=== PATIENT | female | born 1990 | race Caucasian/White ===

== ENCOUNTER 2024-10-01 02:10 | Observation (INO) | payer MEDICAID, SELFPAY ==
[2024-10-01] VITALS (39 sets, daily range): BP systolic 105–131; BP diastolic 63–95; PULSE 102–143; TEMP 36.7–37.1; O2SAT 86–99; BMI 36.8; BMI 39.0
--- NOTE | 2024-10-01 02:18 | XR_ITS ---
The [address] [address] Patient Name: MAYELA DOW MRN: [id number] date: 1990 Sex: F Assigned Patient Location: ED.MAIN Current Patient Location: ED.MAIN Accession/Order Number: [id number] Exam Date: 10/01/2024 02:30 Report Date: 10/01/2024 04:58 At the request of: ED RIGGS Procedure: XR chest 1V EXAMINATION: XR chest 1V HISTORY: SOB COMPARISON: No relevant comparison available. FINDINGS: LUNGS: No significant pulmonary parenchymal abnormalities. VASCULATURE: No increased pulmonary vasculature. PLEURA: No pneumothorax, effusion, or pleural thickening. CARDIAC: No cardiomegaly or cardiac silhouette abnormality. MEDIASTINUM: No visible mass or adenopathy. BONES: No fracture or visible bone lesion. OTHER: Negative. XR/XR chest 1V IMPRESSION: 1. No acute cardiopulmonary process. Electronically authenticated by: ONEIL PRICE Date: 10/01/2024 04:58
--- NOTE | 2024-10-01 02:18 | ECG_ITS ---
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
--- NOTE | 2024-10-01 02:23 | ED.SOB1 ---
HPI - SOB/Dyspnea General Chief Complaint: Overdose Time Seen by Provider: 10/01/24 02:17 Source: patient Mode of arrival: ambulance Limitations: no limitations History of Present Illness HPI Narrative: This 34-year-old transgender male, formerly female who now goes by Crew is brought to the emergency department from his parents home after he accidentally overdosed. The patient states he has a friend who uses heroin. He offered him some crack cocaine earlier today which he accepted. He states he has not used crack cocaine in a long time. He does go to drug and alcohol counseling with [facility] in [place]. The last thing the patient remembers is that he was going into her room and felt kind of dizzy. He was going to turn the television on and watch a show and then woke up with EMS above him. The patient does not smoke cigarettes. He states he has a history of severe asthma. According to EMS he was given intranasal Narcan and [id number] with clinical improvement in his mental status and awakened easily. They were suspicious that he may have aspirated because there was vomit in his nose and around his mouth. He was given a breathing treatment en route to the hospital but states his chest still feels tight. He denies any abdominal pain. He has no lower extremity pain or swelling. The patient's mother arrived shortly after he did. She states that he was unresponsive for approximately 30 minutes with snoring respirations, at 1 point he fell off of the bed. She noticed that there was blood coming from the nose and mouth and she called EMS and was told to put him in a recovery position. The patient admits that he had a large Thanksgiving dinner earlier in the day and had to pops at dinner, he then went to work and had 2 additional pops and then left work and went to [place] and had 2 monster drinks both which were sugar containing drinks. He admits that he is noncompliant with his Trulicity and metformin. I asked why and he stated because he is lazy. He did admit to 1 episode of vomiting after dinner because he states he ate so much. Related Data Home Medications ?Medication ?Instructions ?Recorded ?Confirmed albuterol sulfate 90 mcg/actuation 2 puff inhalation Q6H PRN 10/01/24 10/01/24 aerosol inhaler shortness of breath or wheezing aripiprazole 400 mg suspension, 400 mg IM Q28D 10/01/24 10/01/24 extended rel.intramuscular syringe (Steven Hernandez) buspirone 10 mg tablet 10 mg PO BID 10/01/24 10/01/24 dulaglutide 0.75 mg/0.5 mL 0.75 mg subcut .Weekly 10/01/24 10/01/24 subcutaneous pen injector (Trulicity) fluconazole 100 mg tablet mg 10/01/24 fluticasone propionate 50 intranasal 10/01/24 mcg/actuation nasal spray,suspension ipratropium 0.5 mg-albuterol 3 mg 2.5 ml inhalation DAILY 10/01/24 10/01/24 (2.5 mg base)/3 mL nebulization soln lamotrigine 25 mg tablet mg 10/01/24 sertraline 50 mg tablet mg 10/01/24 testosterone enanthate 50 mg/0.5 50 mg subcut Q7D 10/01/24 10/01/24 mL subcutaneous auto-injector (Xyosted) Allergies Allergy/AdvReac Type Severity Reaction Status Date / Time paroxetine (From Paxil) Allergy Anaphylaxis Verified 10/01/24 02:20 bupropion (From Wellbutrin) AdvReac Hallucinati Verified 10/01/24 02:20 ng Review of Systems ROS Status of ROS 10 or more systems reviewed and unremarkable except as noted in history and below PFSH PFSH Social History Little interest or pleasure in doing things: not at all Feeling down, depressed, or hopeless: not at all Exam Narrative Exam Narrative: Vital signs and Nursing Notes reviewed: Patient is afebrile, tachycardic, normal blood pressure, patient is hypoxic upon arrival with pulse ox in the 90s, pulse ox improved to 95 on 6 L nasal cannula General: Awake, alert, oriented, no acute distress, lying comfortably on the stretcher HEENT: Normocephalic atraumatic, mucous membranes are moist with dried blood in the oropharynx, no active bleeding or tongue contusion noted Neck: Supple, no meningeal signs Chest: Breath sounds are diminished with coarse anterior and upper lung field rhonchi and scattered rales, no accessory muscle use, patient is speaking complete sentences, he was notably hypoxic upon arrival with pulse ox in the 80s, he was placed on supplemental oxygen with improvement to 95% on 6 L nasal cannula CVS: Regular rate and rhythm S1-S2, tachycardic with pulse in the 130s, pulses are brisk and equal ABD: Soft, nondistended, nontender, no rebound guarding or rigidity, bowel sounds are normal, no pulsatile masses appreciated Extremities: Moving all extremities, no lower extremity tenderness or swelling noted, negative Homans' sign, pulses are brisk and equal bilaterally Skin: Normal in appearance without rash,pallor, petechiae or purpura, multiple tattoos Neuro: No focal deficits Constitutional Vital Signs, click to edit/add: Last Vital Signs Temp 98.7 F 10/01/24 02:13 Pulse 118 H 10/01/24 04:40 Resp 20 10/01/24 06:02 BP 111/70 10/01/24 04:30 Pulse Ox 96 10/01/24 04:40 O2 Del Method Nasal Cannula 10/01/24 04:34 O2 Flow Rate 6 10/01/24 04:34 Course Vital Signs Vital signs: Vital Signs Blood Pressure 118/95 H 10/01/24 02:09 Temperature 98.7 F 10/01/24 02:13 Pulse Rate 118 H 10/01/24 04:40 Respiratory Rate 20 10/01/24 06:02 Blood Pressure 111/70 10/01/24 04:30 Pulse Oximetry 96 10/01/24 04:40 Oxygen Delivery Method Nasal Cannula 10/01/24 04:34 Oxygen Delivery Flow Rate 6 10/01/24 04:34 MDM - SOB/Dyspnea MDM Narrative Medical decision making narrative: This 34-year-old transgender male is brought to the emergency department by EMS. His mother found him unresponsive in his bedroom after going to [employer] with some friends. He has a history of substance abuse but denies that he has been using any illicit substances for a period of time however today felt weak and agreed to use some crack cocaine. After using crack cocaine he became dizzy and unresponsive. His mother found him in his bedroom unresponsive. She could not wake him up for approximately 30 minutes at which time he fell off of the bed. She noticed that there was blood coming from his nose and/or mouth. According to EMS he required Narcan for resuscitation and some supplemental oxygen. They thought he may have aspirated due to the blood in the nose and mouth. There was no vomiting at the scene. The patient has a history of poorly controlled diabetes and medication noncompliance. Upon arrival he was awake alert oriented, he was noted to be hypoxic with pulse ox in the 80s. He was placed on supplemental oxygen with clinical improvement. He denies that he is cigarettes because of his history of asthma. Upon arrival he was tachycardic, hypoxic, chest x-ray was ordered that does not show any acute findings. EKG done upon arrival was a sinus tachycardia. An IV was placed and he was medicated with IV Solu-Medrol, DuoNeb treatment and IV fluids. Routine labs are reviewed. He has an elevated white count at 23. Hemoglobin is concentrated at 19. Lactic acid is elevated. Troponin is elevated at 66. Glucose is markedly elevated at 643 which may be a reflection of the dietary noncompliance and medication noncompliance that the patient admits to. Urine tox is positive for cocaine only. Liver function tests are normal. Due to the possibility of aspiration and elevated white count and tachycardia patient was empirically treated with with IV Zosyn for aspiration pneumonia. On reevaluation after a DuoNeb treatment the lungs continue to have coarse rhonchi but the patient appears to be breathing with less discomfort. In addition to the IV fluids 10 units of IV insulin was ordered for the hyperglycemia. I added on an acetone and venous pH to rule out DKA. Repeat troponin was also ordered. She has a normal acetone. pH is mildly low at 7.276, pCO2 is elevated at 53.8. Repeat troponin went up to 191. She was given 324 mg baby aspirin and additional IV fluids. Repeat lactic acid is also elevated at 4.3. 1 view chest x-ray was read by radiology and is negative for acute findings. Persistently tachycardic now with increasing lactic acidosis which may be related to her episode of respiratory distress during her overdose complicated by her tachycardia and hyperglycemia a CT scan of her chest was ordered to rule out other pathology contributing to these laboratory abnormalities. BNP is normal. CTA of the chest is pending at the time of this dictation. The case was discussed at length with Dr. Greer who has accepted the patient for admission Lab Data Attestation: I reviewed the patient's lab results. Labs: Lab Results 10/01/24 10/01/24 10/01/24 Range/Units 02:38 02:50 04:05 WBC 23.3 H (4.0-11.0) 10^3/uL RBC 6.57 H (4.20-5.40) 10^6/uL Hgb 19.2 H (12.0-16.0) g/dL Hct 57.9 H (36.0-48.0) % MCV 88.1 (81.0-99.0) fL MCH 29.2 (26.7-34.0) pg MCHC 33.2 (29.9-35.2) g/dL RDW 13.4 (11.0-15.0) % Plt Count 285 (150-450) 10^3/uL MPV 11.7 (9.5-13.5) fL Seg Neuts % (Manual) 89.0 H (43.0-75.0) Band Neutrophils % 1.0 (0-5) % Lymphocytes % (Manual) 3.0 L (20.5-60.0) % Monocytes % (Manual) 7.0 (1.7-12.0) % Eosinophils % (Manual) 0.0 L (0.9-7.0) % Basophils % (Manual) 0.0 L (0.2-2.0) % Neutrophils # (Manual) 20.73 H (1.4-6.5) 10^3/uL Band Neutrophils # 0.2 (0.0-0.3) 10^3/uL Lymphocytes # (Manual) 0.69 L (1.20-3.80) 10^3/uL Monocytes # (Manual) 1.63 H (0.30-0.80) 10^3/uL Eosinophils # (Manual) 0.00 (0.00-0.70) 10^3/uL Basophils # (Manual) 0.00 (0.00-0.10) 10^3/uL Toxic Vacuolation 3+ VBG pH 7.276 L (7.330-7.430) VBG pCO2 53.8 H (40.0-52.0) mmHg Sodium 134 L (136-145) mmol/L Potassium 4.2 (3.5-5.1) mmol/L Chloride 98 (98-107) mmol/L Carbon Dioxide 23.3 (21.0-32.0) mmol/L Anion Gap 16.9 BUN 10.0 (7.0-18.0) mg/dL Creatinine 1.41 H (0.55-1.02) mg/dL Est GFR ( Amer) 52 L (>=60 mL/min/1.73m^2) Est GFR (Non-Af Amer) 43 L (>=60 mL/min/1.73m^2) BUN/Creatinine Ratio 7.1 Glucose 643 H* (74-106) mg/dL Lactate 3.7 H* (0.4-2.0) mmol/L Calcium 9.4 (8.5-10.1) mg/dL Total Bilirubin 0.5 (0.2-1.0) mg/dL AST 23 (15-37) U/L ALT 40 (14-59) U/L Alkaline Phosphatase 122 H (46-116) U/L Troponin I High Sens 66.2 H* 191.9 H* (4.0-51.3) pg/mL NT-Pro-B Natriuret Pep 11.0 (<=450.0) pg/mL Total Protein 8.1 (6.4-8.2) g/dL Albumin 3.7 (3.4-5.0) g/dL Globulin 4.4 g/dL Albumin/Globulin Ratio 0.8 Urine Opiates Screen Negative (NEGATIVE) Ur Buprenorphine Scrn Negative (NEGATIVE) Ur Oxycodone Screen Negative (NEGATIVE) Urine Methadone Screen Negative (NEGATIVE) Ur Barbiturates Screen Negative (NEGATIVE) U Tricyclic Antidepress Negative (NEGATIVE) Ur Phencyclidine Scrn Negative (NEGATIVE) Ur Amphetamines Screen Negative (NEGATIVE) U Methamphetamines Scrn Negative (NEGATIVE) U Benzodiazepines Scrn Negative (NEGATIVE) Urine Cocaine Screen Positive A (NEGATIVE) U Cannabinoids Screen Negative (NEGATIVE) Acetone, Qual Negative (NEGATIVE) POC Glucose (74-106) mg/dL 10/01/24 10/01/24 Range/Units 04:50 06:15 WBC (4.0-11.0) 10^3/uL RBC (4.20-5.40) 10^6/uL Hgb (12.0-16.0) g/dL Hct (36.0-48.0) % MCV (81.0-99.0) fL MCH (26.7-34.0) pg MCHC (29.9-35.2) g/dL RDW (11.0-15.0) % Plt Count (150-450) 10^3/uL MPV (9.5-13.5) fL Seg Neuts % (Manual) (43.0-75.0) Band Neutrophils % (0-5) % Lymphocytes % (Manual) (20.5-60.0) % Monocytes % (Manual) (1.7-12.0) % Eosinophils % (Manual) (0.9-7.0) % Basophils % (Manual) (0.2-2.0) % Neutrophils # (Manual) (1.4-6.5) 10^3/uL Band Neutrophils # (0.0-0.3) 10^3/uL Lymphocytes # (Manual) (1.20-3.80) 10^3/uL Monocytes # (Manual) (0.30-0.80) 10^3/uL Eosinophils # (Manual) (0.00-0.70) 10^3/uL Basophils # (Manual) (0.00-0.10) 10^3/uL Toxic Vacuolation VBG pH (7.330-7.430) VBG pCO2 (40.0-52.0) mmHg Sodium (136-145) mmol/L Potassium (3.5-5.1) mmol/L Chloride (98-107) mmol/L Carbon Dioxide (21.0-32.0) mmol/L Anion Gap BUN (7.0-18.0) mg/dL Creatinine (0.55-1.02) mg/dL Est GFR ( Amer) (>=60 mL/min/1.73m^2) Est GFR (Non-Af Amer) (>=60 mL/min/1.73m^2) BUN/Creatinine Ratio Glucose (74-106) mg/dL Lactate 4.3 H* (0.4-2.0) mmol/L Calcium (8.5-10.1) mg/dL Total Bilirubin (0.2-1.0) mg/dL AST (15-37) U/L ALT (14-59) U/L Alkaline Phosphatase (46-116) U/L Troponin I High Sens (4.0-51.3) pg/mL NT-Pro-B Natriuret Pep (<=450.0) pg/mL Total Protein (6.4-8.2) g/dL Albumin (3.4-5.0) g/dL Globulin g/dL Albumin/Globulin Ratio Urine Opiates Screen (NEGATIVE) Ur Buprenorphine Scrn (NEGATIVE) Ur Oxycodone Screen (NEGATIVE) Urine Methadone Screen (NEGATIVE) Ur Barbiturates Screen (NEGATIVE) U Tricyclic Antidepress (NEGATIVE) Ur Phencyclidine Scrn (NEGATIVE) Ur Amphetamines Screen (NEGATIVE) U Methamphetamines Scrn (NEGATIVE) U Benzodiazepines Scrn (NEGATIVE) Urine Cocaine Screen (NEGATIVE) U Cannabinoids Screen (NEGATIVE) Acetone, Qual (NEGATIVE) POC Glucose 412 H (74-106) mg/dL ECG Data Attestation: I personally reviewed and interpreted this ECG as follows: (Rapid atrial rhythm at 133 bpm, nonspecific ST changes, normal axis, possible right ventricular hypertrophy, no acute ST segment elevation or T wave inversion) Critical Care Time Critical Care Time Total Critical Care Time: 40 Attestation: Due to the presentation and unstable vital signs and high probability of sudden clinically significant deterioration in the patient's condition he required the highest level of my preparedness to intervene urgently. I provided critical care time including documentation time medication orders and management reevaluation vital sign assessment ordering and reviewing of lab tests radiographic studies consultation with hospitalist and admission orders. Aggregate critical care time is 40 minutes including only time during which I was engaged in work directly related to this patient and did not spend time treating other patients simultaneously Discharge Plan Discharge Chief Complaint: Overdose Clinical Impression: Drug overdose, Cocaine intoxication, Hyperglycemia due to type 2 diabetes mellitus, Aspiration into respiratory tract, Hypoxia, Elevated troponin Patient Disposition: Admitted As Inpatient Time of Disposition Decision: 06:28 Condition: Serious Prescriptions / Home Meds: No Action albuterol sulfate 90 mcg/actuation HFA aerosol inhaler 2 puff INHALATION Q6H PRN (Reason: shortness of breath or wheezing) Abilify Maintena 400 mg suspension,extended rel syring 400 mg IM Q28D Rx Instructions: Monthly buspirone 10 mg tablet 10 mg PO BID Trulicity 0.75 mg/0.5 mL pen injector 0.75 mg SUBCUT .Weekly fluconazole 100 mg tablet fluticasone propionate 50 mcg/actuation spray,suspension INTRANASAL ipratropium-albuterol 0.5 mg-3 mg(2.5 mg base)/3 mL solution for nebulization 2.5 ml INHALATION DAILY lamotrigine 25 mg tablet sertraline 50 mg tablet Xyosted 50 mg/0.5 mL auto-injector 50 mg SUBCUT Q7D Print Language: Syriac Referrals: Physician,Non-Staff, [Physician] - 1 week
[2024-10-01] MEDS: IPRATROPIUM/ALBUTEROL SULFATE 3 ML AMPUL.NEB IH (02:30)
[2024-10-01 02:53] LABS: Hematocrit 57.9 % (36.0-48.0); Hemoglobin 19.2 g/dL (12.0-16.0); Mean Corpuscular HGB Conc 33.2 g/dL (29.9-35.2); Mean Corpuscular Hemoglobin 29.2 pg (26.7-34.0); Mean Corpuscular Volume 88.1 fL (81.0-99.0); Mean Platelet Volume 11.7 fL (9.5-13.5); Platelet Count 285 10^3/uL (150-450); Red Blood Count 6.57 10^6/uL (4.20-5.40); Red Cell Distribution Width 13.4 % (11.0-15.0); White Blood Count 23.3 10^3/uL (4.0-11.0)
[2024-10-01] MEDS: METHYLPREDNISOLONE SOD SUCC PF 125 MG/2 ML VIAL IVP (03:03)
[2024-10-01] MEDS: ONDANSETRON PF 4 MG/2 ML VIAL IV (03:03)
[2024-10-01] MEDS: LORAZEPAM 2 MG/ML VIAL 1 MG IV (03:03)
[2024-10-01] MEDS: 0.9 % SODIUM CHLORIDE 1,000 ML 1000 ML IV ×2 (03:03→06:07)
[2024-10-01 03:04] LABS: Band Neutrophils Absolute 0.2 10^3/uL (0.0-0.3); Lymphocytes Absolute Manual 0.69 10^3/uL (1.20-3.80); Monocytes Absolute Manual 1.63 10^3/uL (0.30-0.80); Segmented Neut Absolute Manual 20.73 10^3/uL (1.4-6.5)
[2024-10-01 03:05] LABS: Toxic Vacuolation 3+
[2024-10-01 03:12] LABS: Alanine Aminotransferase 40 U/L (14-59); Albumin Globulin Ratio 0.8; Albumin Level 3.7 g/dL (3.4-5.0); Alkaline Phosphatase 122 U/L (46-116); Anion Gap 16.9; Aspartate Amino Transferase 23 U/L (15-37); BUN Creatinine Ratio 7.1; Bilirubin Total 0.5 mg/dL (0.2-1.0); Calcium 9.4 mg/dL (8.5-10.1); Carbon Dioxide 23.3 mmol/L (21.0-32.0); Chloride 98 mmol/L (98-107); Estimated GFR (African America 52 (>=60 mL/min/1.73m^2); Estimated GFR (Non-African Ame 43 (>=60 mL/min/1.73m^2); Globulin 4.4 g/dL; Potassium 4.2 mmol/L (3.5-5.1); Sodium 134 mmol/L (136-145); Total Protein 8.1 g/dL (6.4-8.2)
[2024-10-01 03:15] LABS: Glucose 643 mg/dL (74-106); Lactate/Lactic Acid 3.7 mmol/L (0.4-2.0); Troponin I High Sensitivity 66.2 pg/mL (4.0-51.3)
[2024-10-01 03:23] LABS: Cocaine Screen Urine POSITIVE (NEGATIVE)
[2024-10-01 03:24] LABS: Amphetamine Screen Urine NEGATIVE (NEGATIVE); Barbiturates Screen Urine NEGATIVE (NEGATIVE); Benzodiazepines Screen Urine NEGATIVE (NEGATIVE); Buprenorphine Screen Urine NEGATIVE (NEGATIVE); Cannabinoid Screen Urine NEGATIVE (NEGATIVE); Methadone Screen Urine NEGATIVE (NEGATIVE); Methamphetamines Screen Urine NEGATIVE (NEGATIVE); Opiate Screen Urine NEGATIVE (NEGATIVE); Oxycodone Screen Urine NEGATIVE (NEGATIVE); Phencyclidine Screen Urine NEGATIVE (NEGATIVE); Tricyclic Antidepressant Urine NEGATIVE (NEGATIVE)
[2024-10-01 03:32] LABS: Acetone NEGATIVE (NEGATIVE)
[2024-10-01] MEDS: INSULIN REGULAR, HUMAN (100 UNIT/ML) 10 ML MDV 10 UNIT IV (03:48)
[2024-10-01] MEDS: PIPERACILLIN SODIUM/TAZOBACTAM 3.375 GM in 0.9 % SODIUM CHLORIDE 50 ML IV ×2 (03:49→10:41)
[2024-10-01] MEDS: ASPIRIN 81 MG TAB.CHEW 324 MG PO (03:49)
[2024-10-01 04:10] LABS: PCO2 VBG 53.8 mmHg (40.0-52.0); pH VBG 7.276 (7.330-7.430)
[2024-10-01] MEDS: LEVALBUTEROL HCL 1.25 MG/3 ML VIAL NEB IH (04:33)
[2024-10-01 04:40] LABS: Troponin I High Sensitivity 191.9 pg/mL (4.0-51.3)
[2024-10-01 05:17] LABS: Lactate/Lactic Acid 4.3 mmol/L (0.4-2.0)
--- NOTE | 2024-10-01 05:19 | CT_ITS ---
[address] [address] Patient Name: MAYELA DOW MRN: [id number] date: 1990 Sex: F Assigned Patient Location: ER Current Patient Location: ED.MAIN Accession/Order Number: [id number] Exam Date: 10/01/2024 05:45 Report Date: 10/01/2024 06:53 At the request of: ED MARKER Procedure: CT angio chest EXAMINATION: CT angio chest HISTORY: hypoxia, SOB COMPARISON: No relevant comparison available. TECHNIQUE: Multi-planar CT images were created with IV contrast. Axial, Coronal, and Sagittal images. Dose reduction techniques were achieved by using automated exposure control and/or adjustment of mA and/or kV according to patient size and/or use of iterative reconstruction technique. 3-D reconstruction was performed on a separate workstation. FINDINGS: VASCULATURE: No pulmonary embolism or abnormal opacity. LUNGS: Marked patchy and confluent opacities throughout the lungs, left greater than right. PLEURA: No mass, effusion, or pneumothorax. MARY: No mass or adenopathy. MEDIASTINUM: No mass or adenopathy. CARDIAC: No enlargement, pericardial effusion, or pericardial thickening. AORTA: No aneurysm or dissection. CHEST WALL: No mass or axillary adenopathy. BONES: No bone lesion or fracture. LIMITED ABDOMEN: No suspicious findings. Limited images of the upper abdomen. OTHER: Negative. CT/CT angio chest IMPRESSION: 1. No pulmonary embolism. 2. Marked bilateral pulmonary infiltrates; pulmonary edema is favored. Electronically authenticated by: ONEIL PRICE Date: 10/01/2024 06:53
--- NOTE | 2024-10-01 06:03 | PC.NURSE ---
Coarse crackles throughout.
[2024-10-01 06:16] LABS: Glucometer 412 mg/dL (74-106)
[2024-10-01 06:35] LABS: ABG PCO2 41.2 mmHg (35.0-45.0); Allen Test POSITIVE (POSITIVE); Base Excess ABG -3.8 mmol/L (-2.0-2.0); Oxygen Saturation ABG 99.3 %; pH ABG 7.336 (7.350-7.450)
[2024-10-01 06:36] LABS: Liters per Minute 6; O2 Mode NASAL CANNULA; Puncture Site R RADIAL
[2024-10-01] MEDS: FLUCONAZOLE 150 MG TABLET PO (07:13)
--- NOTE | 2024-10-01 08:00 | CA_ITS ---
Patient Name: MAYELA DOW MR#: [id number] : 1990 Exam Date: 10/01/2024 Ordering Doctor: Shaikh Pantera Greer . ECHOCARDIOGRAM REPORT PROCEDURE: CA ECHO DOPPLER COMPLETE INDICATIONS: acute CHF, elevated TROP COMPARISON: None. DESCRIPTION: COMPLETE ECHOCARDIOGRAM Real-time transthoracic echocardiography with 2D, M-mode, spectral and color flow Doppler performed. QUALITY: Technically difficult due to patients condition. LEFT VENTRICLE: Normal chamber size. Thickened septal wall. Systolic function is normal. LV EF: Normal left ventricular ejection fraction, (>55%). DIASTOLIC: Normal diastolic function. ATRIAL SEPTUM: LEFT ATRIUM: Normal chamber size. RIGHT ATRIUM: Normal chamber size. RIGHT VENTRICLE: Normal chamber size. Normal right ventricular systolic function. TRICUSPID VALVE: Normal mobility and thickness. No stenosis with no regurgitation. MITRAL VALVE: Normal mobility and thickness. No evidence of mitral valve stenosis. There is no mitral annular calcification. No mitral regurgitation. AORTIC VALVE: Normal trileaflet appearance. No visible sclerosis. Normal leaflet mobility. No evidence of aortic valve stenosis. No aortic regurgitation. AORTIC ROOT: Normal diameter and appearance. Ascending aorta is normal in size. PULMONIC VALVE: Normal thickness and mobility. No stenosis. No regurgitation. PERICARDIUM: No evidence of pericardial effusion. IVC: Not well visualized. PLEURA: CONCLUSION: 1. Technically difficult study with poor sound transmission. 2. Ventricular function is normal. LVEF is estimated at 55 to 60%. 3. No significant valvular dysfunction. 4. No pericardial effusion. Adult Echocardiography Procedure Report Left Ventricle LVEDD (3.7 - 5.6 cm): 3.45 cm, 3.63 cm LVESD (2.2 - 4.0 cm): 2.75 cm LVIVS thickness (0.6 - 1.2 cm): 1.24 cm, 1.36 cm LVPW thickness (0.5 - 1.0 cm): 1.04 cm e': 0.13 m/s E - e': 4.62 LVOT Max Gradient: 3.15 mm[Hg] LVOT Area (cm2): 0.89 m/s Peak Velocity (LVOT): 0.89 m/s Mean Velocity (LVOT): 0.59 m/s LVOT Diameter 2.16 cm Left Atrium Left Atrium Systolic Dimension: 3.07 cm Mitral Valve MV E to A Ratio: 0.75 Mitral Valve A-Wave Peak Velocity: 0.79 m/s Mitral Valve E-Wave Peak Velocity: 0.59 m/s Right Ventricle Aorta AO Root Diam: 3.29 cm Ascending Ao Diam: 2.77 cm Aortic Valve AoV Area (Peak Brad): 2.57 cm2, 2.57 cm2 AoV Area (VTI): 3.06 cm2, 3.06 cm2 Peak Velocity(Antegrade Flow): 1.27 m/s Peak Gradient(Antegrade Flow): 6.41 mm[Hg] Mean Velocity(Antegrade Flow): 0.80 m/s Mean Gradient(Antegrade Flow): 3.10 mm[Hg] Velocity Time Integral: 21.15 cm Tricuspid Valve Pulmonic Valve Mean Gradient: 1.50 mm[Hg] Mean Velocity: 0.57 m/s Peak Velocity: 0.86 m/s, 0.88 m/s Peak Gradient: 3.11 mm[Hg], 2.96 mm[Hg] Right Atrium Right Atrium Systolic Pressure: 43.64 ml, 43.64 ml Dictated by: Silvestre Duke M.D. on 10/01/2024 at 14:42 Approved by: Silvestre Duke M.D. on 10/01/2024 at 14:45
[2024-10-01 08:30] LABS: Estimated Average Glucose 243 mg/dL; Glycohemoglobin A1C 10.1 % (4.5-6.2)
[2024-10-01 08:40] LABS: Lactate/Lactic Acid 3.6 mmol/L (0.4-2.0); Troponin I High Sensitivity 654.6 pg/mL (4.0-51.3)
--- NOTE | 2024-10-01 09:02 | ECG_ITS ---
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
[2024-10-01] MEDS: HEPARIN SODIUM (PORCINE) 5,000 UNIT/ML VIAL 5000 UNIT SUBQ (09:12)
[2024-10-01 10:20] LABS: Partial Thromboplastin Time 28.5 sec (22.3-36.2)
--- NOTE | 2024-10-01 10:30 | CM.NOTE ---
Rounds made with Dr. Greer. Dr. Greer discussed lab results and elevated cardiac labs. Also discussed treatment plan & need for echo. Dr. Greer discussed that he will speak with cardiology regarding further care. Yenny Sheets) verbalized understanding. No discharge planned at present.
[2024-10-01] MEDS: HEPARIN SODIUM,PORCINE/D5W 25,000 UNIT/500 ML IV.SOLN 19.08 UNIT IV (10:34)
[2024-10-01] MEDS: NITROGLYCERIN 0.4 MG BOTTLE SL (10:34)
[2024-10-01] MEDS: HEPARIN SODIUM (PORCINE) 5,000 UNIT/ML VIAL 4000 UNIT IV (10:34)
[2024-10-01] MEDS: BUSPIRONE HCL 10 MG TABLET PO (10:34)
--- NOTE | 2024-10-01 10:34 | SWNOTE1 ---
SW met with pt to discuss dc needs. Pt is positive for Cocaine and did relapse. Pt voiced she does go to outpt drug and alcohol counseling in [place]. The patient is very pleased with the counselor. Pt voiced they will be very disappointed in them. SW provided re-assurance that pt will just need to move forward from this and it does happen. It was what the patient does from here. Pt voiced good support from parents as well. At this time no further resources are needed. SW did ask pt about insurance. Pt stated they have [place] Medicaid. Patient does not have card, but will try to have someone bring it in during stay. SW let case management know.
[2024-10-01] MEDS: MORPHINE SULFATE 2 MG/ML SYRINGE IV ×2 (10:39→14:44)
--- NOTE | 2024-10-01 10:52 | PC.NURSE ---
NTG 0.4 mg sl given with immediate complete relief of #5 chest pain
[2024-10-01] MEDS: INSULIN ASPART 300 UNIT/3 ML PEN SUBQ (11:13)
[2024-10-01 11:22] LABS: Glucometer 457 mg/dL (74-106)
--- NOTE | 2024-10-01 11:47 | PM.HP ---
HPI H&P: HPI History of Present Illness Chief complaint: ASPIRATION PNEUMONIA, HYPERGLYCEMIA, ELEVATED TROP Narrative: HPI and Hospital Course: 34-year-old transgender male was brought to the emergency department by EMS for Accidental drug overdose. Patient has hx of substance and has been sober for a few years. He previously used Heroine and Cocaine. Patient states that his friend offered him some crack cocaine earlier today which she smoked. He went home after using cocaine and after about 2 hours - he felt kind of lightheaded and then next thing he remembers is when EMT/EMS providing him care in his room. According to EMS report and patient's mother, patient was unresponsive for approximately 30 minutes with deep/snoring and slow breathing. He was he was given intranasal Narcan and ventilated with [id number] with rapid clinical improvement in his mental status and awakened easily. There was no loss of pulse or CPR. EMS was suspicious that he may have aspirated because there was vomit in and around patient's nose and mouth. He was given a breathing treatment en route to the hospital. Upon arrival, patient was on 6 L O2 via NC and stated that he felt chest tightness. He has been weaned off to 4 L O2 via NC and was 86% on RA just before I evaluated him this morning. He was experiencing midsternal chest tightness and mild dyspnea. Denied dizziness, resp distress, palpitations. No prior hx of CAD/CHF. Patient is also T2 DM and upon arrival his Blood glucose were >600, but he was not in DKA. He admits to not using his medications as prescribed because he is lazy Patient was initially admitted to med surg floor, subsequently transferred to ICU for close monitoring. Patient was started on ASA, IV Heparin in consultation with Cardiology. Patient was empirically treated for aspiration PNA with IV zosyn. ECHO to assess Cardiac structure is pending. Case d/w Cardiology who recommended transfer to [place] for higher level of care. Patient accepted for transfer to [facility] ICU. Patient is safe to transport and has a medical necessity for it as our facility is not capable for [facility] that this patient may end up needing for cardiac work up. Opioid HPI Opioid Management Most Recent Pain and Opioid Data: Last Pain Scale 2 10/01/24 12:00 10/01/24 Last Pain Assessment 10/01/24 13:00 Last MAR Pain Assessment 10/01/24 10:39 Last ORT Total Score 13 10/01/24 08:12 10/01/24 Last ORT Risk Category High Risk 10/01/24 08:12 10/01/24 Last COWS Score 9 10/01/24 02:20 10/01/24 Last COWS Severity Mild 10/01/24 02:20 10/01/24 Ur Phencyclidine Scrn Negative (NEGATIVE) 10/01/24 02:50 10/01/24 Review of Systems ROS Status of ROS 10 or more systems reviewed and unremarkable except as noted in history and below [facility] Medical History (Updated 10/01/24 @ 12:03 by Shaikh Zoey MD) Obesity ?E66.9 - Obesity, unspecified (ICD-10) [id number] transgender person ?Z78.9 - Other specified health status (ICD-10) Hormone replacement therapy ?Z79.890 - Hormone replacement therapy (ICD-10) Bipolar 2 disorder ?F31.81 - Bipolar II disorder (ICD-10) Asthma ?J45.909 - Unspecified asthma, uncomplicated (ICD-10) Diabetes ?E11.9 - Type 2 diabetes mellitus without complications (ICD-10) History of deviated nasal septum ?Z87.09 - Personal history of other diseases of the respiratory system (ICD-10) Eustachian tube disorder ?H69.90 - Unspecified Eustachian tube disorder, unspecified ear (ICD-10) Surgical History (Updated 10/01/24 @ 08:43 by Maile Alonzo, TEOFILO) History of tonsillectomy ?Z90.89 - Acquired absence of other organs (ICD-10) H/O tubal ligation ?Z98.51 - Tubal ligation status (ICD-10) Family History (Updated 10/01/24 @ 08:40 by Maile Alonzo, RN) Mother Family history of stroke Family history of diabetes mellitus Aunt Family history of diabetes mellitus Family history of cancer Grandmother Family history of diabetes mellitus Family history of cancer Grandfather Family history of cancer Social History (Updated 10/01/24 @ 12:00 by Shaikh Zoey MD) Within the past year, how often did you have a drink containing alcohol: never Score interpretation: A score less than 3 is consistent with normal alcohol consumption. Smoking status: Former smoker Non-prescribed substance use: crack/cocaine and opiods/painkillers Highest level of school completed/degree received: high school graduate Little interest or pleasure in doing things: not at all Feeling down, depressed, or hopeless: not at all Gender Identity: trans [id number] Meds Home Medications and Allergies Home Medications ?Medication ?Instructions ?Recorded ?Confirmed ?Type albuterol sulfate 90 mcg/actuation 2 puff inhalation Q6H PRN 10/01/24 10/01/24 History aerosol inhaler shortness of breath or wheezing aripiprazole 400 mg suspension, 400 mg IM Q28D 10/01/24 10/01/24 History extended rel.intramuscular syringe (Steven Hernandez) buspirone 10 mg tablet 10 mg PO BID 10/01/24 10/01/24 History dulaglutide 0.75 mg/0.5 mL 0.75 mg subcut .Weekly 10/01/24 10/01/24 History subcutaneous pen injector (Trulicity) ipratropium 0.5 mg-albuterol 3 mg 2.5 ml inhalation DAILY 10/01/24 10/01/24 History (2.5 mg base)/3 mL nebulization soln metformin 500 mg tablet,extended 1,000 mg PO BIDWM 10/01/24 10/01/24 History release 24 hr naproxen 500 mg tablet 500 mg PO BIDWM 10/01/24 10/01/24 History testosterone enanthate 75 mg/0.5 75 mg subcut Q7D 10/01/24 10/01/24 History mL subcutaneous auto-injector (Xyosted) Allergies Allergy/AdvReac Type Severity Reaction Status Date / Time paroxetine (From Paxil) Allergy Anaphylaxis Verified 10/01/24 02:20 bupropion (From Wellbutrin) AdvReac Hallucinati Verified 10/01/24 02:20 ng Exam Constitutional Vital Signs, click to edit/add: Last Vital Signs Temp 98.0 F 10/01/24 07:58 Pulse 108 H 10/01/24 09:50 Resp 20 10/01/24 07:58 BP 117/74 10/01/24 07:58 Pulse Ox 96 10/01/24 10:10 O2 Del Method Nasal Cannula 10/01/24 10:10 O2 Flow Rate 4 10/01/24 10:10 Documenting provider has reviewed patient's vital signs: yes Common normals: no apparent distress and oriented x3 General appearance: cooperative Nutritional appearance: obese HENMT Common normals: normocephalic and head/scalp atraumatic Head and scalp: normocephalic and atraumatic Eye Common normals: conjunctivae normal and no scleral icterus Conjunctiva: conjunctiva(e) normal Respiratory Common normals: normal respiratory effort Effort & inspection: able to speak in complete sentences Auscultation: bronchial breath sounds diffuse Cardio Common normals: S1 normal heart sound and S2 normal heart sound Rate: tachycardic Heart sounds: S1 normal and S2 normal GI Common normals: Normal to inspection, nondistended, normoactive bowel sounds present, soft to palpation, non-tender and no hepatosplenomegaly Palpation: soft and no hepatosplenomegaly Extremity Common normals: no clubbing, cyanosis or edema Neuro Common normals: oriented x3, moves all extremities and no focal motor deficits Psych Common normals: mental status grossly normal, denies hallucinations, denies homicidal ideation and denies suicidal ideation Results Labs Labs: Short CBC 10/01/24 Range/Units 02:38 WBC 23.3 H (4.0-11.0) 10^3/uL Hgb 19.2 H (12.0-16.0) g/dL Hct 57.9 H (36.0-48.0) % Plt Count 285 (150-450) 10^3/uL [facility] 10/01/24 02:38 Sodium 134 L Potassium 4.2 Chloride 98 Carbon Dioxide 23.3 BUN 10.0 Creatinine 1.41 H Glucose 643 H* Calcium 9.4 Liver Function 10/01/24 Range/Units 02:38 Total Bilirubin 0.5 (0.2-1.0) mg/dL AST 23 (15-37) U/L ALT 40 (14-59) U/L Alkaline Phosphatase 122 H (46-116) U/L Albumin 3.7 (3.4-5.0) g/dL ABG ABG results: 10/01/24 10/01/24 04:05 06:23 ABG pH 7.336 L ABG pCO2 41.2 ABG pO2 126.0 H ABG HCO3 22.0 ABG O2 Saturation 99.3 ABG Base Excess -3.8 L VBG pH 7.276 L VBG pCO2 53.8 H Assessment and Plan Assessment and Plan (1) Acute respiratory failure with hypoxia: Assessment and Plan: Pulse Ox 86% on RA, likely due to acute drug overdose, aspiration. Wean off O2 as tolerated. No evidence of PE on CTA. No definite consolidation as probably too early for radiological changes. Will empirically treat for aspiration pneumonia with IV zosyn (2) NSTEMI (non-ST elevated myocardial infarction): Assessment and Plan: Midsternal chest discomfort, non specific EKG changes with elevated troponin - 66--> 191 --> 654 --> 707 Started on PO Aspirin, IV heparin drip. Risk factors include obesity, T2 DM and Cocaine use. ECHO pending. Cardiology consulted - agree with IV heparin. Based on ECHO findings, may end up needing LHC. Patient needs higher level of care and recommended transfer to [place] Medical ICU. Patient accepted for transfer to [facility] Medical ICU BP stable and at goal. (3) Chest pain: Assessment and Plan: Mid sternal chest pain, with elevated troponin. Most likely due to Cocaine use Started on ASA, IV heparin. Trial of SL nitro. If no improvement, we may have to consider IV nitro Qualifiers: Chest pain type: chest pain due to myocardial ischemia Ischemic chest pain type: unstable angina pectoris Qualified Code(s): I20.0 - Unstable angina (4) Aspiration into airway: Assessment and Plan: Due to drug overdose. Pulmonary Edema on CTA. Coarse breath sounds on exam but no wheezing or resp distress. Empirically treating for Asp PnA with IV zosyn. Qualifiers: Encounter type: subsequent encounter Qualified Code(s): T17.908D - Unspecified foreign body in respiratory tract, part unspecified causing other injury, subsequent encounter (5) Drug overdose: Assessment and Plan: Patient thinks what he used was cocaine. UDS +ve for cocaine only. Its possible that cocaine was laced with opioids especially because he woke up with intranasal Narcan. Its also possible that patient had an acute cardiac event due to Cocaine use as there were about 2 hours lapsed b/w his drug use and his symptoms as one would expect opioid overdose to occur right after using it. Qualifiers: Encounter type: subsequent encounter Injury intent: accidental or unintentional Qualified Code(s): T50.901D - Poisoning by unspecified drugs, medicaments and biological substances, accidental (unintentional), subsequent encounter (6) Cocaine intoxication: Assessment and Plan: UDS positive for Cocaine. Back to baseline. No acute psychosis/agitation. Normal mental status. Counseled on cocaine abuse Qualifiers: Complication of substance-induced condition: uncomplicated Qualified Code(s): F14.920 - Cocaine use, unspecified with intoxication, uncomplicated (7) Hyperglycemia: Assessment and Plan: Due to non compliance. Received IV Regular insulin bolus in ED. A1C is 10. Started on Lantus 25 units qhs along with SSI. Hold metformin due to IV contrast use for CTA. Not in DKA. (8) LUCERO (acute kidney injury): Assessment and Plan: Normal renal function at baseline. Cr 1.4. Monitor for now. (9) Lactic acidosis: Assessment and Plan: due to hypoxia. Improving. (10) Diabetes: Assessment and Plan: Non compliant. Counseled on diet/lifestyle and medication compliance. A1C -10 Started on lantus/SSI. Qualifiers: Diabetes mellitus complication status: without complication Diabetes mellitus longterm insulin use: without longterm use Diabetes mellitus type: type 2 Qualified Code(s): E11.9 - Type 2 diabetes mellitus without complications (11) Bipolar 2 disorder: Assessment and Plan: c/w Abilify, buspirone. Stable mood. No SI/HI, (12) Asthma: Assessment and Plan: No active wheezing or bronchospasm noted. Use duonebs as needed. Qualifiers: Asthma complication type: unspecified Asthma persistence: intermittent Asthma severity: mild Qualified Code(s): J45.20 - Mild intermittent asthma, uncomplicated (13) Mhzsun-ar-skul transgender person: Assessment and Plan: On testosterone supplementation (14) Obesity: Assessment and Plan: Recommended lifestyle measures, healthy and improved diet. On Trulicity as outpatient that should help lose weight too. Qualifiers: Body mass index: BMI 39.0-39.9 Obesity classification: adult class 2 (BMI 35 - 39.9) Obesity type: due to excess calories Serious obesity comorbidity presence: without serious comorbidity Qualified Code(s): E66.812 - Obesity, class 2; E66.09 - Other obesity due to excess calories; Z68.39 - Body mass index [BMI] 39.0-39.9, adult
[2024-10-01 12:01] LABS: Troponin I High Sensitivity 707.4 pg/mL (4.0-51.3)
[2024-10-01] MEDS: FLU VAC QS 2024(6MS UP)CEL/PF 60 MCG/0.5 ML SYRINGE IM (14:07)
--- NOTE | 2024-10-01 14:52 | PC.NURSE ---
Report called to Velvet RED at [facility]. Pending transfer
== END 2024-10-01 15:29 | disposition short-term general hospital (02) ==
LOC: ER 06:30 → ICU 15:06 → MS 10-05 11:28
PROVIDERS: Admitting Provider Internal Medicine; Emergency Provider Emergency Medicine; PCP Family Medicine; Visit Provider Internal Medicine
DX: T50.901A Poisoning by unspecified drugs, medicaments and biological substances, accidental (unintentional), initial encounter (principal); I21.4 Non-ST elevation (NSTEMI) myocardial infarction; J69.0 Pneumonitis due to inhalation of food and vomit; E11.65 Type 2 diabetes mellitus with hyperglycemia; J96.01 Acute respiratory failure with hypoxia; F14.920 Cocaine use, unspecified with intoxication, uncomplicated; R07.9 Chest pain, unspecified; E66.9 Obesity, unspecified; Z91.148 Patient's other noncompliance with medication regimen for other reason; F64.0 Transsexualism; Z79.84 Long term (current) use of oral hypoglycemic drugs; Z79.85 Long-term (current) use of injectable non-insulin antidiabetic drugs; J45.909 Unspecified asthma, uncomplicated; Z68.39 Body mass index [BMI] 39.0-39.9, adult
CPT/HCPCS: 36415; 36600; 71045; 71275; 80053; 80307; 82009; 82800; 82805; 83036; 83605; 83880; 84484; 85007; 85027; 85730; 90674; 93005; 93306; 94640; 94761; 96361; 96365; 96375; 99285; G0378; J1644; J1817; J2060; J2270; J2405; J2543; J2919; Q9967

== ENCOUNTER 2024-11-22 15:37 | Outpatient (OUT) | payer MEDICAID, SELFPAY ==
--- OUTSIDE RECORDS SUMMARY | 2024-11-22 15:56 | XMS_ITS | CCD ---
Author Organization [facility] Care Team Providers Care Taffy Puller Name Role Phone Mo JACKSON Primary Care Physician Unavailable Primary Care Provider Unavailabl e Unavailable Primary Care Provider Unavailabl e Unavailable Primary Care Provider Unavailabl e DEFRODO, DR PLATT Primary Care Unavailable HOY ., DR WOOD Admitting Unavailable HOY ., DR WOOD Attending Unavailable HOY ., DR WOOD Consulting Unavailable MARKER ., DR WARD Consulting Unavailable DARAMOLATOSHIA Consulting Unavailable JAKOB ., DR MCNEILL Admitting Unavailable JAKOB ., DR MCNEILL Attending Unavailable DEFRANCE, DR PLATT Primary Care Unavailable STONEWALL, DR LC Panda Consulting Unavailable JAKOB ., DR MCNEILL Consulting Unavailable Unavailable Primary Care Provider Unavailrowena e Lc Wynn Primary Care Provider 1( [phone] Unavailable Primary Care Provider Unavailabl e Lc Wynn Primary Care Provider John Chang Admitting Unavailab John Weeks Attending Unavailab Lc Santos Primary Care Unavailable JOCELIN RHOADES Attending Unavailable SHAIKH MORALES Referring Unavailable ALI, RO LEONA Admitting Unavailable NIETO, RICARDO CHUL Attending Unavailable ALI, RO LEONA Referring Unavailable ALI, RO LEONA Referring Unavailable ALI, RO LEONA Referring Unavailable ALI, RO LEONA Referring Unavailable NIETO, RICARDO CHUL Referring Unavailable NIETO, RICARDO CHUL Referring Unavailable YANDEL ELDRIDGE Attending Unavailable LC WYNN Primary Care Unavaila GANESH Meade Referring Unavailable LC WYNN Primary Care Unavaila CAITLIN Cade Attending Unavailable LC WYNN Primary Care Unavaila ROLLY Mortensen Attending Unavailable LC WYNN Primary Care Unavaila ble LC WYNN Primary Care Unavaila GANESH Meade Attending Unavailable SHREYA MCCANN Attending Unavailable YANDEL ELDRIDGE Referring Unavailable YANDEL ELDRIDGE Referring Unavailable CHRISTINA CEBALLOS Attending Unavaila ble YANDEL ELDRIDGE Attending Unavailable YANDEL ELDRIDGE Attending Unavailable LC WYNN Primary Care Unavaila ble PATRICIA ORTEGA Attending Unavailable LC WYNN Primary Care Unavaila ble YANDEL ELDRIDGE Referring Unavailable LC WYNN Primary Care Unavaila ble Allergies Allergy Classification Reported Allergen(s) Allergy Type Date of Onset Reaction(s) Facility Aminoketones (1 source) buPROPion Drug Allergy 3 Anaphylaxis, Other: See Comments [facility] Serotonin Reuptake Inhibitors (SSRIs) (1 source) PARoxetine Drug Allergy 3 Anaphylaxis, Swelling [facility] (20 sources) buPROPion; Translations: [bupropion] Drug Allergy 3 Anaphylaxis, Other: See Comments [facility] (20 sources) PARoxetine; Translations: [paroxetine] Drug Allergy 3 Anaphylaxis, Swelling [facility] (1 source) buPROPion Drug Allergy 2 [facility] (1 source) PARoxetine Drug Allergy 4 [facility] (1 source) buPROPion Drug Allergy 4 [facility] (1 source) PARoxetine Drug Allergy 4 [facility] (1 source) buPROPion; Translations: [BUPROPION HCL] Drug Allergy 4 [facility] (1 source) PARoxetine; Translations: [PAROXETINE HCL] Drug Allergy 4 [facility] Medications Current Medications Medication Drug Class(es) Dates Sig (Normalized) Sig (Original) [id number] 200 actuat albuterol 0.09 mg/actuat metered dose inhaler (20 sources) beta2-Adrenergic Agonist Start: 04-08-2023 take 2 puff(s) by inhalation every six hours as needed for wheezing albuterol HFA (PROVENTIL HFA, VENTOLIN HFA) 90 mcg/actuation inhaler INHALE 2 PUFFS EVERY 6 HOURS NEEDED FOR WHEEZING 04/08/2023 Active Comment on above: INHALE 2 PUFFS EVERY 6 HOURS NEEDED FOR WHEEZING albuterol 0.833 mg/ml / ipratropium bromide 0.167 mg/ml inhalation solution (20 sources) Anticholinergic, beta2-Adrenergic Agonist Start: 04-23-2023 take 3 mL by inhalation every six hours as needed for wheezing ipratropium-albutero l (DUONEB) 0.5 mg-3 mg(2.5 mg base)/3 mL nebu INHALE 3 ML BY NEBULIZATION EVERY 6 HOURS NEEDED FOR WHEEZING. 04/23/2023 Active Comment on above: INHALE 3 ML BY NEBUL IZATION EVERY 6 HOURS NEEDED FOR WHEEZING. ARIPiprazole 400 mg extended release prefilled syringe (20 sources) Atypical Antipsychotic Start: 09-24-2022 ABILIFY MAINTENA 400 mg sers injection inject 1 400MG/1 ML PREFILLED SYRINGE intramuscularly every 30 DAYS 09/24/2022 Active Comment on above: inject 1 400MG/1 ML PREFILLED SYRINGE intramuscularly every 30 DAYS aspirin 81 mg delayed release oral tablet (6 sources) Platelet Aggregation Inhibitor, Nonsteroidal Anti-inflammatory Drug Start: 10-05-2024 End: 01-08-2025 aspirin, enteric coated (ASPIRIN, ENTERIC COATED) 81 mg EC tablet Take 81 mg by mouth. 10/05/2024 01/08/2025 Active atorvastatin 80 mg oral tablet (6 sources) HMG-CoA Reductase Inhibitor Start: 10-04-2024 End: 01-08-2025 atorvastatin (LIPITOR) 80 mg tablet Take 80 mg by mouth. 10/04/2024 01/08/2025 Active Blood-Glucose Meter (TRUE METRIX GLUCOSE METER) (20 sources) Start: 09-29-2023 Blood-Glucose Meter (TRUE METRIX GLUCOSE METER) Indications: Uncontrolled type 2 diabetes mellitus with hyperglycemia (HCC) 1 Each two times a day. 1 Each 09/29/2023 Active Start: 09-29-2023 Blood-Glucose Meter (TRUE METRIX GLUCOSE METER) Indications: Uncontrolled type 2 diabetes mellitus with hyperglycemia (HCC) 1 Each two times a day. 1 Each 0 09/29/2023 Active Comment on above: 1 Each two times a d ay. Blood-Glucose Sensor (FREESTYLE LUZ 3 SENSOR) rajiv (13 sources) Start: 05-10-2024 Blood-Glucose Sensor (FREESTYLE LUZ 3 SENSOR) rajiv Indications: Hypoglycemia associated with type 2 diabetes mellitus (HCC) 1 Each every 2 weeks. 6 Each 4 05/10/2024 Active Budesonide / formoterol (20 sources) Corticosteroid, beta2-Adrenergic Agonist Start: 04-04-2022 budesonide-formoterol (SYMBICORT) 160-4.5 mcg/actuation inhaler Inhale 2 Puffs as instructed. 04/04/2022 Active Start: 04-04-2022 budesonide-for moterol (SYMBICORT) 160-4.5 mcg/actuation inhaler Inhale 2 Puffs as instructed. 0 04/04/2022 Active Comment on above: Inhale 2 Puffs as in structed. busPIRone hydrochloride 30 mg oral tablet (20 sources) Start: take 1 tablet by mouth twice daily busPIRone HCl 30 mg tablet TAKE 1 TABLET BY MOUTH TWICE A DAY DIRECTED 10/30/2022 Active Comment on above: TAKE 1 TABLET BY ZONIA TH TWICE A DAY DIRECTED 0.5 ml dulaglutide 1.5 mg/ml auto-injector (20 sources) GLP-1 Receptor Agonist Start: End: inject 0.75 mg by subcutaneous injection every week dulaglutide (TRULICITY) 0.75 mg/0.5 mL pen injector Inject 0.75 mg subcutaneously one time a week. 2 mL 1 05/18/2024 Active Start: 06-04-2023 End: 08-27-2023 inject 1.5 mg by subcutaneous injection every week dulaglutide (TRULICITY) 1.5 mg/0.5 mL pen injector Indications: Type 2 diabetes mellitus without complication, without long-term current use of insulin (HCC) Inject 1.5 mg subcutaneously one time a week. 2 mL 2 06/04/2023 06/06/2023 Discontinued Start: 05-07-2023 End: 05-16-2023 inject 0.75 mg by subcutaneous injection every week dulaglutide (TRULICITY) 0.75 mg/0.5 mL pen injector Indications: Type 2 diabetes mellitus without complication, without long-term current use of insulin (HCC) Inject 0.75 mg subcutaneously one time a week. 4 Each 0 05/07/2023 05/16/2023 Discontinued (Course of therapy completed) Start: 10-17-2022 End: 04-24-2023 inject 0.75 mg by subcutaneous injection every week dulaglutide (TRULICITY) 0.75 mg/0.5 mL pen injector Indications: Type 2 diabetes mellitus without complication, without long-term current use of insulin (HCC) Inject 0.75 mg subcutaneously one time a week. 4 Each 2 10/17/2022 04/24/2023 Discontinued Comment on above: Inject 0.75 mg subcu taneously one time a week. Inject 1.5 mg subcut aneously one time a week. empagliflozin 10 mg oral tablet (20 sources) Sodium-Glucose Cotransporter 2 Inhibitor Start: End: take 1 tablet by mouth once daily at breakfast empagliflozin (JARDIANCE) 10 mg tablet Take 1 tablet by mouth daily with breakfast. 90 tablet 08/31/2024 Active famotidine 20 mg oral tablet (20 sources) Histamine-2 Receptor Antagonist Start: End: take 1 tablet by mouth twice daily famotidine (PEPCID) 20 mg tablet TAKE 1 TABLET BY MOUTH TWICE A DAY 180 tablet 1 03/18/2024 Active fluconazole 150 mg oral tablet (13 sources) Azole Antifungal Start: fluconazole (DIFLUCAN) 150 mg tablet Indications: Candidiasis Take 1 tablet by mouth every 72 hours. 2 tablet 05/10/2024 Active fluticasone propionate 0.05 mg/actuat metered dose nasal spray (20 sources) Corticosteroid Start: take 2 spray(s) nasal route once daily fluticasone (FLONASE) 50 mcg/actuation nasal spray Use 2 Sprays in each nostril once daily. 1 Each 07/03/2022 Active Comment on above: Use 2 Sprays in each nostril once daily. 3 ml insulin glargine 100 unt/ml pen injector (7 sources) Insulin Analog Start: End: insulin glargine (LANTUS SOLOSTAR U-100 INSULIN) 100 unit/mL (3 mL) Indications: Uncontrolled type 2 diabetes mellitus with hyperglycemia (HCC) take 60 units each night before bed 15 mL 3 10/13/2024 Active 3 ml insulin lispro 100 unt/ml pen injector (8 sources) Insulin Analog Start: insulin lispro (HUMALOG KWIKPEN) 100 unit/mL Indications: Uncontrolled type 2 diabetes mellitus with hyperglycemia (HCC) take 10 units with each meal + sliding scale. (up to 60 units daily) 30 mL 3 10/15/2024 Active Start: 10-12-2024 End: 10-15-2024 insulin lispro (HUMALOG KWIK PEN) 100 unit/mL Indications: Uncontrolled type 2 diabetes mellitus with hyperglycemia (HCC) Sliding scale with meals 3 times daily. If Blood Glucose (mg/dL) is 400 Call physician. 15 mL 3 10/13/2024 10/15/2024 Discontinued lamoTRIgine 100 mg oral tablet (20 sources) Mood Stabilizer, Anti-epileptic Agent Start: 10-20-2022 take 1 tablet by mouth once daily in the morning lamoTRIgine (LAMICTAL) 100 mg tablet TAKE 1 TABLET BY MOUTH EVERY DAY IN THE MORNING 10/20/2022 Active Comment on above: TAKE 1 TABLET BY ZONIA TH EVERY DAY IN THE MORNING levothyroxine sodium 0.05 mg oral tablet (20 sources) l-Thyroxine Start: 02-23-2024 End: 09-23-2024 take 1 tablet by mouth once daily levothyroxine (SYNTHROID) 50 mcg tablet Indications: Hypothyroidism, unspecified type TAKE 1 TABLET BY MOUTH ONCE DAILY [E03.9] 90 tablet 1 09/23/2024 Active magnesium oxide 400 mg oral tablet (6 sources) Start: 10-05-2024 End: 01-10-2025 magnesium oxide (MAG-OX) 400 mg (241.3 mg magnesium) tablet Take 400 mg by mouth. 10/05/2024 01/10/2025 Active 24 hr metFORMIN hydrochloride 500 mg extended release oral tablet (20 sources) Biguanide Start: 03-02-2024 take 2 tablets by mouth twice daily at mealtime metFORMIN ER (GLUCOPHAGE XR) 500 mg 24 hr tablet Indications: Uncontrolled type 2 diabetes mellitus with hyperglycemia (HCC) Take 2 tablets by mouth two times a day with meals. 120 tablet 11 03/02/2024 Active Start: 02-24-2023 End: 02-27-2024 take 2 tablets by mouth twice daily at mealtime metFORMIN ER (GLUCOPHAGE XR) 500 mg 24 hr tablet Indications: Uncontrolled type 2 diabetes mellitus with hyperglycemia (HCC) Take 2 tablets by mouth two times a day with meals. 120 tablet 11 09/29/2023 Active Start: 10-07-2022 take 1 tablet by zonia th twice daily at mealtime metFORMIN ER (GLUCOPHAGE XR) 500 mg 24 hr tablet Indications: Uncontrolled type 2 diabetes mellitus with hyperglycemia (HCC) Take 1 tablet by mouth twice daily with meals. 60 tablet 11 10/07/2022 Active Start: 01-29-2022 End: 02-12-2022 take 1 tablet by mouth twice daily metformin 500 mg oral tablet 500 mg = 1 tab(s), Oral, BID, X 14 day(s), # 28 tab(s), Refills(s) 0, Pharmacy: [facility]/pharmacy #[id number], 167.6, cm, 01/29/22 8:42:00 EDT, Height/Length Dosing, 124.5, kg, 01/29/22 8:42:00 EDT, Weight Dosing Start Date: 01/29/22 Stop Date: 02/12/22 Status: Ordered Start: 01-29-2022 End: 04-29-2022 take 1 tablet by mouth twice daily metFORMIN (GLUCOPHAGE) 1,000 mg tablet TAKE 1 TABLET BY MOUTH TWICE A DAY *START AFTER FINSIHED WITH 500MG 0 02/26/2022 Active Comment on above: TAKE 1 TABLET BY ZONIA TWICE A DAY *START AFTER FINSIHED WITH 500MG Take 1 tablet by zonia th twice daily with meals. Take 2 tablets by mo [facility] two times a day with meals. montelukast 10 mg oral tablet (20 sources) Leukotriene Receptor Antagonist Start: 021 montelukast (SINGULAIR) 10 mg tablet Take 10 mg by mouth. 11/18/2020 Active Comment on above: Take 10 mg by mouth. naproxen 500 mg oral tablet (6 sources) Nonsteroidal Anti-inflammatory Drug Start: 024 End: 025 naproxen (NAPROSYN) 500 mg tablet Take 500 mg by mouth. As needed 09/16/2024 01/14/2025 Active penicillin v potassium 500 mg oral tablet (6 sources) Start: penicillin V potassium 500 mg tablet 10/11/2024 Active sertraline 50 mg oral tablet (20 sources) Serotonin Reuptake Inhibitor Start: take 1 tablet by mouth once daily in the morning sertraline (ZOLOFT) 50 mg tablet TAKE 1 TABLET BY MOUTH EVERY DAY IN THE MORNING 08/27/2022 Active Comment on above: TAKE 1 TABLET BY ZONIA TH EVERY DAY IN THE MORNING Single Use Alcohol Pad (1 source) Start: Single Use Alcohol Pad Single Use Alcohol Pad, See Instructions, 100 EA, 1, Single Use Alcohol Pad - Use once daily prior to injection., [facility]/pharmacy #[id number], Supply, 167.6, cm, 01/29/22 8:42:00 EDT, Height/Length Dosing, 124.5, kg, 01/29/22 8:42:00 EDT, Weight Dosing Start Date: 01/29/22 Status: Ordered Symbicort 160/4.5 inhalation aerosol with adapter (1 source) Start: take 2 puff(s) by inhalation twice daily Symbicort 160/4.5 inhalation aerosol with adapter 2 puff(s), Inhalation, BID, Refill(s) 0 Start Date: 04/01/20 Status: Ordered 0.5 ml testosterone enanthate 150 mg/ml auto-injector (20 sources) Androgen Start: End: testosterone enanthate (XYOSTED) 75 mg/0.5 mL auto-injector Indications: Gender dysphoria in adult Inject 0.5 mL subcutaneously one time a week for 90 days. Taking .75 mgl weekly 4 Each 2 10/14/2024 01/12/2025 Active Start: 11-17-2023 End: 08-23-2024 testosterone enanthate (XYOS KEVIN) 75 mg/0.5 mL auto-injector Indications: Gender dysphoria in adult Inject 0.5 mL subcutaneously one time a week for 90 days. Taking .75 mgl weekly 4 Each 2 05/25/2024 Active Start: 08-14-2023 End: 11-12-2023 inject 50 mg by subcutaneous injection every week testosterone enanthate 50 mg/0.5 mL AutoInjector Indications: Gender dysphoria in adult Inject 50 mg subcutaneously one time a week for 90 days. 12 Each 0 08/14/2023 11/12/2023 Active Start: 02-14-2023 End: 08-14-2023 inject 0.25 mL by intramuscular injection every week testosterone cypionate (DEPO-TESTOSTERONE) 200 mg/mL injection Indications: Gender dysphoria in adult Inject 0.25 mL intramuscularly one time a week for 90 days. 4 mL 2 05/16/2023 08/14/2023 Discontinued (Course of therapy completed) Start: 11-11-2022 End: 02-09-2023 inject 0.25 mL by intramuscular injection every week testosterone cypionate (DEPO-TESTOSTERONE) 200 mg/mL injection Indications: Gender dysphoria in adult Inject 0.25 mL intramuscularly one time a week for 90 days. 4 mL 2 11/11/2022 02/09/2023 Active Comment on above: Inject 0.25 mL intra muscularly one time a week for 90 days. Inject 50 mg subcuta neously one time a week for 90 days. Inject 0.5 mL subcut aneously one time a week for 90 days. Completed/Discontinued Medications Medication Drug Class(es) Dates Sig (Normalized) Sig (Original) BLOOD GLUCOSE METER (1 source) Start: 01-29-2022 BLOOD GLUCOSE METER BLOOD GLUCOSE METER, See Instructions, 1 EA, 0, BLOOD GLUCOSE METER OF CHOICE, OR SPECIFIED BY INSURANCE. USE WITH METER ONCE DAILY. DX E11.9, [facility]/pharmacy #[id number], Supply, 167.6, cm, 01/29/22 8:42:00 EDT, Height/Length Dosing, 124.5, kg, 01/29/22 8:... Start Date: 01/29/22 Status: Ordered doxycycline hyclate 100 mg oral capsule (3 sources) Tetracycline-class Drug Start: 07-03-2022 End: 07-17-2022 take 1 capsule by mouth twice daily doxycycline hyclate (VIBRAMYCIN) 100 mg capsule Take 1 capsule by mouth twice daily for 14 days. 28 capsule 0 07/03/2022 07/17/2022 Comment on above: Take 1 capsule by [facility] twice daily for 14 days. glipiZIDE 5 mg oral tablet (18 sources) Sulfonylurea Start: 04-24-2023 End: 02-23-2024 take 1 tablet by mouth twice daily before mealtime glipiZIDE (GLUCOTROL) 5 mg tablet Indications: Type 2 diabetes mellitus without complication, without long-term current use of insulin (HCC) Take 1 tablet by mouth two times a day before meals. 60 tablet 5 09/29/2023 02/23/2024 Discontinued Comment on above: Take 1 tablet by zonia th twice daily before meals. Take 1 tablet by zonia th two times a day before meals. mupirocin 0.02 mg/mg topical ointment (19 sources) RNA Synthetase Inhibitor Antibacterial Start: 07-10-2022 End: 08-14-2023 mupirocin (BACTROBAN) 2 % ointment Please dispense seven 22g tubes . Patient will mix one tube of ointment into 1liter of normal saline and rinse nose and sinuses twice daily. 154 g 3 07/10/2022 08/14/2023 Discontinued (Course of therapy completed) Comment on above: Please dispense marleni n 22g tubes . Patient will mix one tube of ointment into 1liter of normal saline and rinse nose and sinuses twice daily. 0.25 mg, 0.5 mg dose 1.5 ml semaglutide 1.34 mg/ml pen injector (3 sources) Start: 10-07-2022 End: 10-17-2022 inject 0.5 mg by subcutaneous injection every week, then inject 0.25 mg by subcutaneous injection every week semaglutide (OZEMPIC) 0.25 mg or 0.5 mg(2 mg/1.5 mL) pen Indications: Uncontrolled type 2 diabetes mellitus with hyperglycemia (HCC) Inject 0.5 mg subcutaneously one time a week. First 4 weeks of first fill take 0.25 mg per week. 4 Each 1 10/07/2022 10/17/2022 Discontinued Comment on above: Inject 0.5 mg subcut aneously one time a week. First 4 weeks of first fill take 0.25 mg per week. sodium chloride 0.154 meq/ml irrigation solution (20 sources) Start: 07-10-2022 End: 08-14-2023 sodium chloride 0.9 % IRRIGATION Rinse wound twice daily. Dispense seven 1liter bottles. 7000 mL 6 07/26/2022 08/14/2023 Discontinued (Course of therapy completed) Comment on above: Rinse wound twice da ade. Dispense seven 1liter bottles. tirzepatide (MOUNJARO) 2.5 mg/0.5 mL pen injector (3 sources) Start: 04-24-2023 End: 05-07-2023 inject 2.5 mg by subcutaneous injection every week tirzepatide (MOUNJARO) 2.5 mg/0.5 mL pen injector Indications: Type 2 diabetes mellitus without complication, without long-term current use of insulin (HCC) Inject 2.5 mg subcutaneously one time a week. 4 Each 0 04/24/2023 05/07/2023 Discontinued (Not on Formulary) Start: 04-24-2023 inject 2.5 mg by sub cutaneous injection every week tirzepatide (MOUNJARO) 2.5 mg/0.5 mL pen injector Indications: Type 2 diabetes mellitus without complication, without long-term current use of insulin (HCC) Inject 2.5 mg subcutaneously one time a week. 4 Each 0 04/24/2023 Active Comment on above: Inject 2.5 mg subcut aneously one time a week. tirzepatide (MOUNJARO) 5 mg/0.5 mL pen injector (11 sources) Start: End: 023 inject 5 mg by subcutaneous injection every week tirzepatide (MOUNJARO) 5 mg/0.5 mL pen injector Indications: Type 2 diabetes mellitus without complication, without long-term current use of insulin (HCC) Inject 5 mg subcutaneously one time a week. 4 Each 0 06/06/2023 10/06/2023 Discontinued Start: 06-06-2023 inject 5 mg by subcu taneous injection every week tirzepatide (MOUNJARO) 5 mg/0.5 mL pen injector Indications: Type 2 diabetes mellitus without complication, without long-term current use of insulin (HCC) Inject 5 mg subcutaneously one time a week. 4 Each 0 06/06/2023 Active Start: 05-15-2023 End: 05-07-2023 inject 5 mg by subcutaneous injection every week tirzepatide (MOUNJARO) 5 mg/0.5 mL pen injector Indications: Type 2 diabetes mellitus without complication, without long-term current use of insulin (HCC) Inject 5 mg subcutaneously one time a week. 4 Each 0 05/15/2023 05/07/2023 Discontinued (Not on Formulary) Start: 05-15-2023 inject 5 mg by subcu taneous injection every week tirzepatide (MOUNJARO) 5 mg/0.5 mL pen injector Indications: Type 2 diabetes mellitus without complication, without long-term current use of insulin (HCC) Inject 5 mg subcutaneously one time a week. 4 Each 0 05/15/2023 Active Comment on above: Inject 5 mg subcutan eously one time a week. tirzepatide (MOUNJARO) 7.5 mg/0.5 mL pen injector (3 sources) Start: End: inject 7.5 mg by subcutaneous injection every week tirzepatide (MOUNJARO) 7.5 mg/0.5 mL pen injector Indications: Type 2 diabetes mellitus without complication, without long-term current use of insulin (HCC) Inject 7.5 mg subcutaneously one time a week. 4 Each 0 06/12/2023 05/07/2023 Discontinued (Not on Formulary) Start: 06-12-2023 inject 7.5 mg by sub cutaneous injection every week tirzepatide (MOUNJARO) 7.5 mg/0.5 mL pen injector Indications: Type 2 diabetes mellitus without complication, without long-term current use of insulin (HCC) Inject 7.5 mg subcutaneously one time a week. 4 Each 0 06/12/2023 Active Comment on above: Inject 7.5 mg subcut aneously one time a week. traZODone hydrochloride 100 mg oral tablet (20 sources) Serotonin Reuptake Inhibitor Start: 10-30-20 End: 02-23-20 take 1 tablet by mouth once daily at bedtime as needed for sleep traZODone (DESYREL) 100 mg tablet TAKE 1 TABLET BY MOUTH EVERY DAY AT BEDTIME NEEDED FOR SLEEP 0 10/30/2022 02/23/2024 Discontinued Comment on above: TAKE 1 TABLET BY ZONIA TH EVERY DAY AT BEDTIME NEEDED FOR SLEEP 24 hr venlafaxine 75 mg extended release oral capsule (15 sources) Serotonin and Norepinephrine Reuptake Inhibitor Start: 06-28-20 End: 05-16-20 23 take 1 capsule by mouth every twenty-four hours venlafaxine ER (EFFEXOR XR) 75 mg 24 hr capsule Take 75 mg by mouth. 0 06/28/2022 05/16/2023 Discontinued (Course of therapy completed) Comment on above: Take 75 mg by mouth. Problems Active Problems Problem Classification Problem Date Documented Date Episodic/Chronic Acute myocardial infarction (3 sources) Myocardial infarction; Translations: [Non-ST elevation (NSTEMI) myocardial infarction] Onset: 10-01-2024 10-15-2024 Chronic Anxiety disorders (20 sources) Generalized anxiety disorder; Translations: [Panic disorder] Onset: 10-14-2022 11-29-2020 Chronic Asthma (20 sources) Uncomplicated mild persistent asthma; Translations: [Asthma] Onset: 08-19-2022 11-18-2020 Chronic Diabetes mellitus with complications (12 sources) Hyperglycemia due to type 2 diabetes mellitus; Translations: [Type 2 diabetes mellitus with hyperglycemia] Onset: 01-29-2022 Chronic Diabetes mellitus without complication (20 sources) Type 2 diabetes mellitus without complication; Translations: [Type 2 diabetes mellitus without complications] Onset: 08-19-2022 10-14-2022 Chronic Diseases of white blood cells (2 sources) Leukocytosis; Translations: [Elevated white blood cell count, unspecified] Onset: 03-02-2024 03-02-2024 Chronic Disorders of lipid metabolism (20 sources) Hyperlipidemia; Translations: [Other hyperlipidemia] Onset: 11-08-2021 10-14-2022 Chronic Miscellaneous mental health disorders (14 sources) Gender identity disorder of adulthood; Translations: [Transsexualism] Onset: 05-21-2024 Chronic Mood disorders (20 sources) Mild recurrent major depression; Translations: [Major depressive disorder, recurrent, mild] Onset: 01-29-2022 Chronic Mycoses (1 source) Candidiasis; Translations: [Candidiasis, unspecified] 05-10-2024 Episodic Nonspecific chest pain (2 sources) Chest pain, unspecified; Translations: [Chest pain, unspecified] Onset: 10-01-2024 Episodic Other aftercare (5 sources) Taking high risk medication; Translations: [Other custodial (current) drug therapy] Episodic Other injuries and conditions due to external causes (1 source) Traumatic injury 02-15-2020 Episodic Other nutritional; endocrine; and metabolic disorders (1 source) Morbid obesity; Translations: [Morbid (severe) obesity due to excess calories] Onset: 01-29-2022 Chronic Other nutritional; endocrine; and metabolic disorders (20 sources) Body mass index 40+ - severely obese; Translations: [Morbid (severe) obesity due to excess calories] Onset: 10-07-2022 10-07-2022 Chronic Other nutritional; endocrine; and metabolic disorders (1 source) Obesity, unspecified; Translations: [OBESITY UNSPECIFIED] Onset: 08-19-2022 Chronic Other nutritional; endocrine; and metabolic disorders (1 source) Body mass index (BMI) 50.0-59.9, adult; Translations: [BODY MASS INDEX BMI 50.0-59.9 ADULT] Onset: 08-19-2022 Chronic Other nutritional; endocrine; and metabolic disorders (1 source) Severe obesity; Translations: [Morbid (severe) obesity due to excess calories] 02-23-2024 Chronic Other nutritional; endocrine; and metabolic disorders (2 sources) Hypomagnesemia; Translations: [Hypomagnesemia] Onset: 10-01-2024 Chronic Other nutritional; endocrine; and metabolic disorders (2 sources) Body mass index (BMI) 40.0-44.9, adult; Translations: [BMI 40.0-44.9, adult (HCC)] Onset: 02-23-2024 Chronic Other nutritional; endocrine; and metabolic disorders (1 source) Morbid (severe) obesity due to excess calories; Translations: [Class 3 severe obesity with body mass index (BMI) of 40.0 to 44.9 in adult, unspecified obesity type, unspecified whether serious comorbidity present (HCC)] Onset: 02-23-2024 Chronic Other skin disorders (1 source) Alopecia; Translations: [Androgenic alopecia, unspecified] 02-24-2024 Episodic Other upper respiratory disease (20 sources) Allergic rhinitis; Translations: [Allergic rhinitis, unspecified] Onset: 03-29-2021 10-14-2022 Chronic Other upper respiratory disease (1 source) Crusting on nose; Translations: [Other specified disorders of nose and nasal sinuses] Episodic Other upper respiratory infections (1 source) Chronic sinusitis; Translations: [Chronic sinusitis, unspecified] Chronic Residual codes; unclassified (1 source) Tobacco user; Translations: [Tobacco use] Onset: 01-29-2022 Episodic Residual codes; unclassified (1 source) Disturbance in sleep behavior; Translations: [Sleep disorder, unspecified] 02-23-2024 Episodic Thyroid disorders (5 sources) Hypothyroidism; Translations: [Hypothyroidism, unspecified] Onset: 10-12-2024 02-23-2024 Chronic Unclassified (1 source) ELEV LVLS LIVER TRANSAMINASE LVLS; Translations: [ELEV LVLS LIVER TRANSAMINASE LVLS] Onset: 08-19-2022 Unclassified (1 source) CONTACT W/AND (SUSP) EXPOS COVID-19; Translations: [CONTACT W/AND (SUSP) EXPOS COVID-19] Onset: 08-19-2022 Unclassified (1 source) OPENED IN ERROR Past or Other Problems Problem Classification Problem Date Documented Date Episodic/Chronic Immunizations and screening for infectious disease (20 sources) Patient encounter status; Translations: [Encounter for screening for infections with a predominantly sexual mode of transmission] Onset: 01-20-2024 01-20-2024 Episodic Nonmalignant breast conditions (4 sources) Unspecified lump in the right breast, lower inner quadrant; Translations: [UNS LUMP IN RT BRST LW INR QUADRANT] Onset: 09-20-2022 Episodic Other aftercare (1 source) Other custodial (current) drug therapy; Translations: [OTH DETENTION CURRENT DRUG THERAPY] Onset: 08-19-2022 Episodic Other aftercare (1 source) 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; Translations: [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] Onset: 08-19-2022 Episodic Other screening for suspected conditions (not mental disorders or infectious disease) (20 sources) Cancer cervix screening status; Translations: [Encounter for screening for malignant neoplasm of cervix] Onset: 01-20-2024 01-20-2024 Episodic Residual codes; unclassified (20 sources) Family history of breast cancer; Translations: [Family history of malignant neoplasm of breast] Onset: 09-25-2022 10-14-2022 Episodic Residual codes; unclassified (1 source) Family history of malignant neoplasm of breast; Translations: [FAMILY HX MALIG NEOPLASM OF BREAST] Onset: 09-25-2022 Episodic Residual codes; unclassified (1 source) Family history of malignant neoplasm of digestive organs; Translations: [FAM HX MALIG NEOPLASM DIGESTIV ORGN] Onset: 09-25-2022 Episodic Residual codes; unclassified (1 source) Patient's other noncompliance with medication regimen; Translations: [PT OTH NONCOMPLIANCE W/ MED REGIMEN] Onset: 08-19-2022 Episodic Screening and history of mental health and substance abuse codes (2 sources) Ex-cigarette smoker; Translations: [Personal history of nicotine dependence] Onset: 08-19-2022 07-18-2020 Episodic Comment on above: Added secondary to d ocumentation in Social History. Suicide and intentional self-inflicted injury (5 sources) Poisoning by selective serotonin reuptake inhibitors, intentional self-harm, initial encounter; Translations: [Poisoning by other antipsychotics and neuroleptics, intentional self-harm, initial encounter] Onset: 08-15-2022 Episodic Results Test Name Value Interpretation Reference Range Facil ity CNPNon 11-11-2024 CNPN Telephone ([employer]) MAYELA DAVIS ([id number]) 1990 F T Date Time Provider Department 11/11/24 PATRICIA ORTEGA ENDLKW During your visit today, we recorded the following information about you: Sindhu Black OCCA 11/11/2024 8:00 AM Signed Received fax from [facility] release of information form. Sent fax to scanning. Allergies As of Date: 11/11/2024 Noted Allergy Reaction PAROXETINE 11/10/2012 10 - Anaphylaxis 7 - Swelling Comments: tounge AND throat swelling tounge AND throat swelling BUPROPION 01/12/2013 10 - Anaphylaxis 14 - Other: See Comments Comments: hallucinations Date Reviewed: 10/15/2024 Reviewed by: Meera Jordan MA - Fully Assessed Reason for Visit: [facility] [Other] Prescriptions as of 11/11/2024 - insulin lispro (HUMALOG KWIKPEN) 100 unit/mL take 10 units with each meal + sliding scale. (up to 60 units daily) - testosterone enanthate (XYOSTED) 75 mg/0.5 mL auto-injector Inject 0.5 mL subcutaneously one time a week for 90 days. Taking .75 mgl weekly - insulin glargine (LANTUS SOLOSTAR U-100 INSULIN) 100 unit/mL (3 mL) take 60 units each night before bed - Insulin [place], Disposable, (PEN NEEDLE) 32 gauge x 5/32 Inject 1 Each subcutaneously every 24 hours. Give with each insulin administration 4 times daily - aspirin, enteric coated (ASPIRIN, ENTERIC COATED) 81 mg EC tablet Take 81 mg by mouth. - atorvastatin (LIPITOR) 80 mg tablet Take 80 mg by mouth. - magnesium oxide (MAG-OX) 400 mg (241.3 mg magnesium) tablet Take 400 mg by mouth. - naproxen (NAPROSYN) 500 mg tablet Take 500 mg by mouth. As needed - penicillin V potassium 500 mg tablet - levothyroxine (SYNTHROID) 50 mcg tablet TAKE 1 TABLET BY MOUTH ONCE DAILY [E03.9] - empagliflozin (JARDIANCE) 10 mg tablet Take 1 tablet by mouth daily with breakfast. - dulaglutide (TRULICITY) 0.75 mg/0.5 mL pen injector Inject 0.75 mg subcutaneously one time a week. - fluconazole (DIFLUCAN) 150 mg tablet Take 1 tablet by mouth every 72 hours. - Blood-Glucose Sensor (FREESTYLE LUZ 3 SENSOR) rajiv 1 Each every 2 weeks. - famotidine (PEPCID) 20 mg tablet TAKE 1 TABLET BY MOUTH TWICE A DAY - metFORMIN ER (GLUCOPHAGE XR) 500 mg 24 hr tablet Take 2 tablets by mouth two times a day with meals. - Blood-Glucose Meter (TRUE METRIX GLUCOSE METER) 1 Each two times a day. - blood sugar diagnostic (TRUE METRIX GLUCOSE TEST STRIP) test strip Use as instructed daily - Syringe with Needle, Disp, (BD LUER-LEODAN SYRINGE) 3 mL 21 gauge x 1 syrg 1 Each one time a week. - albuterol HFA (PROVENTIL HFA, VENTOLIN HFA) 90 mcg/actuation inhaler INHALE 2 PUFFS EVERY 6 HOURS NEEDED FOR WHEEZING - ipratropium-albuterol (DUONEB) 0.5 mg-3 mg(2.5 mg base)/3 mL nebu INHALE 3 ML BY NEBULIZATION EVERY 6 HOURS NEEDED FOR WHEEZING. - Syringe with Needle, Safety (BD ECLIPSE LUER-LEODAN) 3 mL 22 gauge x 1 1/2 1 Each one time a week. - sertraline (ZOLOFT) 50 mg tablet TAKE 1 TABLET BY MOUTH EVERY DAY IN THE MORNING - ABILIFY MAINTENA 400 mg sers injection inject 1 400MG/1 ML PREFILLED SYRINGE intramuscularly every 30 DAYS - lamoTRIgine (LAMICTAL) 100 mg tablet TAKE 1 TABLET BY MOUTH EVERY DAY IN THE MORNING - busPIRone HCl 30 mg tablet TAKE 1 TABLET BY MOUTH TWICE A DAY DIRECTED - montelukast (SINGULAIR) 10 mg tablet Take 10 mg by mouth. - budesonide-formoterol (SYMBICORT) 160-4.5 mcg/actuation inhaler Inhale 2 Puffs as instructed. - fluticasone (FLONASE) 50 mcg/actuation nasal spray Use 2 Sprays in each nostril once daily. Problem List As Of Date 11/11/2024 Noted Resolved Obesity, Class III, BMI 40-49.9 (morbid obesity*10/07/2022 Family history of malignant neoplasm of breast *09/25/2022 Type 2 diabetes mellitus without complications *08/19/2022 Allergic rhinitis [J30.9] 03/29/2021 Asthma [J45.909] 10/14/2022 Other hyperlipidemia [E78.49] 11/08/2021 S/P nasal septoplasty [Z98.890] 05/18/2019 Severe episode of recurrent major depressive di*10/14/2022 Anxiety [F41.9] 10/14/2022 Encounter for gynecological examination without*01/20/2024 Routine screening for STI (sexually transmitted* Cervical cancer screening [Z12.4] 01/20/2024 Need for HPV vaccination [Z23] 01/20/2024 Encounter Status:Closed by SINDHU BLACK on 11/11/24 [facility] Ari 10-15-2024 CNOV Office Visit (INTLKB ) RYANMAYELA ([id number]) 1990 F T Date Time Provider Department 10/15/24 1:40 PM YANDEL ELDRIDGE INTLKB During your visit today, we recorded the following information about you: Temperature Pulse Respiration Blood pressure 97.1 degrees 103/minute 16/minute 97/64 Weight 111.7 kg Yandel Eldridge PA-C 10/15/2024 3:05 PM Signed ESTABLISHED PATIENT Chief Complaint: Guero Davis is a 34 year old adult who presents today for a follow up visit. Subjective HPI PCP: Lc Wynn MD Last OV: 05/25/2024 with Yandel Eldridge PA-C PMH: gender dysphoria, T2DM, HLD, asthma, allergic rhinitis, MDD, anxiety, NSTEMI s/p cath on 10/04/24 #Gender Dysphoria Current Regiment: testosterone enanthate (0.5 mL) 75 mg weekly SQ injections Injection Day: Friday - auto-injector Has been on GAHT since 11/2022 Body changes: stable Has obtained labs prior to today's visit Denies obvious negative side effects Denies CP, SOB, heart palpitations, headaches, and leg swelling Recently had an PA Per chart review: NSTEMI (likely 2/2 to cocaine abuse) on 09/11/24 - underwent a cath that showed no blockages Pt's lab work was positive for cocaine Pt has been working towards sobriety but recently had a relapse - does follow with a counselor Feels a bit tired still Saw cardiology yesterday and has followed up with PCP Will be getting a sleep study done States he is taking is meds regularly now Gender Affirmation Care Goals Desires top surgery Weight loss - desires weight loss prior to top surgery and improved diabetic management- currently following with Dr. Mccann Name change More facial hair PAST MEDICAL HISTORY Diagnosis Date Anxiety disorder Asthma Bipolar 1 disorder (HCC) Diabetes mellitus (HCC) Eustachian tube dysfunction GERD (gastroesophageal reflux disease) Hyperglycemia Hyperlipidemia Leukocytosis PAST SURGICAL HISTORY Procedure Laterality Date EAR TUBES HX PAST SURGICAL HISTORY OF Bilateral 2016 Filshie clips REPAIR OF NASAL SEPTUM TONSILLECTOMY AND ADENOIDECTOMY No family history on file. Current Outpatient Medications Medication Sig Dispense Refill testosterone enanthate (XYOSTED) 75 mg/0.5 mL auto-injector Inject 0.5 mL subcutaneously one time a week for 90 days. Taking .75 mgl weekly 4 Each 2 insulin glargine (LANTUS SOLOSTAR U-100 INSULIN) 100 unit/mL (3 mL) take 60 units each night before bed 15 mL 3 Insulin [place], Disposable, (PEN NEEDLE) 32 gauge x 5/32 Inject 1 Each subcutaneously every 24 hours. Give with each insulin administration 4 times daily 150 Each 3 aspirin, enteric coated (ASPIRIN, ENTERIC COATED) 81 mg EC tablet Take 81 mg by mouth. atorvastatin (LIPITOR) 80 mg tablet Take 80 mg by mouth. magnesium oxide (MAG-OX) 400 mg (241.3 mg magnesium) tablet Take 400 mg by mouth. naproxen (NAPROSYN) 500 mg tablet Take 500 mg by mouth. As needed penicillin V potassium 500 mg tablet levothyroxine (SYNTHROID) 50 mcg tablet TAKE 1 TABLET BY MOUTH ONCE DAILY [E03.9] 90 tablet 1 dulaglutide (TRULICITY) 0.75 mg/0.5 mL pen injector Inject 0.75 mg subcutaneously one time a week. (Patient taking differently: Inject 1.5 mg subcutaneously one time a week.) 2 mL 1 Blood-Glucose Sensor (FREESTYLE LUZ 3 SENSOR) rajiv 1 Each every 2 weeks. 6 Each 4 metFORMIN ER (GLUCOPHAGE XR) 500 mg 24 hr tablet Take 2 tablets by mouth two times a day with meals. 120 tablet 11 Blood-Glucose Meter (TRUE METRIX GLUCOSE METER) 1 Each two times a day. 1 Each 0 blood sugar diagnostic (TRUE METRIX GLUCOSE TEST STRIP) test strip Use as instructed daily 100 Each 3 albuterol HFA (PROVENTIL HFA, VENTOLIN HFA) 90 mcg/actuation inhaler INHALE 2 PUFFS EVERY 6 HOURS NEEDED FOR WHEEZING ipratropium-albuterol (DUONEB) 0.5 mg-3 mg(2.5 mg base)/3 mL nebu INHALE 3 ML BY NEBULIZATION EVERY 6 HOURS NEEDED FOR WHEEZING. sertraline (ZOLOFT) 50 mg tablet TAKE 1 TABLET BY MOUTH EVERY DAY IN THE MORNING ABILIFY MAINTENA 400 mg sers injection inject 1 400MG/1 ML PREFILLED SYRINGE intramuscularly every 30 DAYS lamoTRIgine (LAMICTAL) 100 mg tablet TAKE 1 TABLET BY MOUTH EVERY DAY IN THE MORNING busPIRone HCl 30 mg tablet TAKE 1 TABLET BY MOUTH TWICE A DAY DIRECTED montelukast (SINGULAIR) 10 mg tablet Take 10 mg by mouth. budesonide-formoterol (SYMBICORT) 160-4.5 mcg/actuation inhaler Inhale 2 Puffs as instructed. insulin lispro (HUMALOG KWIKPEN) 100 unit/mL take 10 units with each meal + sliding scale. (up to 60 units daily) 30 mL 3 empagliflozin (JARDIANCE) 10 mg tablet Take 1 tablet by mouth daily with breakfast. (Patient not taking: Reported on 10/12/2024) 90 tablet 0 fluconazole (DIFLUCAN) 150 mg tablet Take 1 tablet by mouth every 72 hours. (Patient not taking: Reported on 05/25/2024) 2 tablet 0 famotidine (PEPCID) 20 mg tablet TAKE 1 TABLET (more content not included)... Normal [facility] 10-15-2024 JEOVANY Telephone (ENDBozenaKW) MAYELA DAVIS ([id number]) 1990 F T Date Time Provider Department 10/15/24 PATRICIA ORTEGA During your visit today, we recorded the following information about you: OscarRufina 10/15/2024 1:32 PM Signed Guero is calling Patricia Ortega APRN.[facility] today with concern regarding Patient Update Patient has been identified by name and birthdate. yes Duration of symptoms: N/A Person calling: self Call patient at: at home [phone] (home) [phone] (cell) Was an appointment scheduled: No Closing statement: Symptom Call: Thank you for calling [facility], your call is very important. A nurse will call in approximately 2-4 hours during business hours. If this is an emergency, please contact 911. Patient calling Patricia Ortega to let her know that Humalog and Lantus is not bringing her glucose numbers down; they are still ranging between 200-300. Please advise. Thank you, Patricia Julien APRN.KWAME 10/15/2024 2:05 PM Signed Please call the patient and let him know that I would like him to add a base dose to his Humalog with each meal. He should start with 10 units and add based on his glucose reading 3 times daily with meals. I.e- if blood sugar is 260 this evening before dinner, he would take 10 units (to cover the meal) and add 6 units according to the scale, for a total dose of 16 units. Continue Metformin, Trulicity, and Lantus as he is currently doing. Thank you- HOLLY Milton Lauren, RN 10/15/2024 3:33 PM Signed Message relayed- patient expressed understanding Allergies As of Date: 10/15/2024 Noted Allergy Reaction PAROXETINE 11/10/2012 10 - Anaphylaxis 7 - Swelling Comments: tounge AND throat swelling tounge AND throat swelling BUPROPION 01/12/2013 10 - Anaphylaxis 14 - Other: See Comments Comments: hallucinations Date Reviewed: 10/15/2024 Reviewed by: Meera Jordan MA - Fully Assessed Reason for Visit: Patient Update [1234] Visit Diagnosis:Uncontrolle d type 2 diabetes mellitus with hyperglycemia (HCC) [E11.65] Order(s):insulin lispro (HUMALOG KWIKPEN) 100 unit/mLtake 10 units with each meal + sliding scale. (up to 60 units daily)Disp: 30 mLRfl: 3 Prescriptions as of 10/15/2024 - insulin lispro (HUMALOG KWIKPEN) 100 unit/mL take 10 units with each meal + sliding scale. (up to 60 units daily) - testosterone enanthate (XYOSTED) 75 mg/0.5 mL auto-injector Inject 0.5 mL subcutaneously one time a week for 90 days. Taking .75 mgl weekly - insulin glargine (LANTUS SOLOSTAR U-100 INSULIN) 100 unit/mL (3 mL) take 60 units each night before bed - Insulin [place], Disposable, (PEN NEEDLE) 32 gauge x 5/32 Inject 1 Each subcutaneously every 24 hours. Give with each insulin administration 4 times daily - aspirin, enteric coated (ASPIRIN, ENTERIC COATED) 81 mg EC tablet Take 81 mg by mouth. - atorvastatin (LIPITOR) 80 mg tablet Take 80 mg by mouth. - magnesium oxide (MAG-OX) 400 mg (241.3 mg magnesium) tablet Take 400 mg by mouth. - naproxen (NAPROSYN) 500 mg tablet Take 500 mg by mouth. As needed - penicillin V potassium 500 mg tablet - levothyroxine (SYNTHROID) 50 mcg tablet TAKE 1 TABLET BY MOUTH ONCE DAILY [E03.9] - empagliflozin (JARDIANCE) 10 mg tablet Take 1 tablet by mouth daily with breakfast. - dulaglutide (TRULICITY) 0.75 mg/0.5 mL pen injector Inject 0.75 mg subcutaneously one time a week. - fluconazole (DIFLUCAN) 150 mg tablet Take 1 tablet by mouth every 72 hours. - Blood-Glucose Sensor (FREESTYLE LUZ 3 SENSOR) rajiv 1 Each every 2 weeks. - famotidine (PEPCID) 20 mg tablet TAKE 1 TABLET BY MOUTH TWICE A DAY - metFORMIN ER (GLUCOPHAGE XR) 500 mg 24 hr tablet Take 2 tablets by mouth two times a day with meals. - Blood-Glucose Meter (TRUE METRIX GLUCOSE METER) 1 Each two times a day. - blood sugar diagnostic (TRUE METRIX GLUCOSE TEST STRIP) test strip Use as instructed daily - Syringe with Needle, Disp, (BD LUER-LEODAN SYRINGE) 3 mL 21 gauge x 1 syrg 1 Each one time a week. - albuterol HFA (PROVENTIL HFA, VENTOLIN HFA) 90 mcg/actuation inhaler INHALE 2 PUFFS EVERY 6 HOURS NEEDED FOR WHEEZING - ipratropium-albuterol (DUONEB) 0.5 mg-3 mg(2.5 mg base)/3 mL nebu INHALE 3 ML BY NEBULIZATION EVERY 6 HOURS NEEDED FOR WHEEZING. - Syringe with Needle, Safety (BD ECLIPSE LUER-LEODAN) 3 mL 22 gauge x 1 1/2 1 Each one time a week. - sertraline (ZOLOFT) 50 mg tablet TAKE 1 TABLET BY MOUTH EVERY DAY IN THE MORNING - ABILIFY MAINTENA 400 mg sers injection inject 1 400MG/1 ML PREFILLED SYRINGE intramuscularly every 30 DAYS - lamoTRIgine (LAMICTAL) 100 mg tablet TAKE 1 TABLET BY MOUTH EVERY DAY IN THE MORNING - busPIRone HCl 30 mg tablet TAKE 1 TABLET BY MOUTH TWICE A DAY DIRECTED - montelukast (SINGULAIR) 10 mg tablet Take 10 mg by mouth. - budesonid (more content not included)... Normal [facility] Office Visiton 10-14-2024 Follow-up visit [id number] Mayela Davis 1990 F Date Provider Department Center 10/14/2024 [id number]-JOCELIN RHOADES ASHLEY [facility] Family History Problem Relation Age of Onset Stroke Mother Family Status - Relation Status Age at Mother Level of Service:09999 [place] OFFICE/OUTPATIENT ESTABLISHED MOD MDM 30 MIN Normal [facility] Sue 10-13-2024 JEOVANY Telephone (JORGE LUIS) MAYELA DAVIS ([id number]) 1990 F T Date Time Provider Department 10/13/24 PATRICIA ORTEGA During your visit today, we recorded the following information about you: Lakeisha Morse 10/13/2024 10:15 AM Signed Guero is calling Patricia Ortega APRN.CNP today with a Medication Problem Patient has been identified by name and birthdate. Duration of symptoms: N/A Person calling: self Call patient at: at home [phone] (home) [phone] (cell) Was an appointment scheduled: Yes: Date/Time: 11-11-2024 Closing statement: [facility] called patient and told them that office needs to call in a diagnosis code for the Lantus, Humalog and the needles, before they can fill the RX. e- [id number] [place] [address] - [address] [facility] - [phone] [address] [facility] [id number] Sindhu Antonio OCCA 10/13/2024 11:11 AM Signed Resent scripts to [facility] with diagnosis codes. Allergies As of Date: 10/13/2024 Noted Allergy Reaction PAROXETINE 11/10/2012 10 - Anaphylaxis 7 - Swelling Comments: tounge AND throat swelling tounge AND throat swelling BUPROPION 01/12/2013 10 - Anaphylaxis 14 - Other: See Comments Comments: hallucinations Date Reviewed: 10/12/2024 Reviewed by: Patricia Ortega APRN.[employer] - Fully Assessed Reason for Visit: Medication Problem [65] Prescriptions as of 10/13/2024 - aspirin, enteric coated (ASPIRIN, ENTERIC COATED) 81 mg EC tablet Take 81 mg by mouth. - atorvastatin (LIPITOR) 80 mg tablet Take 80 mg by mouth. - magnesium oxide (MAG-OX) 400 mg (241.3 mg magnesium) tablet Take 400 mg by mouth. - naproxen (NAPROSYN) 500 mg tablet Take 500 mg by mouth. As needed - penicillin V potassium 500 mg tablet - insulin glargine (LANTUS SOLOSTAR U-100 INSULIN) 100 unit/mL (3 mL) take 60 units each night before bed - Insulin [place], Disposable, (PEN NEEDLE) 32 gauge x 5/32 Inject 1 Each subcutaneously every 24 hours. Give with each insulin administration 4 times daily - insulin lispro (HUMALOG KWIKPEN) 100 unit/mL Sliding scale with meals 3 times daily. If Blood Glucose (mg/dL) is <110 Give 0 units 111-150 Give 0 units 151-200 Give 2 unit 201-250 Give 4 units 251-300 Give 6 units 301-350 Give 8 units 351-400 Give 10 units >400 Call physician. - levothyroxine (SYNTHROID) 50 mcg tablet TAKE 1 TABLET BY MOUTH ONCE DAILY [E03.9] - empagliflozin (JARDIANCE) 10 mg tablet Take 1 tablet by mouth daily with breakfast. - testosterone enanthate (XYOSTED) 75 mg/0.5 mL auto-injector Inject 0.5 mL subcutaneously one time a week for 90 days. Taking .75 mgl weekly - dulaglutide (TRULICITY) 0.75 mg/0.5 mL pen injector Inject 0.75 mg subcutaneously one time a week. - fluconazole (DIFLUCAN) 150 mg tablet Take 1 tablet by mouth every 72 hours. - Blood-Glucose Sensor (FREESTYLE LUZ 3 SENSOR) rajiv 1 Each every 2 weeks. - famotidine (PEPCID) 20 mg tablet TAKE 1 TABLET BY MOUTH TWICE A DAY - metFORMIN ER (GLUCOPHAGE XR) 500 mg 24 hr tablet Take 2 tablets by mouth two times a day with meals. - Blood-Glucose Meter (TRUE METRIX GLUCOSE METER) 1 Each two times a day. - blood sugar diagnostic (TRUE METRIX GLUCOSE TEST STRIP) test strip Use as instructed daily - Syringe with Needle, Disp, (BD LUER-LEODAN SYRINGE) 3 mL 21 gauge x 1 syrg 1 Each one time a week. - albuterol HFA (PROVENTIL HFA, VENTOLIN HFA) 90 mcg/actuation inhaler INHALE 2 PUFFS EVERY 6 HOURS NEEDED FOR WHEEZING - ipratropium-albuterol (DUONEB) 0.5 mg-3 mg(2.5 mg base)/3 mL nebu INHALE 3 ML BY NEBULIZATION EVERY 6 HOURS NEEDED FOR WHEEZING. - Syringe with Needle, Safety (BD ECLIPSE LUER-LEODAN) 3 mL 22 gauge x 1 1/2 1 Each one time a week. - sertraline (ZOLOFT) 50 mg tablet TAKE 1 TABLET BY MOUTH EVERY DAY IN THE MORNING - ABILIFY MAINTENA 400 mg sers injection inject 1 400MG/1 ML PREFILLED SYRINGE intramuscularly every 30 DAYS - lamoTRIgine (LAMICTAL) 100 mg tablet TAKE 1 TABLET BY MOUTH EVERY DAY IN THE MORNING - busPIRone HCl 30 mg tablet TAKE 1 TABLET BY MOUTH TWICE A DAY DIRECTED - montelukast (SINGULAIR) 10 mg tablet Take 10 mg by mouth. - budesonide-formoterol (SYMBICORT) 160-4.5 mcg/actuation inhaler Inhale 2 Puffs as instructed. - fluticasone (FLONASE) 50 mcg/actuation nasal spray Use 2 Sprays in each nostril once daily. Problem List As Of Date 10/13/2024 Noted Resolved Obesity, Class III, BMI 40-49.9 (morbid obesity*10/07/2022 Family history of malignant neoplasm of breast *09/25/2022 Type 2 diabetes mellitus without complications *08/19/2022 Allergic rhinitis [J30.9] 03/29/2021 Asthma [J45.909] 10/14/2022 Other hyperlipidemia [E78.49] 11/08/2021 S/P nasal septoplasty [Z98.890] 05/18/2019 Severe episode of recurrent major depressive di*10/14/2022 Anxiety [F41.9] 10/14/2022 En (more content not included)... Normal [facility] CBC W Auto Differential pane l (Bld)on 10-12-2024 Basophils (Bld) [#/Vol] 0.08 10*3/uL Normal <0.11 [facility] Comment on above: Order Comment: Speci men Type: URINE SPECIMEN Ordering Facility: [facility] Address: [address] [place] [address] Performed By: #### U ACR #### [facility] CLIA [id number] [address] [place] [address] [place] Basophils/100 WBC (Bld) 0.5 % Normal [facility] Comment on above: Order Comment: Speci men Type: URINE SPECIMEN Ordering Facility: [facility] Address: [address] [place] [address] Performed By: #### U ACR #### [facility] CLIA [id number] [address] [place] [address] [place] Differential cell count method Nom (Bld) Auto Normal [facility] Comment on above: Order Comment: Speci men Type: URINE SPECIMEN Ordering Facility: [facility] Address: [address] [place] [address] Performed By: #### U ACR #### [facility] CLIA [id number] [address] [place] [address] [place] Eosinophils (Bld) [#/Vol] 0.18 10*3/uL Normal <0.46 [facility] Comment on above: Order Comment: Speci men Type: URINE SPECIMEN Ordering Facility: [facility] Address: [address] [place] [address] Performed By: #### U ACR #### [facility] CLIA [id number] [address] [place] [address] [place] Eosinophils/100 WBC (Bld) 1.2 % Normal [facility] Comment on above: Order Comment: Speci men Type: URINE SPECIMEN Ordering Facility: [facility] Address: [address] [place] [address] Performed By: #### U ACR #### [facility] CLIA [id number] [address] [place] [address] [place] Erythrocyte distribution width (RBC) [Ratio] 13.7 % Normal 11.5-15.0 [facility] Comment on above: Order Comment: Speci men Type: URINE SPECIMEN Ordering Facility: [facility] Address: [address] [place] [address] Performed By: #### U ACR #### [facility] CLIA [id number] [address] [place] [address] [place] Hematocrit (Bld) [Volume fraction] 51.9 % High 39.0-51.0 [facility] Comment on above: Order Comment: Speci men Type: URINE SPECIMEN Ordering Facility: [facility] Address: [address] [place] [address] Performed By: #### U ACR #### [facility] CLIA [id number] [address] [place] [address] [place] Hemoglobin (Bld) [Mass/Vol] 16.7 g/dL Normal 13.0-17.0 [facility] Comment on above: Order Comment: Speci men Type: URINE SPECIMEN Ordering Facility: [facility] Address: [address] [place] [address] Performed By: #### U ACR #### [facility] CLIA [id number] [address] [place] [address] [place] Immature granulocytes (Bld) [#/Vol] 0.11 10*3/uL High <0.10 [facility] Comment on above: Order Comment: Speci men Type: URINE SPECIMEN Ordering Facility: [facility] Address: [address] [place] [address] Performed By: #### U ACR #### [facility] CLIA [id number] [address] [place] [address] [place] Immature granulocytes/100 WBC (Bld) 0.7 % Normal [facility] Comment on above: Order Comment: Speci men Type: URINE SPECIMEN Ordering Facility: [facility] Address: [address] [place] [address] Performed By: #### U ACR #### [facility] CLIA [id number] [address] [place] [address] [place] Lymphocytes (Bld) [#/Vol] 3.17 10*3/uL Normal 1.00-4.00 [facility] Comment on above: Order Comment: Speci men Type: URINE SPECIMEN Ordering Facility: [facility] Address: [address] [place] [address] Performed By: #### U ACR #### [facility] CLIA [id number] [address] [place] [address] [place] Lymphocytes/100 WBC (Bld) 21.0 % Normal [facility] Comment on above: Order Comment: Speci men Type: URINE SPECIMEN Ordering Facility: [facility] Address: [address] [place] [address] Performed By: #### U ACR #### [facility] CLIA [id number] [address] [place] [address] [place] MCH (RBC) [Entitic mass] 29.2 pg Normal 26.0-34.0 [facility] Comment on above: Order Comment: Speci men Type: URINE SPECIMEN Ordering Facility: [facility] Address: [address] [place] [address] Performed By: #### U ACR #### [facility] CLIA [id number] [address] [place] [address] [place] MCHC (RBC) [Mass/Vol] 32.2 g/dL Normal 30.5-36.0 [facility] Comment on above: Order Comment: Speci men Type: URINE SPECIMEN Ordering Facility: [facility] Address: [address] [place] [address] Performed By: #### U ACR #### [facility] CLIA [id number] [address] [place] [address] [place] MCV (RBC) [Entitic vol] 90.7 fL Normal 80.0-100.0 [facility] Comment on above: Order Comment: Speci men Type: URINE SPECIMEN Ordering Facility: [facility] Address: [address] [place] [address] Performed By: #### U ACR #### [facility] CLIA [id number] [address] [place] [address] [place] Monocytes (Bld) [#/Vol] 0.78 10*3/uL Normal <0.87 [facility] Comment on above: Order Comment: Speci men Type: URINE SPECIMEN Ordering Facility: [facility] Address: [address] [place] [address] Performed By: #### U ACR #### [facility] CLIA [id number] [address] [place] [address] [place] Monocytes/100 WBC (Bld) 5.2 % Normal [facility] Comment on above: Order Comment: Speci men Type: URINE SPECIMEN Ordering Facility: [facility] Address: [address] [place] [address] Performed By: #### U ACR #### [facility] CLIA [id number] [address] [place] [address] [place] Neutrophils (Bld) [#/Vol] 10.75 10*3/uL High 1.45-7.50 [facility] Comment on above: Order Comment: Speci men Type: URINE SPECIMEN Ordering Facility: [facility] Address: [address] [place] [address] Performed By: #### U ACR #### [facility] CLIA [id number] [address] [place] [address] [place] Neutrophils/100 WBC (Bld) 71.4 % Normal [facility] Comment on above: Order Comment: Speci men Type: URINE SPECIMEN Ordering Facility: [facility] Address: [address] [place] [address] Performed By: #### U ACR #### [facility] CLIA [id number] [address] [place] [address] [place] Nucleated RBC (Bld) [#/Vol] 10*3/uL Normal <0.01 [facility] Comment on above: Order Comment: Speci men Type: URINE SPECIMEN Ordering Facility: [facility] Address: [address] [place] [address] Performed By: #### U ACR #### [facility] CLIA [id number] [address] [place] [address] [place] Nucleated RBC/100 WBC (Bld) [Ratio] 0.0 /100 WBC Normal [facility] Comment on above: Order Comment: Speci men Type: URINE SPECIMEN Ordering Facility: [facility] Address: [address] [place] [address] Performed By: #### U ACR #### [facility] CLIA [id number] [address] [place] [address] [place] Platelet mean volume (Bld) [Entitic vol] 12.5 fL Normal 9.0-12.7 [facility] Comment on above: Order Comment: Speci men Type: URINE SPECIMEN Ordering Facility: [facility] Address: [address] [place] [address] Performed By: #### U ACR #### [facility] CLIA [id number] [address] [place] [address] [place] Platelets (Bld) [#/Vol] 232 10*3/uL Normal 150-400 [facility] Comment on above: Order Comment: Speci men Type: URINE SPECIMEN Ordering Facility: [facility] Address: [address] [place] [address] Performed By: #### U ACR #### [facility] CLIA [id number] [address] [place] [address] [place] RBC (Bld) [#/Vol] 5.72 10*6/uL Normal 4.20-6.00 [facility] Comment on above: Order Comment: Speci men Type: URINE SPECIMEN Ordering Facility: [facility] Address: [address] [place] [address] Performed By: #### U ACR #### [facility] CLIA [id number] [address] [place] [address] [place] WBC (Bld) [#/Vol] 15.07 10*3/uL High 3.70-11.00 [facility] Comment on above: Order Comment: Speci men Type: URINE SPECIMEN Ordering Facility: [facility] Address: [address] [place] [address] Performed By: #### U ACR #### [facility] CLIA [id number] [address] [place] [address] [place] CNOVon 10-12-2024 CNOV Office Visit (ENDLKW ) MAYELA DAVIS ([id number]) 1990 F T Date Time Provider Department 10/12/24 1:00 PM PATRICIA ORTEGA During your visit today, we recorded the following information about you: Pulse Blood pressure Weight 98/minute 112/78 109.7 kg Patricia Ortega, LORRIE.WHEEL BLOCKER 10/12/2024 1:55 PM Signed Endocrinology Follow-up History of Present Illness Mayela Davis is a 34 year old transgender adult presents today for follow up of DM Type 2 and obesity. New diagnosis of hypothyroidism 02/2024. LT4 50mcg daily was started at last OV with Caitlin Ramesh, WHEEL BLOCKER 05/10/24. He reports proper administration, however has not obtained repeated labs. Since last visit he was hospitalized 10/01/2024 for PA. He is now on statin therapy. Pt reports that blood sugars have remained elevated since and was experiencing symptomatic hyperglycemia at that time. Pt reports BG > 600mg/dl at time of admission, was treated with RHI gtt then basal/bolus, however was not continued at discharge. Blood sugars remain elevated globally Hgb A1c up to 10.4% in the office today. Prior AOM: Ozempic- diarrhea Jardiance- recurrent yeast infections Mounjaro- tolerated well, changed to Trulicity d/t insurance Date of Diagnosis: 2020 Last HbA1c: Hemoglobin A1C (%) Date Value 01/20/2024 11.3 05/15/2023 10.7 Hemoglobin A1C (POCT) (%) Date Value 05/10/2024 9.2 10/07/2022 7.6 Complications Microvascular: albuminuria Macrovascular: s/p PA Health Maintenance Topics Topic Date Due Dilated Retinal Exam 04/03/2024 CGM: See attached Summary of Personal CGM Findings: 1. Time in range is not at target. 2. Coefficient of variation 14.9% 3. Time spent in hypoglycemia is at target. * Hypoglycemia patterns: none *Nocturnal hypoglycemia was not noted 4- Time spent in hyperglycemia is above target (100%) * Hyperglycemia patterns: globally Current DM Related Medications: Current Medications 10/12/2024 DIABETES THERAPIES Medication Dosage Pharm Subclass dulaglutide (TRKRISHNAITY) 0.75 mg/0.5 mL pen injector Inject 0.75 mg subcutaneously one time a week. Antihyperglycemic - Glucagon-Like Peptide-1 (GLP-1) Receptor Agonists empagliflozin (MICHELLEANCE) 10 mg tablet Take 1 tablet by mouth daily with breakfast. Antihyperglycemic - Sodium Glucose Cotransporter-2 (SGLT2) Inhibitors metFORMIN ER (GLUCOPHAGE XR) 500 mg 24 hr tablet Take 2 tablets by mouth two times a day with meals. Insulin Response Enhancers - Biguanides OTHER Medication Dosage Pharm Subclass DARIO POSTA 400 mg sers injection inject 1 400MG/1 ML PREFILLED SYRINGE intramuscularly every 30 DAYS Antipsychotic-Atypica l,D2 Receptor Partial Agonist-5HT Serotonin Mixed albuterol HFA (PROVENTIL HFA, VENTOLIN HFA) 90 mcg/actuation inhaler INHALE 2 PUFFS EVERY 6 HOURS NEEDED FOR WHEEZING Asthma/COPD Therapy - Beta 2-Adrenergic Agents, Inhaled, Short Acting blood sugar diagnostic (TRUE METRIX GLUCOSE TEST STRIP) test strip Use as instructed daily Medical Supplies and DME - Blood Glucose Tests Blood-Glucose Meter (TRUE METRIX GLUCOSE METER) 1 Each two times a day. Medical Supplies and DME - Glucose Monitoring Test Supplies Blood-Glucose Sensor (GLAMSQUADYLE LUZ 3 SENSOR) rajiv 1 Each every 2 weeks. Medical Supplies and DME - Glucose Monitoring Test Supplies budesonide-formoterol (SYMBICORT) 160-4.5 mcg/actuation inhaler Inhale 2 Puffs as instructed. Asthma/COPD Therapy - Beta Adrenergic-Glucocorti coid Combinations busPIRone HCl 30 mg tablet TAKE 1 TABLET BY MOUTH TWICE A DAY DIRECTED Antianxiety Agent - Non-Benzodiazepine famotidine (PEPCID) 20 mg tablet TAKE 1 TABLET BY MOUTH TWICE A DAY Gastric Acid Secretion Asset Protection Specialist - Histamine H2-Receptor Antagonists fluconazole (DIFLUCAN) 150 mg tablet Take 1 tablet by mouth every 72 hours. Antifungal - Triazoles fluticasone (FLONASE) 50 mcg/actuation nasal spray Use 2 Sprays in each nostril once daily. Nasal Corticosteroids ipratropium-albuterol (DUONEB) 0.5 mg-3 mg(2.5 mg base)/3 mL nebu INHALE 3 ML BY NEBULIZATION EVERY 6 HOURS NEEDED FOR WHEEZING. Asthma/COPD Therapy - Beta Adrenergic-Anticholin ergic Combinations lamoTRIgine (LAMICTAL) 100 mg tablet TAKE 1 TABLET BY MOUTH EVERY DAY IN THE MORNING Anticonvulsant - Phenyltriazine Derivatives levothyroxine (SYNTHROID) 50 mcg tablet TAKE 1 TABLET BY MOUTH ONCE DAILY [E03.9] Thyroid Hormones - Synthetic T4 (Thyroxine) montelukast (SINGULAIR) 10 mg tablet Take 10 mg by mouth. Asthma Therapy - Leukotriene Receptor Antagonists sertraline (ZOLOFT) 50 mg tablet TAKE 1 TABLET BY MOUTH EVERY DAY IN THE MORNING Antidepressant - Selective Serotonin Reuptake Inhibitors (SSRIs) Syringe with Needle, Disp, (BD LUER-LEODAN SYRINGE) 3 mL 21 gauge x 1 syrg 1 Each one time a week. Medical Supplies and DME - [place] and Syringe (more content not included)... Normal [facility] Estradiol SerPl-mCncon 10-12 E2 [Mass/Vol] 36 pg/mL Normal [facility] Comment on above: Order Comment: Speci men Type: BLOOD SPECIMENOrdering Facility: [facility] Address: [address] [place] [address] Performed By: #### 2 986-8, 2243-4 ####[facility] [id number] [address] [facility] HEMOGLOBIN A1C (POC)on 10-12 HbA1c (Bld) [Mass fraction] 10.4 % Abnormal 4.3 - 5.6 % [facility] Comment on above: Location:[facility], [address] [place] [address], [facility] Point of care (POC) Hemoglobin A1c (HGBA1C) testing is intended to assess glucose control and provide a management tool for patients known to have diabetes and their healthcare providers. Target HGBA1C levels may depend on specific clinical circumstances. POC HGBA1C is not intended for use as a diagnostic or screening test; laboratory-based testing should be used for diagnostic purposes. The following information is supplemental and may not be applicable to specific diabetes management situations: The POC device stitch welder provides a normal range of 4.2% to 6.5% for the HGBA1C POC test. However, the [place] [employer] guidelines indicate that patients with HGBA1C in the range of 5.7% to 6.4% are at increased risk for development of diabetes and that intervention by lifestyle modification may be beneficial. A HGBA1C level greater than or equal to 6.5% is considered diagnostic of diabetes, pending confirmatory testing. Use of HGBA1C testing to evaluate glucose control may not be appropriate for patients with hemoglobin variants or other conditions (e.g. anemia) that alter red blood cell lifespan. Interpretation and review of laboratory results Abnormal [facility] Testost Arlene-Malachi 024 Testosterone [Mass/Vol] 257 ng/dL Normal [facility] Comment on above: Order Comment: Speci men Type: BLOOD SPECIMENOrdering Facility: [facility] Address: [address] [place] [address] Result Comment: Resu lt rechecked. Performed By: #### 2 986-8, 2243-4 ####[facility] [id number] [facility] [address] Sue 10-11-2024 KWAMEN Telephone ([employer]) MAYELA DAVIS ([id number]) 1990 F T Date Time Provider Department 10/11/24 CAITLIN RAMESH During your visit today, we recorded the following information about you: Eli Stephanie 10/11/2024 12:52 PM Signed Patient had heart attack last week and sugars were around 643. Since then, patient cannot get under 200-300 and is requesting a call back at [phone]. Thank you Martin Cabral, TEOFILO 10/11/2024 2:30 PM Signed This nurse tried to call patient x 2- unable to hear patient- Endorphint message sent. Caitlin Ramesh APRN.KWAME 10/12/2024 8:39 AM Signed Pt has appt with Patricia Ortega CNP today. Can be addressed at that time. Allergies As of Date: 10/11/2024 Noted Allergy Reaction PAROXETINE 11/10/2012 10 - Anaphylaxis 7 - Swelling Comments: tounge AND throat swelling tounge AND throat swelling BUPROPION 01/12/2013 10 - Anaphylaxis 14 - Other: See Comments Comments: hallucinations Date Reviewed: 05/25/2024 Reviewed by: Meera Jordan MA - Fully Assessed Reason for Visit: High Blood Sugar [212] Cmt: Post- heart attack Prescriptions as of 10/12/2024 - levothyroxine (SYNTHROID) 50 mcg tablet TAKE 1 TABLET BY MOUTH ONCE DAILY [E03.9] - empagliflozin (JARDIANCE) 10 mg tablet Take 1 tablet by mouth daily with breakfast. - testosterone enanthate (XYOSTED) 75 mg/0.5 mL auto-injector Inject 0.5 mL subcutaneously one time a week for 90 days. Taking .75 mgl weekly - dulaglutide (TRULICITY) 0.75 mg/0.5 mL pen injector Inject 0.75 mg subcutaneously one time a week. - fluconazole (DIFLUCAN) 150 mg tablet Take 1 tablet by mouth every 72 hours. - Blood-Glucose Sensor (FREESTYLE LUZ 3 SENSOR) rajiv 1 Each every 2 weeks. - famotidine (PEPCID) 20 mg tablet TAKE 1 TABLET BY MOUTH TWICE A DAY - metFORMIN ER (GLUCOPHAGE XR) 500 mg 24 hr tablet Take 2 tablets by mouth two times a day with meals. - Blood-Glucose Meter (TRUE METRIX GLUCOSE METER) 1 Each two times a day. - blood sugar diagnostic (TRUE METRIX GLUCOSE TEST STRIP) test strip Use as instructed daily - Syringe with Needle, Disp, (BD LUER-LEODAN SYRINGE) 3 mL 21 gauge x 1 syrg 1 Each one time a week. - albuterol HFA (PROVENTIL HFA, VENTOLIN HFA) 90 mcg/actuation inhaler INHALE 2 PUFFS EVERY 6 HOURS NEEDED FOR WHEEZING - ipratropium-albuterol (DUONEB) 0.5 mg-3 mg(2.5 mg base)/3 mL nebu INHALE 3 ML BY NEBULIZATION EVERY 6 HOURS NEEDED FOR WHEEZING. - Syringe with Needle, Safety (BD ECLIPSE LUER-LEODAN) 3 mL 22 gauge x 1 1/2 1 Each one time a week. - sertraline (ZOLOFT) 50 mg tablet TAKE 1 TABLET BY MOUTH EVERY DAY IN THE MORNING - ABILIFY MAINTENA 400 mg sers injection inject 1 400MG/1 ML PREFILLED SYRINGE intramuscularly every 30 DAYS - lamoTRIgine (LAMICTAL) 100 mg tablet TAKE 1 TABLET BY MOUTH EVERY DAY IN THE MORNING - busPIRone HCl 30 mg tablet TAKE 1 TABLET BY MOUTH TWICE A DAY DIRECTED - montelukast (SINGULAIR) 10 mg tablet Take 10 mg by mouth. - budesonide-formoterol (SYMBICORT) 160-4.5 mcg/actuation inhaler Inhale 2 Puffs as instructed. - fluticasone (FLONASE) 50 mcg/actuation nasal spray Use 2 Sprays in each nostril once daily. Problem List As Of Date 10/11/2024 Noted Resolved Obesity, Class III, BMI 40-49.9 (morbid obesity*10/07/2022 Family history of malignant neoplasm of breast *09/25/2022 Type 2 diabetes mellitus without complications *08/19/2022 Allergic rhinitis [J30.9] 03/29/2021 Asthma [J45.909] 10/14/2022 Other hyperlipidemia [E78.49] 11/08/2021 S/P nasal septoplasty [Z98.890] 05/18/2019 Severe episode of recurrent major depressive di*10/14/2022 Anxiety [F41.9] 10/14/2022 Encounter for gynecological examination without*01/20/2024 Routine screening for STI (sexually transmitted* Cervical cancer screening [Z12.4] 01/20/2024 Need for HPV vaccination [Z23] 01/20/2024 Encounter Status:Closed by MARTIN CABRAL on 10/11/24 Normal [facility] 30on 10-04-2024 30 The patient is Moderately Stable - Low risk of patient condition declining or worsening The patient's goals for the shift include comfort, rest The clinical goals for the shift include stable vitals, safety Over the shift, the patient did not make progress toward the following goals. Barriers to progression include na. Recommendations to address these barriers include na. Normal [facility] ANTI-XA (HEPARIN LEVEL)on HEPARIN UNFRACTIONATED (U/ML) IN PPP BY CHROMOGENIC METHOD 0.31 IU/mL Normal 0.3-0.7 [facility] Comment on above: Result Comment: Cris roxaban and Apixaban will interfere with the anti Xa assay used to monitor UFH and LMWH. Performed By: #### L [id number] #### [facility] ([facility]) [address] [place] [address] CBC WITH AUTO DIFFERENTIALon 10-04-2024 Basophils (Bld) [#/Vol] 0.06 10*3/uL Normal 0.00-0.20 [facility] Comment on above: Performed By: #### L [id number] #### [facility] ([facility]) [address] [facility] [place] [address] Basophils/100 WBC (Bld) 0.5 % Normal 0.0-1.0 [facility] Comment on above: Performed By: #### L [id number] #### [facility] ([facility]) [address] [place] [address] Eosinophils (Bld) [#/Vol] 0.12 10*3/uL Normal 0.00-0.50 [facility] Comment on above: Performed By: #### L [id number] #### [facility] ([facility]) [address] [place] [address] Eosinophils/100 WBC (Bld) 1.0 % Normal 0.0-6.0 [facility] Comment on above: Performed By: #### L [id number] #### [facility] ([facility]) [address] [place] [address] Erythrocyte distribution width (RBC) [Ratio] 13.5 % Normal 11.5-15.0 [facility] Comment on above: Performed By: #### L [id number] #### [facility] ([facility]) [address] [place] [address] ERYTHROCYTE MEAN CORPUSCULAR HEMOGLOBIN CONCENTRATION (G/DL) BY AUTOMATED 32.6 g/dL Normal 32.0-35.0 [facility] Comment on above: Performed By: #### L [id number] #### [facility] ([facility]) [address] [place] [address] Hematocrit (Bld) [Volume fraction] 50.3 % Normal 36.0-55.0 [facility] Comment on above: Performed By: #### L [id number] #### [facility] ([facility]) [address] [place] [address] Hemoglobin (Bld) [Mass/Vol] 16.4 g/dL Normal 12.0-17.0 [facility] Comment on above: Performed By: #### L [id number] #### [facility] ([facility]) [address] [place] [address] Immature granulocytes (Bld) [#/Vol] 0.08 10*3/uL Normal 0.00-0.20 [facility] Comment on above: Performed By: #### L [id number] #### [facility] ([facility]) [address] [place] [address] Immature granulocytes/100 WBC (Bld) 0.6 % Normal 0.0-1.0 [facility] Comment on above: Performed By: #### L [id number] #### [facility] ([facility]) [address] [place] [address] Lymphocytes (Bld) [#/Vol] 4.05 10*3/uL High 1.20-4.00 [facility] Comment on above: Performed By: #### L [id number] #### [facility] ([facility]) [address] [place] [address] Lymphocytes/100 WBC (Bld) 32.4 % Normal 20.0-45.0 [facility] Comment on above: Performed By: #### L [id number] #### [facility] ([facility]) [address] [place] [address] MCH (RBC) [Entitic mass] 29.1 pg Normal 27.0-33.0 [facility] Comment on above: Performed By: #### L [id number] #### [facility] ([facility]) [address] [place] [address] MCV (RBC) [Entitic vol] 89.2 fL Normal 82.0-98.0 [facility] Comment on above: Performed By: #### L [id number] #### [facility] ([facility]) [address] [place] [address] Monocytes (Bld) [#/Vol] 0.86 10*3/uL Normal 0.10-1.00 [facility] Comment on above: Performed By: #### L [id number] #### [facility] ([facility]) [address] [place] [address] Monocytes/100 WBC (Bld) 6.9 % Normal 5.0-12.0 [facility] Comment on above: Performed By: #### L [id number] #### [facility] ([facility]) [address] [place] [address] Neutrophils (Bld) [#/Vol] 7.34 10*3/uL Normal 1.60-7.60 [facility] Comment on above: Performed By: #### L [id number] #### [facility] ([facility]) [address] [place] [address] Neutrophils/100 WBC (Bld) 58.6 % Normal 40.0-72.0 [facility] Comment on above: Performed By: #### L [id number] #### [facility] ([facility]) [address] [place] [address] NRBC (PER 100 WBCS) BY AUTOMATED COUNT 0.0 % Normal 0 [facility] Comment on above: Performed By: #### L [id number] #### [facility] ([facility]) [address] [place] [address] PLATELETS (10*3/UL) IN BLOOD AUTOMATED COUNT 212 10*3/uL Normal 150-400 [facility] Comment on above: Performed By: #### L [id number] #### [facility] ([facility]) [address] [place] [address] RBC (Bld) [#/Vol] 5.64 10*6/uL Normal 3.80-5.70 [facility] Comment on above: Performed By: #### L [id number] #### [facility] [address] [place] [address] WBC (Bld) [#/Vol] 12.51 10*3/uL High 4.00-10.60 [facility] Comment on above: Performed By: #### L [id number] #### [facility] ([facility] [address] [place] [address] COMPREHENSIVE METABOLIC PANE Roberto Carlos 10-04-2024 Albumin [Mass/Vol] 3.9 g/dL Normal 3.5-5.7 [facility] Comment on above: Performed By: #### L [id number] #### [facility] ([facility]) [address] [place] [address] ALP [Catalytic activity/Vol] 68 U/L Normal 34-104 [facility] Comment on above: Performed By: #### L [id number] #### [facility] ([facility]) [address] [place] [address] ALT [Catalytic activity/Vol] 29 U/L Normal 7-52 [facility] Comment on above: Performed By: #### L [id number] #### [facility] ([facility]) [address] [place] [address] Anion gap [Moles/Vol] 12 mmol/L Normal 7-20 [facility] Comment on above: Performed By: #### L [id number] #### [facility] [address] [place] [address] AST [Catalytic activity/Vol] 27 U/L Normal 13-39 [facility] Comment on above: Performed By: #### L [id number] #### [facility] [address] [facility] [place] [address] Bilirubin [Mass/Vol] 1.0 mg/dL Normal 0.3-1.0 [facility] Comment on above: Performed By: #### L [id number] #### [facility] ([facility] [address] [place] [address] Calcium [Mass/Vol] 8.9 mg/dL Normal 8.6-10.3 [facility] Comment on above: Performed By: #### L [id number] #### [facility] ([facility] [address] [place] [address] Chloride [Moles/Vol] 100 mmol/L Normal 98-107 [facility] Comment on above: Performed By: #### L [id number] #### [facility] ([facility]) [address] [place] [address] CO2 [Moles/Vol] 26 mmol/L Normal 21-31 [facility] Comment on above: Performed By: #### L [id number] #### [facility] ([facility]) [address] [place] [address] Creatinine [Mass/Vol] 0.61 mg/dL Normal 0.60-1.30 [facility] Comment on above: Performed By: #### L [id number] #### [facility] ([facility]) [address] [place] [address] GLOMERULAR FILTRATION RATE ML/MIN/1.73 SQ M.PREDICTED 120.2 mL/min/1.73m*2 Normal >60.0 [facility] Comment on above: Result Comment: [facility]???s estimated glomerular filtration rate (eGFR) will no longer include consideration of race in its calculation. The National Kidney Foundation???s eGFR Task Force developed new recommendations for the estimation of the glomerular filtration rate in the [place] They recommend immediate implementation of the new equation refit without the race variable in all laboratories because the calculation does not include race. In addition to not including race in the calculation and reporting, it included diversity in its development, and has acceptable performance characteristics and potential consequences that do not disproportionately affect any one group of individuals. Performed By: #### L [id number] #### [facility] ([facility]) [address] [place] [address] Glucose [Mass/Vol] 267 mg/dL High 70-100 [facility] Comment on above: Performed By: #### L [id number] #### [facility] ([facility]) [address] [place] [address] Potassium [Moles/Vol] 4.0 mmol/L Normal 3.5-5.1 [facility] Comment on above: Performed By: #### L [id number] #### [facility] ([facility]) [address] [place] [address] Protein [Mass/Vol] 6.6 g/dL Normal 6.0-8.3 [facility] Comment on above: Performed By: #### L [id number] #### [facility] ([facility]) [address] [place] [address] Sodium [Moles/Vol] 134 mmol/L Low 136-145 [facility] Comment on above: Performed By: #### L [id number] #### [facility] ([facility]) [address] [place] [address] Urea nitrogen [Mass/Vol] 11 mg/dL Normal 7-25 [facility] Comment on above: Performed By: #### L [id number] #### [facility] ([facility]) [address] [place] [address] UREA NITROGEN/CREATININ E (MASS RATIO) IN SER/PLAS 18.0 Normal [facility] Comment on above: Performed By: #### L [id number] #### [facility] ([facility]) [address] [place] [place] [address] HPon 10-04-2024 HP H&P reviewed. The patient was examined and there are no changes to the H&P. Plan left heart catheterization and coronary angiography from the L radial. We have discussed the expected risks and the patient understands and consents to proceed. Normal [facility] MAGNESIUMon 10-04-2024 Magnesium [Mass/Vol] 1.7 mg/dL Low 1.9-2.7 [facility] Comment on above: Performed By: #### L [id number] #### [facility] ([facility]) [address] [place] [place] [address] PHOSPHORUSon 10-04-2024 Magnesium [Mass/Vol] 3.4 mg/dL Normal 2.5-5.0 [facility] Comment on above: Performed By: #### L [id number] #### [facility] ([facility]) [address] [place] [address] POCT GLUCOSE METER UNSOLICIT ED RESULTSon 10-04-2024 Glucose [Mass/Vol] 317 mg/dL High 70-105 [facility] Comment on above: Order Comment: Waive d Testing in the ED is performed under the ED CLIA certificate #[id number]. Result Comment: shod ges4 Performed By: #### L [id number] #### [facility] ([facility]) [address] [place] [address] Glucose [Mass/Vol] 208 mg/dL High 70-105 [facility] Comment on above: Order Comment: Waive d Testing in the ED is performed under the ED CLIA certificate #[id number]. Result Comment: shod ges4 Performed By: #### L [id number] #### [facility] ([facility]) [address] [place] [address] Glucose [Mass/Vol] 261 mg/dL High 70-105 [facility] Comment on above: Order Comment: Waive d Testing in the ED is performed under the ED CLIA certificate #[id number]. Result Comment: shod ges4 Performed By: #### L [id number] #### [facility] ([facility]) [address] [place] [address] 30on 10-03-2024 30 The patient is Moderately Unstable - Medium risk of patient condition declining or worsening The patient's goals for the shift include comfort, rest The clinical goals for the shift include stable vitals, safety Problem: Respiratory - Adult Goal: Achieves optimal ventilation and oxygenation Outcome: Progressing Problem: Skin/Tissue Integrity - Adult Goal: Skin integrity remains intact Outcome: Progressing Goal: Incisions, wounds, or drain sites healing without S/S of infection Outcome: Progressing Goal: Oral mucous membranes remain intact Outcome: Progressing Problem: Pain Goal: STG-Pt will verbalize decreased discomfort Outcome: Progressing Normal [facility] 30 The patient is Moderately Stable - Low risk of patient condition declining or worsening The patient's goals for the shift include comfort, rest The clinical goals for the shift include VSS, comfort, rest, safety Over the shift, the patient did not make progress toward the following goals. Barriers to progression include na. Recommendations to address these barriers include na. Normal [facility] 30 The patient is Moderately Stable - Low risk of patient condition declining or worsening The patient's goals for the shift include comfort, rest The clinical goals for the shift include VSS, comfort, rest, safety Over the shift, the patient did not make progress toward the following goals. Barriers to progression include none. Recommendations to address these barriers include none. Problem: Respiratory - Adult Goal: Achieves optimal ventilation and oxygenation Outcome: Progressing Flowsheets (Taken 10/03/2024144) Achieves optimal ventilation and oxygenation: Assess for changes in respiratory status Assess for changes in mentation and behavior Position to facilitate oxygenation and minimize respiratory effort Oxygen supplementation based on oxygen saturation or arterial blood gases Encourage broncho-pulmonary hygiene including cough, deep breathe, incentive spirometry Assess and instruct to report shortness of breath or any respiratory difficulty Problem: Skin/Tissue Integrity - Adult Goal: Skin integrity remains intact Outcome: Progressing Flowsheets (Taken 10/03/2024144) Skin integrity remains intact: Monitor for areas of redness and/or skin breakdown Assess vascular access sites hourly Change oxygen saturation probe site as needed Goal: Incisions, wounds, or drain sites healing without S/S of infection Outcome: Progressing Flowsheets (Taken 10/03/2024144) Incisions, wounds, or drain sites healing without sign and symptoms of infection: ADMISSION and DAILY: Assess and document risk factors for pressure ulcer development TWICE DAILY: Assess and document skin integrity Goal: Oral mucous membranes remain intact Outcome: Progressing Flowsheets (Taken 10/03/2024144) Oral mucous membranes remain intact: Assess oral mucosa and hygiene practices Problem: Pain Goal: STG-Pt will verbalize decreased discomfort Outcome: Progressing Normal [facility] ANTI-XA (HEPARIN LEVEL)on HEPARIN UNFRACTIONATED (U/ML) IN PPP BY CHROMOGENIC METHOD 0.38 IU/mL Normal 0.3-0.7 [facility] Comment on above: Result Comment: Wildrose roxaban and Apixaban will interfere with the anti Xa assay used to monitor UFH and LMWH. Performed By: #### L [id number] #### [facility] ([facility]) [address] [place] [address] CBC WITH AUTO DIFFERENTIALon 10-03-2024 Basophils (Bld) [#/Vol] 0.04 10*3/uL Normal 0.00-0.20 [facility] Comment on above: Performed By: #### L [id number] #### [facility] ([facility]) [address] [place] [place] [address] Basophils/100 WBC (Bld) 0.4 % Normal 0.0-1.0 [facility] Comment on above: Performed By: #### L [id number] #### [facility] ([facility]) [address] [place] [place] [address] Eosinophils (Bld) [#/Vol] 0.12 10*3/uL Normal 0.00-0.50 [facility] Comment on above: Performed By: #### L [id number] #### [facility] ([facility]) [address] [place] [place] [address] Eosinophils/100 WBC (Bld) 1.3 % Normal 0.0-6.0 [facility] Comment on above: Performed By: #### L [id number] #### [facility] ([facility]) [address] [place] [place] [address] Erythrocyte distribution width (RBC) [Ratio] 13.7 % Normal 11.5-15.0 [facility] Comment on above: Performed By: #### L [id number] #### [facility] ([facility]) [address] [place] [address] ERYTHROCYTE MEAN CORPUSCULAR HEMOGLOBIN CONCENTRATION (G/DL) BY AUTOMATED 32.9 g/dL Normal 32.0-35.0 [facility] Comment on above: Performed By: #### L [id number] #### [facility] ([facility]) [address] [facility] [place] [address] Hematocrit (Bld) [Volume fraction] 44.4 % Normal 36.0-55.0 [facility] Comment on above: Performed By: #### L [id number] #### [facility] ([facility]) [address] [place] [address] Hemoglobin (Bld) [Mass/Vol] 14.6 g/dL Normal 12.0-17.0 [facility] Comment on above: Performed By: #### L [id number] #### [facility] ([facility]) [address] [place] [address] Immature granulocytes (Bld) [#/Vol] 0.04 10*3/uL Normal 0.00-0.20 [facility] Comment on above: Performed By: #### L [id number] #### [facility] ([facility]) [address] [place] [address] Immature granulocytes/100 WBC (Bld) 0.4 % Normal 0.0-1.0 [facility] Comment on above: Performed By: #### L [id number] #### [facility] ([facility]) [address] [place] [place] [address] Lymphocytes (Bld) [#/Vol] 3.62 10*3/uL Normal 1.20-4.00 [facility] Comment on above: Performed By: #### L [id number] #### [facility] ([facility]) [address] [place] [place] [address] Lymphocytes/100 WBC (Bld) 38.8 % Normal 20.0-45.0 [facility] Comment on above: Performed By: #### L [id number] #### [facility] ([facility]) [address] [place] [address] MCH (RBC) [Entitic mass] 28.8 pg Normal 27.0-33.0 [facility] Comment on above: Performed By: #### L [id number] #### [facility] ([facility]) [address] [place] [address] MCV (RBC) [Entitic vol] 87.6 fL Normal 82.0-98.0 [facility] Comment on above: Performed By: #### L [id number] #### [facility] ([facility]) [address] [place] [address] Monocytes (Bld) [#/Vol] 0.68 10*3/uL Normal 0.10-1.00 [facility] Comment on above: Performed By: #### L [id number] #### [facility] ([facility]) [address] [place] [address] Monocytes/100 WBC (Bld) 7.3 % Normal 5.0-12.0 [facility] Comment on above: Performed By: #### L [id number] #### [facility] ([facility]) [address] [place] [address] Neutrophils (Bld) [#/Vol] 4.82 10*3/uL Normal 1.60-7.60 [facility] Comment on above: Performed By: #### L [id number] #### [facility] ([facility]) [address] [place] [address] Neutrophils/100 WBC (Bld) 51.8 % Normal 40.0-72.0 [facility] Comment on above: Performed By: #### L [id number] #### [facility] ([facility]) [address] [place] [address] NRBC (PER 100 WBCS) BY AUTOMATED COUNT 0.0 % Normal 0 [facility] Comment on above: Performed By: #### L [id number] #### [facility] [address] [place] [address] PLATELETS (10*3/UL) IN BLOOD AUTOMATED COUNT 156 10*3/uL Normal 150-400 [facility] Comment on above: Performed By: #### L [id number] #### [facility] [address] [place] [address] RBC (Bld) [#/Vol] 5.07 10*6/uL Normal 3.80-5.70 [facility] Comment on above: Performed By: #### L [id number] #### [facility] [address] [place] [address] WBC (Bld) [#/Vol] 9.32 10*3/uL Normal 4.00-10.60 [facility] Comment on above: Performed By: #### L [id number] #### [facility] ([facility]) [address] [place] [address] COMPREHENSIVE METABOLIC PANE Roberto Carlos 10-03-2024 Albumin [Mass/Vol] 3.5 g/dL Normal 3.5-5.7 [facility] Comment on above: Performed By: #### L [id number] #### [facility] [address] [place] [address] ALP [Catalytic activity/Vol] 51 U/L Normal 34-104 [facility] Comment on above: Performed By: #### L [id number] #### [facility] ([facility]) [address] [place] [address] ALT [Catalytic activity/Vol] 21 U/L Normal 7-52 [facility] Comment on above: Performed By: #### L [id number] #### [facility] ([facility]) [address] [place] [address] Anion gap [Moles/Vol] 8 mmol/L Normal 7-20 [facility] Comment on above: Performed By: #### L [id number] #### [facility] [address] [place] [address] AST [Catalytic activity/Vol] 25 U/L Normal 13-39 [facility] Comment on above: Performed By: #### L [id number] #### [facility] ([facility]) [address] [place] [address] Bilirubin [Mass/Vol] 1.0 mg/dL Normal 0.3-1.0 [facility] Comment on above: Performed By: #### L [id number] #### [facility] ([facility] [address] [place] [address] Calcium [Mass/Vol] 8.3 mg/dL Low 8.6-10.3 [facility] Comment on above: Performed By: #### L [id number] #### [facility] [address] [place] [address] Chloride [Moles/Vol] 100 mmol/L Normal 98-107 [facility] Comment on above: Performed By: #### L [id number] #### [facility] ([facility]) [address] [place] [address] CO2 [Moles/Vol] 31 mmol/L Normal 21-31 [facility] Comment on above: Performed By: #### L [id number] #### [facility] ([facility]) [address] [place] [address] Creatinine [Mass/Vol] 0.67 mg/dL Normal 0.60-1.30 [facility] Comment on above: Performed By: #### L [id number] #### [facility] ([facility]) [address] [place] [address] GLOMERULAR FILTRATION RATE ML/MIN/1.73 SQ M.PREDICTED 117.5 mL/min/1.73m*2 Normal >60.0 [facility] Comment on above: Result Comment: [facility]???s estimated glomerular filtration rate (eGFR) will no longer include consideration of race in its calculation. The National Kidney Foundation???s eGFR Task Force developed new recommendations for the estimation of the glomerular filtration rate in the [place] They recommend immediate implementation of the new equation refit without the race variable in all laboratories because the calculation does not include race. In addition to not including race in the calculation and reporting, it included diversity in its development, and has acceptable performance characteristics and potential consequences that do not disproportionately affect any one group of individuals. Performed By: #### L [id number] #### [facility] ([facility] [address] [place] [address] Glucose [Mass/Vol] 296 mg/dL High 70-100 [facility] Comment on above: Performed By: #### L [id number] #### [facility] ([facility]) [address] [place] [address] Potassium [Moles/Vol] 3.3 mmol/L Low 3.5-5.1 [facility] Comment on above: Performed By: #### L [id number] #### [facility] ([facility]) [address] [place] [address] Protein [Mass/Vol] 5.8 g/dL Low 6.0-8.3 [facility] Comment on above: Performed By: #### L [id number] #### [facility] ([facility]) [address] [place] [address] Sodium [Moles/Vol] 136 mmol/L Normal 136-145 [facility] Comment on above: Performed By: #### L [id number] #### [facility] ([facility]) [address] [place] [address] Urea nitrogen [Mass/Vol] 12 mg/dL Normal 7-25 [facility] Comment on above: Performed By: #### L [id number] #### [facility] ([facility]) [address] [place] [address] UREA NITROGEN/CREATININ E (MASS RATIO) IN SER/PLAS 17.9 Normal [facility] Comment on above: Performed By: #### L [id number] #### [facility] ([facility]) [address] [place] [address] LACTIC ACID WITH 4 HOUR REFL EXon 10-03-2024 LACTATE (MMOL/L) IN SER/PLAS 1.7 mmol/L Normal 0.5-2.2 [facility] Comment on above: Performed By: #### L [id number] #### [facility] ([facility]) [address] [place] [address] LIPID PANELon 10-03-2024 CHOL/HDL 3.8 mg/dL Normal [facility] Comment on above: Performed By: #### L [id number] #### [facility] ([facility]) [address] [place] [address] Cholesterol [Mass/Vol] 111 mg/dL Low 120-200 [facility] Comment on above: Performed By: #### L [id number] #### [facility] ([facility]) [address] [facility] [place] [address] Magnesium [Mass/Vol] 217 mg/dL High 40-149 [facility] Comment on above: Result Comment: TRIG LYCERIDE REFERENCE RANGE: 20 YEARS AND OLDER CARDIOVASCULAR RISK LESS THAN 150 mg/dL LOW RISK 150 TO 199 mg/dL BORDERLINE RISK 200 mg/dL AND GREATER HIGH RISK Performed By: #### L [id number] #### [facility] ([facility]) [address] [place] [address] Magnesium [Mass/Vol] 39 mg/dL Normal 0-160 [facility] Comment on above: Performed By: #### L [id number] #### [facility] ([facility]) [address] [place] [address] Magnesium [Mass/Vol] 29 mg/dL Normal 23-92 [facility] Comment on above: Performed By: #### L [id number] #### [facility] ([facility]) [address] [place] [address] NON HDL CHOL. (LDL+VLDL) 82 Normal [facility] Comment on above: Performed By: #### L [id number] #### [facility] ([facility]) [address] [place] [address] TOTAL VLDL-C 43 mg/dL High 0-40 [facility] Comment on above: Performed By: #### L [id number] #### [facility] ([facility]) [address] [place] [address] MAGNESIUMon 10-03-2024 Magnesium [Mass/Vol] 1.6 mg/dL Low 1.9-2.7 [facility] Comment on above: Performed By: #### L [id number] #### [facility] ([facility]) [address] [facility] [place] [address] NURSNOTEon 10-03-2024 NURSNOTE Patient Name: Mayela Davis : 1990 Primary Care Physician: Lc Childers MD Admission Date: 10/01/2024 RAPID RESPONSE TEAM ICU TRANSFER FOLLOW-UP NOTE SUBJECTIVE / OBJECTIVE: Follow-up for previous transfer out of the ICU notification for 10/02 at 1653. ASSESSMENT / INTERVENTIONS: Recent Vital Signs: Vitals: 10/03/24 0820 10/03/24 0918 10/03/24 1230 10/03/24 1600 BP: 122/84 113/64 130/78 BP Location: Patient Position: Pulse: 75 74 84 76 Resp: 13 10 10 Temp: 36.4 ???C (97.5 ???F) 36.6 ???C (97.9 ???F) TempSrc: SpO2: 99% 100% 98% Weight: Height: Latest Labs: Lab Results Component Value Date WBC 9.32 10/03/2024 WBC 20.83 (H) 10/02/2024 HGB 14.6 10/03/2024 HGB 15.1 10/02/2024 HCT 44.4 10/03/2024 HCT 45.7 10/02/2024 MCV 87.6 10/03/2024 MCV 88.4 10/02/2024 PLT 156 10/03/2024 PLT 215 10/02/2024 NEUTROABS 4.82 10/03/2024 NEUTROABS 17.34 (H) 10/02/2024 Lab Results Component Value Date GLUCOSE 296 (H) 10/03/2024 GLUCOSE 417 (HH) 10/02/2024 CALCIUM 8.3 (L) 10/03/2024 CALCIUM 9.0 10/02/2024 NA 136 10/03/2024 NA 135 (L) 10/02/2024 K 3.3 (L) 10/03/2024 K 3.8 10/02/2024 CO2 31 10/03/2024 CO2 27 10/02/2024 CL 100 10/03/2024 CL 98 10/02/2024 BUN 12 10/03/2024 BUN 12 10/02/2024 CREATININE 0.67 10/03/2024 CREATININE 0.73 10/02/2024 EGFR 117.5 10/03/2024 EGFR 110.6 10/02/2024 BCR 17.9 10/03/2024 BCR 16.4 10/02/2024 Lab Results Component Value Date MG 1.6 (L) 10/03/2024 MG 1.9 10/02/2024 Lab Results Component Value Date PHOS 3.0 10/03/2024 PHOS 2.9 10/02/2024 Lab Results Component Value Date ALT 21 10/03/2024 ALT 22 10/02/2024 AST 25 10/03/2024 AST 23 10/02/2024 ALKPHOS 51 10/03/2024 ALKPHOS 67 10/02/2024 BILITOT 1.0 10/03/2024 BILITOT 0.8 10/02/2024 Lab Results Component Value Date INR 1.07 10/01/2024 Follow-up: Patient doing well resting in bed. No complaints of pain at this time. Plan for cardiac cath tomorrow. Vitals are stable. If emergent concerns arise call rapid response team. Guillermina Vides RN Rapid Response Team Nurse [phone] 10/03/2024 6:10 PM Normal [facility] PHOSPHORUSon 10-03-2024 Magnesium [Mass/Vol] 3.0 mg/dL Normal 2.5-5.0 [facility] Comment on above: Performed By: #### L [id number] #### [facility] [address] [place] [address] POCT GLUCOSE METER UNSOLICIT ED RESULTSon 10-03-2024 Glucose [Mass/Vol] 243 mg/dL High 70-105 [facility] Comment on above: Order Comment: Waive d Testing in the ED is performed under the ED CLIA certificate #[id number]. Result Comment: [email or web address] Performed By: #### L [id number] #### [facility] ([facility]) [address] [place] [address] Glucose [Mass/Vol] 243 mg/dL High 70-105 [facility] Comment on above: Order Comment: Waive d Testing in the ED is performed under the ED CLIA certificate #[id number]. Result Comment: [email or web address] Performed By: #### L [id number] #### [facility] ([facility]) [address] [place] [address] Glucose [Mass/Vol] 276 mg/dL High 70-105 [facility] Comment on above: Order Comment: Waive d Testing in the ED is performed under the ED CLIA certificate #[id number]. Result Comment: [email or web address] Performed By: #### L [id number] #### [facility] ([facility]) [address] [place] [place] [address] Glucose [Mass/Vol] 258 mg/dL High 70-105 [facility] Comment on above: Order Comment: Waive d Testing in the ED is performed under the ED CLIA certificate #[id number]. Result Comment: [email or web address] Performed By: #### L [id number] #### [facility] ([facility]) [address] [place] [address] TROPONIN Ion 10-03-2024 Troponin I.cardiac [Mass/Vol] 0.11 ng/mL Critically high 0.00-0.04 [facility] Comment on above: Result Comment: M-WI EVIOUS CRITICAL RESULT Previous result verified on 10/02/2024 0526 on specimen/case [id number] called with component Troponin I for procedure Troponin I with value 0.29 ng/mL. Performed By: #### L [id number] #### [facility] ([facility]) [address] [place] [address] ANTI-XA (HEPARIN LEVEL)on HEPARIN UNFRACTIONATED (U/ML) IN PPP BY CHROMOGENIC METHOD 0.47 IU/mL Normal 0.3-0.7 [facility] Comment on above: Result Comment: Wildrose roxaban and Apixaban will interfere with the anti Xa assay used to monitor UFH and LMWH. Performed By: #### L [id number] #### [facility] ([facility]) [address] [place] [address] HEPARIN UNFRACTIONATED (U/ML) IN PPP BY CHROMOGENIC METHOD 0.34 IU/mL Normal 0.3-0.7 [facility] Comment on above: Result Comment: Cris roxaban and Apixaban will interfere with the anti Xa assay used to monitor UFH and LMWH. Performed By: #### L [id number] #### [facility] ([facility]) [address] [place] [address] BLOOD CULTUREon 10-02-2024 Bacteria identified Cx Nom (Bld) No growth at 5 days Normal [facility] Comment on above: Order Comment: From a different site than #1. Performed By: #### L [id number] #### [facility] ([facility]) [address] [place] [address] Performed By: #### L [id number] #### [facility] ([facility]) [address] [place] [address] CBC WITH AUTO DIFFERENTIALon 10-02-2024 Basophils (Bld) [#/Vol] 0.02 10*3/uL Normal 0.00-0.20 [facility] Comment on above: Performed By: #### L [id number] #### [facility] ([facility]) [address] [place] [address] Basophils/100 WBC (Bld) 0.1 % Normal 0.0-1.0 [facility] Comment on above: Performed By: #### L [id number] #### [facility] ([facility]) [address] [place] [address] Eosinophils (Bld) [#/Vol] 0.00 10*3/uL Normal 0.00-0.50 [facility] Comment on above: Performed By: #### L [id number] #### [facility] ([facility]) [address] [place] [address] Eosinophils/100 WBC (Bld) 0.0 % Normal 0.0-6.0 [facility] Comment on above: Performed By: #### L [id number] #### [facility] ([facility]) [address] [place] [address] Erythrocyte distribution width (RBC) [Ratio] 13.6 % Normal 11.5-15.0 [facility] Comment on above: Performed By: #### L [id number] #### [facility] [address] [place] [address] ERYTHROCYTE MEAN CORPUSCULAR HEMOGLOBIN CONCENTRATION (G/DL) BY AUTOMATED 33.0 g/dL Normal 32.0-35.0 [facility] Comment on above: Performed By: #### L [id number] #### [facility] ([facility]) [address] [place] [address] Hematocrit (Bld) [Volume fraction] 45.7 % Normal 36.0-55.0 [facility] Comment on above: Performed By: #### L [id number] #### [facility] ([facility]) [address] [place] [address] Hemoglobin (Bld) [Mass/Vol] 15.1 g/dL Normal 12.0-17.0 [facility] Comment on above: Performed By: #### L [id number] #### [facility] ([facility]) [address] [place] [address] Immature granulocytes (Bld) [#/Vol] 0.12 10*3/uL Normal 0.00-0.20 [facility] Comment on above: Performed By: #### L [id number] #### [facility] [address] [place] [address] Immature granulocytes/100 WBC (Bld) 0.6 % Normal 0.0-1.0 [facility] Comment on above: Performed By: #### L [id number] #### [facility] ([facility]) [address] [place] [address] Lymphocytes (Bld) [#/Vol] 1.91 10*3/uL Normal 1.20-4.00 [facility] Comment on above: Performed By: #### L [id number] #### [facility] ([facility]) [address] [place] [address] Lymphocytes/100 WBC (Bld) 9.2 % Low 20.0-45.0 [facility] Comment on above: Performed By: #### L [id number] #### [facility] ([facility]) [address] [place] [address] MCH (RBC) [Entitic mass] 29.2 pg Normal 27.0-33.0 [facility] Comment on above: Performed By: #### L [id number] #### [facility] [address] [place] [address] MCV (RBC) [Entitic vol] 88.4 fL Normal 82.0-98.0 [facility] Comment on above: Performed By: #### L [id number] #### [facility] ([facility]) [address] [place] [address] Monocytes (Bld) [#/Vol] 1.44 10*3/uL High 0.10-1.00 [facility] Comment on above: Performed By: #### L [id number] #### [facility] [address] [place] [address] Monocytes/100 WBC (Bld) 6.9 % Normal 5.0-12.0 [facility] Comment on above: Performed By: #### L [id number] #### [facility] ([facility]) [address] [place] [address] Neutrophils (Bld) [#/Vol] 17.34 10*3/uL High 1.60-7.60 [facility] Comment on above: Performed By: #### L [id number] #### [facility] [address] [place] [address] Neutrophils/100 WBC (Bld) 83.2 % High 40.0-72.0 [facility] Comment on above: Performed By: #### L [id number] #### [facility] [address] [place] [address] NRBC (PER 100 WBCS) BY AUTOMATED COUNT 0.0 % Normal 0 [facility] Comment on above: Performed By: #### L [id number] #### [facility] [address] [place] [address] PLATELETS (10*3/UL) IN BLOOD AUTOMATED COUNT 215 10*3/uL Normal 150-400 [facility] Comment on above: Performed By: #### L [id number] #### [facility] ([facility]) [address] [place] [address] RBC (Bld) [#/Vol] 5.17 10*6/uL Normal 3.80-5.70 [facility] Comment on above: Performed By: #### L [id number] #### [facility] ([facility]) [address] [place] [address] WBC (Bld) [#/Vol] 20.83 10*3/uL High 4.00-10.60 [facility] Comment on above: Performed By: #### L [id number] #### [facility] ([facility]) [address] [place] [address] COMPREHENSIVE METABOLIC PANE Roberto Carlos 10-02-2024 Albumin [Mass/Vol] 3.9 g/dL Normal 3.5-5.7 [facility] Comment on above: Performed By: #### L [id number] #### [facility] ([facility]) [address] [place] [address] ALP [Catalytic activity/Vol] 67 U/L Normal 34-104 [facility] Comment on above: Performed By: #### L [id number] #### [facility] ([facility]) [address] [place] [address] ALT [Catalytic activity/Vol] 22 U/L Normal 7-52 [facility] Comment on above: Performed By: #### L [id number] #### [facility] ([facility]) [address] [place] [address] Anion gap [Moles/Vol] 14 mmol/L Normal 7-20 [facility] Comment on above: Performed By: #### L [id number] #### [facility] ([facility]) [address] [place] [address] AST [Catalytic activity/Vol] 23 U/L Normal 13-39 [facility] Comment on above: Performed By: #### L [id number] #### [facility] ([facility]) [address] [place] [address] Bilirubin [Mass/Vol] 0.8 mg/dL Normal 0.3-1.0 [facility] Comment on above: Performed By: #### L [id number] #### [facility] ([facility]) [address] [place] [address] Calcium [Mass/Vol] 9.0 mg/dL Normal 8.6-10.3 [facility] Comment on above: Performed By: #### L [id number] #### [facility] ([facility]) [address] [place] [address] Chloride [Moles/Vol] 98 mmol/L Normal 98-107 [facility] Comment on above: Performed By: #### L [id number] #### [facility] ([facility]) [address] [place] [address] CO2 [Moles/Vol] 27 mmol/L Normal 21-31 [facility] Comment on above: Performed By: #### L [id number] #### [facility] ([facility]) [address] [place] [address] Creatinine [Mass/Vol] 0.73 mg/dL Normal 0.60-1.30 [facility] Comment on above: Performed By: #### L [id number] #### [facility] ([facility]) [address] [place] [address] GLOMERULAR FILTRATION RATE ML/MIN/1.73 SQ M.PREDICTED 110.6 mL/min/1.73m*2 Normal >60.0 [facility] Comment on above: Result Comment: The [facility]'s estimated glomerular filtration rate (eGFR) will no longer include consideration of race in its calculation. The [employer]'s eGFR Task Force developed new recommendations for the estimation of the glomerular filtration rate in the [place] They recommend immediate implementation of the new equation refit without the race variable in all laboratories because the calculation does not include race. In addition to not including race in the calculation and reporting, it included diversity in its development, and has acceptable performance characteristics and potential consequences that do not disproportionately affect any one group of individuals. Performed By: #### L [id number] #### [facility] ([facility]) [address] [place] [address] Glucose [Mass/Vol] 417 mg/dL Critically high 70-100 [facility] Comment on above: Performed By: #### L [id number] #### [facility] ([facility]) [address] [place] [address] Potassium [Moles/Vol] 3.8 mmol/L Normal 3.5-5.1 [facility] Comment on above: Performed By: #### L [id number] #### [facility] ([facility]) [address] [place] [address] Protein [Mass/Vol] 6.5 g/dL Normal 6.0-8.3 [facility] Comment on above: Performed By: #### L [id number] #### [facility] ([facility]) [address] [place] [address] Sodium [Moles/Vol] 135 mmol/L Low 136-145 [facility] Comment on above: Performed By: #### L [id number] #### [facility] ([facility]) [address] [place] [address] Urea nitrogen [Mass/Vol] 12 mg/dL Normal 7-25 [facility] Comment on above: Performed By: #### L [id number] #### [facility] ([facility]) [address] [place] [address] UREA NITROGEN/CREATININ E (MASS RATIO) IN SER/PLAS 16.4 Normal [facility] Comment on above: Performed By: #### L [id number] #### [facility] ([facility]) [address] [place] [address] CONSULTon 10-02-2024 CONSULT - Attestation with edits by Silvestre Duke MD at 10/02/2024 12:21 PM By using the attestations below, I agree that I have read and verify that the documentation has been personally reviewed by me and ensure that the documentation accurately reflects the encounter. GC: I personally saw this patient on the day of the encounter, performed the lim portions of the service and participated in the management and treatment plan of the patient. I reviewed and confirm the documentation by the Cardiovascular Fellow Dr August Alcocer. Please note there may be an additional personal documentation from me. Silvestre Duke MD Cardiology Consult Note Reason for Consult: [email or web address] HPI: Guero Davis is a 34 y.o. adult transgender female to male, who initially presented to [facility] on 10/01/2024 after accidental overdose on cocaine, patient reported that he felt dizzy then became unresponsive, when he woke up he found himself around EMS and was given Narcan, he underwent CTA chest which was negative for PE, high sensitivity troponin of 660, other labs were remarkable for elevated WBC count of 23, lactate of 4.3, and patient was transferred to [facility] for further evaluation. Upon presentation to [facility], patient was admitted to MICU, he was in no acute distress, reported substernal and left sided chest pain, his initial conventional troponin elevated at 0.29. Cardiology team consulted for further evaluation and management. Cardiology ROS: Review of Systems Constitutional: Negative for activity change and appetite change. Respiratory: Negative for cough, chest tightness, shortness of breath and wheezing. Cardiovascular: Negative for chest pain, palpitations and leg swelling. Gastrointestinal: Negative for abdominal pain, nausea and vomiting. Genitourinary: Negative for dysuria and hematuria. Neurological: Negative for dizziness and light-headedness. Past Medical History He has a past medical history of Anxiety, Asthma, Bipolar 1 disorder ([facility]), and Diabetes mellitus ([facility]). Surgical History He has a past surgical history that includes Tonsilectomy, adenoidectomy, bilateral myringotomy and tubes. Social History He has no history on file for tobacco use, alcohol use, and drug use. Family History Diabetes Mother Stroke Mother Seizures Brother Drug abuse Maternal Grandmother Hypertension Paternal Grandfather Hyperlipidemia Paternal Grandfather Prostate cancer Paternal Grandfather Lung cancer Paternal Grandfather No Known Problems Father Allergies Paxil [paroxetine hcl] and Wellbutrin [bupropion hcl] Medications Current Outpatient Medications Medication Instructions Abilify Maintena 300 mg, intramuscular, Every 30 days budesonide-formoteroL (Symbicort) 80-4.5 mcg/actuation inhaler 2 puffs, inhalation, 2 times daily RT, Rinse mouth with water after use to reduce aftertaste and incidence of candidiasis. Do not swallow. busPIRone (BUSPAR) 10 mg, oral, 2 times daily ipratropium-albuteroL (Duo-Neb) 0.5-2.5 mg/3 mL nebulizer solution 3 mL, nebulization, Every 6 hours PRN metFORMIN (OSM) (FORTAMET) 500 mg, oral, Daily with evening meal, Do not crush, chew, or split. testosterone enanthate (XYOSTED) 50 mg, subcutaneous, Every 7 days Medications Prior to Admission Medication Sig Dispense Refill Last Dose ARIPiprazole (Abilify Maintena) 300 mg injection Inject 300 mg into the shoulder, thigh, or buttocks every 30 (thirty) days. budesonide-formoteroL (Symbicort) 80-4.5 mcg/actuation inhaler Inhale 2 puffs in the morning and at bedtime. Rinse mouth with water after use to reduce aftertaste and incidence of candidiasis. Do not swallow. busPIRone (Buspar) 10 mg tablet Take 10 mg by mouth two times daily. ipratropium-albuteroL (Duo-Neb) 0.5-2.5 mg/3 mL nebulizer solution Take 3 mL by nebulization every 6 (six) hours if needed for wheezing. metFORMIN, OSM, (Fortamet) 500 mg 24 hr tablet Take 500 mg by mouth daily with evening meal. Do not crush, chew, or split. testosterone enanthate (Xyosted) 50 mg/0.5 mL auto-injector Inject 50 mg under the skin every 7 (seven) days. Last Recorded Vitals Patient Vitals for the past 24 hrs: BP Temp Temp src Pulse Resp SpO2 Height Weight 10/02/24 1100 95/57 -- -- 83 11 99 % -- -- 10/02/24 1016 105/76 -- -- 91 14 100 % -- -- 10/02/24 1000 89/52 -- -- 79 14 100 % -- -- 10/02/24 0900 109/73 -- -- 81 12 94 % -- -- 10/02/24 0802 98/64 -- -- 90 19 100 % -- -- 10/02/24 0800 -- 36.2 ???C (97.2 ???F) Temporal 81 24 98 % -- -- 10/02/24 0600 102/69 -- -- 89 21 99 % -- -- 10/02/24 0400 (!) 90/45 36.7 ???C (98.1 ???F) Temporal 84 10 100 % -- -- 10/02/24 0300 104/73 -- -- (!) 111 20 96 % -- -- 10/02/24 0200 87/58 -- -- 102 16 98 % -- -- 10/02/24 0140 -- -- -- 101 17 91 % (more content not included)... [facility] HPon 10-02-2024 HP - Attestation signed by Silvestre Duke MD at 10/02/2024 12:21 PM By using the attestations below, I agree that I have read and verify that the documentation has been personally reviewed by me and ensure that the documentation accurately reflects the encounter. GC: I personally saw this patient on the day of the encounter, performed the lim portions of the service and participated in the management and treatment plan of the patient. I reviewed and confirm the documentation by the Cardiovascular Fellow Dr August Alcocer. Please note there may be an additional personal documentation from me. Silvestre Duke MD Cardiology Consult Note Reason for Consult: nstemi HPI: Guero Davis is a 34 y.o. adult transgender female to male, who initially presented to [facility] on 10/01/2024 after accidental overdose on cocaine, patient reported that he felt dizzy then became unresponsive, when he woke up he found himself around EMS and was given Narcan, he underwent CTA chest which was negative for PE, high sensitivity troponin of 660, other labs were remarkable for elevated WBC count of 23, lactate of 4.3, and patient was transferred to [facility] for further evaluation. Upon presentation to [facility], patient was admitted to MICU, he was in no acute distress, reported substernal and left sided chest pain, his initial conventional troponin elevated at 0.29. Cardiology team consulted for further evaluation and management. Cardiology ROS: Review of Systems Constitutional: Negative for activity change and appetite change. Respiratory: Negative for cough, chest tightness, shortness of breath and wheezing. Cardiovascular: Negative for chest pain, palpitations and leg swelling. Gastrointestinal: Negative for abdominal pain, nausea and vomiting. Genitourinary: Negative for dysuria and hematuria. Neurological: Negative for dizziness and light-headedness. Past Medical History He has a past medical history of Anxiety, Asthma, Bipolar 1 disorder ([facility]), and Diabetes mellitus ([facility]). Surgical History He has a past surgical history that includes Tonsilectomy, adenoidectomy, bilateral myringotomy and tubes. Social History He has no history on file for tobacco use, alcohol use, and drug use. Family History Diabetes Mother Stroke Mother Seizures Brother Drug abuse Maternal Grandmother Hypertension Paternal Grandfather Hyperlipidemia Paternal Grandfather Prostate cancer Paternal Grandfather Lung cancer Paternal Grandfather No Known Problems Father Allergies Paxil [paroxetine hcl] and Wellbutrin [bupropion hcl] Medications Current Outpatient Medications Medication Instructions Abilify Maintena 300 mg, intramuscular, Every 30 days budesonide-formoteroL (Symbicort) 80-4.5 mcg/actuation inhaler 2 puffs, inhalation, 2 times daily RT, Rinse mouth with water after use to reduce aftertaste and incidence of candidiasis. Do not swallow. busPIRone (BUSPAR) 10 mg, oral, 2 times daily ipratropium-albuteroL (Duo-Neb) 0.5-2.5 mg/3 mL nebulizer solution 3 mL, nebulization, Every 6 hours PRN metFORMIN (OSM) (FORTAMET) 500 mg, oral, Daily with evening meal, Do not crush, chew, or split. testosterone enanthate (XYOSTED) 50 mg, subcutaneous, Every 7 days Medications Prior to Admission Medication Sig Dispense Refill Last Dose ARIPiprazole (Abilify Maintena) 300 mg injection Inject 300 mg into the shoulder, thigh, or buttocks every 30 (thirty) days. budesonide-formoteroL (Symbicort) 80-4.5 mcg/actuation inhaler Inhale 2 puffs in the morning and at bedtime. Rinse mouth with water after use to reduce aftertaste and incidence of candidiasis. Do not swallow. busPIRone (Buspar) 10 mg tablet Take 10 mg by mouth two times daily. ipratropium-albuteroL (Duo-Neb) 0.5-2.5 mg/3 mL nebulizer solution Take 3 mL by nebulization every 6 (six) hours if needed for wheezing. metFORMIN, OSM, (Fortamet) 500 mg 24 hr tablet Take 500 mg by mouth daily with evening meal. Do not crush, chew, or split. testosterone enanthate (Xyosted) 50 mg/0.5 mL auto-injector Inject 50 mg under the skin every 7 (seven) days. Last Recorded Vitals Patient Vitals for the past 24 hrs: BP Temp Temp src Pulse Resp SpO2 Height Weight 10/02/24 1100 95/57 -- -- 83 11 99 % -- -- 10/02/24 1016 105/76 -- -- 91 14 100 % -- -- 10/02/24 1000 89/52 -- -- 79 14 100 % -- -- 10/02/24 0900 109/73 -- -- 81 12 94 % -- -- 10/02/24 0802 98/64 -- -- 90 19 100 % -- -- 10/02/24 0800 -- 36.2 ???C (97.2 ???F) Temporal 81 24 98 % -- -- 10/02/24 0600 102/69 -- -- 89 21 99 % -- -- 10/02/24 0400 (!) 90/45 36.7 ???C (98.1 ???F) Temporal 84 10 100 % -- -- 10/02/24 0300 104/73 -- -- (!) 111 20 96 % -- -- 10/02/24 0200 87/58 -- -- 102 16 98 % -- -- 10/02/24 0140 -- -- -- 101 17 91 % -- (more content not included)... Normal [facility] MAGNESIUMon 10-02-2024 Magnesium [Mass/Vol] 1.9 mg/dL Normal 1.9-2.7 [facility] Comment on above: Performed By: #### L [id number] #### [facility] ([employer]) [address] [place] [address] PHOSPHORUSon 10-02-2024 Magnesium [Mass/Vol] 2.9 mg/dL Normal 2.5-5.0 [facility] Comment on above: Performed By: #### L [id number] #### [facility] ([employer]) [address] [place] [address] POCT GLUCOSE METER UNSOLICIT ED RESULTSon 10-02-2024 Glucose [Mass/Vol] 255 mg/dL High 70-105 [facility] Comment on above: Order Comment: Waive d Testing in the ED is performed under the ED CLIA certificate #[id number]. Result Comment: [email or web address] Performed By: #### L [id number] #### [facility] ([facility]) [address] [place] [address] Glucose [Mass/Vol] 316 mg/dL High 70-105 [facility] Comment on above: Order Comment: Waive d Testing in the ED is performed under the ED CLIA certificate #[id number]. Result Comment: [email or web address] Performed By: #### L [id number] #### [facility] ([facility]) [address] [place] [address] Glucose [Mass/Vol] 299 mg/dL High 70-105 [facility] Comment on above: Order Comment: Waive d Testing in the ED is performed under the ED CLIA certificate #[id number]. Result Comment: [email or web address] Performed By: #### L [id number] #### [facility] ([facility]) [address] [place] [address] Glucose [Mass/Vol] 203 mg/dL High 70-105 [facility] Comment on above: Order Comment: Waive d Testing in the ED is performed under the ED CLIA certificate #[id number]. Result Comment: [email or web address] Performed By: #### L [id number] #### [facility] ([facility]) [address] [place] [address] Glucose [Mass/Vol] 234 mg/dL High 70-105 [facility] Comment on above: Order Comment: Waive d Testing in the ED is performed under the ED CLIA certificate #[id number]. Result Comment: [email or web address] Performed By: #### L [id number] #### [facility] ([facility]) [address] [place] [address] Glucose [Mass/Vol] 248 mg/dL High 70-105 [facility] Comment on above: Order Comment: Waive d Testing in the ED is performed under the ED CLIA certificate #[id number]. Result Comment: [email or web address] Performed By: #### L [id number] #### [facility] ([facility]) [address] [place] [place] [address] Glucose [Mass/Vol] 273 mg/dL High 70-105 [facility] Comment on above: Order Comment: Waive d Testing in the ED is performed under the ED CLIA certificate #[id number]. Result Comment: salvador [email or web address] Performed By: #### L [id number] #### [facility] ([facility]) [address] [place] [place] [address] Glucose [Mass/Vol] 317 mg/dL High 70-105 [facility] Comment on above: Order Comment: Waive d Testing in the ED is performed under the ED CLIA certificate #[id number]. Result Comment: valentin [email or web address] Performed By: #### L [id number] #### [facility] ([facility]) [address] [place] [place] [address] TROPONIN Ion 10-02-2024 Troponin I.cardiac [Mass/Vol] 0.29 ng/mL Critically high 0.00-0.04 [facility] Comment on above: Result Comment: M-WI EVIOUS CRITICAL RESULT Previous result verified on 10/02/2024 0056 on specimen/case [id number] called with component Troponin I for procedure Troponin I with value 0.33 ng/mL. Performed By: #### L [id number] #### [facility] ([facility]) [address] [place] [place] [address] 30on 10-01-2024 30 Problem: Respiratory - Adult Goal: Achieves optimal ventilation and oxygenation Outcome: Progressing Problem: Skin/Tissue Integrity - Adult Goal: Skin integrity remains intact Outcome: Progressing Goal: Incisions, wounds, or drain sites healing without S/S of infection Outcome: Progressing Goal: Oral mucous membranes remain intact Outcome: Progressing Normal [facility] ANTI-XA (HEPARIN LEVEL)on HEPARIN UNFRACTIONATED (U/ML) IN PPP BY CHROMOGENIC METHOD 0.13 IU/mL Invalid Interpretation Code 0.3-0.7 [facility] Comment on above: Order Comment: Waive d Testing in the ED is performed under the ED CLIA certificate #[id number]. Result Comment: Wildrose roxaban and Apixaban will interfere with the anti Xa assay used to monitor UFH and LMWH. Performed By: #### L [id number] #### [facility] ([facility]) [address] [place] [address] APTTon 10-01-2024 ACTIVATED PARTIAL THROMBOPLASTIN TIME IN PPP BY COAGULATION ASSAY 37.3 Seconds High 25.0-35.0 [facility] Comment on above: Result Comment: Clin ical significance of the APTT is questionable in the presence of heparin. Performed By: #### L [id number] #### [facility] ([facility]) [address] [place] [address] B-TYPE NATRIURETIC PEPTIDEon 10-01-2024 Natriuretic peptide B (Bld) [Mass/Vol] 55 pg/mL Normal 0-100 [facility] Comment on above: Performed By: #### L [id number] #### [facility] ([facility]) [address] [place] [address] CBC WITH AUTO DIFFERENTIALon 10-01-2024 Basophils (Bld) [#/Vol] 0.04 10*3/uL Normal 0.00-0.20 [facility] Comment on above: Performed By: #### L [id number] #### [facility] ([facility]) [address] [place] [address] Basophils/100 WBC (Bld) 0.2 % Normal 0.0-1.0 [facility] Comment on above: Performed By: #### L [id number] #### [facility] ([facility]) [address] [place] [address] Eosinophils (Bld) [#/Vol] 0.00 10*3/uL Normal 0.00-0.50 [facility] Comment on above: Performed By: #### L [id number] #### [facility] ([facility]) [address] [place] [address] Eosinophils/100 WBC (Bld) 0.0 % Normal 0.0-6.0 [facility] Comment on above: Performed By: #### L [id number] #### [facility] ([facility]) [address] [place] [address] Erythrocyte distribution width (RBC) [Ratio] 13.4 % Normal 11.5-15.0 [facility] Comment on above: Performed By: #### L [id number] #### [facility] ([facility]) [address] [place] [address] ERYTHROCYTE MEAN CORPUSCULAR HEMOGLOBIN CONCENTRATION (G/DL) BY AUTOMATED 34.5 g/dL Normal 32.0-35.0 [facility] Comment on above: Performed By: #### L [id number] #### [facility] ([facility]) [address] [address] Hematocrit (Bld) [Volume fraction] 46.9 % Normal 36.0-55.0 [facility] Comment on above: Performed By: #### L [id number] #### [facility] ([facility]) [address] [place] [address] Hemoglobin (Bld) [Mass/Vol] 16.2 g/dL Normal 12.0-17.0 [facility] Comment on above: Performed By: #### L [id number] #### [facility] ([facility]) [address] [place] [address] Immature granulocytes (Bld) [#/Vol] 0.12 10*3/uL Normal 0.00-0.20 [facility] Comment on above: Performed By: #### L [id number] #### [facility] ([facility]) [address] [place] [address] Immature granulocytes/100 WBC (Bld) 0.5 % Normal 0.0-1.0 [facility] Comment on above: Performed By: #### L [id number] #### [facility] ([facility]) [address] [place] [address] Lymphocytes (Bld) [#/Vol] 1.92 10*3/uL Normal 1.20-4.00 [facility] Comment on above: Performed By: #### L [id number] #### [facility] ([facility]) [address] [place] [address] Lymphocytes/100 WBC (Bld) 7.8 % Low 20.0-45.0 [facility] Comment on above: Performed By: #### L [id number] #### [facility] ([facility]) [address] [place] [address] MCH (RBC) [Entitic mass] 29.6 pg Normal 27.0-33.0 [facility] Comment on above: Performed By: #### L [id number] #### [facility] ([facility]) [address] [place] [address] MCV (RBC) [Entitic vol] 85.6 fL Normal 82.0-98.0 [facility] Comment on above: Performed By: #### L [id number] #### [facility] ([facility]) [address] [place] [address] Monocytes (Bld) [#/Vol] 0.59 10*3/uL Normal 0.10-1.00 [facility] Comment on above: Performed By: #### L [id number] #### [facility] ([facility]) [address] [place] [address] Monocytes/100 WBC (Bld) 2.4 % Low 5.0-12.0 [facility] Comment on above: Performed By: #### L [id number] #### [facility] ([facility]) [address] [place] [address] Neutrophils (Bld) [#/Vol] 21.87 10*3/uL High 1.60-7.60 [facility] Comment on above: Performed By: #### L [id number] #### [facility] ([facility]) [address] [place] [address] Neutrophils/100 WBC (Bld) 89.1 % High 40.0-72.0 [facility] Comment on above: Performed By: #### L [id number] #### [facility] ([facility]) [address] [place] [address] NRBC (PER 100 WBCS) BY AUTOMATED COUNT 0.0 % Normal 0 [facility] Comment on above: Performed By: #### L [id number] #### [facility] ([facility]) [address] [place] [address] PLATELETS (10*3/UL) IN BLOOD AUTOMATED COUNT 232 10*3/uL Normal 150-400 [facility] Comment on above: Performed By: #### L [id number] #### [facility] ([facility]) [address] [place] [address] RBC (Bld) [#/Vol] 5.48 10*6/uL Normal 3.80-5.70 [facility] Comment on above: Performed By: #### L [id number] #### [facility] ([facility]) [address] [place] [address] WBC (Bld) [#/Vol] 24.54 10*3/uL High 4.00-10.60 [facility] Comment on above: Performed By: #### L [id number] #### [facility] ([facility]) [address] [place] [address] COMPREHENSIVE METABOLIC PANE Roberto Carlos 10-01-2024 Albumin [Mass/Vol] 3.9 g/dL Normal 3.5-5.7 [facility] Comment on above: Performed By: #### L [id number] #### [facility] ([facility]) [address] [place] [address] ALP [Catalytic activity/Vol] 72 U/L Normal 34-104 [facility] Comment on above: Performed By: #### L [id number] #### [facility] ([facility]) [address] [place] [address] ALT [Catalytic activity/Vol] 23 U/L Normal 7-52 [facility] Comment on above: Performed By: #### L [id number] #### [facility] ([facility]) [address] [place] [address] Anion gap [Moles/Vol] 12 mmol/L Normal 7-20 [facility] Comment on above: Performed By: #### L [id number] #### [facility] ([facility]) [address] [place] [address] AST [Catalytic activity/Vol] 22 U/L Normal 13-39 [facility] Comment on above: Performed By: #### L [id number] #### [facility] ([facility]) [address] [place] [address] Bilirubin [Mass/Vol] 0.8 mg/dL Normal 0.3-1.0 [facility] Comment on above: Performed By: #### L [id number] #### [facility] ([facility]) [address] [place] [address] Calcium [Mass/Vol] 9.0 mg/dL Normal 8.6-10.3 [facility] Comment on above: Performed By: #### L [id number] #### [facility] [address] [place] [address] Chloride [Moles/Vol] 99 mmol/L Normal 98-107 [facility] Comment on above: Performed By: #### L [id number] #### [facility] [address] [place] [address] CO2 [Moles/Vol] 24 mmol/L Normal 21-31 [facility] Comment on above: Performed By: #### L [id number] #### [facility] [address] [place] [address] Creatinine [Mass/Vol] 0.67 mg/dL Normal 0.60-1.30 [facility] Comment on above: Performed By: #### L [id number] #### [facility] ([facility]) [address] [place] [address] GLOMERULAR FILTRATION RATE ML/MIN/1.73 SQ M.PREDICTED 117.5 mL/min/1.73m*2 Normal >60.0 [facility] Comment on above: Result Comment: The [facility]???s estimated glomerular filtration rate (eGFR) will no longer include consideration of race in its calculation. The National Kid[employer]???s eGFR Task Force developed new recommendations for the estimation of the glomerular filtration rate in the [place] They recommend immediate implementation of the new equation refit without the race variable in all laboratories because the calculation does not include race. In addition to not including race in the calculation and reporting, it included diversity in its development, and has acceptable performance characteristics and potential consequences that do not disproportionately affect any one group of individuals. Performed By: #### L [id number] #### [facility] ([facility]) [address] [place] [address] Glucose [Mass/Vol] 365 mg/dL High 70-100 [facility] Comment on above: Performed By: #### L [id number] #### [facility] ([facility]) [address] [place] [address] Potassium [Moles/Vol] 4.0 mmol/L Normal 3.5-5.1 [facility] Comment on above: Performed By: #### L [id number] #### [facility] ([facility]) [address] [place] [address] Protein [Mass/Vol] 6.8 g/dL Normal 6.0-8.3 [facility] Comment on above: Performed By: #### L [id number] #### [facility] ([facility]) [address] [place] [address] Sodium [Moles/Vol] 131 mmol/L Low 136-145 [facility] Comment on above: Performed By: #### L [id number] #### [facility] [address] [place] [address] Urea nitrogen [Mass/Vol] 12 mg/dL Normal 7-25 [facility] Comment on above: Performed By: #### L [id number] #### [facility] ([facility]) [address] [place] [address] UREA NITROGEN/CREATININ E (MASS RATIO) IN SER/PLAS 17.9 Normal [facility] Comment on above: Performed By: #### L [id number] #### [facility]) [place] [id number] on 10-01-2024 - Attestation signed by Farnaz Marquez MD at 10/02/2024 12:38 PM I personally saw and examined the patient with resident/fellow Donte Sutherland MD on 10/02/2024 I discussed the findings and therapeutic plan with the Donte Sutherland MD. I agree with the documentation, except for any edits/updates below. 34-year-old transgender male who initially presented to outside hospital with overdose of cocaine and later on found to have increased troponin along with lactic acidosis and leukocytosis. A CT chest was done that was negative for PE or acute findings. Patient was then transferred to [place] for further evaluation and management. Patient is seen and examined at bedside. He is lying comfortably in bed. States that chest pain is improved. Patient is currently on heparin drip. An echocardiogram was done. Noted plan for cardiac authorization per cardiology. Leukocytosis is likely reactive without any signs of active infection. Continue to monitor for now. Patient denies IV drug abuse. Follow cultures. Continue with insulin in the setting of uncontrolled diabetes mellitus. Close monitoring of vitals, blood pressure and electrolytes. Farnaz Marquez MD Medical ICU History & Physical Patient - Mayela Davis Age - 34 y.o. - 1990 Date of Admission - 10/01/2024 4:35 PM Chief Complaint Dizziness History of Present Illness Mayela Davis is a 34 y.o. adult transgender male, formerly female who goes by Crew who initially presented to [facility] on 10/01/2024 after accidental overdose. As per report patient was with a friend who offered him some crack cocaine which she accepted. He says that he does not use crack cocaine on a regular basis. After that patient started to feel dizzy and became unresponsive. When he woke up he found himself around EMS and they gave him intranasal Narcan and vuc-bpulg-yslo and because of which he awakened easily. There was suspicion of witnessed aspiration by EMS. Patient reports that he has been noncompliant with his medications at home. He has a history of asthma, bipolar. Workup at [facility] was significant for an EKG which showed sinus tachycardia and CTA with concern for pulmonary edema and negative for PE. His troponins were elevated to 66. His blood glucose was elevated to 643. He had a white count of 23. His lactate was elevated to 4.3. His hemoglobin was concentrated at 19. He was treated empirically for an asthma exacerbation and aspiration pneumonia with Zosyn and IV Solu-Medrol. Patient was started on heparin drip for NSTEMI and as well as IV insulin for hyperglycemia. Patient was transferred to [facility] for higher level of care and cardiology evaluation. Upon presentation here, patient is in no acute distress. He reports persistent substernal and left-sided chest pain although it is improved from his prior presentation at outside hospital. He says sublingual nitroglycerin does not alleviate his pain and instead gives him a headache however he was given IV morphine prior to transport and that helped him. PMH: has a past medical history of Anxiety, Asthma, Bipolar 1 disorder (CMS/HCC), and Diabetes mellitus (CMS/[facility]). PSH: has a past surgical history that includes Tonsilectomy, adenoidectomy, bilateral myringotomy and tubes. SH: Alc/Tobacco/Drug: has no history on file for alcohol use. has no history on file for tobacco use. has no history on file for drug use. Medications: Current Facility-Administered Medications: aspirin EC tablet 81 mg, 81 mg, oral, Daily, Donte Sutherland MD atorvastatin (Lipitor) tablet 80 mg, 80 mg, oral, Nightly, Donte Sutherland MD glucose chewable tablet 24 g, 24 g, oral, q15 min PRN OR dextrose 50 % in water (D50W) syringe 25 g, 25 g, intravenous, q15 min PRN, Donte Sutherland MD insulin lispro (HumaLOG) injection 0-5 Units, 0-5 Units, subcutaneous, TID with meals AND insulin lispro (HumaLOG) injection 0-4 Units, 0-4 Units, subcutaneous, Nightly, Donte Sutherland MD Oxygen Therapy, , inhalation, Continuous, Donte Sutherland MD, Oxygen On at 10/01/24 1645 Insert peripheral IV, , , Once AND Saline lock IV, , , Once AND sodium chloride flush 10 mL, 10 mL, intravenous, q8h PRN, Donte Sutherland MD Allergies: Paxil [paroxetine hcl] and Wellbutrin [bupropion hcl] Family history: family history is not on file. Review of Systems: As noted in HPI Physical Exam Ht Readings from Last 1 Encounters: No data found for Ht Wt Readings from Last 1 Encounters: No data found for Wt temporal temperature is 36.8 ???C (98.2 ???F). His blood pressure is 115/70 and his pulse is 102. His respiration is 17 and oxygen saturation is 94%. No intake or output data in the 24 hours ending 10/01/24 1734 General: (more content not included)... Normal [facility] LACTIC ACID WITH 4 HOUR REFL EXon 10-01-2024 LACTATE (MMOL/L) IN SER/PLAS 2.2 mmol/L Normal 0.5-2.2 [facility] Comment on above: Performed By: #### L [id number] #### [facility] ([facility]) [address] [place] [address] Performed By: #### L [id number] #### [facility] ([facility]) [address] [place] [address] MAGNESIUMon 10-01-2024 Magnesium [Mass/Vol] 1.7 mg/dL Low 1.9-2.7 [facility] Comment on above: Performed By: #### L [id number] #### [facility] ([facility]) [address] [place] [address] PHOSPHORUSon 10-01-2024 Magnesium [Mass/Vol] 2.6 mg/dL Normal 2.5-5.0 [facility] Comment on above: Performed By: #### L [id number] #### [facility] ([facility]) [address] [place] [address] POCT GLUCOSE METER UNSOLICIT ED RESULTSon 10-01-2024 Glucose [Mass/Vol] 365 mg/dL High 70-105 [facility] Comment on above: Order Comment: Waive d Testing in the ED is performed under the ED CLIA certificate #[id number]. Result Comment: [email or web address] Performed By: #### L [id number] #### [facility] ([facility]) [address] [place] [address] Glucose [Mass/Vol] 316 mg/dL High 70-105 [facility] Comment on above: Order Comment: Waive d Testing in the ED is performed under the ED CLIA certificate #[id number]. Result Comment: valentin [email or web address] Performed By: #### L [id number] #### [facility] ([facility]) [address] [place] [address] PROCALCITONIN TESTon 024 PROCALCITONIN IN BLOOD 0.17 ng/mL High 0.00-0.10 [facility] Comment on above: Result Comment: Susp ected Lower Respiratory Tract Infection: 0.1-0.25 ng/mL - Low likelihood for bacterial infection;Antibiotics discouraged.* >0.25 ng/mL - Increased likelihood bacterial infection;Antibiotics encouraged. ____ Suspected Sepsis: Strongly consider initiating antibiotics in all unstable patients. 0.1-0.5 ng/mL - Low likelihood for sepsis; Antibiotics discouraged.* >0.5 ng/mL - Increased likelihood sepsis; Antibiotics encouraged. >2.0 ng/mL - High risk of sepsis/septic shock; Antibiotics strongly encouraged. *Recommend retesting PCT within 6-12 hours if clinically indicated and initial PCT<0.5ng/mL Performed By: #### L [id number] #### [facility] ([facility]) [address] [place] [address] PROTIME-INRon 10-01-2024 INR IN PPP BY COAGULATION ASSAY 1.07 Normal 0.90-1.10 [facility] Comment on above: Result Comment: ACCC P RECOMMENDED INR FOR WARFARIN THERAPY CONDITION INR PROPHYLAXIS OF VENOUS THROMBOSIS 2-3 (HIGH-RISK SURGERY) TREATMENT OF VENOUS THROMBOSIS 2-3 TREATMENT OF PULMONARY EMBOLISM 2-3 PREVENTION OF SYSTEMIC EMBOLISM: 2-3 ACUTE MYOCARDIAL INFARCTION TISSUE HEART VALVES VALVULAR HEART DISEASE ATRIAL FIBRILLATION RECURRENT SYSTEMIC EMBOLISM MECHANICAL HEART VALVE 2.5-3.5 FROM: ORAL ANTICOAGULANTS. MECHANISM OF ACTION, CLINICAL EFFECTIVENESS, AND OPTIMAL THERAPEUTIC RANGE. CHEST 1995;108:231S-246S. Performed By: #### L [id number] #### [facility] ([facility]) [address] [place] [address] PROTHROMBIN TIME (PT) IN PPP BY COAGULATION ASSAY 13.9 Seconds Normal 12.3-14.8 [facility] Comment on above: Performed By: #### L [id number] #### [facility] ([facility]) [address] [place] [address] TROPONIN Ion 10-01-2024 Troponin I.cardiac [Mass/Vol] 0.33 ng/mL Critically high 0.00-0.04 [facility] Comment on above: Result Comment: MRenettaWI EVIOUS CRITICAL RESULT Previous result verified on 10/01/2024 1844 on specimen/case [id number] called with component Troponin I for procedure Troponin I with value 0.29 ng/mL. Performed By: #### L [id number] #### [facility] ([facility]) [address] [place] [address] Troponin I.cardiac [Mass/Vol] 0.29 ng/mL Critically high 0.00-0.04 [facility] Comment on above: Result Comment: CHRISTIAN PARHAM INITIAL CRITICAL HIGH; RESPUN AND RETESTED Performed By: #### L [id number] #### [facility] ([facility]) [address] [place] [address] CNOVon 05-25-2024 CNOV Office Visit (INTLKB ) MAYELA DAVIS ([id number]) 1990 F T Date Time Provider Department 05/25/24 11:00 AM YANDEL ELDRIDGE IN[facility] During your visit today, we recorded the following information about you: Temperature Pulse Respiration Blood pressure 97.3 degrees 91/minute 18/minute 114/82 Weight 110.2 kg Yandel Eldridge PA-C 05/25/2024 1:53 PM Signed ESTABLISHED PATIENT Chief Complaint: Guero Mendoza Ryan is a 33 year old adult who presents today for a follow up visit. Subjective HPI PCP: cL Wynn MD Last OV: 02/24/[address] Bui. PMH: gender dysphoria, T2DM, HLD, asthma, allergic rhinitis, MDD, anxiety Guero (he/him) #Gender Dysphoria Current Regiment: testosterone enanthate (0.5 mL) 75 mg weekly SQ injections Injection day: Friday - auto-injector Has been on GAHT since 11/2022 Body changes: Has obtained labs prior to today's visit Denies obvious negative side effects Denies CP, SOB, heart palpitations, headaches, and leg swelling Gender Affirmation Care Goals Desires top surgery Weight loss - desires weight loss prior to top surgery and improved diabetic management- currently following with Dr. Mccann Name change More facial hair PAST MEDICAL HISTORY Diagnosis Date Anxiety disorder Asthma Bipolar 1 disorder (HCC) Diabetes mellitus (HCC) Eustachian tube dysfunction GERD (gastroesophageal reflux disease) Hyperglycemia Hyperlipidemia Leukocytosis PAST SURGICAL HISTORY Procedure Laterality Date EAR TUBES HX PAST SURGICAL HISTORY OF Bilateral 2016 Filshie clips REPAIR OF NASAL SEPTUM TONSILLECTOMY AND ADENOIDECTOMY No family history on file. Current Outpatient Medications Medication Sig Dispense Refill JARDIANCE 10 mg tablet take 1 tablet by mouth every day with breakfast 90 tablet 0 dulaglutide (TRULICITY) 0.75 mg/0.5 mL pen injector Inject 0.75 mg subcutaneously one time a week. 2 mL 1 Blood-Glucose Sensor (FREESTYLE LUZ 3 SENSOR) rajiv 1 Each every 2 weeks. 6 Each 4 levothyroxine (SYNTHROID) 50 mcg tablet Take 1 tablet by mouth once daily [E03.9] 90 tablet 1 famotidine (PEPCID) 20 mg tablet TAKE 1 TABLET BY MOUTH TWICE A DAY 180 tablet 1 metFORMIN ER (GLUCOPHAGE XR) 500 mg 24 hr tablet Take 2 tablets by mouth two times a day with meals. 120 tablet 11 Blood-Glucose Meter (TRUE METRIX GLUCOSE METER) 1 Each two times a day. 1 Each 0 blood sugar diagnostic (TRUE METRIX GLUCOSE TEST STRIP) test strip Use as instructed daily 100 Each 3 albuterol HFA (PROVENTIL HFA, VENTOLIN HFA) 90 mcg/actuation inhaler INHALE 2 PUFFS EVERY 6 HOURS NEEDED FOR WHEEZING ipratropium-albuterol (DUONEB) 0.5 mg-3 mg(2.5 mg base)/3 mL nebu INHALE 3 ML BY NEBULIZATION EVERY 6 HOURS NEEDED FOR WHEEZING. sertraline (ZOLOFT) 50 mg tablet TAKE 1 TABLET BY MOUTH EVERY DAY IN THE MORNING ABILIFY MAINTENA 400 mg sers injection inject 1 400MG/1 ML PREFILLED SYRINGE intramuscularly every 30 DAYS lamoTRIgine (LAMICTAL) 100 mg tablet TAKE 1 TABLET BY MOUTH EVERY DAY IN THE MORNING busPIRone HCl 30 mg tablet TAKE 1 TABLET BY MOUTH TWICE A DAY DIRECTED montelukast (SINGULAIR) 10 mg tablet Take 10 mg by mouth. budesonide-formoterol (SYMBICORT) 160-4.5 mcg/actuation inhaler Inhale 2 Puffs as instructed. testosterone enanthate (XYOSTED) 75 mg/0.5 mL auto-injector Inject 0.5 mL subcutaneously one time a week for 90 days. Taking .75 mgl weekly 4 Each 2 fluconazole (DIFLUCAN) 150 mg tablet Take 1 tablet by mouth every 72 hours. (Patient not taking: Reported on 05/25/2024) 2 tablet 0 Syringe with Needle, Disp, (BD LUER-LEODAN SYRINGE) 3 mL 21 gauge x 1 syrg 1 Each one time a week. (Patient not taking: Reported on 03/02/2024) 12 Each 0 Syringe with Needle, Safety (BD ECLIPSE LUER-LEODAN) 3 mL 22 gauge x 1 1/2 1 Each one time a week. (Patient not taking: Reported on 03/02/2024) 12 Each 0 fluticasone (FLONASE) 50 mcg/actuation nasal spray Use 2 Sprays in each nostril once daily. (Patient not taking: Reported on 05/10/2024) 1 Each 11 No current facility-administered medications for this visit. ALLERGIES Allergen Reactions Paroxetine Anaphylaxis, Swelling tounge AND throat swelling tounge AND throat swelling Bupropion Anaphylaxis, Other: See Comments hallucinations Social History Tobacco Use Smoking status: Never Passive exposure: Never Smokeless tobacco: Never Tobacco comments: Vape with nicotine Substance Use Topics Alcohol use: Not Currently Drug use: Never Review of Systems Constitutional: Negative for chills and fever. HENT: Negative for congestion and sore throat. Eyes: Negative for pain and visual disturbance. Respiratory: Negative for cough and shortness of breath. Cardiovascular: Negative for chest pain and palpitations. Gastrointestinal: Negative for abdominal pain, blood in stool, constipation, diarrhea, nausea and vomiting. (more content not included)... Normal [facility] CBC W Auto Differential pane l (Bld)on 05-21-2024 Basophils (Bld) [#/Vol] 0.08 10*3/uL Normal <0.11 [facility] Comment on above: Order Comment: Speci men Type: BLOOD SPECIMENOrdering Facility: [facility] Address: [address] [place] [address] Performed By: #### 5 7021-8 ####[facility] LWCLIA [id number] [place] [address] [place] Basophils/100 WBC (Bld) 0.7 % Normal [facility] Comment on above: Order Comment: Speci men Type: BLOOD SPECIMENOrdering Facility: [facility] Address: [address] [place] [address] Performed By: #### 5 7021-8 ####[facility] LWCLIA [id number] [place] [address] [place] Differential cell count method Nom (Bld) Auto Normal [facility] Comment on above: Order Comment: Speci men Type: BLOOD SPECIMENOrdering Facility: [facility] Address: [address] [place] [address] Performed By: #### 5 7021-8 ####[facility] LWCLIA [id number] [place] [address] [place] Eosinophils (Bld) [#/Vol] 0.23 10*3/uL Normal <0.46 [facility] Comment on above: Order Comment: Speci men Type: BLOOD SPECIMENOrdering Facility: [facility] Address: [address] [place] [address] Performed By: #### 5 7021-8 ####[facility] LWCLIA [id number] [place] [id number] [place] Eosinophils/100 WBC (Bld) 2.1 % Normal [facility] Comment on above: Order Comment: Speci men Type: BLOOD SPECIMENOrdering Facility: [facility] Address: [address] [place] [address] Performed By: #### 5 7021-8 ####[facility] LWCLIA [id number] [place] [id number] [place] [facility] Erythrocyte distribution width (RBC) [Ratio] 16.1 % High 11.5-15.0 [facility] Comment on above: Order Comment: Speci men Type: BLOOD SPECIMENOrdering Facility: [facility] Address: [address] [place] [address] Performed By: #### 5 7021-8 ####[facility] LWCLIA [id number] [place] [address] [place] Hematocrit (Bld) [Volume fraction] 53.6 % High 39.0-51.0 [facility] Comment on above: Order Comment: Speci men Type: BLOOD SPECIMENOrdering Facility: [facility] Address: [address] [place] [address] Performed By: #### 5 7021-8 ####[facility] LWCLIA [id number] [place] [address] [place] Hemoglobin (Bld) [Mass/Vol] 17.3 g/dL High 13.0-17.0 [facility] Comment on above: Order Comment: Speci men Type: BLOOD SPECIMENOrdering Facility: [facility] Address: [address] [place] [address] Performed By: #### 5 7021-8 ####[facility] LWCLIA [id number] [place] [id number] [place] Immature granulocytes (Bld) [#/Vol] 0.03 10*3/uL Normal <0.10 [facility] Comment on above: Order Comment: Speci men Type: BLOOD SPECIMENOrdering Facility: [facility] Address: [address] [place] [address] Performed By: #### 5 7021-8 ####[facility] LWCLIA [id number] [address] [place] Immature granulocytes/100 WBC (Bld) 0.3 % Normal [facility] Comment on above: Order Comment: Speci men Type: BLOOD SPECIMENOrdering Facility: [facility] Address: [address] [place] [address] Performed By: #### 5 7021-8 ####[facility] LWCLIA [id number] [place] [id number] [place] Lymphocytes (Bld) [#/Vol] 3.05 10*3/uL Normal 1.00-4.00 [facility] Comment on above: Order Comment: Speci men Type: BLOOD SPECIMENOrdering Facility: [facility] Address: [address] [place] [address] Performed By: #### 5 7021-8 ####[facility] LWIA [id number] [address] [place] Lymphocytes/100 WBC (Bld) 27.4 % Normal [facility] Comment on above: Order Comment: Speci men Type: BLOOD SPECIMENOrdering Facility: [facility] Address: [address] [place] [address] Performed By: #### 5 7021-8 ####[facility] LWCLIA [id number] [place] [address] [place] MCH (RBC) [Entitic mass] 28.2 pg Normal 26.0-34.0 [facility] Comment on above: Order Comment: Speci men Type: BLOOD SPECIMENOrdering Facility: [facility] Address: [address] [place] [address] Performed By: #### 5 7021-8 ####[facility] LWIA [id number] [place] [id number] [place] [facility] MCHC (RBC) [Mass/Vol] 32.3 g/dL Normal 30.5-36.0 [facility] Comment on above: Order Comment: Speci men Type: BLOOD SPECIMENOrdering Facility: [facility] Address: [address] [place] [address] Performed By: #### 5 7021-8 ####[facility] LWCLIA [id number] [place] [id number] [place] MCV (RBC) [Entitic vol] 87.4 fL Normal 80.0-100.0 [facility] Comment on above: Order Comment: Speci men Type: BLOOD SPECIMENOrdering Facility: [facility] Address: [address] [place] [address] Performed By: #### 5 7021-8 ####[facility] LWCLIA [id number] [place] [id number] [place] Monocytes (Bld) [#/Vol] 0.59 10*3/uL Normal <0.87 [facility] Comment on above: Order Comment: Speci men Type: BLOOD SPECIMENOrdering Facility: [facility] Address: [address] [place] [address] Performed By: #### 5 7021-8 ####[facility] LWCLIA [id number] [place] [id number] [place] Monocytes/100 WBC (Bld) 5.3 % Normal [facility] Comment on above: Order Comment: Speci men Type: BLOOD SPECIMENOrdering Facility: [facility] Address: [address] [place] [address] Performed By: #### 5 7021-8 ####[facility] LWCLIA [id number] [place] [id number] [place] Neutrophils (Bld) [#/Vol] 7.16 10*3/uL Normal 1.45-7.50 [facility] Comment on above: Order Comment: Speci men Type: BLOOD SPECIMENOrdering Facility: [facility] Address: [address] [place] [address] Performed By: #### 5 7021-8 ####[facility] LWCLIA [id number] [place] [id number] [place] Neutrophils/100 WBC (Bld) 64.2 % Normal [facility] Comment on above: Order Comment: Speci men Type: BLOOD SPECIMENOrdering Facility: [facility] Address: [address] [place] [address] Performed By: #### 5 7021-8 ####[facility] LWCLIA [id number] [place] [id number] [place] Nucleated RBC (Bld) [#/Vol] 10*3/uL Normal <0.01 [facility] Comment on above: Order Comment: Speci men Type: BLOOD SPECIMENOrdering Facility: [facility] Address: [address] [place] [address] Performed By: #### 5 7021-8 ####[facility] LWCLIA [id number] [place] [address] [place] Nucleated RBC/100 WBC (Bld) [Ratio] 0.0 /100 WBC Normal [facility] Comment on above: Order Comment: Speci men Type: BLOOD SPECIMENOrdering Facility: [facility] Address: [address] [place] [address] Performed By: #### 5 7021-8 ####[facility] LWCLIA [id number] [place] [id number] [place] Platelet mean volume (Bld) [Entitic vol] 11.9 fL Normal 9.0-12.7 [facility] Comment on above: Order Comment: Speci men Type: BLOOD SPECIMENOrdering Facility: [facility] Address: [address] [place] [address] Performed By: #### 5 7021-8 ####[facility] LWCLIA [id number] [place] [id number] [place] Platelets (Bld) [#/Vol] 249 10*3/uL Normal 150-400 [facility] Comment on above: Order Comment: Speci men Type: BLOOD SPECIMENOrdering Facility: [facility] Address: [address] [place] [address] Performed By: #### 5 7021-8 ####[facility] LWCLIA [id number] [place] [address] [place] RBC (Bld) [#/Vol] 6.13 10*6/uL High 4.20-6.00 [facility] Comment on above: Order Comment: Speci men Type: BLOOD SPECIMENOrdering Facility: [facility] Address: [address] [place] [address] Performed By: #### 5 7021-8 ####[facility] LWCLIA [id number] [place] [address] [place] WBC (Bld) [#/Vol] 11.14 10*3/uL High 3.70-11.00 [facility] Comment on above: Order Comment: Speci men Type: BLOOD SPECIMENOrdering Facility: [facility] Address: [address] [place] [address] Performed By: #### 5 7021-8 ####[facility] LWCLIA [id number] [place] [address] [place] Estradiol SerPl-mCncon 05-21 E2 [Mass/Vol] 76 pg/mL Normal [facility] Comment on above: Order Comment: Speci men Type: URINE SPECIMEN [facility] Address: [address] [place] [address] Performed By: #### U ACR #### [facility] CLIA [id number] [address] [place] [address] [place] Testost SerPl-mCncon 024 Testosterone [Mass/Vol] 685 ng/dL Normal [facility] Comment on above: Order Comment: Speci men Type: URINE SPECIMEN [facility] Address: [address] [place] [address] Result Comment: Resu lt rechecked. Performed By: #### U ACR #### [facility] CLIA [id number] [address] [place], [place] [address] [place] CNOVon 05-10-2024 CNOV Office Visit (ENDLKW ) MAYELA DAVIS ([id number]) 1990 F T Date Time Provider Department 05/10/24 11:00 AM CAITLIN RAMESH During your visit today, we recorded the following information about you: Pulse Respiration Blood pressure Weight 90/minute 14/minute 112/82 112.6 kg Caitlin Ramesh APRN.WHEEL BLOCKER 05/10/2024 2:20 PM Signed [facility] NEW PATIENT CONSULT HISTORY OF PRESENT ILLNESS: Age: [age] year old with Class III Obesity , DM-2 since the last 3 years- currently Uncontrolled with microscopic albuminuria , Bipolar 2 depression- seeing Psych , Gender Dysphoria - female to male transition, started to transition in the last 1 year - on testosterone injections , New Onset Hypothyroid- per Labs from 02/2024, Asthma , Hyperlipidemia , Sleep Disturbance- PSG ord'd : Patient comes today for follow up of weight management. Weight History - High school graduation weight: 200 pounds - started to struggle with his weight during puberty, also gained weight during her 4 pregnancies , she did have gestational diabetes with her 1 - f/h of Obesity :Mother and brother struggles - Height: 5'6 Goals for weight loss : I would like to be <200 pounds Weight Loss Medications: -- taking Metformin XR 1 gm po BID - tried Ozempic - gave him- diarrhea - Tolerating Trulicity 0.75 mg/weekly - FSBS : fasting :98-198 mg/dl Diet: -- 24 hr food recall: water 40-80 ounces B: 10:30 am : frozen waffles/whatever is convenient S at 3 pm: baby bel cheese- 2 , grapes L: snacks on nuts D: 5 pm: chicken, pasta , vegetable S: raisins or Craisins/cheese stick Not big into sweets Appetite Control: -- decreased, I have to force myself to eat - binge eating: no - late night eating: no - emotional eating : yes- with boredom, likes sweets - portion control: not large Exercise: -- 2-3/ week, walking 30 mins to 1 hour each session -- swimming a lot with kids this summer - no physical limitations Sleep: -- Sleep initiation: better (couldn't stay awake with BG elevated before. 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 Blood-Glucose Meter (TRUE METRIX GLUCOSE METER) 1 Each two times a day. glipiZIDE (GLUCOTROL) 5 mg tablet Take 1 tablet by mouth two times a day before meals. blood sugar diagnostic (TRUE METRIX GLUCOSE TEST STRIP) test strip Use as instructed daily Syringe with Needle, Disp, (BD LUER-LEODAN SYRINGE) 3 mL 21 gauge x 1 syrg 1 Each one time a week. albuterol HFA (PROVENTIL HFA, VENTOLIN HFA) 90 mcg/actuation inhaler INHALE 2 PUFFS EVERY 6 HOURS NEEDED FOR WHEEZING ipratropium-albuterol (DUONEB) 0.5 mg-3 mg(2.5 mg base)/3 mL nebu INHALE 3 ML BY NEBULIZATION EVERY 6 HOURS NEEDED FOR WHEEZING. Syringe with Needle, Safety (BD ECLIPSE LUER-LEODAN) 3 mL 22 gauge x 1 1/2 1 Each one time a week. sertraline (ZOLOFT) 50 mg tablet TAKE 1 TABLET BY MOUTH EVERY DAY IN THE MORNING ABILIFY MAINTENA 400 mg sers injection inject 1 400MG/1 ML PREFILLED SYRINGE intramuscularly every 30 DAYS lamoTRIgine (LAMICTAL) 100 mg tablet TAKE 1 TABLET BY MOUTH EVERY DAY IN THE MORNING busPIRone HCl 30 mg tablet TAKE 1 TABLET BY MOUTH TWICE A DAY DIRECTED montelukast (SINGULAIR) 10 mg tablet Take 10 mg by mouth. budesonide-formoterol (SYMBICORT) 160-4.5 mcg/actuation inhaler Inhale 2 Puffs as instructed. fluticasone (FLONASE) 50 mcg/actuation nasal spray Use 2 Sprays in each nostril once daily. testosterone enanthate (XYOSTED) 75 mg/0.5 mL auto-injector Inject 0.5 mL subcutaneously one time a week for 90 days. No current facility-administered medications on file prior to visit. SIGNIFICANT PAST MEDICAL HISTORY, SOCIAL HISTORY AND FAMILY HISTORY: PAST MEDICAL HISTORY Diagnosis Date Anxiety disorder Asthma Bipolar 1 disorder (HCC) Diabetes mellitus (HCC) Eustachian tube dysfunction GERD (gastroesophageal reflux disease) Hyperglycemia Hyperlipidemia Leukocytosis History reviewed. No pertinent family history. Social History Tobacco Use Smoking status: Never Passive exposure: Never Smokeless tobacco: Never Tobacco comments: Vape with nicotine Substance Use Topics Alcohol use: Not Currently Drug use: Never PHYSICAL EXAM: Mayela Davis is a 33 year old year old adult who looks his (more content not included)... Normal [facility] HEMOGLOBIN A1C (POC)on 05-10 HbA1c (Bld) [Mass fraction] 9.2 % Abnormal 4.3 - 5.6 % [facility] Comment on above: Location:[facility], [address] [place] [address], [address] Point of care (POC) Hemoglobin A1c (HGBA1C) testing is intended to assess glucose control and provide a management tool for patients known to have diabetes and their healthcare providers. Target HGBA1C levels may depend on specific clinical circumstances. POC HGBA1C is not intended for use as a diagnostic or screening test; laboratory-based testing should be used for diagnostic purposes. The following information is supplemental and may not be applicable to specific diabetes management situations: The POC device stitch welder provides a normal range of 4.2% to 6.5% for the HGBA1C POC test. However, the [place] [employer] guidelines indicate that patients with HGBA1C in the range of 5.7% to 6.4% are at increased risk for development of diabetes and that intervention by lifestyle modification may be beneficial. A HGBA1C level greater than or equal to 6.5% is considered diagnostic of diabetes, pending confirmatory testing. Use of HGBA1C testing to evaluate glucose control may not be appropriate for patients with hemoglobin variants or other conditions (e.g. anemia) that alter red blood cell lifespan. Interpretation and review of laboratory results Abnormal [facility] CNPNon 03-11-2024 CNPN Telephone (INTLKB) MAYELA DAVIS ([id number]) 1990 F T Date Time Provider Department 03/11/24 GANESH BUI INTBozenaKB During your visit today, we recorded the following information about you: Lakeisha Morse 03/11/2024 11:29 AM Signed Guero is calling Ganesh Bui MD today to request PA needed for RX testosterone enanthate Patient has been identified by name and birthdate. Duration of symptoms: N/A Person calling: self Call patient at: at home [phone] (home) [phone] (cell) Was an appointment scheduled: Yes: Date/Time: 05-25-2023 Closing statement: Please call patient with update. Shu Early 03/16/2024 10:32 AM Signed Patient called in wanting a status on PA. Patient has been out of medication for 2 months and would like to know status. Please advise Thank you Casi Evans MA 03/16/2024 3:52 PM Signed Spoke to insurance. PA has been approved 11/22/2024. PA#[id number] Patient is aware. Allergies As of Date: 03/11/2024 Noted Allergy Reaction PAROXETINE 11/10/2012 10 - Anaphylaxis 7 - Swelling Comments: tounge AND throat swelling tounge AND throat swelling BUPROPION 01/12/2013 10 - Anaphylaxis 14 - Other: See Comments Comments: hallucinations Date Reviewed: 03/02/2024 Reviewed by: Kenisha Hutson MA - Fully Assessed Reason for Visit: PA needed for RX testosterone enanthate [Other] Prescriptions as of 03/16/2024 - metFORMIN ER (GLUCOPHAGE XR) 500 mg 24 hr tablet Take 2 tablets by mouth two times a day with meals. - testosterone enanthate (XYOSTED) 75 mg/0.5 mL auto-injector Inject 0.5 mL subcutaneously one time a week for 90 days. - levothyroxine (SYNTHROID) 50 mcg tablet Take 1 tablet by mouth once daily. - dulaglutide (TRULICITY) 0.75 mg/0.5 mL pen injector Inject 0.75 mg subcutaneously one time a week. - famotidine (PEPCID) 20 mg tablet Take 1 tablet by mouth two times a day. - empagliflozin (JARDIANCE) 10 mg tablet Take 1 tablet by mouth daily with breakfast. - Blood-Glucose Meter (TRUE METRIX GLUCOSE METER) 1 Each two times a day. - blood sugar diagnostic (TRUE METRIX GLUCOSE TEST STRIP) test strip Use as instructed daily - Syringe with Needle, Disp, (BD LUER-LEODAN SYRINGE) 3 mL 21 gauge x 1 syrg 1 Each one time a week. - albuterol HFA (PROVENTIL HFA, VENTOLIN HFA) 90 mcg/actuation inhaler INHALE 2 PUFFS EVERY 6 HOURS NEEDED FOR WHEEZING - ipratropium-albuterol (DUONEB) 0.5 mg-3 mg(2.5 mg base)/3 mL nebu INHALE 3 ML BY NEBULIZATION EVERY 6 HOURS NEEDED FOR WHEEZING. - Syringe with Needle, Safety (BD ECLIPSE LUER-LEODAN) 3 mL 22 gauge x 1 1/2 1 Each one time a week. - sertraline (ZOLOFT) 50 mg tablet TAKE 1 TABLET BY MOUTH EVERY DAY IN THE MORNING - ABILIFY MAINTENA 400 mg sers injection inject 1 400MG/1 ML PREFILLED SYRINGE intramuscularly every 30 DAYS - lamoTRIgine (LAMICTAL) 100 mg tablet TAKE 1 TABLET BY MOUTH EVERY DAY IN THE MORNING - busPIRone HCl 30 mg tablet TAKE 1 TABLET BY MOUTH TWICE A DAY DIRECTED - montelukast (SINGULAIR) 10 mg tablet Take 10 mg by mouth. - budesonide-formoterol (SYMBICORT) 160-4.5 mcg/actuation inhaler Inhale 2 Puffs as instructed. - fluticasone (FLONASE) 50 mcg/actuation nasal spray Use 2 Sprays in each nostril once daily. Problem List As Of Date 03/11/2024 Noted Resolved Obesity, Class III, BMI 40-49.9 (morbid obesity*10/07/2022 Family history of malignant neoplasm of breast *09/25/2022 Type 2 diabetes mellitus without complications *08/19/2022 Allergic rhinitis [J30.9] 03/29/2021 Asthma [J45.909] 10/14/2022 Other hyperlipidemia [E78.49] 11/08/2021 S/P nasal septoplasty [Z98.890] 05/18/2019 Severe episode of recurrent major depressive di*10/14/2022 Anxiety [F41.9] 10/14/2022 Encounter for gynecological examination without*01/20/2024 Routine screening for STI (sexually transmitted* Cervical cancer screening [Z12.4] 01/20/2024 Need for HPV vaccination [Z23] 01/20/2024 Encounter Status:Closed by CASI EVANS on 03/16/24 Normal [facility] C-REACTIVE PROTEINon 024 CRP [Mass/Vol] 0.9 mg/dL High NINF - 0.9 mg/dL [facility] CNPNon 03-03-2024 CNPN Telephone (KYA) MAYELA DAVIS ([id number]) 1990 F T Date Time Provider Department 03/03/24 YOLIS RYAN During your visit today, we recorded the following information about you: Yolis Ryan RN 03/03/2024 4:02 PM Signed ----- Message from Rolly Bee MD sent at 03/03/2024 3:49 PM EDT ----- Please inform the patient that his sed rate is normal, and CRP borderline at 0.9. I do not believe these labs are indicative of chronic inflammation. I would recommend he discontinue vaping, that might improve his WBC. Otherwise no further recommendation at this time. Yolis Ryan RN 03/03/2024 4:03 PM Signed Pt informed of BRM message and denies any questions, needs or concerns at this time Yolis Ryan RN Allergies As of Date: 03/03/2024 Noted Allergy Reaction PAROXETINE 11/10/2012 10 - Anaphylaxis 7 - Swelling Comments: tounge AND throat swelling tounge AND throat swelling BUPROPION 01/12/2013 10 - Anaphylaxis 14 - Other: See Comments Comments: hallucinations Date Reviewed: 03/02/2024 Reviewed by: Kenisha Hutson MA - Fully Assessed Reason for Visit: Results [95] Prescriptions as of 03/03/2024 - metFORMIN ER (GLUCOPHAGE XR) 500 mg 24 hr tablet Take 2 tablets by mouth two times a day with meals. - testosterone enanthate (XYOSTED) 75 mg/0.5 mL auto-injector Inject 0.5 mL subcutaneously one time a week for 90 days. - levothyroxine (SYNTHROID) 50 mcg tablet Take 1 tablet by mouth once daily. - dulaglutide (TRULICITY) 0.75 mg/0.5 mL pen injector Inject 0.75 mg subcutaneously one time a week. - famotidine (PEPCID) 20 mg tablet Take 1 tablet by mouth two times a day. - empagliflozin (JARDIANCE) 10 mg tablet Take 1 tablet by mouth daily with breakfast. - Blood-Glucose Meter (TRUE METRIX GLUCOSE METER) 1 Each two times a day. - blood sugar diagnostic (TRUE METRIX GLUCOSE TEST STRIP) test strip Use as instructed daily - Syringe with Needle, Disp, (BD LUER-LEODAN SYRINGE) 3 mL 21 gauge x 1 syrg 1 Each one time a week. - albuterol HFA (PROVENTIL HFA, VENTOLIN HFA) 90 mcg/actuation inhaler INHALE 2 PUFFS EVERY 6 HOURS NEEDED FOR WHEEZING - ipratropium-albuterol (DUONEB) 0.5 mg-3 mg(2.5 mg base)/3 mL nebu INHALE 3 ML BY NEBULIZATION EVERY 6 HOURS NEEDED FOR WHEEZING. - Syringe with Needle, Safety (BD ECLIPSE LUER-LEODAN) 3 mL 22 gauge x 1 1/2 1 Each one time a week. - sertraline (ZOLOFT) 50 mg tablet TAKE 1 TABLET BY MOUTH EVERY DAY IN THE MORNING - ABILIFY MAINTENA 400 mg sers injection inject 1 400MG/1 ML PREFILLED SYRINGE intramuscularly every 30 DAYS - lamoTRIgine (LAMICTAL) 100 mg tablet TAKE 1 TABLET BY MOUTH EVERY DAY IN THE MORNING - busPIRone HCl 30 mg tablet TAKE 1 TABLET BY MOUTH TWICE A DAY DIRECTED - montelukast (SINGULAIR) 10 mg tablet Take 10 mg by mouth. - budesonide-formoterol (SYMBICORT) 160-4.5 mcg/actuation inhaler Inhale 2 Puffs as instructed. - fluticasone (FLONASE) 50 mcg/actuation nasal spray Use 2 Sprays in each nostril once daily. Problem List As Of Date 03/03/2024 Noted Resolved Obesity, Class III, BMI 40-49.9 (morbid obesity*10/07/2022 Family history of malignant neoplasm of breast *09/25/2022 Type 2 diabetes mellitus without complications *08/19/2022 Allergic rhinitis [J30.9] 03/29/2021 Asthma [J45.909] 10/14/2022 Other hyperlipidemia [E78.49] 11/08/2021 S/P nasal septoplasty [Z98.890] 05/18/2019 Severe episode of recurrent major depressive di*10/14/2022 Anxiety [F41.9] 10/14/2022 Encounter for gynecological examination without*01/20/2024 Routine screening for STI (sexually transmitted* Cervical cancer screening [Z12.4] 01/20/2024 Need for HPV vaccination [Z23] 01/20/2024 Encounter Status:Closed by YOLIS RYAN on 03/03/24 Normal [facility] CRP [Mass/Vol]on 03-03-2024 Interpretation and review of laboratory results Abnormal [facility] ESR Westergren method (Bld) [Velocity]on 03-03-2024 ESR (Bld) [Velocity] 5 mm/h [facility] Interpretation and review of laboratory results Normal [facility] CBC W Auto Differential pane l (Bld)on 03-02-2024 Basophils (Bld) [#/Vol] 0.07 10*3/uL [facility] Basophils/100 WBC (Bld) 0.6 % [facility] Differential cell count method Nom (Bld) Auto [facility] Eosinophils (Bld) [#/Vol] 0.26 10*3/uL [facility] Eosinophils/100 WBC (Bld) 2.3 % [facility] Erythrocyte distribution width (RBC) [Ratio] 14.1 % 11.5 - 15.0 % [facility] Hematocrit (Bld) [Volume fraction] 50.8 % 39.0 - 51.0 % [facility] Hemoglobin (Bld) [Mass/Vol] 16.4 g/dL 13.0 - 17.0 g/dL [facility] Immature granulocytes (Bld) [#/Vol] 0.05 10*3/uL [facility] Immature granulocytes/100 WBC (Bld) 0.4 % [facility] Interpretation and review of laboratory results Abnormal [facility] Lymphocytes (Bld) [#/Vol] 2.94 10*3/uL [facility] Lymphocytes/100 WBC (Bld) 26.3 % [facility] MCH (RBC) [Entitic mass] 27.2 pg 26.0 - 34.0 pg [facility] MCHC (RBC) [Mass/Vol] 32.3 g/dL 30.5 - 36.0 g/dL [facility] MCV (RBC) [Entitic vol] 84.4 fL 80.0 - 100.0 fL [facility] Monocytes (Bld) [#/Vol] 0.78 10*3/uL [facility] Monocytes/100 WBC (Bld) 7.0 % [facility] Neutrophils (Bld) [#/Vol] 7.06 10*3/uL [facility] Neutrophils/100 WBC (Bld) 63.4 % [facility] Nucleated RBC (Bld) [#/Vol] [facility] Nucleated RBC/100 WBC (Bld) [Ratio] 0.0 % /100 WBC [facility] Platelet mean volume (Bld) [Entitic vol] 11.4 fL 9.0 - 12.7 fL [facility] Platelets (Bld) [#/Vol] 227 10*3/uL [facility] RBC (Bld) [#/Vol] 6.02 10*6/uL High 4.20 - 6.00 m/uL [facility] WBC (Bld) [#/Vol] 11.16 10*3/uL High [facility] Basophils (Bld) [#/Vol] 0.07 10*3/uL Normal <0.11 [facility] Comment on above: Order Comment: Speci men Type: BLOOD SPECIMENOrdering Facility: [facility] Address: [address] [place] [address] Performed By: #### 5 7021-8 ####[facility] LABCLIA [id number] [place] [address] Basophils/100 WBC (Bld) 0.6 % Normal [facility] Comment on above: Order Comment: Speci men Type: BLOOD SPECIMENOrdering Facility: [facility] Address: [address] [place] [address] Performed By: #### 5 7021-8 ####[facility] LABCLIA [id number] [place] [address] Differential cell count method Nom (Bld) Auto Normal [facility] Comment on above: Order Comment: Speci men Type: BLOOD SPECIMENOrdering Facility: [facility] Address: [address] [place] [address] Performed By: #### 5 7021-8 ####[facility] LABCLIA [id number] [place] [address] Eosinophils (Bld) [#/Vol] 0.26 10*3/uL Normal <0.46 [facility] Comment on above: Order Comment: Speci men Type: BLOOD SPECIMENOrdering Facility: [facility] Address: [address] [place] [address] Performed By: #### 5 7021-8 ####[facility] LABCLIA [id number] [place] [address] Eosinophils/100 WBC (Bld) 2.3 % Normal [facility] Comment on above: Order Comment: Speci men Type: BLOOD SPECIMENOrdering Facility: [facility] Address: [address] [place] [address] Performed By: #### 5 7021-8 ####[facility] LABCLIA [id number] [place] [address] Erythrocyte distribution width (RBC) [Ratio] 14.1 % Normal 11.5-15.0 [facility] Comment on above: Order Comment: Speci men Type: BLOOD SPECIMENOrdering Facility: [facility] Address: [address] [place] [address] Performed By: #### 5 7021-8 ####[facility] LABCLIA [id number] [place] [address] Hematocrit (Bld) [Volume fraction] 50.8 % Normal 39.0-51.0 [facility] Comment on above: Order Comment: Speci men Type: BLOOD SPECIMENOrdering Facility: [facility] Address: [address] [place] [address] Performed By: #### 5 7021-8 ####[facility] LABIA [id number] [place] [address] Hemoglobin (Bld) [Mass/Vol] 16.4 g/dL Normal 13.0-17.0 [facility] Comment on above: Order Comment: Speci men Type: BLOOD SPECIMENOrdering Facility: [facility] Address: [address] [place] [address] Performed By: #### 5 7021-8 ####[facility] LABCLIA [id number] [place] [address] Immature granulocytes (Bld) [#/Vol] 0.05 10*3/uL Normal <0.10 [facility] Comment on above: Order Comment: Speci men Type: BLOOD SPECIMENOrdering Facility: [facility] Address: [address] [place] [address] Performed By: #### 5 7021-8 ####[facility] LABCLIA [id number] [place] [address] Immature granulocytes/100 WBC (Bld) 0.4 % Normal [facility] Comment on above: Order Comment: Speci men Type: BLOOD SPECIMENOrdering Facility: [facility] Address: [address] [place] [address] Performed By: #### 5 7021-8 ####[facility] LABCLIA [id number] [place] [address] Lymphocytes (Bld) [#/Vol] 2.94 10*3/uL Normal 1.00-4.00 [facility] Comment on above: Order Comment: Speci men Type: BLOOD SPECIMENOrdering Facility: [facility] Address: [address] [place] [address] Performed By: #### 5 7021-8 ####[facility] LABCLIA [id number] [place] [address] Lymphocytes/100 WBC (Bld) 26.3 % Normal [facility] Comment on above: Order Comment: Speci men Type: BLOOD SPECIMENOrdering Facility: [facility] Address: [address] [place] [address] Performed By: #### 5 7021-8 ####[facility] LABCLIA [id number] [place] [address] MCH (RBC) [Entitic mass] 27.2 pg Normal 26.0-34.0 [facility] Comment on above: Order Comment: Speci men Type: BLOOD SPECIMENOrdering Facility: [facility] Address: [address] [place] [address] Performed By: #### 5 7021-8 ####[facility] LABIA [id number] [place] [address] MCHC (RBC) [Mass/Vol] 32.3 g/dL Normal 30.5-36.0 [facility] Comment on above: Order Comment: Speci men Type: BLOOD SPECIMENOrdering Facility: [facility] Address: [address] [place] [address] Performed By: #### 5 7021-8 ####[facility] LABCLIA [id number] [place] [address] MCV (RBC) [Entitic vol] 84.4 fL Normal 80.0-100.0 [facility] Comment on above: Order Comment: Speci men Type: BLOOD SPECIMENOrdering Facility: [facility] Address: [address] [place] [address] Performed By: #### 5 7021-8 ####[facility] LABCLIA [id number] [place] [address] Monocytes (Bld) [#/Vol] 0.78 10*3/uL Normal <0.87 [facility] Comment on above: Order Comment: Speci men Type: BLOOD SPECIMENOrdering Facility: [facility] Address: [address] [place] [address] Performed By: #### 5 7021-8 ####[facility] LABCLIA [id number] [place] [address] Monocytes/100 WBC (Bld) 7.0 % Normal [facility] Comment on above: Order Comment: Speci men Type: BLOOD SPECIMENOrdering Facility: [facility] Address: [address] [place] [address] Performed By: #### 5 7021-8 ####[facility] LABCLIA [id number] [place] [address] Neutrophils (Bld) [#/Vol] 7.06 10*3/uL Normal 1.45-7.50 [facility] Comment on above: Order Comment: Speci men Type: BLOOD SPECIMENOrdering Facility: [facility] Address: [address] [place] [address] Performed By: #### 5 7021-8 ####[facility] LABCLIA [id number] [place] [address] Neutrophils/100 WBC (Bld) 63.4 % Normal [facility] Comment on above: Order Comment: Speci men Type: BLOOD SPECIMENOrdering Facility: [facility] Address: [address] [place] [address] Performed By: #### 5 7021-8 ####[facility] LABCLIA [id number] [place] [address] Nucleated RBC (Bld) [#/Vol] 10*3/uL Normal <0.01 [facility] Comment on above: Order Comment: Speci men Type: BLOOD SPECIMENOrdering Facility: [facility] Address: [address] [place] [address] Performed By: #### 5 7021-8 ####[facility] LABCLIA [id number] [place] [address] Nucleated RBC/100 WBC (Bld) [Ratio] 0.0 /100 WBC Normal [facility] Comment on above: Order Comment: Speci men Type: BLOOD SPECIMENOrdering Facility: [facility] Address: [address] [place] [address] Performed By: #### 5 7021-8 ####[facility] LABCLIA [id number] [place] [address] Platelet mean volume (Bld) [Entitic vol] 11.4 fL Normal 9.0-12.7 [facility] Comment on above: Order Comment: Speci men Type: BLOOD SPECIMENOrdering Facility: [facility] Address: [address] [place] [address] Performed By: #### 5 7021-8 ####[facility] LABIA [id number] [place] [address] Platelets (Bld) [#/Vol] 227 10*3/uL Normal 150-400 [facility] Comment on above: Order Comment: Speci men Type: BLOOD SPECIMENOrdering Facility: [facility] Address: [address] [place] [address] Performed By: #### 5 7021-8 ####[facility] LABCLIA [id number] [place] [address] RBC (Bld) [#/Vol] 6.02 10*6/uL High 4.20-6.00 [facility] Comment on above: Order Comment: Speci men Type: BLOOD SPECIMENOrdering Facility: [facility] Address: [address] [place] [address] Performed By: #### 5 7021-8 ####[facility] LABIA [id number] [place] [address] WBC (Bld) [#/Vol] 11.16 10*3/uL High 3.70-11.00 [facility] Comment on above: Order Comment: Speci men Type: BLOOD SPECIMENOrdering Facility: [facility] Address: [address] [place] [address] Performed By: #### 5 7021-8 ####[facility] LABIA [id number] [place] [address] CNOVSPon 03-02-2024 CNOVSP Visit (SP) Office ([facility]) MAYELA DAVIS ([id number]) 1990 F T Date Time Provider Department 03/02/24 4:00 PM ROLLY BEE During your visit today, we recorded the following information about you: Temperature Pulse Respiration Blood pressure 97 degrees 92/minute 18/minute 137/92 Weight Height 118.4 kg 1.676 m Rolly Bee MD 03/03/2024 7:15 PM Signed PATIENT NAME: Mayela Davis DATE: 03/01/2024 PRIMARY CARE PHYSICIAN: Lc Wynn MD OTHER PHYSICIANS: Dr. Ganesh Bui HPI: This is a 33 year old adult referred for evaluation of leukocytosis. The patient has multiple medical problems including diabetes, asthma, GERD, and bipolar disorder. He also has gender incongruence, and since October 2022 has been transitioning. He is on multiple medications including weekly testosterone. Since at least October 2022 he has had intermittent mild elevation of his WBC, predominantly neutrophils. His CBC otherwise has remained normal. He currently is referred for further evaluation. On follow-up today he feels well. No recent fevers or signs of infection. No atypical skin rash, joint pain, or other systemic symptoms. He does not drink. He does use e-cigarettes (vaping) on a regular basis. MEDICATIONS: Current Outpatient Medications Medication Sig testosterone enanthate (XYOSTED) 75 mg/0.5 mL auto-injector Inject 0.5 mL subcutaneously one time a week for 90 days. levothyroxine (SYNTHROID) 50 mcg tablet Take 1 tablet by mouth once daily. dulaglutide (TRULICITY) 0.75 mg/0.5 mL pen injector Inject 0.75 mg subcutaneously one time a week. famotidine (PEPCID) 20 mg tablet Take 1 tablet by mouth two times a day. empagliflozin (JARDIANCE) 10 mg tablet Take 1 tablet by mouth daily with breakfast. metFORMIN ER (GLUCOPHAGE XR) 500 mg 24 hr tablet Take 2 tablets by mouth two times a day with meals. Blood-Glucose Meter (TRUE METRIX GLUCOSE METER) 1 Each two times a day. blood sugar diagnostic (TRUE METRIX GLUCOSE TEST STRIP) test strip Use as instructed daily Syringe with Needle, Disp, (BD LUER-LEODAN SYRINGE) 3 mL 21 gauge x 1 syrg 1 Each one time a week. albuterol HFA (PROVENTIL HFA, VENTOLIN HFA) 90 mcg/actuation inhaler INHALE 2 PUFFS EVERY 6 HOURS NEEDED FOR WHEEZING ipratropium-albuterol (DUONEB) 0.5 mg-3 mg(2.5 mg base)/3 mL nebu INHALE 3 ML BY NEBULIZATION EVERY 6 HOURS NEEDED FOR WHEEZING. Syringe with Needle, Safety (BD ECLIPSE LUER-LEODAN) 3 mL 22 gauge x 1 1/2 1 Each one time a week. sertraline (ZOLOFT) 50 mg tablet TAKE 1 TABLET BY MOUTH EVERY DAY IN THE MORNING ABILIFY MAINTENA 400 mg sers injection inject 1 400MG/1 ML PREFILLED SYRINGE intramuscularly every 30 DAYS lamoTRIgine (LAMICTAL) 100 mg tablet TAKE 1 TABLET BY MOUTH EVERY DAY IN THE MORNING busPIRone HCl 30 mg tablet TAKE 1 TABLET BY MOUTH TWICE A DAY DIRECTED montelukast (SINGULAIR) 10 mg tablet Take 10 mg by mouth. budesonide-formoterol (SYMBICORT) 160-4.5 mcg/actuation inhaler Inhale 2 Puffs as instructed. fluticasone (FLONASE) 50 mcg/actuation nasal spray Use 2 Sprays in each nostril once daily. No current facility-administered medications for this visit. ALLERGIES: ALLERGIES Allergen Reactions Paroxetine Anaphylaxis, Swelling tounge AND throat swelling tounge AND throat swelling Bupropion Anaphylaxis, Other: See Comments hallucinations PAST MEDICAL HISTORY: PAST MEDICAL HISTORY Diagnosis Date Anxiety disorder Asthma Bipolar 1 disorder (HCC) Diabetes mellitus (HCC) Eustachian tube dysfunction GERD (gastroesophageal reflux disease) Hyperglycemia Hyperlipidemia Leukocytosis PAST SURGICAL HISTORY: PAST SURGICAL HISTORY Procedure Laterality Date EAR TUBES HX PAST SURGICAL HISTORY OF Bilateral 2016 Filshie clips REPAIR OF NASAL SEPTUM TONSILLECTOMY AND ADENOIDECTOMY FAMILY HISTORY: No family history on file. SOCIAL HISTORY: Social History Tobacco Use Smoking status: Never Passive exposure: Never Smokeless tobacco: Never Tobacco comments: Vape with nicotine Substance Use Topics Alcohol use: Not Currently Drug use: Never COMPLETE REVIEW OF SYSTEMS: CONSTITUTION: Negative for pain, fatigue, weight loss, or appetite loss. EENT: Negative for mouth soreness, antibiotics use, epistaxis, visual problems, neck or facial swelling, fever/chills, bleeding gums, or hearing loss. CV: Negative for edema, calf swelling, palpitations, or chest pain. RESPIRATORY: Negative for cough, SOB, hemoptysis, or wheezing. GI: Negative for nausea/vomiting, heartburn, vomiting blood, dysphasia, diarrhea, blood in stool, constipation, early satiety, PICA, vegetarian, poor nutrition, abdominal fullness, or abdominal pain. NEUROLOGICAL: Negative for numbness/tingling, dizziness, gait disturbance, headache, speech disturbance, tremor, hemipare (more content not included)... Normal [facility] CRP [Mass/Vol] 0.9 mg/dL High <0.9 [facility] Comment on above: Order Comment: Speci men Type: URINE SPECIMEN [facility] Address: [address] [place] [address] Performed By: #### U ACR #### [facility] CLIA [id number] [address] [place] [address] [id number] [facility] Comprehensive metabolic 2000 panelOrdered By: Ofelia Harp on 03-02-2024 Albumin [Mass/Vol] 4.3 g/dL 3.9 - 4.9 g/dL [facility] ALP [Catalytic activity/Vol] 92 U/L 38 - 113 U/L [facility] ALT [Catalytic activity/Vol] 45 U/L 10 - 54 U/L [facility] Anion gap [Moles/Vol] 11 mmol/L 9 - 18 mmol/L [facility] AST [Catalytic activity/Vol] 34 U/L 14 - 40 U/L [facility] Bilirubin [Mass/Vol] 0.6 mg/dL 0.2 - 1.3 mg/dL [facility] Calcium [Mass/Vol] 9.3 mg/dL 8.5 - 10.2 mg/dL [facility] Chloride [Moles/Vol] 99 mmol/L 97 - 105 mmol/L [facility] CO2 [Moles/Vol] 27 mmol/L 22 - 30 mmol/L [facility] Creatinine [Mass/Vol] 0.71 mg/dL Low 0.73 - 1.22 mg/dL [facility] GFR/1.73 sq M.predicted among non-blacks MDRD (S/P/Bld) [Vol rate/Area] 115 mL/min/{1.73_m2} - PINF [facility] Comment on above: Estimated Glomerular Filtration Rate (eGFR) is calculated using the 2020 CKD-EPI creatinine equation. This equation utilizes serum creatinine, sex, and age as parameters. The creatinine assay has traceable calibration to isotope dilution-mass spectrometry. Refer to KDIGO guidelines for clinical interpretation. In patients with unstable renal function, e.g. those with acute kidney injury, the eGFR may not accurately reflect actual GFR. Glucose [Mass/Vol] 431 mg/dL High 74 - 99 mg/dL [facility] Comment on above: The [place] Diab[employer] Association (ADA) provides guidance for cutoff values for fasting glucose and random glucose. The ADA defines fasting as no caloric intake for at least 8 hours. Fasting plasma glucose results between 100 to 125 mg/dL indicate increased risk for diabetes (prediabetes). Fasting plasma glucose results greater than or equal to 126 mg/dL meet the criteria for diagnosis of diabetes. In the absence of unequivocal hyperglycemia, results should be confirmed by repeat testing. In a patient with classic symptoms of hyperglycemia or hyperglycemic crisis, random plasma glucose results greater than or equal to 200 mg/dL meet the criteria for diagnosis of diabetes. Reference: Standards of Medical Care in Diabetes 2016, [place] [employer] Association. Diabetes Care. 2016.39(Suppl 1). Interpretation and review of laboratory results Abnormal [facility] Potassium [Moles/Vol] 3.9 mmol/L 3.7 - 5.1 mmol/L [facility] Protein [Mass/Vol] 7.4 g/dL 6.3 - 8.0 g/dL [facility] Sodium [Moles/Vol] 137 mmol/L 136 - 144 mmol/L [facility] Urea nitrogen [Mass/Vol] 5 mg/dL Low 9 - 24 mg/dL [facility] Comprehensive metabolic 2000 panelon 03-02-2024 Albumin [Mass/Vol] 4.3 g/dL Normal 3.9-4.9 [facility] Comment on above: Order Comment: Speci men Type: BLOOD SPECIMEN [facility] Address: [address] [place] [address] Performed By: #### 2 4323-8 #### [facility] CLIA [id number] [address] [place] [address] ALP [Catalytic activity/Vol] 92 U/L Normal 38-113 [facility] Comment on above: Order Comment: Speci men Type: BLOOD SPECIMEN [facility]: [facility] Address: [address] [place], [place] [address] Performed By: #### 2 4323-8 #### [facility] CLIA [id number] [address] [place] [address] ALT [Catalytic activity/Vol] 45 U/L Normal 10-54 [facility] Comment on above: Order Comment: Speci men Type: BLOOD SPECIMEN [facility]: [facility] Address: [address] [place] [address] Performed By: #### 2 4323-8 #### [facility] CLIA [id number] [address] [place] [address] Anion gap [Moles/Vol] 11 mmol/L Normal 9-18 [facility] Comment on above: Order Comment: Speci men Type: BLOOD SPECIMEN [facility]: [facility] Address: [address] [place] [id number] Performed By: #### 2 4323-8 #### [facility] CLIA [id number] [address] [place] [address] AST [Catalytic activity/Vol] 34 U/L Normal 14-40 [facility] Comment on above: Order Comment: Speci men Type: BLOOD SPECIMEN [facility] Address: [address] [place] [address] Performed By: #### 2 4323-8 #### [facility] CLIA [id number] [address] [place] [address] Bilirubin [Mass/Vol] 0.6 mg/dL Normal 0.2-1.3 [facility] Comment on above: Order Comment: Speci men Type: BLOOD SPECIMEN [facility]: [facility] Address: [address] [place] [address] Performed By: #### 2 4323-8 #### [facility] CLIA [id number] [address] [place] [address] Calcium [Mass/Vol] 9.3 mg/dL Normal 8.5-10.2 [facility] Comment on above: Order Comment: Speci men Type: BLOOD SPECIMEN [facility] Address: [address] [place] [address] Performed By: #### 2 4323-8 #### [facility] CLIA [id number] [address] [place] [address] Chloride [Moles/Vol] 99 mmol/L Normal 97-105 [facility] Comment on above: Order Comment: Speci men Type: BLOOD SPECIMEN [facility] Address: [address] [place] [address] Performed By: #### 2 4323-8 #### [facility] CLIA [id number] [address] [place] [address] CO2 [Moles/Vol] 27 mmol/L Normal 22-30 [facility] Comment on above: Order Comment: Speci men Type: BLOOD SPECIMEN [facility]: [facility] Address: [address] [place] [address] Performed By: #### 2 4323-8 #### [facility] CLIA [id number] [address] [place] [address] Creatinine [Mass/Vol] 0.71 mg/dL Low 0.73-1.22 [facility] Comment on above: Order Comment: Speci men Type: BLOOD SPECIMEN [facility]: [facility] Address: [address] [place] [address] Performed By: #### 2 4323-8 #### [facility] CLIA [id number] [address] [place] [address] Creatinine and Glomerular filtration rate.predicted panel (S/P/Bld) 115 mL/min/1.73m??? Normal >=60 [facility] Comment on above: Order Comment: Speci men Type: BLOOD SPECIMEN [facility]ing Facility: [facility] Address: [address] [place] [address] Result Comment: Becky mated Glomerular Filtration Rate (eGFR) is calculated using the 2020 CKD-EPI creatinine equation. This equation utilizes serum creatinine, sex, and age as parameters. The creatinine assay has traceable calibration to isotope dilution-mass spectrometry. Refer to KDIGO guidelines for clinical interpretation. In patients with unstable renal function, e.g. those with acute kidney injury, the eGFR may not accurately reflect actual GFR. Performed By: #### 2 4323-8 #### [facility] CLIA [id number] [address] [place] [address] Glucose [Mass/Vol] 431 mg/dL High 74-99 [facility] Comment on above: Order Comment: Speci men Type: BLOOD SPECIMEN [facility]ing Facility: [facility] Address: [address] [place] [address] Result Comment: The [place] Diabetes Association (ADA) provides guidance for cutoff values for fasting glucose and random glucose. The ADA defines fasting as no caloric intake for at least 8 hours. Fasting plasma glucose results between 100 to 125 mg/dL indicate increased risk for diabetes (prediabetes). Fasting plasma glucose results greater than or equal to 126 mg/dL meet the criteria for diagnosis of diabetes. In the absence of unequivocal hyperglycemia, results should be confirmed by repeat testing. In a patient with classic symptoms of hyperglycemia or hyperglycemic crisis, random plasma glucose results greater than or equal to 200 mg/dL meet the criteria for diagnosis of diabetes. Reference: Standards of Medical Care in Diabetes 2016, [place] [employer]. Diabetes Care. 2016.39(Suppl 1). Performed By: #### 2 4323-8 #### [facility] CLIA [id number] [address] [place] [address] Potassium [Moles/Vol] 3.9 mmol/L Normal 3.7-5.1 [facility] Comment on above: Order Comment: Speci men Type: BLOOD SPECIMEN [facility]ing Facility: [facility] Address: [address] [place] [address] Performed By: #### 2 4323-8 #### [facility] CLIA [id number] [address] [place] [address] Protein [Mass/Vol] 7.4 g/dL Normal 6.3-8.0 [facility] Comment on above: Order Comment: Speci men Type: BLOOD SPECIMEN Ordering Facility: [facility] Address: [address] [place] [address] Performed By: #### 2 4323-8 #### [facility] CLIA [id number] [address] [place] [address] Sodium [Moles/Vol] 137 mmol/L Normal 136-144 [facility] Comment on above: Order Comment: Speci men Type: BLOOD SPECIMEN Ordering Facility: [facility] Address: [address] [place] [address] Performed By: #### 2 4323-8 #### [facility] CLIA [id number] [address] [place] [address] Urea nitrogen [Mass/Vol] 5 mg/dL Low 9-24 [facility] Comment on above: Order Comment: Speci men Type: BLOOD SPECIMEN Ordering Facility: [facility] Address: [address] [place] [address] Performed By: #### 2 4323-8 #### [facility] CLIA [id number] [address] [place], [place] [id number] ESR Westergren method (Bld) [Velocity]on 03-02-2024 ESR (Bld) [Velocity] 5 mm/h Normal 0-15 [facility] Comment on above: Order Comment: Speci men Type: BLOOD SPECIMENOrdering Facility: [facility] Address: [address] [place] [address] Performed By: #### 4 537-7 ####[facility] [id number] [address] [facility] CNOVon 02-24-2024 CNOV Office Visit (INTLKB ) MAYELA DAVIS ([id number]) 1990 F T Date Time Provider Department 02/24/24 1:00 PM GANESH BUI INTLKB During your visit today, we recorded the following information about you: Pulse Respiration Blood pressure Weight 120/minute 16/minute 122/87 119.3 kg Ganesh Bui MD 02/24/2024 1:32 PM Signed ESTABLISHED PATIENT Mayela Davis is a 33 year old adult presenting for New Patient (Patient is transferring care from [place] ). HISTORY OF PRESENT ILLNESS Pt goes by Krew, he/him Last OV: 11/17/2023 with MONET Eldridge Previous care with LORRIE Durham PCP: Lc yWnn MD MHP: LORRIE Meier (general psychiatry) No therapist/counselor currently PMH of gender incongruence, T2DM, HPL, asthma, allergic rhinitis, MDD, anxiety, hypothyroidism. #Gender dysphoria GA initiation: 11/2022 Current regimen: testosterone enanthate 75 mg weekly SQ injections (injection day is Friday) - auto-injector SE: None Body changes: More facial hair, voice is a little bit deeper. No more front bleeding since 2023. Pt is interested in top surgery. HISTORIES No family history on file. PAST MEDICAL HISTORY Diagnosis Date Diabetes mellitus (HCC) PAST SURGICAL HISTORY Procedure Laterality Date EAR TUBES HX PAST SURGICAL HISTORY OF Bilateral 2016 Filshie clips REPAIR OF NASAL SEPTUM TONSILLECTOMY AND ADENOIDECTOMY Social History Tobacco Use Smoking status: Never Passive exposure: Never Smokeless tobacco: Never Tobacco comments: Vape with nicotine Vaping Use Vaping Use: current everyday user Substance Use Topics Alcohol use: Never Drug use: Never Allergies: ALLERGIES Allergen Reactions Paroxetine Anaphylaxis, Swelling tounge AND throat swelling tounge AND throat swelling Bupropion Anaphylaxis, Other: See Comments hallucinations Medications: levothyroxine (SYNTHROID) 50 mcg tablet Take 1 tablet by mouth once daily. dulaglutide (TRULICITY) 0.75 mg/0.5 mL pen injector Inject 0.75 mg subcutaneously one time a week. famotidine (PEPCID) 20 mg tablet Take 1 tablet by mouth two times a day. empagliflozin (JARDIANCE) 10 mg tablet Take 1 tablet by mouth daily with breakfast. testosterone enanthate (XYOSTED) 75 mg/0.5 mL auto-injector Inject 0.5 mL subcutaneously one time a week for 90 days. metFORMIN ER (GLUCOPHAGE XR) 500 mg 24 hr tablet Take 2 tablets by mouth two times a day with meals. Blood-Glucose Meter (TRUE METRIX GLUCOSE METER) 1 Each two times a day. blood sugar diagnostic (TRUE METRIX GLUCOSE TEST STRIP) test strip Use as instructed daily Syringe with Needle, Disp, (BD LUER-LEODAN SYRINGE) 3 mL 21 gauge x 1 syrg 1 Each one time a week. albuterol HFA (PROVENTIL HFA, VENTOLIN HFA) 90 mcg/actuation inhaler INHALE 2 PUFFS EVERY 6 HOURS NEEDED FOR WHEEZING ipratropium-albuterol (DUONEB) 0.5 mg-3 mg(2.5 mg base)/3 mL nebu INHALE 3 ML BY NEBULIZATION EVERY 6 HOURS NEEDED FOR WHEEZING. Syringe with Needle, Safety (BD ECLIPSE LUER-LEODAN) 3 mL 22 gauge x 1 1/2 1 Each one time a week. sertraline (ZOLOFT) 50 mg tablet TAKE 1 TABLET BY MOUTH EVERY DAY IN THE MORNING ABILIFY MAINTENA 400 mg sers injection inject 1 400MG/1 ML PREFILLED SYRINGE intramuscularly every 30 DAYS lamoTRIgine (LAMICTAL) 100 mg tablet TAKE 1 TABLET BY MOUTH EVERY DAY IN THE MORNING busPIRone HCl 30 mg tablet TAKE 1 TABLET BY MOUTH TWICE A DAY DIRECTED montelukast (SINGULAIR) 10 mg tablet Take 10 mg by mouth. budesonide-formoterol (SYMBICORT) 160-4.5 mcg/actuation inhaler Inhale 2 Puffs as instructed. fluticasone (FLONASE) 50 mcg/actuation nasal spray Use 2 Sprays in each nostril once daily. REVIEW OF SYSTEMS All systems were reviewed and were negative except what was noted in the HPI PHYSICAL EXAM BP 122/87 Pulse 120 Resp 16 Wt 119.3 kg (263 lb) BMI 42.45 kg/m? General: Alert in NAD Head: NCAT. Hair with androgenic pattern of alopecia. Eyes: EOMI, no conjunctivitis. Oropharynx: MMM, OP clear Neck: Supple w/o goiter or LAD. Heart: RRR S1 S2 No murmurs. Lungs: Normal chest rise, air exchange. CTAB. No adventitious sounds. Extremities: Warm and well perfused. No peripheral edema. EDUCATION PROFESSIONAL: Non-focal. Normal gait, station. Skin: No visible rashes. Latest Ref Rng 01/20/2024 WBC 3.70 - 11.00 k/uL 11.75 (H) RBC 4.20 - 6.00 m/uL 5.95 Hemoglobin 13.0 - 17.0 g/dL 16.4 Hematocrit 39.0 - 51.0 % 49.9 MCV 80.0 - 100.0 fL 83.9 MCH 26.0 - 34.0 pg 27.6 MCHC 30.5 - 36.0 g/dL 32.9 RDW-CV 11.5 - 15.0 % 14.6 Platelet Count 150 - 400 k/uL 254 MPV 9.0 - 12.7 fL 11.6 Neut% % 69.0 Abs Neut (ANC) 1.45 - 7.50 k/uL 8.11 (H) Lymph% % 22.4 Abs Lymph 1.00 - 4.00 k/uL 2.63 Hernando% % 6.4 Abs Hernando <0.87 k/uL 0.75 Eosin% % 1.3 Abs Eosin <0.46 k/uL 0.15 Baso% % 0.5 Abs Baso <0.11 k/uL 0.06 Immature Gran % % 0.4 IMMATURE GRANS (ABS) <0.10 (more content not included)... Normal [facility] CNOVon 02-23-2024 CNOV Office Visit (ENDLKW ) MAYELA DAVIS ([id number]) 1990 F T Date Time Provider Department 02/23/24 1:00 PM SHREYA MCCANN During your visit today, we recorded the following information about you: Pulse Blood pressure Weight Height 108/minute 113/78 119.2 kg 1.676 m hSreya Mccann MD 02/23/2024 1:45 PM Signed [facility] NEW PATIENT CONSULT REASON OF VISIT: weight management/obesity and management of its comorbidities REFERRING PHYSICIAN: MONET Kaplan Consultation requested for an opinion regarding Weight Management , and my final recommendations will be communicated back to the requesting physician by way of shared medical record or letter via US mail. fitness HISTORY OF PRESENT ILLNESS: Age: [age] year old with Class III Obesity , DM-2 since the last 3 years- currently Uncontrolled with microscopic albuminuria , Bipolar 2 depression- seeing Psych , Gender Dysphoria - female to male transition, started to transition in the last 1 year - on testosterone injections , New Onset Hypothyroid- per Labs from 02/2024, Asthma , Hyperlipidemia , Sleep Disturbance- PSG ord'd : Patient comes today for follow up of weight management. Weight History - High school graduation weight: 200 pounds - started to struggle with his weight during puberty, also gained weight during her 4 pregnancies , she did have gestational diabetes with her 1 - f/h of Obesity :Mother and brother struggles - Height: 5'6 Goals for weight loss : I would like to be <200 pounds Weight Loss Medications: -- taking Metformin XR 1 gm po BID - tried Ozempic - gave him- diarrhea - never tried Trulicity - FSBS : fasting : 280's , 552 at 5 pm a few days ago Diet: -- 24 hr food recall: water B: 10:30 am : 2 slices of [place] citizen toast , berries, OJ S at 3 pm: baby bel cheese- 2 , grapes L: no food D: 5 pm: cheese burger , sweet potato fries - 1 handful S:no food Appetite Control: -- decreased, I skip meals, I have to force myself to eat - binge eating: no - late night eating: no - emotional eating : yes- with boredom, likes sweets - portion control: not large Exercise: -- 1/ week, walking 30 mins to 1 hour each session - no physical limitations Sleep: -- Sleep initiation: easy - Sleep maintenance : interrupted by multiple episodes of nocturia , snoring + + - wakes up - tired - planned for a Sleep Study - 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 Blood-Glucose Meter (TRUE METRIX GLUCOSE METER) 1 Each two times a day. glipiZIDE (GLUCOTROL) 5 mg tablet Take 1 tablet by mouth two times a day before meals. blood sugar diagnostic (TRUE METRIX GLUCOSE TEST STRIP) test strip Use as instructed daily Syringe with Needle, Disp, (BD LUER-LEODAN SYRINGE) 3 mL 21 gauge x 1 syrg 1 Each one time a week. albuterol HFA (PROVENTIL HFA, VENTOLIN HFA) 90 mcg/actuation inhaler INHALE 2 PUFFS EVERY 6 HOURS NEEDED FOR WHEEZING ipratropium-albuterol (DUONEB) 0.5 mg-3 mg(2.5 mg base)/3 mL nebu INHALE 3 ML BY NEBULIZATION EVERY 6 HOURS NEEDED FOR WHEEZING. Syringe with Needle, Safety (BD ECLIPSE LUER-LEODAN) 3 mL 22 gauge x 1 1/2 1 Each one time a week. sertraline (ZOLOFT) 50 mg tablet TAKE 1 TABLET BY MOUTH EVERY DAY IN THE MORNING ABILIFY MAINTENA 400 mg sers injection inject 1 400MG/1 ML PREFILLED SYRINGE intramuscularly every 30 DAYS lamoTRIgine (LAMICTAL) 100 mg tablet TAKE 1 TABLET BY MOUTH EVERY DAY IN THE MORNING busPIRone HCl 30 mg tablet TAKE 1 TABLET BY MOUTH TWICE A DAY DIRECTED montelukast (SINGULAIR) 10 mg tablet Take 10 mg by mouth. budesonide-formoterol (SYMBICORT) 160-4.5 mcg/actuation inhaler Inhale 2 Puffs as instructed. fluticasone (FLONASE) 50 mcg/actuation nasal spray Use 2 Sprays in each nostril once daily. testosterone enanthate (XYOSTED) 75 mg/0.5 mL auto-injector Inject 0.5 mL subcutaneously one time a week for 90 days. No current facility-administered medications on file prior to visit. SIGNIFICANT PAST MEDICAL HISTORY, SOCIAL HISTORY AND FAMILY HISTORY: PAST MEDICAL HISTORY Diagnosis Date Diabetes mellitus (HCC) No family history on file. Social History Tobacco Use Smoking status: Never Passive exposure: Never Smokeless tobacco: Never Tobacco comments: Vape with nicotine Vaping Use Vaping Use: current everyday user Substance Use Topics Alcohol use: Never Drug use: Never PHYS (more content not included)... Normal [facility] ALBUMIN/CREAT RATIO RND URon 01-20-2024 Albumin DL <= 20 mg/L (U) [Mass/Vol] 48.8 mg/L Normal [facility] Comment on above: Order Comment: Speci men Type: URINE SPECIMEN Ordering Facility: [facility] Address: [address] [place] [address] Performed By: #### U ACR #### [facility] CLIA [id number] [address] [place] [address] [place] Albumin/Creatinine (U) [Mass ratio] 189 mg/g High <30 [facility] Comment on above: Order Comment: Speci men Type: URINE SPECIMEN Ordering Facility: [facility] Address: [address] [place] [address] Result Comment: Adul t Male and Female Nephrotic Criteria: <30 mg/g is considered normal to mildly increased 30-300 mg/g is considered moderately increased >300 mg/g is considered severely increased KDIGO. (2013). KDIGO 2012 Clinical Practice Guideline for the Evaluation and Management of Chronic Kidney Disease. Official Journal of the International Society of Nephrology, 3(1), 1-150. Performed By: #### U ACR #### [facility] CLIA [id number] [address] [place] [address] [place] Creatinine (U) [Mass/Vol] 25.8 mg/dL Normal 20.0-300.0 [facility] Comment on above: Order Comment: Speci men Type: URINE SPECIMEN Ordering Facility: [facility] Address: [address] [place] [address] Performed By: #### U ACR #### [facility] CLIA [id number] [address] [place] [address] [place] C. trachomatis+N. gonorrhoea e DNA GARRET+probe Ql (Unsp spec)on 01-20-2024 C. trachomatis rRNA GARRET+probe Ql (Unsp spec) Negative Negative for Chlamydia trachomatis by amplificaton [facility] N. gonorrhoeae rRNA GARRET+probe Ql (Unsp spec) Negative Negative for Neisseria gonorrhoeae by amplification [facility] C. trachomatis rRNA GARRET+probe Ql (Unsp spec) Negative Normal Negative for Chlamydia trachomatis by amplificaton [facility] Comment on above: Order Comment: Speci men Type: SWABOrdering Facility: [facility] Address: [address] [place] [address] Performed By: #### 3 6902-5, YO ####[facility]CLIA [id number] [place] [address] [place] N. gonorrhoeae rRNA GARRET+probe Ql (Unsp spec) Negative Normal Negative for Neisseria gonorrhoeae by amplification [facility] Comment on above: Order Comment: Speci men Type: SWABOrdering Facility: [facility] Address: [address] [place] [address] Performed By: #### 3 6902-5, YO ####[facility] [id number] [place] [address] [place] CBC W Auto Differential pane l (Bld)on 01-20-2024 Basophils (Bld) [#/Vol] 0.06 10*3/uL Normal <0.11 [facility] Comment on above: Order Comment: Speci men Type: BLOOD SPECIMENOrdering Facility: [facility] Address: [address] [place] [address] Performed By: #### 5 7021-8 ####[facility] LWCLIA [id number] [place] [address] [place] Basophils/100 WBC (Bld) 0.5 % Normal [facility] Comment on above: Order Comment: Speci men Type: BLOOD SPECIMENOrdering Facility: [facility] Address: [address] [place] [address] Performed By: #### 5 7021-8 ####[facility] LWCLIA [id number] [place] [address] [place] Differential cell count method Nom (Bld) Auto Normal [facility] Comment on above: Order Comment: Speci men Type: BLOOD SPECIMENOrdering Facility: [facility] Address: [address] [place] [address] Performed By: #### 5 7021-8 ####[facility] LWCLIA [id number] [place] [id number] [place] Eosinophils (Bld) [#/Vol] 0.15 10*3/uL Normal <0.46 [facility] Comment on above: Order Comment: Speci men Type: BLOOD SPECIMENOrdering Facility: [facility] Address: [address] [place] [address] Performed By: #### 5 7021-8 ####[facility] LWCLIA [id number] [place] [id number] [place] Eosinophils/100 WBC (Bld) 1.3 % Normal [facility] Comment on above: Order Comment: Speci men Type: BLOOD SPECIMENOrdering Facility: [facility] Address: [address] [place] [address] Performed By: #### 5 7021-8 ####[facility] LWCLIA [id number] [address] STATES [facility] Erythrocyte distribution width (RBC) [Ratio] 14.6 % Normal 11.5-15.0 [facility] Comment on above: Order Comment: Speci men Type: BLOOD SPECIMENOrdering Facility: [facility] Address: [address] [place] [address] Performed By: #### 5 7021-8 ####[facility] LWCLIA [id number] [place] [id number] [place] Hematocrit (Bld) [Volume fraction] 49.9 % Normal 39.0-51.0 [facility] Comment on above: Order Comment: Speci men Type: BLOOD SPECIMENOrdering Facility: [facility] Address: [address] [place] [address] Performed By: #### 5 7021-8 ####[facility] LWCLIA [id number] [place] [id number] [place] Hemoglobin (Bld) [Mass/Vol] 16.4 g/dL Normal 13.0-17.0 [facility] Comment on above: Order Comment: Speci men Type: BLOOD SPECIMENOrdering Facility: [facility] Address: [address] [place] [address] Performed By: #### 5 7021-8 ####[facility] LWCLIA [id number] [place] [id number] [place] Immature granulocytes (Bld) [#/Vol] 0.05 10*3/uL Normal <0.10 [facility] Comment on above: Order Comment: Speci men Type: BLOOD SPECIMENOrdering Facility: [facility] Address: [address] [place] [address] Performed By: #### 5 7021-8 ####[facility] LWCLIA [id number] [place] [address] [place] Immature granulocytes/100 WBC (Bld) 0.4 % Normal [facility] Comment on above: Order Comment: Speci men Type: BLOOD SPECIMENOrdering Facility: [facility] Address: [address] [place] [address] Performed By: #### 5 7021-8 ####[facility] LWCLIA [id number] [place] [address] [place] Lymphocytes (Bld) [#/Vol] 2.63 10*3/uL Normal 1.00-4.00 [facility] Comment on above: Order Comment: Speci men Type: BLOOD SPECIMENOrdering Facility: [facility] Address: [address] [place] [address] Performed By: #### 5 7021-8 ####[facility] LWCLIA [id number] [place] [address] [place] Lymphocytes/100 WBC (Bld) 22.4 % Normal [facility] Comment on above: Order Comment: Speci men Type: BLOOD SPECIMENOrdering Facility: [facility] Address: [address] [place] [address] Performed By: #### 5 7021-8 ####[facility] LWCLIA [id number] [address] [place] [facility] MCH (RBC) [Entitic mass] 27.6 pg Normal 26.0-34.0 [facility] Comment on above: Order Comment: Speci men Type: BLOOD SPECIMENOrdering Facility: [facility] Address: [address] [place] [address] Performed By: #### 5 7021-8 ####[facility] LWIA [id number] [place] [id number] [place] MCHC (RBC) [Mass/Vol] 32.9 g/dL Normal 30.5-36.0 [facility] Comment on above: Order Comment: Speci men Type: BLOOD SPECIMENOrdering Facility: [facility] Address: [address] [place] [address] Performed By: #### 5 7021-8 ####[facility] LWCLIA [id number] [address] [place] MCV (RBC) [Entitic vol] 83.9 fL Normal 80.0-100.0 [facility] Comment on above: Order Comment: Speci men Type: BLOOD SPECIMENOrdering Facility: [facility] Address: [address] [place] [address] Performed By: #### 5 7021-8 ####[facility] LWCLIA [id number] [place] [id number] [place] Monocytes (Bld) [#/Vol] 0.75 10*3/uL Normal <0.87 [facility] Comment on above: Order Comment: Speci men Type: BLOOD SPECIMENOrdering Facility: [facility] Address: [address] [place] [address] Performed By: #### 5 7021-8 ####[facility] LWCLIA [id number] [place] [id number] [facility] Monocytes/100 WBC (Bld) 6.4 % Normal [facility] Comment on above: Order Comment: Speci men Type: BLOOD SPECIMENOrdering Facility: [facility] Address: [address] [place] [address] Performed By: #### 5 7021-8 ####[facility] LWCLIA [id number] [place] [id number] [place] Neutrophils (Bld) [#/Vol] 8.11 10*3/uL High 1.45-7.50 [facility] Comment on above: Order Comment: Speci men Type: BLOOD SPECIMENOrdering Facility: [facility] Address: [address] [place] [address] Performed By: #### 5 7021-8 ####[facility] LWCLIA [id number] [place] [id number] [place] Neutrophils/100 WBC (Bld) 69.0 % Normal [facility] Comment on above: Order Comment: Speci men Type: BLOOD SPECIMENOrdering Facility: [facility] Address: [address] [place] [address] Performed By: #### 5 7021-8 ####[facility] LWCLIA [id number] [place] [id number] [place] Nucleated RBC (Bld) [#/Vol] 10*3/uL Normal <0.01 [facility] Comment on above: Order Comment: Speci men Type: BLOOD SPECIMENOrdering Facility: [facility] Address: [address] [place] [address] Performed By: #### 5 7021-8 ####[facility] LWCLIA [id number] [place] [id number] [place] Nucleated RBC/100 WBC (Bld) [Ratio] 0.0 /100 WBC Normal [facility] Comment on above: Order Comment: Speci men Type: BLOOD SPECIMENOrdering Facility: [facility] Address: [address] [place] [address] Performed By: #### 5 7021-8 ####[facility] LWCLIA [id number] [place] [id number] [place] Platelet mean volume (Bld) [Entitic vol] 11.6 fL Normal 9.0-12.7 [facility] Comment on above: Order Comment: Speci men Type: BLOOD SPECIMENOrdering Facility: [facility] Address: [address] [place] [address] Performed By: #### 5 7021-8 ####[facility] LWCLIA [id number] [place] [id number] [place] Platelets (Bld) [#/Vol] 254 10*3/uL Normal 150-400 [facility] Comment on above: Order Comment: Speci men Type: BLOOD SPECIMENOrdering Facility: [facility] Address: [address] [place] [address] Performed By: #### 5 7021-8 ####[facility] LWCLIA [id number] [place] [address] [place] RBC (Bld) [#/Vol] 5.95 10*6/uL Normal 4.20-6.00 [facility] Comment on above: Order Comment: Speci men Type: BLOOD SPECIMENOrdering Facility: [facility] Address: [address] [place] [address] Performed By: #### 5 7021-8 ####[facility] LWCLIA [id number] [place] [id number] [place] WBC (Bld) [#/Vol] 11.75 10*3/uL High 3.70-11.00 [facility] Comment on above: Order Comment: Speci men Type: BLOOD SPECIMENOrdering Facility: [facility] Address: [address] [place] [address] Performed By: #### 5 7021-8 ####[facility] LWCLIA [id number] [place] [id number] [place] CNOVon 01-20-2024 CNOV Office Visit (OBGLKD ) MAYELA DAVIS ([id number]) 1990 F T Date Time Provider Department 01/20/24 11:30 AM CHRISTINA CEBALLOS OBGLKD During your visit today, we recorded the following information about you: Pulse Respiration Blood pressure Weight 90/minute 18/minute 122/88 117.9 kg Christina Ceballos MD 01/20/2024 1:01 PM Signed [facility] WINDOWS SERVER SPECIALIST ANNUAL WELLNESS VISIT Subjective Guero is a 33 year old 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 He has no new gynecologic concerns since that time. Menstrual History: - had light spotting about 1.5 months ago - No recent front bleeding since increased T dose in November 2023 - currently taking 75 mg T IM injection weekly Contraception: - permanent female surgical contraception via tubal ligation or salpingectomy Cervical Cancer Screening / Prevention: - HPV vaccine: No - Last cervical cancer screening cytology: 8 years ago, reports abnormal, was recommended for follow up but never did - Last high risk HPV co-testing: - History of abnormal screening: Yes Other Preventative Health Care: - Last breast cancer screening: NA - Last colon cancer screening: N/A - History of STIs: No - Concern for new exposure to STI: No - Interested in routine screening / testing: Yes Sex / Sexuality / Gender Identity: - Sexual Orientation: Bisexual - Gender Identity: Male - Pronouns used: He/him - Sexually active: No, last sexually active 12 months - Partner(s): Male and female - Pain with intercourse: No - Postcoital bleeding: No Intimate Partner Violence Screen (HITS): - How often does your partner physically hurt you? Never (+1) - How often does your partner insult you or talk down to you? Never (+1) - How often does your partner threaten you with harm? Never (+1) - How often does your partner scream or curse at you? 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: Communication Instructor History Comments: Sexual Activity: No sexual activity data on record; No partner data on record Contraception: No contraception data on record History of uterine fibroids: No History of ovarian cysts: No History of endometriosis: No History of infertility: No History of PCOS: No OB History T4 L4 SAB0 IAB0 Ectopic0 Multiple0 Live Births4 PAST MEDICAL HISTORY Diagnosis Date Diabetes mellitus (HCC) PAST SURGICAL HISTORY Procedure Laterality Date EAR TUBES HX PAST SURGICAL HISTORY OF Bilateral 2016 Filshie clips REPAIR OF NASAL SEPTUM TONSILLECTOMY AND ADENOIDECTOMY Social History Tobacco Use Smoking status: Never Passive exposure: Never Smokeless tobacco: Never Tobacco comments: Vape with nicotine Vaping Use Vaping Use: current everyday user Substance Use Topics Alcohol use: Never Drug use: Never No family history on file. ALLERGIES Allergen Reactions Paroxetine Anaphylaxis, Swelling tounge AND throat swelling tounge AND throat swelling Bupropion Anaphylaxis, Other: See Comments hallucinations Current Outpatient Medications Medication Sig testosterone enanthate (XYOSTED) 75 mg/0.5 mL auto-injector Inject 0.5 mL subcutaneously one time a week for 90 days. metFORMIN ER (GLUCOPHAGE XR) 500 mg 24 hr tablet Take 2 tablets by mouth two times a day with meals. Blood-Glucose Meter (TRUE METRIX GLUCOSE METER) 1 Each two times a day. glipiZIDE (GLUCOTROL) 5 mg tablet Take 1 tablet by mouth two times a day before meals. blood sugar diagnostic (TRUE METRIX GLUCOSE TEST STRIP) test strip Use as instructed daily Syringe with Needle, Disp, (BD LUER-LEODAN SYRINGE) 3 mL 21 gauge x 1 syrg 1 Each one time a week. albuterol HFA (PROVENTIL HFA, VENTOLIN HFA) 90 mcg/actuation inhaler INHALE 2 PUFFS EVERY 6 HOURS NEEDED FOR WHEEZING ipratropium-albuterol (DUONEB) 0.5 mg-3 mg(2.5 mg base)/3 mL nebu INHALE 3 ML BY NEBULIZATION EVERY 6 HOURS NEEDED FOR WHEEZING. Syringe with Needle, Safety (BD ECLIPSE LUER-LEODAN) 3 mL 22 gauge x 1 1/2 1 Each one time a week. sertraline (ZOLOFT) 50 mg tablet TAKE 1 TABLET BY MOUTH EVERY DAY IN THE MORNING traZODone (DESYREL) 100 mg tablet TAKE 1 TABLET BY MOUTH EVERY DAY AT BEDTIME NEEDED FOR SLEEP ABILIFY MAINTENA 400 mg sers injection inject 1 400MG/1 ML PREFILLED SYRINGE intramuscularly every 30 DAYS lamoTRIgine (LAMICTAL) 100 mg tablet TAKE 1 TABLET BY MOUTH EVERY DAY IN THE MORNING busPIRone HCl 30 mg tablet TAKE 1 TABLET BY MOUTH TWICE A DAY DIRECTED montelukast (SINGULAIR) 10 mg tablet Take 10 mg by mouth. budesonide-formoterol (SYMBICORT) 160-4.5 mcg/actuation inhaler Inhale 2 Puffs as instructed. fluticasone (FLONASE) 50 mcg/actuation (more content not included)... Normal [facility] Estradiol SerPl-mCncon 01-19 E2 [Mass/Vol] 53 pg/mL Normal [facility] Comment on above: Order Comment: Speci men Type: URINE SPECIMEN Ordering Facility: [facility] Address: [address] [place] [address] Performed By: #### U ACR #### [facility] CLIA [id number] [address] [place] [address] [place] HCV Ab Ser Qlon 01-20-2024 HCV Ab Ql (S) Negative Normal Negative [facility] Comment on above: Order Comment: Speci men Type: BLOOD SPECIMENOrdering Facility: [facility] Address: [address] [place] [address] Result Comment: The result suggests no evidence of active infection with Hepatitis C virus. Should recent infection be suspected, repeat testing may be considered 4-6 weeks after this draw. Performed By: #### 1 6128-1 ####[facility] [id number] [place] [address] [place] HIV 1+2 Ab IA Qlon HIV 1 and 2 Ab IA.rapid Nom (S/P/Bld) Normal [facility] Comment on above: Order Comment: Speci men Type: BLOOD SPECIMENOrdering Facility: [facility] Address: [address] [place] [address] Result Comment: Test not indicated. Performed By: #### 3 1201-7 ####[facility] [id number] [place] [address] [place] HIV 1+2 Ab+HIV1 p24 Ag IA Ql Non-Reactive Normal Nonreactive [facility] Comment on above: Order Comment: Speci men Type: BLOOD SPECIMENOrdering Facility: [facility] Address: [address] [place] [address] Performed By: #### 3 1201-7 ####[facility] [id number] [place] [address] [place] HIV immunoassay testing algorithm interpretation (S/P/Bld) [Interp] Normal [facility] Comment on above: Order Comment: Speci men Type: BLOOD SPECIMENOrdering Facility: [facility] Address: [address] [place] [address] Result Comment: No e vidence of HIV-1 or HIV-2 infection. Should recent infection be suspected, repeat testing may be considered 2-3 weeks after this draw. [place] Rev. Code 3701.243(E): This information has been disclosed to you from confidential records protected from disclosure by state law. ???You shall make no further disclosure of this information without the specific, written, and informed release of the individual to whom it pertains or as otherwise permitted by state law. A general authorization for the release of medical or other information is not sufficient for the purpose of the release of HIV test results or diagnoses. Performed By: #### 3 1201-7 ####[facility] [id number] [place] [address] [place] HPV W/GENOTYPE THIN PREPon 0 01-20-2024 HPV 16 Ag Ql (Unsp spec) Negative Normal Negative for HPV DNA high risk type 16 by PCR [facility] Comment on above: Order Comment: Speci men Type: FLUID SPECIMENOrdering Facility: [facility] Address: [address] [place] [address] Performed By: #### L [id number], HPVHRT ####[facility] [id number] [place] [address] [place] HPV 18 Ag Ql (Unsp spec) Negative Normal Negative for HPV DNA high risk type 18 by PCR [facility] Comment on above: Order Comment: Speci men Type: FLUID SPECIMENOrdering Facility: [facility] Address: [address] [place] [address] Performed By: #### L [id number], HPVHRT ####[facility] [id number] [place] [address] [place] HPV 31+33+35+39+45+51+ 52+56+58+59+66+68 DNA GARRET+probe Ql (Cvx) Positive for one or more of the following HPV DNA high risk types:31,33,35,39,45, 51,52,56,58,59,66,68 by PCR Abnormal Negative for HPV DNA high risk types: 31,33,35,39,45,5 1,52,56,58,59,66 ,68 by PCR. [facility] Comment on above: Order Comment: Speci men Type: FLUID SPECIMENOrdering Facility: [facility] Address: [address] [place] [address] Performed By: #### L [id number], HPVHRT ####[facility] [id number] [place] [address] [place] HbA1c (Bld)on 01-20-2024 Average glucose Estimated from glycated hemoglobin (Bld) [Mass/Vol] 278 mg/dL Normal [facility] Comment on above: Order Comment: Speci men Type: URINE SPECIMEN Ordering Facility: [facility] Address: [address] [place] [address] Result Comment: eAG: (Estimated average glucose) is a calculated value from HgbA1c and is passenger service representative of the average blood glucose level in the last 2-3 month period. Performed By: #### U ACR #### [facility] CLIA [id number] [address] [place] [address] [place] HbA1c (Bld) [Mass fraction] 11.3 % High 4.3-5.6 [facility] Comment on above: Order Comment: Speci men Type: URINE SPECIMEN Ordering Facility: [facility] Address: [address] [place] [address] Result Comment: Amer [place] Diabetes Association guidelines indicate that patients with HgbA1c in the range 5.7-6.4% are at increased risk for development of diabetes, and intervention by lifestyle modification may be beneficial. HgbA1c greater or equal to 6.5% is considered diagnostic of diabetes. Performed By: #### U ACR #### [facility] CLIA [id number] [address] [place] [address] [place] PAP TESTon 01-20-2024 ADEQUACY Normal [facility] Comment on above: Order Comment: Speci men Type: URINE SPECIMEN Ordering Facility: [facility] Address: [address] [place] [address] Result Comment: Sati sfactory for interpretation Limited cellularity due to acellular background material Performed By: #### U ACR #### [facility] CLIA [id number] [address] [place] [address] [place] CASE REPORT Normal [facility] Comment on above: Order Comment: Speci men Type: URINE SPECIMEN Ordering Facility: [facility] Address: [address] [place] [address] Result Comment: Gyne cologic Cytology Report Case: [id number] Authorizing Provider: Christina Ceballos, Collected: 01/20/2024 12:46 PM Ordering Location: OB/Gynecology Received: 01/20/2024 12:58 PM First Screen: Gladkaya, Dottie, CT, ASCP Rescreen: Lary, Hannah, CT, ASCP Specimen: Pap Test, ThinPrep, Cervix Performed By: #### U ACR #### [facility] CLIA [id number] [address] [place] [address] [place] CLINICAL HISTORY, CYTOLOGY, WINDOWS SERVER SPECIALIST Other (Specify) Normal [facility] Comment on above: Order Comment: Speci men Type: URINE SPECIMEN Ordering Facility: [facility] Address: [address] [place] [address] Result Comment: kilpatrick sgender man on testosterone Performed By: #### U ACR #### [facility] CLIA [id number] [address] [place] [address] [place] CYTOLOGY PAP OTHER INT Atrophic specimen Normal [facility] Comment on above: Order Comment: Speci men Type: URINE SPECIMEN Ordering Facility: [facility] Address: [address] [place] [address] Performed By: #### U ACR #### [facility] CLIA [id number] [address] [place] [address] [place] FINAL PERFORMING LAB Normal [facility] Comment on above: Order Comment: Speci men Type: URINE SPECIMEN Ordering Facility: [facility] Address: [address] [place] [address] Result Comment: Tech nical component, shirt ironer supervisor screening performed at [facility], [address] [place], [place] [id number] CLIA# [id number] Diagnostic interpretation performed at [facility], [address] [place], [place] [id number] CLIA# [id number] Collection Card Clerk: Spencer Medina M.D. Performed By: #### U ACR #### [facility] CLIA [id number] [address] [place] [address] [place] HPV REFLEX Yes HPV Normal [facility] Comment on above: Order Comment: Speci men Type: URINE SPECIMEN Ordering Facility: [facility] Address: [address] [place] [address] Performed By: #### U ACR #### [facility] CLIA [id number] [address] [place] [address] [place] INTERPRETATION, CYTOLOGY, WINDOWS SERVER SPECIALIST Normal [facility] Comment on above: Order Comment: Speci men Type: URINE SPECIMEN Ordering Facility: [facility] Address: [address] [place] [address] Result Comment: Nega tive for intraepithelial lesion or malignancy. Performed By: #### U ACR #### [facility] CLIA [id number] [address] [place] [address] [place] PAP DISCLAIMER COMMENT The Pap Smear is a screening test for cervical cancer. False negative results occur with all screening tests, emphasizing the need for rescreening at recommended intervals, and clinical correlation. Normal [facility] Comment on above: Order Comment: Speci men Type: URINE SPECIMEN Ordering Facility: [facility] Address: [address] [place] [address] Performed By: #### U ACR #### [facility] CLIA [id number] [address] [place] [address] [place] PAP LINE INSTALLER REPAIRER COMMENT This specimen has been analyzed by the ThinPrep Imaging System, an automated imaging and review system, which assists the laboratory in evaluating cells on ThinPrep Pap tests. Following automated imaging, selected sloan from every slide are reviewed by a shirt ironer supervisor. Normal [facility] Comment on above: Order Comment: Speci men Type: URINE SPECIMEN Ordering Facility: [facility] Address: [address] [place] [address] Performed By: #### U ACR #### [facility] CLIA [id number] [address] [place] [address] [place] TRICHOMONAS VAGINALIS NAATon 01-20-2024 T. vaginalis DNA GARRET+probe Ql (Unsp spec) Negative Negative for Trichomonas vaginalis by amplification [facility] T. vaginalis DNA GARRET+probe Ql (Unsp spec) Negative Normal Negative for Trichomonas vaginalis by amplification [facility] Comment on above: Order Comment: Speci men Type: SWABOrdering Facility: [facility] Address: [address] [place] [address] Performed By: #### 3 6902-5, TRVAMP ####[facility] [id number] [place] [address] [place] Testost SerPl-mCncon 024 Testosterone [Mass/Vol] 520 ng/dL Normal [facility] Comment on above: Order Comment: Speci men Type: URINE SPECIMEN Ordering Facility: [facility] Address: [address] [place] [address] Result Comment: Resu lt rechecked. Performed By: #### U ACR #### [facility] CLIA [id number] [address] [place] [address] [place] CNOVon 11-17-2023 CNOV Office Visit ([facility] ) MAYELA DAVIS ([id number]) 1990 F T Date Time Provider Department 11/17/23 10:00 AM YANDEL ELDRIDGE [facility] During your visit today, we recorded the following information about you: Pulse Respiration Blood pressure Weight 100/minute 18/minute 113/85 121.8 kg Yandel Eldridge PA-C 11/24/2023 10:17 AM Addendum ESTABLISHED PATIENT Chief Complaint: Guero Mendoza Ryan is a 33 year old adult who presents today for a follow up visit. Subjective HPI PCP: No PCP currently - Last OV: 08/14/23 with Fabiana Durham APRN-KWAME PMH: gender dysphoria, T2DM, HLD, asthma, allergic rhinitis, MDD, anxiety #Gender dysphoria Current regiment: 0.25 mL (50 mg) testosterone enanthate weekly IM injections (injection day is Friday) - auto-injector Has been on testosterone since 11/2022 Has been doing auto-injection - much happier with auto-injector, can do injections himself No obvious side effects Spotting has continued - every day, no need for any menstrual products No new physical changes Denies any missed doses Gender affirming care goals Desires Top surgery Weight loss - would like to lose weight prior to having top surgery done for optimized results and better diabetic management Name change Desires facial hair - coming in but a bit patchy PAST MEDICAL HISTORY Diagnosis Date Diabetes mellitus (HCC) PAST SURGICAL HISTORY Procedure Laterality Date EAR TUBES HX REPAIR OF NASAL SEPTUM TONSILLECTOMY AND ADENOIDECTOMY No family history on file. Current Outpatient Medications Medication Sig Dispense Refill metFORMIN ER (GLUCOPHAGE XR) 500 mg 24 hr tablet Take 2 tablets by mouth two times a day with meals. 120 tablet 11 Blood-Glucose Meter (TRUE METRIX GLUCOSE METER) 1 Each two times a day. 1 Each 0 glipiZIDE (GLUCOTROL) 5 mg tablet Take 1 tablet by mouth two times a day before meals. 60 tablet 5 blood sugar diagnostic (TRUE METRIX GLUCOSE TEST STRIP) test strip Use as instructed daily 100 Each 3 Syringe with Needle, Disp, (BD LUER-LEODAN SYRINGE) 3 mL 21 gauge x 1 syrg 1 Each one time a week. 12 Each 0 Syringe with Needle, Safety (BD ECLIPSE LUER-LEODAN) 3 mL 22 gauge x 1 1/2 1 Each one time a week. 12 Each 0 sertraline (ZOLOFT) 50 mg tablet TAKE 1 TABLET BY MOUTH EVERY DAY IN THE MORNING traZODone (DESYREL) 100 mg tablet TAKE 1 TABLET BY MOUTH EVERY DAY AT BEDTIME NEEDED FOR SLEEP ABILIFY MAINTENA 400 mg sers injection inject 1 400MG/1 ML PREFILLED SYRINGE intramuscularly every 30 DAYS lamoTRIgine (LAMICTAL) 100 mg tablet TAKE 1 TABLET BY MOUTH EVERY DAY IN THE MORNING busPIRone HCl 30 mg tablet TAKE 1 TABLET BY MOUTH TWICE A DAY DIRECTED montelukast (SINGULAIR) 10 mg tablet Take 10 mg by mouth. budesonide-formoterol (SYMBICORT) 160-4.5 mcg/actuation inhaler Inhale 2 Puffs as instructed. testosterone enanthate (XYOSTED) 75 mg/0.5 mL auto-injector Inject 0.5 mL subcutaneously one time a week for 90 days. 4 Each 2 albuterol HFA (PROVENTIL HFA, VENTOLIN HFA) 90 mcg/actuation inhaler INHALE 2 PUFFS EVERY 6 HOURS NEEDED FOR WHEEZING ipratropium-albuterol (DUONEB) 0.5 mg-3 mg(2.5 mg base)/3 mL nebu INHALE 3 ML BY NEBULIZATION EVERY 6 HOURS NEEDED FOR WHEEZING. fluticasone (FLONASE) 50 mcg/actuation nasal spray Use 2 Sprays in each nostril once daily. 1 Each 11 No current facility-administered medications for this visit. ALLERGIES Allergen Reactions Paroxetine Anaphylaxis, Swelling tounge AND throat swelling tounge AND throat swelling Bupropion Anaphylaxis, Other: See Comments hallucinations Social History Tobacco Use Smoking status: Never Passive exposure: Never Smokeless tobacco: Never Tobacco comments: Vape with nicotine Vaping Use Vaping Use: current everyday user Substance Use Topics Alcohol use: Never Drug use: Never Review of Systems Constitutional: Negative for chills, fatigue and fever. HENT: Negative for congestion and sore throat. Eyes: Negative for pain and discharge. Respiratory: Negative for cough and shortness of breath. Cardiovascular: Negative for chest pain, palpitations and leg swelling. Gastrointestinal: Negative for abdominal pain, blood in stool, diarrhea, nausea and vomiting. Endocrine: Negative for cold intolerance and heat intolerance. Genitourinary: Negative for dysuria and hematuria. Musculoskeletal: Negative for arthralgias and myalgias. Skin: Negative for rash. Neurological: Negative for dizziness, light-headedness and numbness. Objective BP 113/85 Pulse 100 Resp 18 Wt 121.8 kg (268 lb 9.6 oz) BMI 42.70 kg/m? Physical Exam Vitals reviewed. Constitutional: Appearance: Normal appearance. HENT: Head: Normocephalic. Nose: Nose normal. No congestion or rhinorrhea. Mouth/Throat: Mouth: Mucous membranes are moist. Pharynx: Oropharynx is clear. No oropharyngeal exudat (more content not included)... Normal [facility] Sue 11-17-2023 JEOVANY Telephone ([facility]) MAYELA DVAIS ([id number]) 1990 F T Date Time Provider Department 11/17/23 YANDEL ELDRIDGE [facility] During your visit today, we recorded the following information about you: Gayle Ferris 11/17/2023 11:00 AM Signed Patient in office today, stated they should have a referral to OB after their appointment however there is not an active request available to schedule. Please send in the order for consult so pt can be scheduled. Thank you! 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 Please schedule with Dr. Ceballos or Dr. Fletcher. Thanks, AVIVA Kaplan Pauline 11/17/2023 12:57 PM Signed Appt scheduled Allergies As of Date: 11/17/2023 Noted Allergy Reaction PAROXETINE 11/10/2012 10 - Anaphylaxis 7 - Swelling Comments: tounge AND throat swelling tounge AND throat swelling BUPROPION 01/12/2013 10 - Anaphylaxis 14 - Other: See Comments Comments: hallucinations Date Reviewed: 11/17/2023 Reviewed by: Casi Evans MA - Fully Assessed Reason for Visit: Orders [681] Prescriptions as of 11/17/2023 - testosterone enanthate (XYOSTED) 75 mg/0.5 mL auto-injector Inject 0.5 mL subcutaneously one time a week for 90 days. - metFORMIN ER (GLUCOPHAGE XR) 500 mg 24 hr tablet Take 2 tablets by mouth two times a day with meals. - Blood-Glucose Meter (TRUE METRIX GLUCOSE METER) 1 Each two times a day. - glipiZIDE (GLUCOTROL) 5 mg tablet Take 1 tablet by mouth two times a day before meals. - blood sugar diagnostic (TRUE METRIX GLUCOSE TEST STRIP) test strip Use as instructed daily - Syringe with Needle, Disp, (BD LUER-LEODAN SYRINGE) 3 mL 21 gauge x 1 syrg 1 Each one time a week. - albuterol HFA (PROVENTIL HFA, VENTOLIN HFA) 90 mcg/actuation inhaler INHALE 2 PUFFS EVERY 6 HOURS NEEDED FOR WHEEZING - ipratropium-albuterol (DUONEB) 0.5 mg-3 mg(2.5 mg base)/3 mL nebu INHALE 3 ML BY NEBULIZATION EVERY 6 HOURS NEEDED FOR WHEEZING. - Syringe with Needle, Safety (BD ECLIPSE LUER-LEODAN) 3 mL 22 gauge x 1 1/2 1 Each one time a week. - sertraline (ZOLOFT) 50 mg tablet TAKE 1 TABLET BY MOUTH EVERY DAY IN THE MORNING - traZODone (DESYREL) 100 mg tablet TAKE 1 TABLET BY MOUTH EVERY DAY AT BEDTIME NEEDED FOR SLEEP - ABILIFY MAINTENA 400 mg sers injection inject 1 400MG/1 ML PREFILLED SYRINGE intramuscularly every 30 DAYS - lamoTRIgine (LAMICTAL) 100 mg tablet TAKE 1 TABLET BY MOUTH EVERY DAY IN THE MORNING - busPIRone HCl 30 mg tablet TAKE 1 TABLET BY MOUTH TWICE A DAY DIRECTED - montelukast (SINGULAIR) 10 mg tablet Take 10 mg by mouth. - budesonide-formoterol (SYMBICORT) 160-4.5 mcg/actuation inhaler Inhale 2 Puffs as instructed. - fluticasone (FLONASE) 50 mcg/actuation nasal spray Use 2 Sprays in each nostril once daily. Problem List As Of Date 11/17/2023 Noted Resolved Obesity, Class III, BMI 40-49.9 (morbid obesity*10/07/2022 Family history of malignant neoplasm of breast *09/25/2022 Type 2 diabetes mellitus without complications *08/19/2022 Allergic rhinitis [J30.9] 03/29/2021 Asthma [J45.909] 10/14/2022 Other hyperlipidemia [E78.49] 11/08/2021 S/P nasal septoplasty [Z98.890] 05/18/2019 Severe episode of recurrent major depressive di*10/14/2022 Anxiety [F41.9] 10/14/2022 Encounter Status:Closed by GAYLE FERRIS on 11/17/23 Normal [facility] CBC panel Auto (Bld)on 10-14 Erythrocyte distribution width (RBC) [Ratio] 14.9 % 11.5 - 15.0 % [facility] Hematocrit (Bld) [Volume fraction] 37.9 % Low 39.0 - 51.0 % [facility] Hemoglobin (Bld) [Mass/Vol] 11.8 g/dL Low 13.0 - 17.0 g/dL [facility] MCH (RBC) [Entitic mass] 25.1 pg Low 26.0 - 34.0 pg [facility] MCHC (RBC) [Mass/Vol] 31.1 g/dL 30.5 - 36.0 g/dL [facility] MCV (RBC) [Entitic vol] 80.6 fL 80.0 - 100.0 fL [facility] Nucleated RBC (Bld) [#/Vol] <0.01 k/uL [facility] Platelet mean volume (Bld) [Entitic vol] 11.5 fL 9.0 - 12.7 fL [facility] Platelets (Bld) [#/Vol] 297 10*3/uL 150 - 400 k/uL [facility] RBC (Bld) [#/Vol] 4.70 10*6/uL 4.20 - 6.00 m/uL [facility] WBC (Bld) [#/Vol] 13.20 10*3/uL High 3.70 - 11 .00 k/uL [facility] MG MAMM DIAGNOSTIC 3D YONY CA Don 09-20-2022 MG MAMM DIAGNOSTIC 3D YONY CAD Patient: MAYELA JUAREZ Exam Date: 09/20/2022 : 1990 Gender:F Ordering : DR CHARITO ROBERT . Admission #: [id number] Family : Order #: [id number] CLICK HERE TO VIEW EXAM RADIOLOGY REPORT PROCEDURE: MAMMOGRAM DIAGNOSTIC 3D BILATERAL CAD, 09/20/2022, 13:34 ULTRASOUND BREAST BILATERAL LIMITED, 09/20/2022, 14:52 COMPARISON: None. INDICATIONS: Lump in lower inner quadrant of right breast Calculator Name NCI Breast Cancer Risk Assessment Tool 5 Year Breast Cancer Risk Not Applicable. Lifetime Breast Cancer Risk Not Applicable. Personal Breast Cancer No Personal Ovarian Cancer No Treatments None Family Cancers Grandmother-maternal with breast cancer at age 55; Aunt-maternal with breast cancer at age 48; Father with colon cancer at age 62; Grandfather-paternal with colon cancer at age 82. LOCATION: [facility] BREAST COMPOSITION: Scattered areas fibroglandular density. FINDINGS: DIAGNOSTIC CATEGORY 2--BENIGN FINDING: The breasts are medium in size. Scattered benign-appearing calcifications are present. Scattered benign-appearing lymph nodes are present. No mammographic or ultrasound abnormality to correspond to the patient's right lower inner and left lower outer palpable masses. Further evaluation should be based on clinical and physical exam. RECOMMENDATIONS: CLINICAL EVALUATION. PLEASE NOTE: A NORMAL MAMMOGRAM DOES NOT EXCLUDE THE POSSIBILITY OF BREAST CANCER. A CLINICALLY SUSPICIOUS PALPABLE LUMP SHOULD BE BIOPSIED. Dictated by: Lc Kumar MD on 09/20/2022 at 15:12 Approved by: Lc Kumar MD on 09/20/2022 at 15:14 Normal [facility] US BREAST YONY LIMITEDon 09-03 US BREAST YONY LIMITED Patient: MAYELA JUAREZ Exam Date: 09/20/2022 : 1990 Gender:F Ordering : DR CHARITO ROBERT . Admission #: [id number] Family : Order #: [id number] CLICK HERE TO VIEW EXAM RADIOLOGY REPORT PROCEDURE: MAMMOGRAM DIAGNOSTIC 3D BILATERAL CAD, 09/20/2022, 13:34 ULTRASOUND BREAST BILATERAL LIMITED, 09/20/2022, 14:52 COMPARISON: None. INDICATIONS: Lump in lower inner quadrant of right breast Calculator Name NCI Breast Cancer Risk Assessment Tool 5 Year Breast Cancer Risk Not Applicable. Lifetime Breast Cancer Risk Not Applicable. Personal Breast Cancer No Personal Ovarian Cancer No Treatments None Family Cancers Grandmother-maternal with breast cancer at age 55; Aunt-maternal with breast cancer at age 48; Father with colon cancer at age 62; Grandfather-paternal with colon cancer at age 82. LOCATION: [facility] BREAST COMPOSITION: Scattered areas fibroglandular density. FINDINGS: DIAGNOSTIC CATEGORY 2--BENIGN FINDING: The breasts are medium in size. Scattered benign-appearing calcifications are present. Scattered benign-appearing lymph nodes are present. No mammographic or ultrasound abnormality to correspond to the patient's right lower inner and left lower outer palpable masses. Further evaluation should be based on clinical and physical exam. RECOMMENDATIONS: CLINICAL EVALUATION. PLEASE NOTE: A NORMAL MAMMOGRAM DOES NOT EXCLUDE THE POSSIBILITY OF BREAST CANCER. A CLINICALLY SUSPICIOUS PALPABLE LUMP SHOULD BE BIOPSIED. Dictated by: Lc Kumar MD on 09/20/2022 at 15:12 Approved by: Lc Kumar MD on 09/20/2022 at 15:14 Normal [facility] GLYCOHEMOGLOBIN A1Con 2021 ADA RECOMMENDATION SEE BELOW Normal [facility] Comment on above: Result Comment: ADA RECOMMENDED LIMIT 4.0 - 6.0 ADA THERAPEUTIC TARGET < 7.0 ACTION SUGGESTED > 7.0 Performed By: #### A 1C #### [facility] [address] [address] [address] Kali Nieto Glucose [Mass/Vol] 200 mg/dL Normal [facility] Comment on above: Performed By: #### A 1C #### [facility] [address] [address] [address] Kali Nieto HbA1c (Bld) [Mass fraction] 8.6 % Critically high 4.5-6.2 [facility] Comment on above: Performed By: #### A 1C #### [facility] [address] [place] [address] Dr. Kali Nieto LACTATE/LACTIC ACIDon 2021 Lactate [Moles/Vol] 1.8 mmol/L Normal 0.4-1.9 [facility] Comment on above: Performed By: #### L ACT #### [facility] [address] [place] [address] Dr. Kali Nieto Lactate [Moles/Vol] 1.6 mmol/L Normal 0.4-1.9 [facility] Comment on above: Performed By: #### L ACT #### [facility] [address] [place] [address] Dr. Kali Nieto POINT OF CARE GLUCOSEon 08-03 Glucose [Mass/Vol] 179 mg/dL Critically high -106 [facility] Comment on above: Performed By: #### P OCGLUC #### [facility] [address] [address] [address] Kali Nieto Glucose [Mass/Vol] 215 mg/dL Critically high -106 [facility] Comment on above: Performed By: #### L ACT #### [facility] [address] [place] [address] Dr. Kali Nieto Glucose [Mass/Vol] 243 mg/dL Critically high -106 [facility] Comment on above: Performed By: #### P OCGLUC #### [facility] [address] [place] [address] Dr. Kali Nieto PROF 14(COMP METB)on 08-15- 022 Albumin [Mass/Vol] 3.3 g/dL Critically low 3.4-5.0 [facility] Comment on above: Performed By: #### C MP #### [facility] [address] [place] [address] Dr. Kali Nieto Albumin/Globulin [Mass ratio] 0.9 {ratio} Normal [facility] Comment on above: Performed By: #### C MP #### [facility] [address] [place] [address] Dr. Kali Nieto ALP [Catalytic activity/Vol] 70 U/L Normal 46-116 [facility] Comment on above: Performed By: #### C MP #### [facility] [address] [place] [address] Dr. Kali Nieto ALT [Catalytic activity/Vol] 61 U/L Critically high 14-59 [facility] Comment on above: Performed By: #### C MP #### [facility] [address] [place] [address] Dr. Kali Nieto Anion gap [Moles/Vol] 10.4 mmol/L Normal [facility] Comment on above: Performed By: #### C MP #### [facility] [address] [place] [address] Dr. Kali Nieto AST [Catalytic activity/Vol] 40 U/L Critically high 15-37 [facility] Comment on above: Performed By: #### C MP #### [facility] [address] [place] [address] Dr. Kali Nieto Bilirubin [Mass/Vol] 0.4 mg/dL Normal 0.2-1.0 [facility] Comment on above: Performed By: #### C MP #### [facility] [address] [place] [address] Dr. Kali Nieto Calcium [Mass/Vol] 8.4 mg/dL Critically low 8.5-10.1 [facility] Comment on above: Performed By: #### C MP #### [facility] [address] [address] [address] Kali Nieto Chloride [Moles/Vol] 105 mmol/L Normal 98-107 [facility] Comment on above: Performed By: #### C MP #### [facility] [address] [address] [address] Kali Nieto CO2 [Moles/Vol] 26.6 mmol/L Normal 21.0-32.0 [facility] Comment on above: Performed By: #### C MP #### [facility] [address] [address] [address] Kali Nieto Creatinine [Mass/Vol] 0.81 mg/dL Normal 0.55-1.02 [facility] Comment on above: Performed By: #### C MP #### [facility] [address] [place] [address] Dr. Kali Nieto EGFR-AF BELGIAN >60 Normal >=60 [facility] Comment on above: Performed By: #### C MP #### [facility] [address] [address] [address] Kali Nieto EGFR-NON AF BELGIAN >60 Normal >=60 [facility] Comment on above: Performed By: #### C MP #### [facility] [address] [address] [address] Kali Nieto Globulin (S) [Mass/Vol] 3.6 g/dL Normal [facility] Comment on above: Performed By: #### C MP #### [facility] [address] [address] [address] Kali Nieto Glucose [Mass/Vol] 241 mg/dL Critically high 74-106 [facility] Comment on above: Performed By: #### C MP #### [facility] [address] [address] [address] Kali Nieto Potassium [Moles/Vol] 4.0 mmol/L Normal 3.5-5.1 [facility] Comment on above: Performed By: #### C MP #### [facility] [address] [address] [address] Kali Nieto Protein [Mass/Vol] 6.9 g/dL Normal 6.4-8.2 [facility] Comment on above: Performed By: #### C MP #### [facility] [address] [place] [address] Dr. Kali Nieto Sodium [Moles/Vol] 138 mmol/L Normal 136-145 [facility] Comment on above: Performed By: #### C MP #### [facility] [address] [place] [address] Dr. Kali Nieto Urea nitrogen [Mass/Vol] 8.0 mg/dL Normal 7.0-18.0 [facility] Comment on above: Performed By: #### C MP #### [facility] [address] [place] [address] Dr. Kali Nieto Urea nitrogen/Creatinin e [Mass ratio] 9.9 mg/mg Normal [facility] Comment on above: Performed By: #### C MP #### [facility] [address] [place] [address] Dr. Kali Nieto Albumin [Mass/Vol] 3.4 g/dL Normal 3.4-5.0 [facility] Comment on above: Performed By: #### L ACT #### [facility] [address] [place] [address] Dr. Kali Nieto Albumin/Globulin [Mass ratio] 1.0 {ratio} Normal [facility] Comment on above: Performed By: #### L ACT #### [facility] [address] [place] [address] Dr. Kali Nieto ALP [Catalytic activity/Vol] 71 U/L Normal 46-116 [facility] Comment on above: Performed By: #### L ACT #### [facility] [address] [place] [address] Dr. Kali Nieto ALT [Catalytic activity/Vol] 65 U/L Critically high 14-59 [facility] Comment on above: Performed By: #### L ACT #### [facility] [address] [place] [address] Dr. Kali Nieto Anion gap [Moles/Vol] 12.7 mmol/L Normal [facility] Comment on above: Performed By: #### L ACT #### [facility] [address] [address] [address] Kali Nieto AST [Catalytic activity/Vol] 43 U/L Critically high 15-37 [facility] Comment on above: Performed By: #### L ACT #### [facility] [address] [address] [address] Kali Nieto Bilirubin [Mass/Vol] 0.3 mg/dL Normal 0.2-1.0 [facility] Comment on above: Performed By: #### L ACT #### [facility] [address] [address] [address] Kali Nieto Calcium [Mass/Vol] 8.3 mg/dL Critically low 8.5-10.1 [facility] Comment on above: Performed By: #### L ACT #### [facility] [address] [address] [address] Kali Nieto Chloride [Moles/Vol] 105 mmol/L Normal 98-107 [facility] Comment on above: Performed By: #### L ACT #### [facility] [address] [address] [address] Kali Nieto CO2 [Moles/Vol] 24.2 mmol/L Normal 21.0-32.0 [facility] Comment on above: Performed By: #### L ACT #### [facility] [address] [address] [address] Kali Nieto Creatinine [Mass/Vol] 0.80 mg/dL Normal 0.55-1.02 [facility] Comment on above: Performed By: #### L ACT #### [facility] [address] [address] [address] Kali Nieto EGFR-AF BELGIAN >60 Normal >=60 [facility] Comment on above: Performed By: #### L ACT #### [facility] [address] [address] [address] Kali Nieto EGFR-NON AF BELGIAN >60 Normal >=60 [facility] Comment on above: Performed By: #### L ACT #### [facility] [address] [address] [address] Kali Nieto Globulin (S) [Mass/Vol] 3.4 g/dL Normal [facility] Comment on above: Performed By: #### L ACT #### [facility] [address] [address] [address] Kali Nieto Glucose [Mass/Vol] 229 mg/dL Critically high 74-106 [facility] Comment on above: Performed By: #### L ACT #### [facility] [address] [address] [address] Kali Nieto Potassium [Moles/Vol] 3.9 mmol/L Normal 3.5-5.1 [facility] Comment on above: Performed By: #### L ACT #### [facility] [address] [place] [address] Dr. Kali Nieto Protein [Mass/Vol] 6.8 g/dL Normal 6.4-8.2 [facility] Comment on above: Performed By: #### L ACT #### [facility] [address] [place] [address] Dr. Kali Nieto Sodium [Moles/Vol] 138 mmol/L Normal 136-145 [facility] Comment on above: Performed By: #### L ACT #### [facility] [address] [place] [address] Dr. Kali Nieto Urea nitrogen [Mass/Vol] 10.0 mg/dL Normal 7.0-18.0 [facility] Comment on above: Performed By: #### L ACT #### [facility] [address] [place] [address] Dr. Kali Nieto Urea nitrogen/Creatinin e [Mass ratio] 12.5 mg/mg Normal [facility] Comment on above: Performed By: #### L ACT #### [facility] [id number] Kali Nieto ACETAMINOPHENon 08-14-2022 Acetaminophen [Mass/Vol] ug/mL Critically low 10.0-30.0 [facility] Comment on above: Performed By: #### L ACT #### [facility] [address] [address] [address] Kali Nieto CBC AUTO DIFFon 08-14-2022 BASO # 0.0 103/ul Normal 0.0-0.1 [facility] Comment on above: Performed By: #### L ACT #### [facility] [address] [address] [address] Kali Nieto Basophils/100 WBC (Bld) 0.4 % Normal 0.2-2.0 [facility] Comment on above: Performed By: #### L ACT #### [facility] [address] [address] [address] Kali Nieto EO # 0.1 103/ul Normal 0.0-0.7 [facility] Comment on above: Performed By: #### L ACT #### [facility] [address] [place] [address] Dr. Kali Nieto Eosinophils/100 WBC (Bld) 1.2 % Normal 0.9-7.0 [facility] Comment on above: Performed By: #### L ACT #### [facility] [address] [place] [address] Dr. Kali Nieto Erythrocyte distribution width (RBC) [Ratio] 16.0 % Critically high 11.0-15.0 [facility] Comment on above: Performed By: #### L ACT #### [facility] [address] [place] [address] Dr. Kali Nieto Hematocrit (Bld) [Volume fraction] 35.1 % Critically low 36.0-48.0 [facility] Comment on above: Performed By: #### L ACT #### [facility] [address] [address] [address] Kali Nieto Hemoglobin (Bld) [Mass/Vol] 11.1 g/dL Critically low 12.0-16.0 [facility] Comment on above: Performed By: #### L ACT #### [facility] [address] [address] [address] Kali Nieto IG # 0.04 10e3/ul Critically high 0.00-0.03 [facility] Comment on above: Performed By: #### L ACT #### [facility] [address] [address] [address] Kali Nieto IG % 0.4 % Normal 0.0-0.5 [facility] Comment on above: Performed By: #### L ACT #### [facility] [address] [address] [address] Kali Nieto LYMPH # 2.2 103/ul Normal 1.2-3.8 [facility] Comment on above: Performed By: #### L ACT #### [facility] [address] [place] [address] Dr. Kali Nieto Lymphocytes/100 WBC (Bld) 23.4 % Normal 20.5-60.0 [facility] Comment on above: Performed By: #### L ACT #### [facility] [address] [place] [address] Dr. Kali Nieto MANUAL DIFF REQ NO Normal [facility] Comment on above: Performed By: #### L ACT #### [facility] [address] [place] [address] Dr. Kali Nieto MCH (RBC) [Entitic mass] 25.9 pg Critically low 26.7-34.0 [facility] Comment on above: Performed By: #### L ACT #### [facility] [address] [place] [address] Dr. Kali Nieto MCHC (RBC) [Mass/Vol] 31.6 g/dL Normal 29.9-35.2 [facility] Comment on above: Performed By: #### L ACT #### [facility] [address] [place] [address] Dr. Kali Nieto MCV (RBC) [Entitic vol] 81.8 fL Normal 81.0-99.0 [facility] Comment on above: Performed By: #### L ACT #### [facility] [address] [place] [address] Dr. Kali Nieto MONO # 0.7 103/ul Normal 0.3-0.8 [facility] Comment on above: Performed By: #### L ACT #### [facility] [address] [place] [address] Dr. Kali Nieto Monocytes/100 WBC (Bld) 7.4 % Normal 1.7-12.0 [facility] Comment on above: Performed By: #### L ACT #### [facility] [address] [place] [address] Dr. Kali Nieto NEUT # 6.2 103/ul Normal 1.4-6.5 [facility] Comment on above: Performed By: #### L ACT #### [facility] [address] [place] [address] Dr. Kali Nieto Neutrophils/100 WBC (Bld) 67.2 % Normal 43.0-75.0 [facility] Comment on above: Performed By: #### L ACT #### [facility] [address] [place] [address] Dr. Kali Nieto Platelet mean volume (Bld) [Entitic vol] 11.5 fL Normal 9.5-13.5 [facility] Comment on above: Performed By: #### L ACT #### [facility] [address] [place] [address] Dr. Kali Nieto PLT 251 103/ul Normal 150-450 [facility] Comment on above: Performed By: #### L ACT #### [facility] [address] [place] [address] Dr. Kali Nieto RBC 4.29 106/ul Normal 4.20-5.40 [facility] Comment on above: Performed By: #### L ACT #### [facility] [address] [place] [address] Dr. Kali Nieto WBC 9.2 103/ul Normal 4.0-11.0 [facility] Comment on above: Performed By: #### L ACT #### [facility] [address] [place] [address] Dr. Kali Nieto Covid-19 PCR ([facility])on 08-03 SARS-CoV-2 (COVID-19) RNA GARRET+probe Ql (Unsp spec) Not detected Normal NOT DETECTED [facility] Comment on above: Result Comment: When diagnostic testing is negative, the possibility of a false negative should be considered in the context of a patient's recent exposures and the presence of clinical signs and symptoms consistent with SARS-CoV-2. This test is not yet approved or cleared by the [place] FDA. When there are no FDA-approved or cleared tests available, and other criteria are met, FDA can make tests available under an emergency access mechanism called an Emergency Use Authorization (EUA). The EUA for this test is supported by the [place] of Health and Human Service's declaration that circumstances exist to justify the emergency use of in vitro diagnostics for the detection and/or diagnosis of the virus that causes COVID-19. This EUA will remain in effect for the duration of the COVID-19 declaration justifying emergency of IVDs, unless it is terminated or revoked by the FDA (after which the test may no longer be used). Performed By: #### C VDTB #### [facility] [address] [place] [address] Dr. Kali Nieto DRUG SCREEN RAPID (URINE)on 08-14-2022 AMP Negative Normal NEGATIVE [facility] Comment on above: Performed By: #### L ACT #### [facility] [address] [place] [address] Dr. Kali Nieto BAR Negative Normal NEGATIVE [facility] Comment on above: Performed By: #### L ACT #### [facility] [address] [place] [address] Dr. Kali Nieto BUP Negative Normal NEGATIVE [facility] Comment on above: Performed By: #### L ACT #### [facility] [address] [place] [address] Dr. Kali Nieto BZO Negative Normal NEGATIVE [facility] Comment on above: Performed By: #### L ACT #### [facility] [address] [place] [address] Dr. Kali Nieto EL Negative Normal NEGATIVE [facility] Comment on above: Performed By: #### L ACT #### [facility] [address] [place] [address] Dr. Kali Nieto CUT-OFFS SEE BELOW Normal [facility] Comment on above: Result Comment: AMP (Amphetamine): 500ng/mL, BAR (Barbituates): 200 ng/mL, BZO (Benzodiazepines): 150 ng/mL, BUP (Buprenorphine): 10 ng/mL, EL (Cocaine): 150 ng/mL, mAMP (Methamphetamine): 500 ng/mL, MTD (Methadone): 200 ng/mL, OPI (Opiates): 100 ng/mL, OXY (Oxycodone): 100 ng/mL, PCP (Phencyclidine): 25 ng/mL, PPX (Propoxyphene): 300 ng/mL, THC (Cannabinoids): 50 ng/mL, TCA (Trycyclic Antidepressants): 300 ng/mL Performed By: #### L ACT #### [facility] [address] [place] [address] Dr. Kali Nieto DRUG CUT HEADER DRUG CLASS TEST SYSTEM CUT-OFF CONCENTRATIONS ARE FOLLOWS: Normal [facility] Comment on above: Performed By: #### L ACT #### [facility] [address] [place] [address] Dr. Kali Nieto mAMP Negative Normal NEGATIVE [facility] Comment on above: Performed By: #### L ACT #### [facility] [address] [place] [address] Dr. Kali Nieto MTD Negative Normal NEGATIVE [facility] Comment on above: Performed By: #### L ACT #### [facility] [address] [place] [address] Dr. Kali Nieto OPI Negative Normal NEGATIVE [facility] Comment on above: Performed By: #### L ACT #### [facility] [address] [place] [address] Dr. Kali Nieto OXY Negative Normal NEGATIVE [facility] Comment on above: Performed By: #### L ACT #### [facility] [address] [place] [address] Dr. Kali Nieto PCP Negative Normal NEGATIVE [facility] Comment on above: Performed By: #### L ACT #### [facility] [address] [place] [address] Dr. Kali Nieto PPX Negative Normal NEGATIVE [facility] Comment on above: Performed By: #### L ACT #### [facility] [address] [place] [address] Dr. Kali Nieto TCA Negative Normal NEGATIVE [facility] Comment on above: Performed By: #### L ACT #### [facility] [address] [address] [address] Kali Nieto THC Negative Normal NEGATIVE [facility] Comment on above: Performed By: #### L ACT #### [facility] [address] [place] [address] Dr. Kali Nieto ER URINE PROFILEon 2 Bilirubin Ql (U) Negative Normal NEGATIVE [facility] Comment on above: Performed By: #### P REGU, ERUR, DRUGRPD #### [facility] [address] [place] [address] Dr. Kali Nieto Clarity (U) CLEAR Normal CLEAR [facility] Comment on above: Performed By: #### P REGU, ERUR, DRUGRPD #### [facility] [address] [place] [address] Dr. Kali Nieto Color (U) YELLOW Normal YELLOW [facility] Comment on above: Performed By: #### P REGU, ERUR, DRUGRPD #### [facility] [address] [place] [address] Dr. Kali CARDOZA A micrscopic examination will be performed if indicated. Normal [facility] Comment on above: Performed By: #### P REGU, ERUR, DRUGRPD #### [facility] [address] [place] [address] Dr. Kali Nieto Glucose Ql (U) Negative Normal NEGATIVE [facility] Comment on above: Performed By: #### P REGU, ERUR, DRUGRPD #### [facility] [address] [place] [address] Dr. Kali Nieto Hemoglobin Ql (U) Negative Normal NEGATIVE [facility] Comment on above: Performed By: #### P REGU, ERUR, DRUGRPD #### [facility] [address] [place] [address] Dr. Kali Nieto Ketones Ql (U) TRACE Abnormal NEGATIVE [facility] Comment on above: Performed By: #### P REGU, ERUR, DRUGRPD #### [facility] [address] [address] [address] Kali Nieto LEUKOCYTES Negative Normal NEGATIVE [facility] Comment on above: Performed By: #### P REGU, ERUR, DRUGRPD #### [facility] [address] [address] [address] Kali Nieto Nitrite Ql (U) Negative Normal NEGATIVE The [facility] Comment on above: Performed By: #### P REGU, ERUR, DRUGRPD #### [facility] [address] [address] [address] Kali Nieto pH (U) 6.0 [pH] Normal 5-9 [facility] Comment on above: Performed By: #### P REGU, ERUR, DRUGRPD #### [facility] [address] [place] [address] Dr. Kali Nieto SPEC GRAVITY >=1.030 Abnormal 1.005-<=1.025 The [facility] Comment on above: Performed By: #### P REGU, ERUR, DRUGRPD #### [facility] [address] [place] [address] Dr. Kali Nieto UA PROTEIN TRACE Normal NEGATIVE/ TRACE [facility] Comment on above: Performed By: #### P REGU, ERUR, DRUGRPD #### [facility] [address] [address] [address] Kali Nieto UR MICRO IND NOT INDICATED Normal [facility] Comment on above: Performed By: #### P REGU, ERUR, DRUGRPD #### [facility] [address] [address] [address] Kali Nieto Urobilinogen Qn (U) 0.2 {Marii'U}/dL Normal 0.2 - 1.0 [facility] Comment on above: Performed By: #### P REGU, ERUR, DRUGRPD #### [facility] [address] [place] [address] Dr. Kali Nieto ETHANOL (BLD ALC)on 08-14-20 ALC NOTE NOTE: 80 mg/dl is th e legal limit for a blood alcohol level Normal [facility] Comment on above: Performed By: #### L ACT #### [facility] [address] [place] [address] Dr. Kali Nieto Ethanol [Mass/Vol] mg/dL Normal The [facility] Comment on above: Performed By: #### L ACT #### [facility] [address] [place] [address] Dr. Kali Nieto LACTATE/LACTIC ACIDon 2021 Lactate [Moles/Vol] 2.1 mmol/L Critically high 0.4-1.9 [facility] Comment on above: Performed By: #### L ACT #### [facility] [address] [place] [address] Dr. Kali Nieto URon 08-14-2022 , QUAL Negative Normal NEGATIVE [facility] Comment on above: Performed By: #### P REGU, ERUR, DRUGRPD #### [facility] [address] [place] [address] Dr. Kali Nieto PROF 14(COMP METB)on 022 Albumin [Mass/Vol] 3.4 g/dL Normal 3.4-5.0 [facility] Comment on above: Performed By: #### L ACT #### [facility] [address] [place] [address] Dr. Kali Nieto Albumin/Globulin [Mass ratio] 0.9 {ratio} Normal [facility] Comment on above: Performed By: #### L ACT #### [facility] [address] [place] [address] Dr. Kali Nieto ALP [Catalytic activity/Vol] 78 U/L Normal 46-116 [facility] Comment on above: Performed By: #### L ACT #### [facility] [address] [place] [address] Dr. Kali Nieto ALT [Catalytic activity/Vol] 68 U/L Critically high 14-59 [facility] Comment on above: Performed By: #### L ACT #### [facility] [address] [place] [address] Dr. Kali Nieto Anion gap [Moles/Vol] 13.2 mmol/L Normal [facility] Comment on above: Performed By: #### L ACT #### [facility] [address] [place] [address] Dr. Kali Nieto AST [Catalytic activity/Vol] 52 U/L Critically high 15-37 [facility] Comment on above: Performed By: #### L ACT #### [facility] [address] [address] [address] Kali Nieto Bilirubin [Mass/Vol] 0.3 mg/dL Normal 0.2-1.0 [facility] Comment on above: Performed By: #### L ACT #### [facility] [address] [place] [address] Dr. Kali Nieto Calcium [Mass/Vol] 8.6 mg/dL Normal 8.5-10.1 [facility] Comment on above: Performed By: #### L ACT #### [facility] [address] [place] [address] Dr. Kali Nieto Chloride [Moles/Vol] 103 mmol/L Normal 98-107 [facility] Comment on above: Performed By: #### L ACT #### [facility] [address] [place] [address] Dr. Kali Nieto CO2 [Moles/Vol] 25.5 mmol/L Normal 21.0-32.0 [facility] Comment on above: Performed By: #### L ACT #### [facility] [address] [place] [address] Dr. Kali Nieto Creatinine [Mass/Vol] 0.95 mg/dL Normal 0.55-1.02 [facility] Comment on above: Performed By: #### L ACT #### [facility] [address] [place] [address] Dr. Kali Nieto EGFR-AF BELGIAN >60 Normal >=60 [facility] Comment on above: Performed By: #### L ACT #### [facility] [address] [place] [address] Dr. Kali Nieto EGFR-NON AF BELGIAN >60 Normal >=60 [facility] Comment on above: Performed By: #### L ACT #### [facility] [address] [address] [address] Kali Nieto Globulin (S) [Mass/Vol] 3.6 g/dL Normal [facility] Comment on above: Performed By: #### L ACT #### [facility] [address] [address] [address] Kali Nieto Glucose [Mass/Vol] 254 mg/dL Critically high 74-106 [facility] Comment on above: Performed By: #### L ACT #### [facility] [address] [address] [address] Kali Nieto Potassium [Moles/Vol] 3.7 mmol/L Normal 3.5-5.1 [facility] Comment on above: Performed By: #### L ACT #### [facility] [address] [place] [address] Dr. Kali Nieto Protein [Mass/Vol] 7.0 g/dL Normal 6.4-8.2 [facility] Comment on above: Performed By: #### L ACT #### [facility] [address] [place] [address] Dr. Kali Nieto Sodium [Moles/Vol] 138 mmol/L Normal 136-145 [facility] Comment on above: Performed By: #### L ACT #### [facility] [address] [place] [address] Dr. Kali Nieto Urea nitrogen [Mass/Vol] 10.0 mg/dL Normal 7.0-18.0 [facility] Comment on above: Performed By: #### L ACT #### [facility] [address] [place] [address] Dr. Kali Nieto Urea nitrogen/Creatinin e [Mass ratio] 10.5 mg/mg Normal [facility] Comment on above: Performed By: #### L ACT #### [facility] [address] [place] [address] Dr. Kali Nieto SALICYLATEon 08-14-2022 SALICYLATE <2.8 Normal <=19.9 [facility] Comment on above: Performed By: #### L ACT #### [facility] [address] [place], [place] [address] Dr. Kali Nieto Bacteria identified Cx Nom ( Sinus)on 07-06-2022 Microscopic observation Smear Nom (Unsp spec) Positive Abnormal [facility] Microscopic observation Smear Nom (Unsp spec) Rare Polymorphonuclear leukocytes Abnormal [facility] Microscopic observation Smear Nom (Unsp spec) Rare Epithelial cells Abnormal [facility] SINUS CULTURE AND GRAM STAIN on 07-06-2022 Bacteria identified Cx Nom (Sinus) Many Staphylococcus aureus Abnormal [facility] SINUS CULTURE AND GRAM STAIN on 07-03-2022 Bacteria identified Cx Nom (Sinus) Invalid Interpretation Code [facility] Outside Diabetes Eye Examon 02-05-2022 Outside Diabetes Eye Exam [id number] .[id number]:127 Normal [facility] Family Medicine Office/Clini c Noteon 02-03-2022 Family Medicine Office/Clinic Note Chief Complaint Patient presents for diabetes HPI Staff Mayela is a 31 year old female who presents for Diabetes. Patient has been having issues with constipation. Last BM has been a couple days. Patient is here for follow up on Diabetes. Refills How often are you checking your blood sugars? times per day- n/a What are your average readings? n/a Last FBS day/reading? 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 8.1- a couple weeks ago Do you have any of the following symptoms? Vision problems?- no GI-Nausea/Vomiting/bl oating? no Light headed?- yes Paresthesia, Ulcerations or sores?- no History of Present Illness Mayela Juarez presents for concerns of an elevated hemoglobin A1c found on laboratory work completed by ENT. The patient states she had tympanostomy tubes placed then had lab work performed by ENT, which revealed a hemoglobin A1c of 8.6 percent. She reports a history of gestational diabetes, but states she was never checked for diabetes after the of her son. She denies ever having taken diabetic medications. She endorses constipation, but relates this to her increased protein intake. She also reports polydipsia. She denies excessive hunger. She reports that she eats a fairly healthy diet, but struggles to lose any weight. She states that she doesn't typically feel hungry or have hunger cravings and will sometimes go long periods without eating. She denies having her thyroid tested. She denies numbness, tingling, or wounds to her bilateral feet. Mayela also has a history of generalized anxiety disorder, major depressive disorder, and panic disorder. She reports she was on medication for these diagnosis short term, but has been off these medications for quite a while . She states she is doing well off the medications, she just has to make sure she stays in her routine. She denies depressive thoughts. The patient reports she has an upcoming eye exam next week. She states she feels as if her astigmatism is worse than it used to be. I have reviewed and verified the staff HPI to be accurate for this encounter. Review of Systems PHQ Score Initial Depression Screen Score: 0 Constitutional: No fever, no chills, no sweats, no weakness, positive for difficulty losing weight/weight gain Skin: No rash, no lesions, no petechiae ENMT: No ear pain, no ear drainage, no sore throat, no nasal congestion, no nasal drainage, no hoarseness Respiratory: No chest discomfort, no shortness of breath, no cough, no orthopnea, no wheezing Cardiovascular: No chest pain no, no palpitations, no edema Gastrointestinal: No nausea, no vomiting, no diarrhea, no GI bleeding Genitourinary: No dysuria, no hematuria, no discharge, no urinary frequency, no urinary urgency Musculoskeletal: No back pain, no trauma Neurologic: No headache, no dizziness, no numbness/tingling, no weakness Physical Exam Vitals & Measurements T: 36.6 ?C(Temporal Artery) HR: 94(Peripheral) BP: 144/88 SpO2: 99% HT: 167.6 cm HT: 167.6 cm WT: 124.5 kg WT: 124.5 kg BMI: 44.32 General: Morbidly obese, well developed, in no acute distress Eyes: Pupils equal, round, and reactive to light. Conjunctivae and sclerae normal, and extraocular movements intact Ears: No deformity or lesion of external ear. Canals and TM appear normal bilaterally. TM's intact, not inflamed, with normal light reflex. Hearing grossly normal to conversational speech Nose: No deformity, discharge, inflammation, or lesions Mouth: Mucous membranes moist. Normal oropharynx, and posterior pharynx without lesions or exudates. Tongue normal Neck: Neck supple. No masses or palpable cervical nodes. Trachea midline. Thyroid without nodules, masses, tenderness, or enlargement Lungs: Normal respiratory effort and clear to auscultation Cardio: Regular rate and rhythm, normal S1 and S2, no murmur, no rub Extremity: No clubbing, cyanosis, edema, or deformity, with normal ROM in both upper and lower bilateral extremities Neurologic: Grossly normal Skin: No rashes, ulcerations, or suspicious lesions to visible skin Mental Status: Alert and oriented x3. Normal mood and affect Diabetic Foot Exam Decreased Monofilament Sensation Foot: Left - Normal, Right - Normal Bunions/Foot Deformity: Left - Normal, Right - Normal Abnormal Pulse Foot: Left - Normal, Right - Normal Skin Lesions Foot: Left - Normal, Right - Normal Vibratory Sensation Foot: Left - Normal, Right - Normal Foot Exam Result: Normal foot exam Assessment/Plan 1. Type 2 diabetes mellitus with hyperglycemia (E11.65: Type 2 diabetes mellitus with hyperglycemia) Hemoglobin A1c recently drawn at 8.6 percent. We will start her on metformin which was discussed with patient, we will start her on 500 mg twice daily and increase after 2 weeks to target 1000 mg twice daily. Foot Exam: Performed in office today. Eye Exam: The patient states she has an (more content not included)... Normal [facility] Comment on above: Result Comment: Elec tronically Signed By: SUSAN ROBERTS CNP\.br\Date and Time Signed: 02/03/22 16:07 EDT\.br\Electronically Co-Signed By: Tosha Wray\.br\Date and Time Co-Signed: 01/29/22 11:54 EDT Ambulatory Visit Summaryon 0 01-29-2022 Ambulatory Visit Summary MAYELA JUAREZ :1990 Visit Date:01/29/2022 Ambulatory Visit Instructions Your Diagnosis Morbid obesity with BMI of 40.0-44.9, adult Smokeless tobacco use Your Care Team Attending Physician - SUSAN ROBERTS CNP Primary Care Physician - Mo JACKSON DO This Is Your Medications List [facility] Prescription (Outpatient physical therapy) albuterol (albuterol CFC free 90 mcg/inh inhalation aerosol) brompheniramine/dextr omethorphan/PSE (Bromfed DM oral syrup) budesonide-formoterol (Symbicort 160/4.5 inhalation aerosol with adapter) cetirizine (cetirizine 10 mg Tab) montelukast (Singulair) Procedures Performed Eustachian tube. Discharge Vitals Temperature (Temporal Artery) 36.6 ?C Heart Rate (Peripheral) 94 Blood Pressure 144/88 Height 167.6 cm Height 167.6 cm Weight 124.5 kg Weight 124.5 kg BMI 44.32 What to do next Scheduled Follow-Up Appointments 2021 9:00 AM EDT With: SUSAN ROBERTS CNP Where: [facility] Family Medicine [place] Normal [facility] Patient Educationon 01-30-20 Patient Education Endocrinology Blood Glucose Monitoring, Adult Monitoring your blood sugar (glucose) is an important part of managing your diabetes (diabetes mellitus). Blood glucose monitoring involves checking your blood glucose as often as directed and keeping a record (log) of your results over time. Checking your blood glucose regularly and keeping a blood glucose log can: ? Help you and your health care provider adjust your diabetes management plan as needed, including your medicines or insulin. ? Help you understand how food, exercise, illnesses, and medicines affect your blood glucose. ? Let you know what your blood glucose is at any time. You can quickly find out if you have low blood glucose (hypoglycemia) or high blood glucose (hyperglycemia). Your health care provider will set individualized treatment goals for you. Your goals will be based on your age, other medical conditions you have, and how you respond to diabetes treatment. Generally, the goal of treatment is to maintain the following blood glucose levels: ? Before meals (preprandial): 80?130 mg/dL (4.4?7.2 mmol/L). ? After meals (postprandial): below 180 mg/dL (10 mmol/L). ? A1c level: less than 7%. Supplies needed: ? Blood glucose meter. ? Test strips for your meter. Each meter has its own strips. You must use the strips that came with your meter. ? A needle to prick your finger (lancet). Do not use a lancet more than one time. ? A device that holds the lancet (lancing device). ? A journal or log book to write down your results. How to check your blood glucose 1. Wash your hands with soap and water. 2. Prick the side of your finger (not the tip) with the lancet. Use a different finger each time. 3. Gently rub the finger until a small drop of blood appears. 4. Follow instructions that come with your meter for inserting the test strip, applying blood to the strip, and using your blood glucose meter. 5. Write down your result and any notes. Some meters allow you to use areas of your body other than your finger (alternative sites) to test your blood. The most common alternative sites are: ? Forearm. ? Thigh. ? Palm of the hand. If you think you may have hypoglycemia, or if you have a history of not knowing when your blood glucose is getting low (hypoglycemia unawareness), do not use alternative sites. Use your finger instead. Alternative sites may not be as accurate as the fingers, because blood flow is slower in these areas. This means that the result you get may be delayed, and it may be different from the result that you would get from your finger. Follow these instructions at home: Blood glucose log ? Every time you check your blood glucose, write down your result. Also write down any notes about things that may be affecting your blood glucose, such as your diet and exercise for the day. This information can help you and your health care provider: ? Look for patterns in your blood glucose over time. ? Adjust your diabetes management plan as needed. ? Check if your meter allows you to download your records to a computer. Most glucose meters store a record of glucose readings in the meter. If you have type 1 diabetes: ? Check your blood glucose 2 or more times a day. ? Also check your blood glucose: ? Before every insulin injection. ? Before and after exercise. ? Before meals. ? 2 hours after a meal. ? Occasionally between 2:00 a.m. and 3:00 a.m., as directed. ? Before potentially dangerous tasks, like driving or using heavy machinery. ? At bedtime. ? You may need to check your blood glucose more often, up to 6?10 times a day, if you: ? Use an insulin pump. ? Need multiple daily injections (MDI). ? Have diabetes that is not well-controlled. ? Are ill. ? Have a history of severe hypoglycemia. ? Have hypoglycemia unawareness. If you have type 2 diabetes: ? If you take insulin or other diabetes medicines, check your blood glucose 2 or more times a day. ? If you are on intensive insulin therapy, check your blood glucose 4 or more times a day. Occasionally, you may also need to check between 2:00 a.m. and 3:00 a.m., as directed. ? Also check your blood glucose: ? Before and after exercise. ? Before potentially dangerous tasks, like driving or using heavy machinery. ? You may need to check your blood glucose more often if: ? Your medicine is being adjusted. ? Your diabetes is not well-controlled. ? You are ill. General tips ? Always keep your supplies with you. ? If you have questions or need help, all blood glucose meters have a 24-hour hotline phone number that you can call. You may also contact your health care provider. ? After you use a few boxes of test strips, adjust (calibrate) your blood glucose meter by following instructions that came with your meter. Contact a health care provider if: ? Your blood glucose is at or above 240 mg/dL (13.3 mmol/L) (more content not included)... Normal [facility] Operative Reporton Operative Report [id number] .[id number]:127 Normal [facility] Coding Summary.on 03-01-2021 Coding Summary. [id number] G h0bWw+PGhlYWQ+BV3LLWI iO45npXJqvO5XO1mKLX6A BHXTDFBGHO9PWV4qqMV9M WmiE9LjcdZj HpvqvEWcDD07IMe3TAJ1t WpaSYbylU1stJDoF9v2Hm DlIK25bG12SSigFWItRxK 3LjZpbjsgbWFy R0evOrKnbEXdMop+PHRhY mxlIHdpZHRoPScxMDAlJy KpyLhaHD4kVp4zWWCjVEG vbGxhcHNlOiBj v0mbHXUkMJdtXC1aqXqhQ 1GybPK7TYBnx6y0Ht52oJ I+ECXtWMY0jOulFYwhc26 0PaUol7ihDDW8 eTWsVEmkEFR4S10qr9S2Q MSvZMCgXSG3qBP7yH6wcF oscsriW4JeyEKzOhU0XNX 9sIPyoQ6bqDtb afqdtR9tDxx+S81OBT6BE OPIYF3XSre8C2GvWonxjP I+VT26NUDiVP81aTOhsUH nb6xqfTx9MmRd PPBiUFM2yMgnBBcdo1LuP NMkD78gkPSjm7Z4JFLpyL tgbIBzZuPhuFM0fD8vDTg tmdvil6vquqzs Wnbfk2azxb65eM76R20cI MxeJAJxBQQ4IQMuLKWxjE ofik4lsV3dEe9+ZJukd7n wq9fvbIb1UmXm AUOsjbCjdScyZDD9u7MpZ h44N2AcuWjda0FmDir5su 12ePYby1T1hVP7HSnoOVX pjG0qWSzrPwS1 WMMuFcJhdZ85uQXgVQxoL r1kmBydqIaeHG5xPAOdqm lxCZAvoO7pFJGwtZBdeFd vJB5fORGpcjys k104ZpWkSZR8QFCnoRIaX 6UwqL4rQsQxBDMcHKBwB1 BpyIGtFLzxG018XBorMnC 7TDHypjXmV4Jw RQNaeIiqDrY0h1Y2Di6Zd 5EakrzcMJQ8QXexQSR8Ys E7BoFmRaK4N0UlEmc4OUM fyNzuJO6vZ6Js JWOyuxsagxwhaYC2NKLdK WPocI00rLLfCKqkXo4hw8 F0x950BAYwSZClwY50Yx4 udDogMTBwdCBU jU1goxgyv1pslgkqAjLhI CXyYCs2VUt4HZFcfBrzDl XdWUT8BoZ0JOZ0qZXndO8 wuKiatslwfI4d Oyc+Y37qyV0yFCL6VSQ5k oupWEHmebZnQA73QV56V6 RyPjwvdGFibGU+PGRpdiB ltJloPI2xFlRh n0baz9GiTDdsZ0XeUILvJ TnpAqa8WDTjGWX4kFQ5rJ 1tWXLfCPmtl0K7oJX0A5T ofsHgtj7oi7vt GTUqBKczO28puNHjj7N2R CSimQL9KRMkwZsjApKzzL 93Oyc+DVUksAhlh6FgLjq gr3ylw9lwpPg2 DlPiTYUxnnYczQwxYMC3u 7XvHz53P01nCLipXGCeAN JgRJQbVLQmbCafpm8irJ2 wIi8+PGNvbCB3 cAB2wJ4nOEBnNfL4XHzwB 518WpRtrMOkVnqjl5bfw4 iccGn0MrMsWEAyntKhnFd dRZA8r0DaUi06 Q70pCBlxKZApLXQjVYXnL JRxcFoeom8qnM2mDu8+PC 0ww7ojfk17oS79qKP+PHR hUSX2mNeaUAke TRIiaK0sCHqtHyJ6GCSnZ qWyzZ65xDBcAOwxAf5qsY hbyYibCY4fANBcaxnuh43 9ZgWus7jnQHVq qQMsFHygPER3S34uu8L8W VVvQWGkVKR7rOE9wO3xfA lnbjogbGVmdDsgdmVydGl qBUtqSSuiC117 IHRvcDsnPlBhdGllbnQgT vLxAGb8T2TlAaj9HOMcgZ mtNI7dqAEdYWpvFm4siMf vzFdpPX5kKNOk yjmjx023ZvSke7coUHDpv VNvPDjbPPD7O51ya0A5NS TtUZSlQJO4zGO0lT3pcRt nbjogbGVmdDsg etRahTscIHhgMZpdR081X HRvcDsnPkJpcnRoIERhdG T5IX08HP55wEYuo5P4zOJ 3W3HfSDUbkbmi lqyukRD4BHHiXJArhE07T d4vlCcyUq5gPDBcXMJ6KS AdxIVyS6NrvJ7eHjXnJRV vJYCjK3IyiMKx IRjvM226PGyyLoX9AWEad mDdF5ElVUVcvLstZhV0n1 H5Xx2JB3S4BH45CI15qQB zz9S0nIW0K2Hs FMHnapzbzvwkmRR2NCHqU PUouO72Zw8lgDsaZc4nOG CnZUJ7JEKiwPHiX3TxvG4 yOiAjMDAwMDAw X4VjlTOqTGlpK626TMroB yB7CSEspnIgX5GdMROlaT tiHlM0b1J5Py4QHRz8DZ7 7MV16qWXjw0T4 jLI0C0QeUCJbfbavhshmh ER2EWWlRNSgqA07Hn4zhP jmEt9vHLBbIVX1RWWwuRA iU5PijS0wNiHk NHHvBKXyT9JgxURoZJkaV 208AJzpTkU1QZJutaBzJ2 JeZXUugAdlDuU5p7Q3Vs9 GLXTqSO83DED6 ePR5SO43IB28L7FvVcopv GFibGU+PHRhYmxlIHdpZH RoPScxMDAlJyBzdHlsZT0 fLb4qXTTdIVLw eCpcnRMmIbRgn5hpGQBiE EzqMD1okNleQ1NgaQO0JN Csd5b1Sc52Y00oQ4SkmZO +OOSxjIV4nIB8 fL9nNdJbFtW2IVauS952U fJqkZPjVzqfj7dwu2yljV h4ErV7HYSolyJgcZkfKNQ 8b8OpLy03V06k IHdpZHRoPSIxNSUiIHZhb Uorqk8txB3jIi4+PGNvbC P1cHE2gX1xRdFvNzC4ITq bS161DlHidFTb Wdsyy4pjr5sbgKy0YgUcG FPsdmRpmUwxJCZ9w7ImDc 00U7WdnAhpc7JsKon1ti1 3cZZie9S8bBB8 B1RfBIVqpqyvgPQorBfoD P7xMMSefydoXUNxkL3pLV BtN8x2YpSqHkI2GIsuD0F anfO8PCXziTRf TCfpSLJ9B37nq4T4BFCjY CUhDER6sFR0bR3djZycru ogbGVmdDsgdmVydGljYWw hWWksG248JEIq yYbsMXPmlS9wMJUitPOln AlcCR3kDKIsfejjAmMTW5 BMSslhDaqYFD0PBTYwFpv vdGQ+PHRkIHN0 qYacCVceRVEvtQ2yFPHiQ 6z0WlBfUuC4OBphT6PmVQ ZrceciTy31zE1pUnLfGeS 9DTceA6AydxS1 IZKojKRoMHqqXWG3R92ws 7H7FTEwGZCoAVZ1tJN4oC 1hbGlnbjogbGVmdDsgdmV ydGljYWwtYWxp E320IDYrgWgeKvOtVeBwF tY8EJL9B8XtRae0TLWtbU doMK7crBHtSUvmNc3glMq xkXyfLJ8qGHPu cvntLJCrxI3cOEMswFZre XgjIC0oMTPpgcgtg718Ep GeEPB6DCYmdGEuP7VeeM6 yOiAjMDAwMDAw M1LwjLKmLVvtH375KRfrX oU0FWRckdXaJ7DvODBpiD woSzD7z5B9Bf9gPLTGJQX yczwvdGQ+PHRk AOS5dGmvCNtsXCUzjE1eI KDeG3o2SmZpXiP3MYacR3 GnHVKknhamXk82kX4yBgV eNvT7DTcjA4Qe cxK4SZKgfONtZKgpFJJ9K 58eq9C8BSYyLYYtLGY4lG H8bH3liQohtkaapZAjoUz gdmVydGljYWwt VEliX274JDBknSuvQbIwf WFsZTwvdGQ+DQKoHHX2fJ etSQnoBQLijU8tAVPfR6w 6ViQrSaO0WFlo A0OzQOSqdeqkOy29pS8dJ hNqRoR7IRbcE2AsioI7SC DmxPYlVQbfIAA8C80oz9F 0VVEeBAJdAIG8 sLH7bQ8wxDoyighfcTRmh DsgdmVydGljYWwtYWxpZ2 25WOCqnGtwHsZsJ1Qwknx uZzwvdGQ+PC90 hk51D1MpWavkCau9YBKpW UA6dCJ6fA7xIVPdZIoqb4 Q5fMN3I1AxjmBrct7zh7m gQXWiYIdhT77r tODkd3K3YPHkyGE9OJSay ZdfEtMcbG06Nkz+PGNvbG byg9IzNvdqb7nhg3btsFw 9IjMwJSIgdmFs lHanDLP8i8ZzRx37R38hK HdpZHRoPSIzMCUiIHZhbG ddue8alN2tSi8+PGNvbCB 7nGS3dX4oEaSq MtZ7ZZqeN333SfPjrGNcU ksug2eqt1usrGr3WfOqAP XckzPdqLvcOCY8x1DhAe4 7C1GdsCtde1Hy Wvx6ie64iXMnf0G7yNY7X 3BhZGRpbmctbGVmdDogMC 3jEJIfkoesSFSwgM5yMXU nR5f6QuUjYmV5 RIgoB9JcnmZ1RLAudNQdR FUctOTTpH9tsiofi7ymau fiJpFyOVYhQHe4OAz1PQQ saWduOiBsZWZ0 ZbR2NWT3dEBrhI1gzYfik mkhoT0sPrj+TXi8a6qqxE LiQT8tmZF5NI84KK60mHG fp9W6lTU9I3Tp XJThejbwjfedpLN2ABAcB NCwnE11Rf0lsZcrXw1jZP FeAMT0NNZppWTiV5RmhC0 yOiAjMDAwMDAw M7JjpXZhZLzhZ507AEaiT sT3DGYorqDpC5EiSBFbyA zjMsD2x0Y5Zo7RSB76TI5 6SF33zKFru0C6 uGD4N7HlVVZrdyholucpa YN3CSVsECPtwW72Ew7dbH hbIi9wDLEoNTM1DJKhdCO uA3NzxQ5yKxAp QCJfBQJdE6TrjXQtKMkbD 993JSxrHoW6TJWloxVkC8 UxIWGcpPlsWfH9z3V7Io4 TFb72JI81HS27 yAJdu6I3hPF2Q7SaDAYta oiteafprWE0SNNmNOPwcV 62Zi5itMqzIy9xQXEjUUQ 8FIUylDQdL7Vb zP6tUgUcMTNpWJWpM3Vmc FOxBUczI066ECuoLiK7DQ KcrrIrX6VcIFCtcKbuXnS 8z9I6Qy4NABiz vla4E1DzExhzmDZ+PC90Y HKaRU10sHYkvVLil6fguC y1KxLdNUFwAML3fNjrLWe gd5TxJFLlQ40j bGFw (more content not included)... Normal [facility] Vital Signs Date Time Vital Sign Value Performing Clinician Roya bishop 10-15-2024 13:52-0500 Body mass index (BMI) [Ratio] 39.77 kg/m2 Yandel SPEEDELO Work Phone: [facility] 10-15-2024 13:52-0500 Body temperature 97.11 [degF] Yandel SPEEDELO Work Phone: [facility] 10-15-2024 13:52-0500 Body weight 111.7 kg Yandel Sheldon PA-C Work Phone: [facility] 10-15-2024 13:52-0500 Diastolic blood pressure 64 mm[Hg] Yandel Sheldon PA-C Work Phone: [facility] 10-15-2024 13:52-0500 Heart rate 103 /min Yandel Sheldon PA-C Work Phone: [facility] 10-15-2024 13:52-0500 Respiratory rate 16 /min Yandel Sheldon PA-C Work Phone: [facility] 10-15-2024 13:52-0500 Systolic blood pressure 97 mm[Hg] Yandel Sheldon PA-C Work Phone: [facility] 10-12-2024 12:52-0500 Body mass index (BMI) [Ratio] 39.05 kg/m2 Patricia Kristina VEGETABLE HANDLER.WHEEL BLOCKER Work Phone: [facility] 10-12-2024 12:52-0500 Body weight 109.7 kg Patricia Kristina VEGETABLE HANDLER.WHEEL BLOCKER Work Phone: [facility] 10-12-2024 12:52-0500 Diastolic blood pressure 78 mm[Hg] Patricia Kristina VEGETABLE HANDLER.WHEEL BLOCKER Work Phone: [facility] 10-12-2024 12:52-0500 Heart rate 98 /min Patricia Kristina VEGETABLE HANDLER.WHEEL BLOCKER Work Phone: [facility] 10-12-2024 12:52-0500 Systolic blood pressure 112 mm[Hg] Patricia Kristina VEGETABLE HANDLER.WHEEL BLOCKER Work Phone: [facility] 05-25-2024 11:11-0400 Body mass index (BMI) [Ratio] 39.24 kg/m2 Yandel Sheldon PA-C Work Phone: [facility] 05-25-2024 11:11-0400 Body temperature 97.3 [degF] Yandel Sheldon PA-C Work Phone: [facility] 05-25-2024 11:11-0400 Body weight 110.22 kg Yandel Sheldon PA-C Work Phone: [facility] 05-25-2024 11:11-0400 Diastolic blood pressure 82 mm[Hg] Yandel Sheldon PA-C Work Phone: [facility] 05-25-2024 11:11-0400 Heart rate 91 /min Yandel Sheldon PA-C Work Phone: [facility] 05-25-2024 11:11-0400 Respiratory rate 18 /min Yandel Sheldon PA-C Work Phone: [facility] 05-25-2024 11:11-0400 Systolic blood pressure 114 mm[Hg] Yandel Sheldon PA-C Work Phone: [facility] 05-10-2024 11:04-0400 Body mass index (BMI) [Ratio] 40.1 kg/m2 Caitlin Ramesh APRN.WHEEL BLOCKER Work Phone: [facility] 05-10-2024 11:04-0400 Body weight 112.63 kg Caitlin Ramesh APRN.WHEEL BLOCKER Work Phone: [facility] 05-10-2024 11:04-0400 Diastolic blood pressure 82 mm[Hg] Caitlin Ramesh APRN.WHEEL BLOCKER Work Phone: [facility] 05-10-2024 11:04-0400 Heart rate 90 /min Caitlin Ramesh APRN.WHEEL BLOCKER Work Phone: [facility] 05-10-2024 11:04-0400 Respiratory rate 14 /min Caitlin Ramesh APRN.WHEEL BLOCKER Work Phone: [facility] 05-10-2024 11:04-0400 SaO2% (BldA) [Mass fraction] 97 % Caitlin Ramesh APRN.WHEEL BLOCKER Work Phone: [facility] 05-10-2024 11:04-0400 Systolic blood pressure 112 mm[Hg] Caitlin Ramesh APRN.WHEEL BLOCKER Work Phone: [facility] 03-02-2024 15:40-0400 Body height 167.6 cm Rolly Bee MD Work Phone: [facility] 03-02-2024 15:40-0400 Body mass index (BMI) [Ratio] 42.15 kg/m2 Rolly Bee MD Work Phone: [facility] 03-02-2024 15:40-0400 Body temperature 97 [degF] Rolly Bee MD Work Phone: [facility] 03-02-2024 15:40-0400 Body weight 118.4 kg Rolly Bee MD Work Phone: [facility] 03-02-2024 15:40-0400 Diastolic blood pressure 92 mm[Hg] Rolly Bee MD Work Phone: [facility] 03-02-2024 15:40-0400 Heart rate 92 /min Rolly Bee MD Work Phone: [facility] 03-02-2024 15:40-0400 Respiratory rate 18 /min Rolly Bee MD Work Phone: [facility] 03-02-2024 15:40-0400 SaO2% (BldA) [Mass fraction] 98 % Rolly Bee MD Work Phone: [facility] 03-02-2024 15:40-0400 Systolic blood pressure 137 mm[Hg] Rolly Bee MD Work Phone: [facility] 02-24-2024 12:59-0400 Body mass index (BMI) [Ratio] 42.45 kg/m2 Ganesh Bui MD Work Phone: [facility] 02-24-2024 12:59-0400 Body weight 119.3 kg Ganesh Bui MD Work Phone: [facility] 02-24-2024 12:59-0400 Diastolic blood pressure 87 mm[Hg] Ganesh Bui MD Work Phone: [facility] 02-24-2024 12:59-0400 Heart rate 120 /min Ganesh Bui MD Work Phone: [facility] 02-24-2024 12:59-0400 Respiratory rate 16 /min Ganehs Bui MD Work Phone: [facility] 02-24-2024 12:59-0400 Systolic blood pressure 122 mm[Hg] Ganesh Bui MD Work Phone: [facility] 02-23-2024 12:56-0400 Body height 167.6 cm Shreya Mccann MD Work Phone: [facility] 02-23-2024 12:56-0400 Body mass index (BMI) [Ratio] 42.42 kg/m2 Shreya Mccann MD Work Phone: [facility] 02-23-2024 12:56-0400 Body weight 119.2 kg Shreya Mccann MD Work Phone: [facility] 02-23-2024 12:56-0400 Diastolic blood pressure 78 mm[Hg] Shreya Mccann MD Work Phone: [facility] 02-23-2024 12:56-0400 Heart rate 108 /min Shreya Mccann MD Work Phone: [facility] 02-23-2024 12:56-0400 Systolic blood pressure 113 mm[Hg] Shreya Mccann MD Work Phone: [facility] 01-20-2024 11:32-0400 Body weight 117.94 kg Christina Ceballos MD Work Phone: [facility] 01-20-2024 11:32-0400 Diastolic blood pressure 88 mm[Hg] Christina Ceballos MD Work Phone: [facility] 01-20-2024 11:32-0400 Heart rate 90 /min Christina Ceballos MD Work Phone: [facility] 01-20-2024 11:32-0400 Respiratory rate 18 /min Christina Ceballos MD Work Phone: [facility] 01-20-2024 11:32-0400 SaO2% (BldA) [Mass fraction] 98 % Christina Ceballos MD Work Phone: [facility] 01-20-2024 11:32-0400 Systolic blood pressure 122 mm[Hg] Christina Ceballos MD Work Phone: [facility] 11-11-2022 09:30-0500 Body height 168.9 cm Fabiana Kolega VEGETABLE HANDLER.WHEEL BLOCKER Work Phone: [facility] 11-11-2022 09:30-0500 Body temperature 97.2 [degF] [place] Kolega VEGETABLE HANDLER.WHEEL BLOCKER Work Phone: [facility] 11-11-2022 09:30-0500 Body weight 124.78 kg [place] Kolega VEGETABLE HANDLER.WHEEL BLOCKER Work Phone: [facility] 11-11-2022 09:30-0500 Diastolic blood pressure 68 mm[Hg] Fabiana Kolega VEGETABLE HANDLER.WHEEL BLOCKER Work Phone: [facility] 11-11-2022 09:30-0500 Heart rate 79 /min Fabiana Kolega VEGETABLE HANDLER.WHEEL BLOCKER Work Phone: [facility] 11-11-2022 09:30-0500 Respiratory rate 18 /min Fabiana Kolega VEGETABLE HANDLER.WHEEL BLOCKER Work Phone: [facility] 11-11-2022 09:30-0500 Systolic blood pressure 120 mm[Hg] Fabiaan Kolega VEGETABLE HANDLER.WHEEL BLOCKER Work Phone: [facility] 10-14-2022 08:23-0500 Body temperature 97.11 [degF] [place] Kolega VEGETABLE HANDLER.WHEEL BLOCKER Work Phone: [facility] 10-14-2022 08:23-0500 Body weight 123.94 kg [place] Kolega VEGETABLE HANDLER.WHEEL BLOCKER Work Phone: [facility] 10-14-2022 08:23-0500 Diastolic blood pressure 80 mm[Hg] [place] K[place] VEGETABLE HANDLER.WHEEL BLOCKER Work Phone: [facility] 10-14-2022 08:23-0500 Heart rate 90 /min Fabiana Kolega VEGETABLE HANDLER.WHEEL BLOCKER Work Phone: [facility] 10-14-2022 08:23-0500 Respiratory rate 20 /min Fabiana Durham VEGETABLE HANDLER.WHEEL BLOCKER Work Phone: [facility] 10-14-2022 08:23-0500 Systolic blood pressure 133 mm[Hg] Fabiana Durham VEGETABLE HANDLER.WHEEL BLOCKER Work Phone: [facility] 01-29-2022 08:32-0400 Blood Pressure Location SUSAN SIDELL [facility] 01-29-2022 08:32-0400 Body temperature 97.88 [degF] SUSAN SIDELL [facility] 01-29-2022 08:32-0400 Diastolic blood pressure 88 mm[Hg] SUSAN SIDELL [facility] 01-29-2022 08:32-0400 Heart rate 94 /min SUSAN SIDELL [facility] 01-29-2022 08:32-0400 SaO2% (BldA) [Mass fraction] 99 % SUSAN SIDELL [facility] 01-29-2022 08:32-0400 Systolic blood pressure 144 mm[Hg] SUSAN SIDELL [facility] Encounters Encounter Date Encounter Type Care Provider Facility Start: 11-11-2024 End: 11-11-2024 Telephone encounter Patricia Ortega APRN.WHEEL BLOCKER Work Phone: [facility] Comment on above: [facility] Start: 10-15-2024 End: 10-15-2024 Telephone encounter Patricia Ortega APRN.WHEEL BLOCKER Work Phone: [facility] Comment on above: Patient Update Start: 10-15-2024 End: 10-15-2024 ambulatory YANDEL ELDRIDGE Facility:[facility] Start: 10-15-2024 End: 10-15-2024 Office outpatient visit 25 minutes Yandel Eldridge PA-C Work Phone: [facility] [place] Comment on above: Gender dysphoria in adult (Primary Dx); NSTEMI (non-ST elevated myocardial infarction) (HCC) Start: 10-14-2024 End: 10-14-[facility] Start: 10-13-2024 End: 10-13-2024 Telephone encounter Patricia Ortega APRN.WHEEL BLOCKER Work Phone: [facility] Comment on above: Medication Problem Refill Request Start: 10-12-2024 End: 10-12-2024 Patient encounter procedure Patricia Ortega APRN.WHEEL BLOCKER Work Phone: [facility] Comment on above: Uncontrolled type 2 diabetes mellitus with hyperglycemia (HCC) (Primary Dx); Hypothyroidism, unspecified type Start: 10-12-2024 End: 10-12-2024 ambulatory PATRICIA ORTEGA Facility:[facility] Start: 10-11-2024 End: 10-11-2024 Telephone encounter Caitlin Ramesh APRN.WHEEL BLOCKER Work Phone: [facility] Comment on above: High Blood Sugar (Po st- heart attack) Start: 10-03-2024 Evaluation and management of inpatient RICARDO ARMSTRONG [facility] Start: 10-03-2024 Evaluation and management of inpatient RICARDO PATTI NIETO [facility] Start: 10-02-2024 Evaluation and management of inpatient RO LEONA [facility] Start: 10-01-2024 Evaluation and management of inpatient RO LEONA [facility] Start: 10-01-2024 Evaluation and management of inpatient RO LEONA LINA [facility] Start: 10-01-2024 End: 10-04-2024 Evaluation and management of inpatient SHAIKH ANDREW [facility] Start: 09-23-2024 End: 09-23-2024 Refill Shreya Mccann MD Work Phone: [facility] Comment on above: Refill Request Start: 08-30-2024 End: 08-31-2024 Refill Patricia Ortega APRN.WHEEL BLOCKER Work Phone: [facility] Comment on above: Refill Request Start: 06-03-2024 ambulatory John Rangel acility:[facility] Start: 05-25-2024 End: 05-25-2024 ambulatory AYNDEL ELDRIDGE Facility:[facility] Start: 05-25-2024 End: 05-25-2024 Office outpatient visit 25 minutes Yandel Eldridge PA-C Work Phone: [facility] Comment on above: Gender dysphoria in adult Start: 05-22-2024 Refill Shreya Mccann MD Work Phone: [facility] Comment on above: Refill Request Start: 05-21-2024 End: 05-21-2024 ambulatory GANESH BUI Facility:[facility] Start: 05-17-2024 Refill Shreya Mccann MD Work Phone: [facility] Comment on above: Refill Request Start: 05-10-2024 End: 05-10-2024 ambulatory CAITLIN RAMESH Facility:[facility] Start: 05-10-2024 End: 05-10-2024 Patient encounter procedure Caitlin Ramesh VEGETABLE HANDLER.WHEEL BLOCKER Work Phone: [facility] Comment on above: Hypoglycemia associa kevin with type 2 diabetes mellitus (HCC) (Primary Dx); Candidiasis; Uncontrolled type 2 diabetes mellitus with hyperglycemia (HCC) Start: 03-18-2024 Refill Shreya Mccann MD Work Phone: [facility] Comment on above: Med Change Request Start: 03-14-2024 Letter encounter Jessica cooper Start: 03-11-2024 Telephone encounter Ganesh Galvez Work Phone: [facility] Comment on above: PA needed for RX cece tosterone enanthate Start: 03-03-2024 Telephone encounter Yolis Dailey [facility] Comment on above: Results Start: 03-02-2024 End: 03-02-2024 Patient encounter procedure Rolly Bee MD Work Phone: Hematology/Oncology Start: 03-02-2024 End: 03-02-2024 ambulatory Rolly Bee MD Work Phone: Hematology/Oncology Comment on above: Leukocytosis, unspec ified type (Primary Dx) Start: 02-27-2024 Refill Caitlin Self PRN.CNP Work Phone: [facility] Comment on above: Refill Request Start: 02-24-2024 End: 02-24-2024 ambulatory GANESH BUI Facility:[facility] Start: 02-24-2024 End: 02-24-2024 Office outpatient visit 40 minutes Ganesh Bui MD Work Phone: [facility] [place] Comment on above: Gender dysphoria in adult (Primary Dx); Type 2 diabetes mellitus without complication, without long-term current use of insulin (HCC); Androgenic alopecia Start: 02-23-2024 End: 02-23-2024 ambulatory SHREYA MCCANN Facility:[facility] Start: 02-23-2024 End: 02-23-2024 Patient encounter procedure Shreya Mccann MD Work Phone: [facility] Comment on above: Type 2 diabetes rakan itus without complication, without long- term current use of insulin (HCC) (Primary Dx); BMI 40.0-44.9, adult (HCC); Class 3 severe obesity with body mass index (BMI) of 40.0 to 44.9 in adult, unspecified obesity type, unspecified whether serious comorbidity present (HCC); Other hyperlipidemia; Anxiety and depression; Gender dysphoria; Mild persistent asthma without complication; Hypothyroidism, unspecified type; Disturbance in sleep behavior Start: 01-20-2024 End: 01-20-2024 ambulatory YANDEL ELDRIDGE Facility:[facility] Start: 01-20-2024 End: 01-20-2024 ambulatory CHRISTINA CEBALLOS Facility:[facility] Start: 01-20-2024 End: 01-20-2024 Patient encounter procedure Christina Ceballos MD Work Phone: OB/Gynecology Comment on above: Encounter for gyneco logical examination without abnormal finding (Primary Dx); Routine screening for STI (sexually transmitted infection); Cervical cancer screening; Need for HPV vaccination Start: 01-20-2024 End: 01-20-2024 Patient encounter status Christina Ceballos MD Work Phone: [facility] Work Phone: Start: 11-21-2023 Refill Yandel Perez Work Phone: [facility] Comment on above: Refill Request Start: 11-17-2023 End: 11-17-2023 ambulatory YANDEL GONCALVESSYLVIA Facility:[facility] Start: 10-21-2023 Refill Fabiana self APRN.WHEEL BLOCKER Work Phone: [facility] Comment on above: Refill Request Start: 10-10-2023 Telephone encounter Caitlin capellan VEGETABLE HANDLER.WHEEL BLOCKER Work Phone: [facility] Comment on above: Insurance Authorizat ion (Glucose Monitor=TruMet[employer]) Start: 09-29-2023 End: 09-29-2023 ambulatory Caitlin Ramesh APRN.WHEEL BLOCKER Work Phone: [facility] Comment on above: Uncontrolled type 2 diabetes mellitus with hyperglycemia (HCC); Type 2 diabetes mellitus without complication, without long-term current use of insulin (HCC) Start: 09-29-2023 End: 09-29-2023 Telemedicine consultation with patient Caitlin Ramesh APRN.WHEEL BLOCKER Work Phone: [facility] Start: 09-26-2023 Refill Caitlin HENDERSON.WHEEL BLOCKER Work Phone: [facility] Comment on above: Refill Request Start: 08-22-2023 Telephone encounter Fabiana prado VEGETABLE HANDLER.WHEEL BLOCKER Work Phone: [facility] Comment on above: Insurance Authorizat ion (testosterone) Start: 08-14-2023 End: 08-14-2023 ambulatory Fabiana Durham VEGETABLE HANDLER.WHEEL BLOCKER Work Phone: [facility] Comment on above: Gender dysphoria in adult (Primary Dx); High risk medication use Start: 08-14-2023 End: 08-14-2023 Telemedicine consultation with patient Fabiana Durham VEGETABLE HANDLER.WHEEL BLOCKER Work Phone: [facility] Start: 06-11-2023 Telephone encounter Caitlin Paz in VEGETABLE HANDLER.WHEEL BLOCKER Work Phone: [facility] Comment on above: Insurance Authorizat ion ([employer] Approval ) Start: 06-10-2023 Telephone encounter Caitlin Paz in VEGETABLE HANDLER.WHEEL BLOCKER Work Phone: [facility] Comment on above: Sundeep HEALY Refill Request Start: 06-02-2023 ambulatory Caitlin HENDERSON.WHEEL BLOCKER Work Phone: [facility] Comment on above: Sundeep Start: 05-16-2023 End: 05-16-2023 ambulatory Fabiana Durham VEGETABLE HANDLER.WHEEL BLOCKER Work Phone: [facility] Comment on above: High risk medication use (Primary Dx); Gender dysphoria in adult Start: 05-16-2023 End: 05-16-2023 Telemedicine consultation with patient Fabiana Durham VEGETABLE HANDLER.WHEEL BLOCKER Work Phone: [facility] Start: 05-05-2023 Unlisted evaluation and management service Caitlin Ramesh APRN.[facility] Work Phone: [facility] Comment on above: Opened In Error Start: 04-25-2023 Telephone encounter Caitlin Paz in VEGETABLE HANDLER.WHEEL BLOCKER Work Phone: [facility] Comment on above: MONET camacho Start: 04-24-2023 End: 04-24-2023 ambulatory Caitlin Ramesh APRN.WHEEL BLOCKER Work Phone: [facility] Comment on above: Obesity, Class III, BMI 40-49.9 (morbid obesity) (HCC) (Primary Dx); Type 2 diabetes mellitus without complication, without long-term current use of insulin (HCC) Start: 04-24-2023 End: 04-24-2023 Telemedicine consultation with patient Caitlin Ramesh APRN.WHEEL BLOCKER Work Phone: [facility] Start: 02-26-2023 ambulatory Caitlin HENDERSON.WHEEL BLOCKER Work Phone: [facility] [place] Comment on above: High blood sugars Start: 02-23-2023 Refill Fabiana self APRN.WHEEL BLOCKER Work Phone: [facility] Comment on above: Refill Request Start: 11-15-2022 Telephone encounter Fabiana prado APRN.WHEEL BLOCKER Work Phone: [facility] Comment on above: Orders Start: 11-12-2022 Telephone encounter Dianelys Wallace RNdirector of [facility] Comment on above: Appointment Start: 11-11-2022 End: 11-11-2022 Patient encounter procedure Fabiana Durham APRN.WHEEL BLOCKER Work Phone: [facility] Comment on above: Gender dysphoria in adult (Primary Dx); High risk medication use Start: 10-15-2022 End: 10-15-2022 ambulatory Fabiana Durham APRN.WHEEL BLOCKER Work Phone: [facility] Comment on above: Gender dysphoria in adult (Primary Dx); High risk medication use Start: 10-15-2022 End: 10-15-2022 Telemedicine consultation with patient Fabiana Durham APRN.WHEEL BLOCKER Work Phone: [facility] Start: 10-14-2022 End: 10-14-2022 Patient encounter procedure Fabiana Durham APRN.WHEEL BLOCKER Work Phone: [facility] Comment on above: Gender dysphoria in adult (Primary Dx); Severe episode of recurrent major depressive disorder, without psychotic features (HCC); Anxiety; High risk medication use Start: 10-10-2022 End: 10-10-[address] Work Phone: Endocrinology Comment on above: Uncontrolled type 2 diabetes mellitus with hyperglycemia (HCC) Start: 10-10-2022 End: 10-10-2022 Telemedicine consultation with patient Emilia Murdock RD Work Phone: [facility] Start: 09-20-2022 End: 09-21-[address] CHARITO ROBERT . Facility:[facility] Start: 08-15-2022 End: 08-15-[address] LC CHILDERS Facility:[facility] Start: 07-14-2022 Refill Dean Galvez Work Phone: Otolaryngology Comment on above: Med Change Request Start: 07-09-2022 ambulatory Dean Galvez Work Phone: Otolaryngology Comment on above: Antibiotics from cece t results Start: 07-03-2022 End: 07-03-2022 Patient encounter procedure Dean Salter MD Work Phone: Otolaryngology Comment on above: Chronic sinusitis, u nspecified location (Primary Dx); Nasal crusting Start: 01-29-2022 End: 01-29-2022 Patient encounter procedure SUSAN ROBERTS [facility] [place] Procedures Date Procedure Procedure Detail Performing Clinician Start: 10-12-2024 Hemoglobin A1c/Hemoglobin.total in Blood Patricia Ortega VEGETABLE HANDLER.WHEEL BLOCKER Work Phone: Start: 05-10-2024 Hemoglobin A1c/Hemoglobin.total in Blood Caitlin Ramesh VEGETABLE HANDLER.WHEEL BLOCKER Work Phone: Start: 01-20-2024 Iadna chlamydia trachomatis amplified probe tq Christina Ceballos MD Work Phone: Start: 07-03-2022 Cul bact xcpt urine blood/stool aerobic isol Dean Salter MD Work Phone: Start: 05-18-2019 H/O: surgery S/P nasal septoplasty Fabiana Durham VEGETABLE HANDLER .WHEEL BLOCKER Work Phone: Eustachian canal structure (body structure) SUSAN ROBERTS H/O: tubal ligation SUSAN BENTLEY Tonsillectomy and adenoidectomy SUSAN ROBERTS Plan of Treatment Date Care Activity Detail Author Start: 2040 Shingles (RZV) Vacci ne (1 of 2) Shingles (RZV) Vaccine (1 of 2) [facility] Start: 03-03-2030 Tetanus vaccination Tetanus (T d or Tdap) Booster [facility] Start: 03-03-2030 Urine microalbumin profile [facility] Start: 10-15-2025 Annual PCP Team Chronic Disease Visit Annual PCP Team Chronic Disease Visit [facility] Start: 10-03-2025 Hepatitis B surface antibody level LDL Cholesterol [facility] Start: 05-25-2025 Annual PCP Team Chronic Disease Visit Annual PCP Team Chronic Disease Visit [facility] Start: 04-15-2025 End: 04-15-2025 Patient encounter procedure 04/15/2025 1:00 PM EDT Office Visit [facility] [id number] [place] [phone] Yandel Eldridge PA-C [address] [place] [address] Follow Up - for GA. [facility] Comment on above: Follow Up - for GA . Start: 02-23-2025 Annual PCP Team Chronic Disease Visit Annual PCP Team Chronic Disease Visit [facility] Start: 01-19-2025 Hepatitis B screening Urine Albumin:Creatinine Ratio [facility] Start: 01-19-2025 Screening for malignant neoplasm of cervix [facility] Start: 01-10-2025 Hemoglobin A1c measurement HbA1C [facility] Start: 11-17-2024 Annual PCP Team Chronic Disease Visit Annual PCP Team Chronic Disease Visit [facility] Start: 11-17-2024 Diabetic foot examination Diabetic Foot Exam [facility] Start: 11-15-2024 End: 02-14-2025 CBC W Auto Differential panel - Blood COMPLETE BLOOD COUNT AND DIFFERENTIAL Lab Routine Gender dysphoria in adult Expected: 11/15/2024, Expires: 02/14/2025 [facility] Comment on above: Expected: 11/15/2024 , Expires: 02/14/2025 Start: 11-15-2024 End: 02-14-2025 Estradiol (E2) [Mass/volume] in Serum or Plasma ESTRADIOL-17B BLD Lab Routine Gender dysphoria in adult Expected: 11/15/2024, Expires: 02/14/2025 [facility] Work Phone: Comment on above: Expected: 11/15/2024 , Expires: 02/14/2025 Start: 11-15-2024 End: 02-14-2025 Testosterone [Mass/volume] in Serum or Plasma TESTOSTERONE, TOTAL BY IMMUNOASSAY (ADULT MALES, OR INDIVIDUALS ON TESTOSTERONE THERAPY) Lab Routine Gender dysphoria in adult Expected: 11/15/2024, Expires: 02/14/2025 [facility] Comment on above: Expected: 11/15/2024 , Expires: 02/14/2025 Start: 11-11-2024 End: 11-11-2024 Patient encounter procedure 11/11/2024 10:30 AM EST Office Visit [facility] [place] [id number] [place] [phone] Caitlin Ramesh APRN.[facility] [id number] [place] [phone] 6 mo follow up t2dm [facility] [place] Comment on above: 6 mo follow up t2dm Start: 10-15-2024 End: 10-15-2024 Patient encounter procedure 10/15/2024 1:40 PM EST Office Visit [facility] [place] [id number] [place] [phone] Yandel Eldridge PA-C [id number] [place] [id number] Follow Up [facility] [place] Comment on above: Follow Up Start: 10-12-2024 End: 01-11-2025 Thyrotropin [Units/volume] in Serum or Plasma THYROID STIMULATING HORMONE Lab Routine Hypothyroidism, unspecified type Expected: 10/12/2024, Expires: 01/11/2025 [facility] Work Phone: Comment on above: Expected: 10/12/2024 , Expires: 01/11/2025 Start: 10-12-2024 End: 01-11-2025 Thyroxine (T4) free [Mass/volume] in Serum or Plasma T4 FREE/FREE THYROXINE Lab Routine Hypothyroidism, unspecified type Expected: 10/12/2024, Expires: 01/11/2025 [facility] Comment on above: Expected: 10/12/2024 , Expires: 01/11/2025 Start: 10-12-2024 End: 10-12-2024 Patient encounter procedure 10/12/2024 1:00 PM EST Office Visit Endocrinology [address] [phone] Patricia Ortega, VEGETABLE HANDLER.[facility] [address] [place] [address] High blood sugar [facility]ocrin[facility] [place] Comment on above: High blood sugar Start: 08-25-2024 End: 11-24-2024 CBC W Auto Differential panel - Blood COMPLETE BLOOD COUNT AND DIFFERENTIAL Lab Routine Gender dysphoria in adult Expected: 08/25/2024, Expires: 11/24/2024 [facility] Comment on above: Expected: 08/25/2024 , Expires: 11/24/2024 Start: 08-25-2024 End: 11-24-2024 Estradiol (E2) [Mass/volume] in Serum or Plasma ESTRADIOL-17B BLD Lab Routine Gender dysphoria in adult Expected: 08/25/2024, Expires: 11/24/2024 [facility] Work Phone: Comment on above: Expected: 08/25/2024 , Expires: 11/24/2024 Start: 08-25-2024 End: 11-24-2024 Testosterone [Mass/volume] in Serum or Plasma TESTOSTERONE, TOTAL Lab Routine Gender dysphoria in adult Expected: 08/25/2024, Expires: 11/24/2024 [facility] Comment on above: Expected: 08/25/2024 , Expires: 11/24/2024 Start: 08-25-2024 End: 08-25-2024 Patient encounter procedure 08/25/2024 10:40 AM EDT Office Visit Internal Medicine [address] [phone] Yandel Eldridge PA-C [id number] [place] [address] 3 months Internal Medicine [place] Comment on above: 3 months Start: 08-14-2024 Annual PCP Team Chronic Disease Visit Annual PCP Team Chronic Disease Visit [facility] Start: 08-10-2024 Hemoglobin A1c measurement HbA1C [facility] Start: 07-26-2024 End: 07-26-2024 Patient encounter procedure 07/26/2024 10:40 AM EDT Office Visit Endocrinology [place] [address] [place] [address] [place] [address] [place] [address] 5 month follow up Endocrinology [place] Comment on above: 5 month follow up Start: 07-25-2024 9vhpv vacc 2/3 dose sched im use HPV VACCINE, 9-VALENT (GARDASIL 9) Immunization/Injection Routine Need for HPV vaccination Expected: 07/25/2024 (Approximate) [facility] Work Phone: Comment on above: Expected: 07/25/2024 (Approximate) Start: 07-04-2024 Covid-19 Vaccine ( season) Covid-19 Vaccine () [facility] Start: 07-04-2024 Influenza vaccination C [facility] Start: 05-25-2024 End: 08-24-2024 CBC W Auto Differential panel - Blood COMPLETE BLOOD COUNT AND DIFFERENTIAL Lab Routine Gender dysphoria in adult Expected: 05/25/2024, Expires: 08/24/2024 [facility] Comment on above: Expected: 05/25/2024 , Expires: 08/24/2024 Start: 05-25-2024 End: 08-24-2024 Estradiol (E2) [Mass/volume] in Serum or Plasma ESTRADIOL-17B BLD Lab Routine Gender dysphoria in adult Expected: 05/25/2024, Expires: 08/24/2024 [facility] Work Phone: Comment on above: Expected: 05/25/2024 , Expires: 08/24/2024 Start: 05-25-2024 End: 08-24-2024 Testosterone [Mass/volume] in Serum or Plasma TESTOSTERONE, TOTAL Lab Routine Gender dysphoria in adult Expected: 05/25/2024, Expires: 08/24/2024 [facility] Comment on above: Expected: 05/25/2024 , Expires: 08/24/2024 Start: 05-25-2024 End: 05-25-2024 Patient encounter procedure Internal Medicine [place] Comment on above: 3 month follow up Start: 05-16-2024 ANNUAL PCP TEAM CHRONIC DISEASE VISIT ANNUAL PCP TEAM CHRONIC DISEASE VISIT [facility] Start: 05-10-2024 End: 05-10-2024 Patient encounter procedure 05/10/2024 11:00 AM EDT Office Visit Endocrinology [place] [address] [place] [address] Caitlin Ramesh APRN.[facility] [address] [place] [address] 2 month follow up Endocrinology [place] Comment on above: 2 month follow up Start: 04-21-2024 Hemoglobin A1c measurement HbA1C [facility] Start: 04-05-2024 End: 07-05-2024 Thyrotropin [Units/volume] in Serum or Plasma THYROID STIMULATING HORMONE Lab Routine Hypothyroidism, unspecified type Expected: 04/05/2024, Expires: 07/05/2024 [facility] Work Phone: Comment on above: Expected: 04/05/2024 , Expires: 07/05/2024 Start: 04-05-2024 End: 07-05-2024 Thyroxine (T4) free [Mass/volume] in Serum or Plasma T4 FREE/FREE THYROXINE Lab Routine Hypothyroidism, unspecified type Expected: 04/05/2024, Expires: 07/05/2024 [facility] Comment on above: Expected: 04/05/2024 , Expires: 07/05/2024 Start: 04-03-2024 Glaucoma screening Dilated Retinal E xam [facility] Start: 03-27-2024 9vhpv vacc 2/3 dose sched im use HPV VACCINE, 9-VALENT (GARDASIL 9) Immunization/Injection Routine Need for HPV vaccination Expected: 03/27/2024 (Approximate) [facility] Work Phone: Comment on above: Expected: 03/27/2024 (Approximate) Start: 03-02-2024 End: 03-02-2024 ambulatory 03/02/2024 4:00 PM EDT Visit (SP) Office Hematology/Oncology [address] [place] [place] [address] Rolly eBe MD [address] [address] New pt - Dx: Leukocytosis - Referred by Dr. Lc Childers ([facility]) Hematology/Oncology Comment on above: New pt - Dx: Leukocy tosis - Referred by Dr. Lc Childers ([facility]) Start: 02-26-2024 End: 02-26-2024 ambulatory 02/26/2024 10:00 AM EDT [facility] Endocrinology [address] [place] [address] Aleja Aleman [address] [place] [address] Type 2 diabetes mellitus without complication, without long-term current use of insulin (HCC) [E11.9] Endocrinology Comment on above: Type 2 diabetes rakan itus without complication, without long- term current use of insulin (HCC) [E11.9] Start: 02-25-2024 End: 02-25-2024 ambulatory 02/25/2024 10:00 AM EDT [facility] Patient Outreach Endocrinology [address] [place] [address] Palak Moore, College President [address] [place] [address] Type 2 diabetes mellitus without complication, without long-term current use of insulin (HCC) [E11.9] Endocrinology Comment on above: Type 2 diabetes rakan itus without complication, without long- term current use of insulin (HCC) [E11.9] Start: 02-24-2024 End: 02-24-2024 Patient encounter procedure 02/24/2024 1:00 PM EDT Office Visit Internal Medicine [place] [address] [place] [address] [place] [address] [place] [address] [facility] Internal Medicine [place] Comment on above: [facility] Start: 02-15-2024 ANNUAL PCP TEAM CHRONIC DISEASE VISIT ANNUAL PCP TEAM CHRONIC DISEASE VISIT [facility] Start: 01-27-2024 9vhpv vacc 2/3 dose sched im use HPV VACCINE, 9-VALENT (GARDASIL 9) Immunization/Injection Routine Need for HPV vaccination Expected: 01/27/2024 (Approximate) [facility] Work Phone: Comment on above: Expected: 01/27/2024 (Approximate) Start: 11-14-2023 End: 01-14-2024 CBC W Auto Differential panel - Blood CBC + DIFF Lab Routine High risk medication use Expected: 11/14/2023, Expires: 01/14/2024 [facility] Work Phone: Comment on above: Expected: 11/14/2023 , Expires: 01/14/2024 Start: 11-14-2023 End: 01-14-2024 Estradiol (E2) [Mass/volume] in Serum or Plasma ESTRADIOL-17B BLD Lab Routine High risk medication use Expected: 11/14/2023, Expires: 01/14/2024 [facility] Work Phone: Comment on above: Expected: 11/14/2023 , Expires: 01/14/2024 Start: 11-14-2023 End: 01-14-2024 Testosterone [Mass/volume] in Serum or Plasma TESTOSTERONE TOTAL Lab Routine High risk medication use Expected: 11/14/2023, Expires: 01/14/2024 [facility] Work Phone: Comment on above: Expected: 11/14/2023 , Expires: 01/14/2024 Start: 11-11-2023 ANNUAL PCP TEAM CHRONIC DISEASE VISIT ANNUAL PCP TEAM CHRONIC DISEASE VISIT [facility] Start: 10-15-2023 ANNUAL PCP TEAM CHRONIC DISEASE VISIT ANNUAL PCP TEAM CHRONIC DISEASE VISIT [facility] Start: 10-14-2023 ANNUAL PCP TEAM CHRONIC DISEASE VISIT ANNUAL PCP TEAM CHRONIC DISEASE VISIT [facility] Start: 08-16-2023 End: 10-16-2023 CBC W Auto Differential panel - Blood CBC + DIFF Lab Routine High risk medication use Expected: 08/16/2023, Expires: 10/16/2023 [facility] Work Phone: Comment on above: Expected: 08/16/2023 , Expires: 10/16/2023 Start: 08-16-2023 End: 10-16-2023 Estradiol (E2) [Mass/volume] in Serum or Plasma ESTRADIOL-17B BLD Lab Routine High risk medication use Expected: 08/16/2023, Expires: 10/16/2023 [facility] Work Phone: Comment on above: Expected: 08/16/2023 , Expires: 10/16/2023 Start: 08-16-2023 End: 10-16-2023 Testosterone [Mass/volume] in Serum or Plasma TESTOSTERONE TOTAL Lab Routine High risk medication use Expected: 08/16/2023, Expires: 10/16/2023 [facility] Work Phone: Comment on above: Expected: 08/16/2023 , Expires: 10/16/2023 Start: 08-15-2023 Hemoglobin A1c measurement HbA1C [facility] Start: 08-15-2023 Hemoglobin A1c/Hemoglobin.total in Blood HBA1C [facility] Start: 07-04-2023 Covid-19 Vaccine () Covid-19 Vaccine () [facility] Start: 07-04-2023 Influenza vaccination C [facility] Start: 04-24-2023 End: 06-24-2023 Hemoglobin A1c in Blood HGB A1C Lab Routine Type 2 diabetes mellitus without complication, without long-term current use of insulin (HCC) Expected: 04/24/2023, Expires: 06/24/2023 [facility] Work Phone: Comment on above: Expected: 04/24/2023 , Expires: 06/24/2023 Start: 04-07-2023 Hemoglobin A1c/Hemoglobin.total in Blood HBA1C [facility] Start: 02-09-2023 End: 04-11-2023 CBC W Auto Differential panel - Blood CBC + DIFF Lab Routine High risk medication use Expected: 02/09/2023, Expires: 04/11/2023 [facility] Work Phone: Comment on above: Expected: 02/09/2023 , Expires: 04/11/2023 Start: 02-09-2023 End: 04-11-2023 Estradiol (E2) [Mass/volume] in Serum or Plasma ESTRADIOL-17B BLD Lab Routine High risk medication use Expected: 02/09/2023, Expires: 04/11/2023 [facility] Work Phone: Comment on above: Expected: 02/09/2023 , Expires: 04/11/2023 Start: 02-09-2023 End: 04-11-2023 Testosterone [Mass/volume] in Serum or Plasma TESTOSTERONE TOTAL Lab Routine High risk medication use Expected: 02/09/2023, Expires: 04/11/2023 [facility] Work Phone: Comment on above: Expected: 02/09/2023 , Expires: 04/11/2023 Start: 07-04-2022 Influenza vaccination INFLUENZA (#1) [facility] Start: 01-16-2022 COVID-19 VACCINE (4 - Booster for Pfizer series) COVID-19 VACCINE (4 - Booster for Pfizer series) [facility] Start: 01-16-2022 COVID-19 VACCINE (4 - Pfizer series) COVID-19 VACCINE (4 - Pfizer series) [facility] Start: 11-03-2021 DEPRESSION ASSESSMENT DEPRESSION ASS ESSMENT [facility] Start: 2020 HPV TESTING HPV TESTING [facility] Start: 2020 Screening for malignant neoplasm of cervix HPV Testing [facility] Start: 2017 HPV Vaccine (optiona l start 27-45 years) HPV Vaccine (optional start 27-45 years) [facility] Start: 2011 PAP TESTING PAP TESTING [facility] Start: 2011 Screening for malignant neoplasm of cervix [facility] Start: 2009 Hepatitis A (HAV) Vaccine (optional start 19+ years) Hepatitis A (HAV) Vaccine (optional start 19+ years) [facility] Start: 2009 Pneumococcal vaccination Pneumococcal Vaccine (1 of 2 - PCV) [facility] Start: 2009 Urine microalbumin profile DTAP,TDAP,TD (1 - Tdap) [facility] Start: 2008 ANNUAL PCP TEAM CHRONIC DISEASE VISIT ANNUAL PCP TEAM CHRONIC DISEASE VISIT [facility] Start: 2008 Hepatitis B surface antibody level LDL CHOLESTEROL [facility] Start: 2008 HEPATITIS C SCREENING HEPATITIS C SC REENING [facility] Start: 2008 Hepatitis C screening C [facility] Start: 2008 HIV SCREENING HIV SCREENING [facility] Start: 2008 HIV screening HIV Screening [facility] Start: 2008 SPIROMETRY SPIROMETRY [facility] Start: 2005 [facility]: 2002 Adult depression screening assessment DEPRESSION SCREENING [facility] Start: 2000 3 comp foot exam completed DIABETIC FOOT EXAM [facility] Start: 2000 Diabetic foot examination Diabetic Foot Exam [facility] Start: 2000 Glaucoma screening Dilated Retinal E xam [facility] Start: 2000 Hepatitis B screening URINE ALBUMIN:CREATININE RATIO [facility] Start: 2000 Hepatitis C antibody , confirmatory test DILATED RETINAL EXAM [facility] Start: 1996 PNEUMOCOCCAL (1 - PCV) PNEUMOCOCCAL (1 - PCV) [facility] Start: 1996 Pneumococcal vaccination [facility] Start: 1990 HEPATITIS B (1 of 3 - 3-dose series) HEPATITIS B (1 of 3 - 3-dose series) [facility] HPV W/GENOTYPE THIN PREP HPV W/GENOTYPE THIN PREP Lab Routine Cervical cancer screening 01/20/2024 12:46 PM EDT [facility] Work Phone: PAP TEST PAP TEST Lab Rou edgar Cervical cancer screening 01/20/2024 12:46 PM EDT [facility] Work Phone: [facility] c [facility] c [facility] Immunizations Immunization Date Immunization Notes Care Provider Miguel A henley 08-16-2022 influenza, injectabl e, quadrivalent, preservative free [place] VEGETABLE HANDLER.WHEEL BLOCK[employer] Work Phone: [facility] Work Phone: 08-16-2022 influenza virus vaccine, unspecified formulation Fabiana Kolega VEGETABLE HANDLER.WHEEL BLOCKER Work Phone: [facility] 11-21-2021 Pfizer Monovalent (1 2+ yrs) SARS-COV-2 (COVID-19) vaccine, mRNA, spike protein, LNP, pres. free, 30 mcg/0.3mL dose (INV=382) [facility] 02-22-2021 COVID-19, mRNA, LNP- S, PF, 30 mcg/0.3 mL dose; Translations: [Pfizer-BioNTech COVID-19 Vaccine] [facility] Comment on above: Reason for Medicatio n: Prophylaxis 02-01-2021 COVID-19, mRNA, LNP- S, PF, 30 mcg/0.3 mL dose; Translations: [Pfizer-BioNTech COVID-19 Vaccine] [facility] Comment on above: Reason for Medicatio n: Prophylaxis 03-03-2020 tetanus toxoid, reduced diphtheria toxoid, and acellular pertussis vaccine, adsorbed; Translations: [Adacel (Tdap)] [employer] [facility] Comment on above: Result Comment: left deltiod 01-21-2020 Influenza, injectabl e, Madin Maru Canine Kidney, preservative free, quadrivalent Fabiana Kolega VEGETABLE HANDLER.WHEEL BLOCKER Work Phone: [facility] Work Phone: 09-07-2014 tetanus toxoid, reduced diphtheria toxoid, and acellular pertussis vaccine, adsorbed [place] VEGETABLE HANDLER.[facility] Work Phone: [facility] Work Phone: 11-04-2012 influenza, seasonal, injectable [place] VEGETABLE HANDLER.WHEEL BLOCK[employer] Work Phone: [facility] Work Phone: 09-17-2001 hepatitis B vaccine, pediatric or pediatric/adolescent dosage Fabiana Kolega VEGETABLE HANDLER.[facility] Work Phone: [facility] Work Phone: 04-08-2001 hepatitis B vaccine, pediatric or pediatric/adolescent dosage [place] VEGETABLE HANDLER.[facility] Work Phone: [facility] Work Phone: 03-06-2001 hepatitis B vaccine, pediatric or pediatric/adolescent dosage [place] VEGETABLE HANDLER.[facility] Work Phone: [facility] Work Phone: 02-23-1996 measles, mumps and rubella virus vaccine [place] VEGETABLE HANDLER.[facility] Work Phone: [facility] Work Phone: 06-23-1995 diphtheria, tetanus toxoids and acellular pertussis vaccine, unspecified formulation [place] VEGETABLE HANDLER.[facility] Work Phone: [facility] Work Phone: 06-23-1995 trivalent poliovirus vaccine, live, oral Fabiana Kolega VEGETABLE HANDLER.[facility] Work Phone: [facility] Work Phone: 10-30-1992 diphtheria, tetanus toxoids and pertussis vaccine Fabiana Kolega VEGETABLE HANDLER.[employer]HE[employer] Work Phone: [facility] Work Phone: 10-30-1992 trivalent poliovirus vaccine, live, oral [place] VEGETABLE HANDLER.[facility] Work Phone: [facility] Work Phone: 04-24-1992 haemophilus influenz ae type b vaccine, conjugate unspecified formulation [place] VEGETABLE HANDLER.[facility] Work Phone: [facility] Work Phone: 04-24-1992 measles, mumps and rubella virus vaccine [place] VEGETABLE HANDLER.[facility] Work Phone: [facility] Work Phone: 10-11-1991 diphtheria, tetanus toxoids and pertussis vaccine [place] VEGETABLE HANDLER.[facility] Work Phone: [facility] Work Phone: 10-11-1991 haemophilus influenz ae type b vaccine, conjugate unspecified formulation [place] VEGETABLE HANDLER.[facility] Work Phone: [facility] Work Phone: 05-31-1991 diphtheria, tetanus toxoids and pertussis vaccine Fabiana Kolega VEGETABLE HANDLER.[facility] Work Phone: [facility] Work Phone: 05-31-1991 haemophilus influenz ae type b vaccine, conjugate unspecified formulation [place] VEGETABLE HANDLER.[facility] Work Phone: [facility] Work Phone: 05-31-1991 trivalent poliovirus vaccine, live, oral Fabiana Kolega VEGETABLE HANDLER.[facility] Work Phone: [facility] Work Phone: 1990 diphtheria, tetanus toxoids and pertussis vaccine Fabiana Kolega VEGETABLE HANDLER.[facility] Work Phone: [facility] Work Phone: 1990 trivalent poliovirus vaccine, live, oral [place] VEGETABLE HANDLER.[facility] Work Phone: [facility] Work Phone: Payers Date Payer Category Payer Self-pay 2023 Unknown [employer] BLUE CARD PPO OOS [id number] 2023-Present [phone] [address] [place] [address] PPO [id number] 2022 Medicaid [id number] 2022 Medicaid [id number] 2021 Private Health [facility] [id number] 2021-Present [phone] [address] [address] [place] [address] HMO [id number] 1990 Unknown [id number] 1990 Unknown [id number] 1959 Unknown [id number] 1959 Unknown [id number] Unknown [id number] Social History Date Type Detail Facility Start: 01-29-2022 Tobacco smoking status Ex-smoker (fi nding) [facility] Start: 10-13-2022 End: 11-14-2023 Sex Assigned At Female [facility] Start: 07-03-2022 End: 11-11-2022 Tobacco smoking status NHIS Never smoked tobacco [facility] Start: 07-03-2022 End: 11-11-2022 Tobacco use and exposure Smokeless tobacco non-user [facility] Start: 07-03-2022 End: 02-24-2024 Alcohol intake Lifetime non-drinker (finding) [facility] Start: 1990 Sex Assigned At Female C [facility] Start: 06-23-2022 End: 07-03-2022 Exposure to SARS-CoV-2 (event) Not sure [facility] Start: 10-13-2022 History SDOH Alcohol Frequency 2 [facility] Start: 10-13-2022 History SDOH Alcohol Std Drinks 1 [facility] Start: 10-13-2022 History SDOH Social Connections Phone 5 [facility] Start: 10-13-2022 History SDOH Social Connections Meetings 98 [facility] Start: 10-13-2022 History SDOH Social Connections Living 3 [facility] Start: 10-13-2022 History SDOH Physica l Activity DPW 4 [facility] Start: 10-13-2022 History SDOH Physica l Activity MPS 13 [facility] Start: 11-11-2022 Tobacco Comment Vape with nicotine C [facility] Start: 10-13-2022 End: 11-14-2023 History of Social function [facility] Do you belong to any clubs or organizations such as presybeterian groups, unions, fraternal or athletic groups, or school groups? No [facility] Are you now , , , , never or living with a partner? [facility] How often to you hav e a drink containing alcohol? Monthly or less [facility] How many standard drinks containing alcohol do you have on a typical day? 1 or 2 [facility] How often do you hav e 6 or more drinks on 1 occasion? Less than monthly [facility] Do you feel stress - tense, restless, nervous, or anxious, or unable to sleep at night because your mind is troubled all the time - these days [OSQ] Only a little [facility] (I/We) worried jesus er (my/our) food would run out before (I/we) got money to buy more. Never true [facility] Start: 06-14-2022 Gender identity [id number]-jl-lela transsexual (finding) [facility] Start: 01-20-2024 Sexual orientation Bisexual (finding ) [facility] Work Phone: Are you now , , , , never or living with a partner? [facility] How often do you hav e 6 or more drinks on 1 occasion? Never [facility] Do you feel stress - tense, restless, nervous, or anxious, or unable to sleep at night because your mind is troubled all the time - these days [OSQ] Not at all [facility] Start: 02-27-2024 End: 10-12-2024 Alcohol intake Ex-drinker (finding) [facility] Tobacco smoking stat [facility] Start: 1990 Sex Assigned At Not on file [facility] NEGATED: Highlighted rowStart: AMELIE History of tobacco use Passive smoker [facility] Medical Equipment Procedure Code Equipment Code Equipment Original Text Equipment Identifier Dates BLOOD GLUCOSE METER TEST STRIPS, See Instructions, 100 EA, 11, BLOOD GLUCOSE METER TEST STRIPS OF CHOICE, OR SPECIFIED BY INSURANCE. USE WITH METER ONCE DAILY. DX E11.9, [id number], Supply, 167.6, cm, 01/29/22 8:42:00 EDT, Height/Length Dos... Start: 01-29-2022 LANCETS OF CHOIC E OR SPECIFIED BY INSURANCE., See Instructions, 100 EA, 11, USE TO TEST BLOOD GLUCOSE ONCE DAILY FOR DX E11.9, [id number], Supply, 167.6, cm, 01/29/22 8:42:00 EDT, Height/Length Dosing, 124.5, kg, 01/29/22 8:42:00 EDT, Weigh... Start: 01-29-2022 [id number], [id number], [id number], [id number], [id number] Start: 10-07-2022 End: 10-13-2024 Comment on above: Use as instructed da ade 1 Each one time a we ek. For use with testosterone injections 1 Each one time a we ek. Clinical Notes 01-29-2022 to 11-11-2024 Telephone Encounter - Sindhu Black O[facility] - 11/11/2024 7:56 AM ESTTelephone Encounter - Sindhu Black [facility] - 11/11/2024 7:56 AM ESTTelephone Encounter - Rufina Moore - 10/15/2024 1:30 PM EST Note Date & Type Note Facility 11-11-2024 Telephone encounter Note Received fax from [facility] release of information form. Sent fax to scanning. [facility] 11-11-2024 Miscellaneous Notes Received fax from [facility] release of information form. Sent fax to scanning. documented in this encounter [facility] 10-15-2024 Telephone encounter Note Message relayed- patient expressed understanding [facility] 10-15-2024 Miscellaneous Notes Message relayed- patient expressed understanding Please call the patient and let him know that I would like him to add a base dose to his Humalog with each meal. He should start with 10 units and add based on his glucose reading 3 times daily with meals. I.e- if blood sugar is 260 this evening before dinner, he would take 10 units (to cover the meal) and add 6 units according to the scale, for a total dose of 16 units. Continue Metformin, Trulicity, and Lantus as he is currently doing. Thank you- Patricia Ortega APRN.CNP Guero is calling Patricia Ortega APRN.CNP today with concern regarding Patient Update Patient has been identified by name and birthdate. yes Duration of symptoms: N/A Person calling: self Call patient at: at home [phone] (home) [phone] (cell) Was an appointment scheduled: No Closing statement: Symptom Call: Thank you for calling [facility], your call is very important. A nurse will call in approximately 2-4 hours during business hours. If this is an emergency, please contact 911. Patient calling Patricia Ortega to let her know that Humalog and Lantus is not bringing her glucose numbers down; they are still ranging between 200-300. Please advise. Thank you, Rufina Moore documented in this encounter [facility] 10-15-2024 Telephone encounter Note Please call the patient and let him know that I would like him to add a base dose to his Humalog with each meal. He should start with 10 units and add based on his glucose reading 3 times daily with meals. I.e- if blood sugar is 260 this evening before dinner, he would take 10 units (to cover the meal) and add 6 units according to the scale, for a total dose of 16 units. Continue Metformin, Trulicity, and Lantus as he is currently doing. Thank you- Patricia Ortega APRN.WHEEL BLOCKER [facility] 10-15-2024 Note HNO ID: [id number] Author: YANDEL ELDRIDGE PA-C Service: ? Author Type: Physician Field Cane Scale Clerk Type: Progress Notes Filed: 10/15/2024 15:05 Note Text: ESTABLISHED PATIENT Chief Complaint: Guero Davis is a 34 year old adult who presents today for a follow up visit. Subjective HPI PCP: Lc Wynn MD Last OV: 05/25/2024 with Yandel Eldridge PA-C PMH: gender dysphoria, T2DM, HLD, asthma, allergic rhinitis, MDD, anxiety, NSTEMI s/p cath on 10/04/24 #Gender Dysphoria Current Regiment: testosterone enanthate (0.5 mL) 75 mg weekly SQ injections Injection Day: Friday - auto-injector Has been on GAHT since 11/2022 Body changes: stable Has obtained labs prior to today's visit Denies obvious negative side effects Denies CP, SOB, heart palpitations, headaches, and leg swelling Recently had an PA Per chart review: NSTEMI (likely 2/2 to cocaine abuse) on 09/11/24 - underwent a cath that showed no blockages Pt's lab work was positive for cocaine Pt has been working towards sobriety but recently had a relapse - does follow with a counselor Feels a bit tired still Saw cardiology yesterday and has followed up with PCP Will be getting a sleep study done States he is taking is meds regularly now Gender Affirmation Care Goals Desires top surgery Weight loss - desires weight loss prior to top surgery and improved diabetic management- currently following with Dr. Mccann Name change More facial hair PAST MEDICAL HISTORY Diagnosis Date Anxiety disorder Asthma Bipolar 1 disorder (HCC) Diabetes mellitus (HCC) Eustachian tube dysfunction GERD (gastroesophageal reflux disease) Hyperglycemia Hyperlipidemia Leukocytosis PAST SURGICAL HISTORY Procedure Laterality Date EAR TUBES HX PAST SURGICAL HISTORY OF Bilateral 2016 Filshie clips REPAIR OF NASAL SEPTUM TONSILLECTOMY AND ADENOIDECTOMY No family history on file. Current Outpatient Medications Medication Sig Dispense Refill testosterone enanthate (XYOSTED) 75 mg/0.5 mL auto-injector Inject 0.5 mL subcutaneously one time a week for 90 days. Taking .75 mgl weekly 4 Each 2 insulin glargine (LANTUS SOLOSTAR U-100 INSULIN) 100 unit/mL (3 mL) take 60 units each night before bed 15 mL 3 Insulin [place], Disposable, (PEN NEEDLE) 32 gauge x 5/32 Inject 1 Each subcutaneously every 24 hours. Give with each insulin administration 4 times daily 150 Each 3 aspirin, enteric coated (ASPIRIN, ENTERIC COATED) 81 mg EC tablet Take 81 mg by mouth. atorvastatin (LIPITOR) 80 mg tablet Take 80 mg by mouth. magnesium oxide (MAG-OX) 400 mg (241.3 mg magnesium) tablet Take 400 mg by mouth. naproxen (NAPROSYN) 500 mg tablet Take 500 mg by mouth. As needed penicillin V potassium 500 mg tablet levothyroxine (SYNTHROID) 50 mcg tablet TAKE 1 TABLET BY MOUTH ONCE DAILY [E03.9] 90 tablet 1 dulaglutide (TRULICITY) 0.75 mg/0.5 mL pen injector Inject 0.75 mg subcutaneously one time a week. (Patient taking differently: Inject 1.5 mg subcutaneously one time a week.) 2 mL 1 Blood-Glucose Sensor (FREESTYLE LUZ 3 SENSOR) rajiv 1 Each every 2 weeks. 6 Each 4 metFORMIN ER (GLUCOPHAGE XR) 500 mg 24 hr tablet Take 2 tablets by mouth two times a day with meals. 120 tablet 11 Blood-Glucose Meter (TRUE METRIX GLUCOSE METER) 1 Each two times a day. 1 Each 0 blood sugar diagnostic (TRUE METRIX GLUCOSE TEST STRIP) test strip Use as instructed daily 100 Each 3 albuterol HFA (PROVENTIL HFA, VENTOLIN HFA) 90 mcg/actuation inhaler INHALE 2 PUFFS EVERY 6 HOURS NEEDED FOR WHEEZING ipratropium-albuterol (DUONEB) 0.5 mg-3 mg(2.5 mg base)/3 mL nebu INHALE 3 ML BY NEBULIZATION EVERY 6 HOURS NEEDED FOR WHEEZING. sertraline (ZOLOFT) 50 mg tablet TAKE 1 TABLET BY MOUTH EVERY DAY IN THE MORNING ABILIFY MAINTENA 400 mg sers injection inject 1 400MG/1 ML PREFILLED SYRINGE intramuscularly every 30 DAYS lamoTRIgine (LAMICTAL) 100 mg tablet TAKE 1 TABLET BY MOUTH EVERY DAY IN THE MORNING busPIRone HCl 30 mg tablet TAKE 1 TABLET BY MOUTH TWICE A DAY DIRECTED montelukast (SINGULAIR) 10 mg tablet Take 10 mg by mouth. budesonide-formoterol (SYMBICORT) 160-4.5 mcg/actuation inhaler Inhale 2 Puffs as instructed. insulin lispro (HUMALOG KWIKPEN) 100 unit/mL take 10 units with each meal + sliding scale. (up to 60 units daily) 30 mL 3 empagliflozin (JARDIANCE) 10 mg tablet Take 1 tablet by mouth daily with breakfast. (Patient not taking: Reported on 10/12/2024) 90 tablet 0 fluconazole (DIFLUCAN) 150 mg tablet Take 1 tablet by mouth every 72 hours. (Patient not taking: Reported on 05/25/2024) 2 tablet 0 famotidine (PEPCID) 20 mg tablet TAKE 1 TABLET BY MOUTH TWICE A DAY 180 tablet 1 Syringe with Needle, Disp, (BD LUER-LEODAN SYRINGE) 3 mL 21 gauge x 1 syrg 1 Each one time a week. (Patient not taking: Reported on 03/02/2024) 12 Each 0 Syringe with Needle, Safety (BD ECLIPSE LUER-LEODAN) 3 mL 22 gauge x 1 1/2 1 Each one time a week. (Patie (more content not included)... [facility] 10-15-2024 History of Present illness Narrative ESTABLISHED PATIENT Chief Complaint: Guero Davis is a 34 year old adult who presents today for a follow up visit. Subjective HPI PCP: Lc Wynn MD Last OV: 05/25/2024 with Yandel Sheldon, PA-C PMH: gender dysphoria, T2DM, HLD, asthma, allergic rhinitis, MDD, anxiety, NSTEMI s/p cath on 10/04/24 #Gender Dysphoria Current Regiment: testosterone enanthate (0.5 mL) 75 mg weekly SQ injections Injection Day: Friday - auto-injector Has been on GA since 11/2022 Body changes: stable Has obtained labs prior to today's visit Denies obvious negative side effects Denies CP, SOB, heart palpitations, headaches, and leg swelling Recently had an PA Per chart review: NSTEMI (likely 2/2 to cocaine abuse) on 09/11/24 - underwent a cath that showed no blockages Pt's lab work was positive for cocaine Pt has been working towards sobriety but recently had a relapse - does follow with a counselor Feels a bit tired still Saw cardiology yesterday and has followed up with PCP Will be getting a sleep study done States he is taking is meds regularly now Gender Affirmation Care Goals Desires top surgery Weight loss - desires weight loss prior to top surgery and improved diabetic management- currently following with Dr. Mccann Name change More facial hair PAST MEDICAL HISTORY Diagnosis Date Anxiety disorder Asthma Bipolar 1 disorder (HCC) Diabetes mellitus (HCC) Eustachian tube dysfunction GERD (gastroesophageal reflux disease) Hyperglycemia Hyperlipidemia Leukocytosis PAST SURGICAL HISTORY Procedure Laterality Date EAR TUBES HX PAST SURGICAL HISTORY OF Bilateral 2016 Filshie clips REPAIR OF NASAL SEPTUM TONSILLECTOMY & ADENOIDECTOMY <AGE 12 No family history on file. Current Outpatient Medications Medication Sig Dispense Refill testosterone enanthate (XYOSTED) 75 mg/0.5 mL auto-injector Inject 0.5 mL subcutaneously one time a week for 90 days. Taking .75 mgl weekly 4 Each 2 insulin glargine (LANTUS SOLOSTAR U-100 INSULIN) 100 unit/mL (3 mL) take 60 units each night before bed 15 mL 3 Insulin [place], Disposable, (PEN NEEDLE) 32 gauge x 5/32 Inject 1 Each subcutaneously every 24 hours. Give with each insulin administration 4 times daily 150 Each 3 aspirin, enteric coated (ASPIRIN, ENTERIC COATED) 81 mg EC tablet Take 81 mg by mouth. atorvastatin (LIPITOR) 80 mg tablet Take 80 mg by mouth. magnesium oxide (MAG-OX) 400 mg (241.3 mg magnesium) tablet Take 400 mg by mouth. naproxen (NAPROSYN) 500 mg tablet Take 500 mg by mouth. As needed penicillin V potassium 500 mg tablet levothyroxine (SYNTHROID) 50 mcg tablet TAKE 1 TABLET BY MOUTH ONCE DAILY [E03.9] 90 tablet 1 dulaglutide (TRULICITY) 0.75 mg/0.5 mL pen injector Inject 0.75 mg subcutaneously one time a week. (Patient taking differently: Inject 1.5 mg subcutaneously one time a week.) 2 mL 1 Blood-Glucose Sensor (FREESTYLE LUZ 3 SENSOR) rajiv 1 Each every 2 weeks. 6 Each 4 metFORMIN ER (GLUCOPHAGE XR) 500 mg 24 hr tablet Take 2 tablets by mouth two times a day with meals. 120 tablet 11 Blood-Glucose Meter (TRUE METRIX GLUCOSE METER) 1 Each two times a day. 1 Each 0 blood sugar diagnostic (TRUE METRIX GLUCOSE TEST STRIP) test strip Use as instructed daily 100 Each 3 albuterol HFA (PROVENTIL HFA, VENTOLIN HFA) 90 mcg/actuation inhaler INHALE 2 PUFFS EVERY 6 HOURS NEEDED FOR WHEEZING ipratropium-albuterol (DUONEB) 0.5 mg-3 mg(2.5 mg base)/3 mL nebu INHALE 3 ML BY NEBULIZATION EVERY 6 HOURS NEEDED FOR WHEEZING. sertraline (ZOLOFT) 50 mg tablet TAKE 1 TABLET BY MOUTH EVERY DAY IN THE MORNING ABILIFY MAINTENA 400 mg sers injection inject 1 400MG/1 ML PREFILLED SYRINGE intramuscularly every 30 DAYS lamoTRIgine (LAMICTAL) 100 mg tablet TAKE 1 TABLET BY MOUTH EVERY DAY IN THE MORNING busPIRone HCl 30 mg tablet TAKE 1 TABLET BY MOUTH TWICE A DAY DIRECTED montelukast (SINGULAIR) 10 mg tablet Take 10 mg by mouth. budesonide-formoterol (SYMBICORT) 160-4.5 mcg/actuation inhaler Inhale 2 Puffs as instructed. insulin lispro (HUMALOG KWIKPEN) 100 unit/mL take 10 units with each meal + sliding scale. (up to 60 units daily) 30 mL 3 empagliflozin (JARDIANCE) 10 mg tablet Take 1 tablet by mouth daily with breakfast. (Patient not taking: Reported on 10/12/2024) 90 tablet 0 fluconazole (DIFLUCAN) 150 mg tablet Take 1 tablet by mouth every 72 hours. (Patient not taking: Reported on 05/25/2024) 2 tablet 0 famotidine (PEPCID) 20 mg tablet TAKE 1 TABLET BY MOUTH TWICE A DAY 180 tablet 1 Syringe with Needle, Disp, (BD LUER-LEODAN SYRINGE) 3 mL 21 gauge x 1 syrg 1 Each one time a week. (Patient not taking: Reported on 03/02/2024) 12 Each 0 Syringe with Needle, Safety (BD ECLIPSE LUER-LEODAN) 3 mL 22 gauge x 1 1/2 1 Each one time a week. (Patient not taking: Reported on 03/02/2024) 12 Each 0 fluticasone (FLONASE) 50 mcg/actuation nasal spray Use 2 Sprays in each nostril once daily. (Patient not taking: Reported on 05/10/2024) 1 Each 11 No current facility-administered medications for this visit. ALLERGIES Allergen Reactions Paroxetine Anaphylaxis, Swelling tounge & throat swelling tounge & throat swelling Bupropion Anaphylaxis, Other: See Comments hallucinations Social History Tobacco Use Smoking status: Never Passive exposure: Never Smokeless tobacco: Never Tobacco comments: Vape with nicotine Substance Use Topics Alcohol use: Not Currently Drug use: Never Review of Systems Constitutional: Negative for chills and fever. HENT: Negative for congestion and sore throat. Eyes: Negative for pain and visual disturbance. Respiratory: Negative for cough and shortness of breath. Cardiovascular: Negative for chest pain and palpitations. Gastrointestinal: Negative for abdominal pain, blood in stool, constipation, diarrhea, nausea and vomiting. Endocrine: Negative for polydipsia and polyuria. Genitourinary: Negative for dysuria and hematuria. Musculoskeletal: Negative for arthralgias and myalgias. Skin: Negative for rash. Neurological: Negative for dizziness, light-headedness and numbness. Objective BP 97/64 Pulse 103 Temp 36.2 C (97.1 F) (Temporal) Resp 16 Wt 111.7 kg (246 lb 4.1 oz) BMI 39.77 kg/m Physical Exam Vitals reviewed. Constitutional: General: He is not in acute distress. Appearance: Normal appearance. HENT: Head: Normocephalic. Nose: Nose normal. No congestion or rhinorrhea. Mouth/Throat: Mouth: Mucous membranes are moist. Pharynx: Oropharynx is clear. No oropharyngeal exudate or posterior oropharyngeal erythema. Eyes: Extraocular Movements: Extraocular movements intact. Conjunctiva/sclera: Conjunctivae normal. Pupils: Pupils are equal, round, and reactive to light. Cardiovascular: Rate and Rhythm: Normal rate and regular rhythm. Pulses: Normal pulses. Heart sounds: Normal heart sounds. No murmur heard. No friction rub. No gallop. Pulmonary: Effort: Pulmonary effort is normal. Breath sounds: Normal breath sounds. No wheezing, rhonchi or rales. Musculoskeletal: General: Normal range of motion. Cervical back: Normal range of motion and neck supple. Right lower leg: No edema. Left lower leg: No edema. Lymphadenopathy: Cervical: No cervical adenopathy. Skin: General: Skin is warm and dry. Neurological: General: No focal deficit present. Mental Status: He is alert. Psychiatric: Mood and Affect: Mood normal. Behavior: Behavior normal. Latest Ref [facility] 10/12/2024 WBC 3.70 - 11.00 k/uL 15.07 (H) RBC 4.20 - 6.00 m/uL 5.72 Hemoglobin 13.0 - 17.0 g/dL 16.7 Hematocrit 39.0 - 51.0 % 51.9 (H) MCV 80.0 - 100.0 fL 90.7 MCH 26.0 - 34.0 pg 29.2 MCHC 30.5 - 36.0 g/dL 32.2 RDW-CV 11.5 - 15.0 % 13.7 Platelet Count 150 - 400 k/uL 232 MPV 9.0 - 12.7 fL 12.5 Neut% % 71.4 Abs Neut (ANC) 1.45 - 7.50 k/uL 10.75 (H) Lymph% % 21.0 Abs Lymph 1.00 - 4.00 k/uL 3.17 Hernando% % 5.2 Abs Hernando <0.87 k/uL 0.78 Eosin% % 1.2 Abs Eosin <0.46 k/uL 0.18 Baso% % 0.5 Abs Baso <0.11 k/uL 0.08 Immature Gran % % 0.7 IMMATURE GRANS (ABS) <0.10 k/uL 0.11 (H) NRBC /100 WBC 0.0 Absolute nRBC <0.01 k/uL <0.01 DTYPE Auto Estradiol 17B pg/mL 36 Testosterone ng/dL 257 Legend: (H) High Assessment and Plan Encounter Diagnosis ICD-10-CM 1. Gender dysphoria in adult F64.0 ESTRADIOL-17B BLD TESTOSTERONE, TOTAL BY IMMUNOASSAY (ADULT MALES, OR INDIVIDUALS ON TESTOSTERONE THERAPY) COMPLETE BLOOD COUNT AND DIFFERENTIAL 2. NSTEMI (non-ST elevated myocardial infarction) (HCC) I21.4 #Gender Dysphoria The patient is doing well on gender hormonal therapy with testosterone. The patient reported no obvious negative side effects. Physical changes are as expected on medical therapy. Testosterone are not in recommended target ranges, estradiol is within the recommended target range. Recent NSTEMI most likely 2/2 to cocaine use. No specific data to suggest need to decrease testosterone dose due to recent NSTEMI. SDM to continue current medications and doses - repeat labs in 1 month Labs ordered today - CBC (to follow changes in hemogloblin/hematocrit), estradiol 17OH, total testosterone FU in 6 months for gender affirmation surveillance care, sooner PRN PDMP website checked and validated. All prescriptions have been APPROPRIATELY filled. No suspicious activity was identified. 10/15/2024 by Yandel Eldridge PA-C Discussed plan with Dr. Jesus Reese and he is in agreement with above. #NSTEMI No cardiopulmonary sxs Continue current medications as written Continue to follow with PCP and cardiology All pertinent side effects, risks, benefits and precautions of suggested treatments were discussed in detail. Patient understands and agrees with above treatment plan. Differential diagnosis, pathophysiology and treatment options discussed with patient and questions answered - agrees with plan. Communication and follow up are stressed. I have reviewed and updated all preliminary medical information for accuracy with the patient and corrected and completed as necessary. This note was partially generated using [employer] voice recognition system. Medical Decision Making: Data: Unique test result(s) reviewed: 3+ Unique test(s) ordered: 3+ Risk: Moderate: Drug management High: High risk from testing/treatment Medical Decision Making Level: 4 - Moderate Electronically Signed by: Yandel Eldridge PA-C He/Him October 15, 2024 3:04 PM documented in this encounter [facility] 10-15-2024 Telephone encounter Note Guero is calling Patricia Ortega APRN.CNP today with concern regarding Patient Update Patient has been identified by name and birthdate. yes Duration of symptoms: N/A Person calling: self Call patient at: at home [phone] ([phone] (cell) Was an appointment scheduled: No Closing statement: Symptom Call: Thank you for calling [facility], your call is very important. A nurse will call in approximately 2-4 hours during business hours. If this is an emergency, please contact 911. Patient calling Patricia Mayos to let her know that Humalog and Lantus is not bringing her glucose numbers down; they are still ranging between 200-300. Please advise. Thank you, Rufina Moore [facility] 10-14-2024 Note Cardiology Follow Up Progress Note HPI: Guero Davis is a 34 y.o. adult with a past medical history including hypertension, hyperlipidemia, Medicaid cannot abuse who presents to cardiology clinic for posthospitalization follow-up. Patient was recently hospitalized with NSTEMI. Coronary angiography was performed, and coronary arteries were patent. NSTEMI was thought to be secondary to cocaine abuse. Patient presents today for follow-up. Patient denies any chest pain. Patient denies any lower extremity edema, orthopnea, or paroxysmal nocturnal dyspnea. Patient does endorse some shortness of breath, for which patient uses inhalers. Patient inquiring about sleep study. Cardiology ROS: Cardiology ROS: 10 point ROS is performed and is negative unless otherwise specified in HPI. Medications Current Outpatient Medications on File Prior to Visit Medication Sig Dispense Refill ARIPiprazole (Abilify Maintena) 300 mg injection Inject 300 mg into the shoulder, thigh, or buttocks every 30 (thirty) days. aspirin 81 mg EC tablet Take 1 tablet (81 mg) by mouth in the morning for 95 doses. 30 tablet 3 atorvastatin (Lipitor) 80 mg tablet Take 1 tablet (80 mg) by mouth at bedtime for 96 doses. 30 tablet 3 budesonide-formoteroL (Symbicort) 80-4.5 mcg/actuation inhaler Inhale 2 puffs in the morning and at bedtime. Rinse mouth with water after use to reduce aftertaste and incidence of candidiasis. Do not swallow. busPIRone (Buspar) 10 mg tablet Take 10 mg by mouth two times daily. insulin lispro (HumaLOG) 100 unit/mL injection pen Sliding scale with meals 3 times daily. If Blood Glucose (mg/dL) is <110 Give 0 units 111-150 Give 0 units 151-200 Give 2 unit 201-250 Give 4 units 251-300 Give 6 units 301-350 Give 8 units 351-400 Give 10 units >400 Call physician. ipratropium-albuteroL (Duo-Neb) 0.5-2.5 mg/3 mL nebulizer solution Take 3 mL by nebulization every 6 (six) hours if needed for wheezing. Lantus Solostar U-100 Insulin 100 unit/mL (3 mL) injection pen take 60 units each night before bed levothyroxine (Synthroid, Levoxyl) 50 mcg tablet Take 50 mcg by mouth in the morning. magnesium oxide (Mag-Ox) 400 mg (241.3 mg magnesium) tablet Take 1 tablet (400 mg) by mouth in the morning for 97 doses. 30 tablet 3 metFORMIN, OSM, (Fortamet) 500 mg 24 hr tablet Take 500 mg by mouth daily with evening meal. Do not crush, chew, or split. montelukast (Singulair) 10 mg tablet Take 10 mg by mouth in the morning. naproxen (Naprosyn) 500 mg tablet Take 500 mg by mouth if needed. testosterone enanthate (Xyosted) 50 mg/0.5 mL auto-injector Inject 50 mg under the skin every 7 (seven) days. Trulicity 1.5 mg/0.5 mL pen injector Inject 1.5 mg under the skin once a week. No current facility-administered medications on file prior to visit. Allergies Paxil [paroxetine hcl] and Wellbutrin [bupropion hcl] Physical Exam VITAL SIGNS: Ht 1.676 m (5' 6 ) Wt 97.1 kg (214 lb) BMI 34.54 kg/m??? Constitutional: Well developed, Well nourished, No acute distress, Non-toxic appearance. HENT: Normocephalic, Atraumatic, Bilateral external ears have normal appearance, Nose appears normal, nares are patent. Eyes: PERRLA, EOMI, Conjunctiva normal, No discharge. Neck: Normal range of motion, No tenderness, Supple, No stridor. No cervical lymphadenopathy noted. Cardiovascular: Normal heart rate, Normal rhythm, No murmurs, No rubs, No gallops. Thorax & Lungs: Normal breath sounds, No respiratory distress, No wheezing, No chest tenderness to palpation. Abdomen: Bowel sounds normal, Soft, Nontender, No masses, No pulsatile masses. Skin: Warm, Dry, No erythema, No rash. Back: No tenderness, No CVA tenderness. Extremities: Intact distal pulses, No edema, No tenderness, No cyanosis, No clubbing. Musculoskeletal: Grossly normal strength in extremities Neurologic: Alert & oriented x 3, no gross focal neurological deficits Psychiatric: Affect normal, Judgment normal, Mood normal. EKG results: Encounter Date: 10/01/24 ECG 12 lead Result Value Ventricular Rate 80 Atrial Rate 80 WI Interval 138 QRS DURATION 100 QT Interval 352 QTC CALCULATION(BAZETT) 405 P [place] 28 R-[place] 51 T Wave [place] 46 Impression Normal sinus rhythm Normal ECG When compared with ECG of 01-OCT-2024 21:02, QT has shortened Confirmed by Silvestre Duke ([id number]) on 10/03/2024 4:19:44 PM Echo results: Complete Echo (TTE) w/wo Imaging Agent, Strain, 3D, Bubble Study Result Date: 10/02/2024 1 1 [facility] [address] [place] [address] [phone] (fax) Echocardiogram-[facility] Name: MAYELA DAVIS Study Date: 10/02/2024 08:19 AM B/P: 109 mmHg/73 mmHg HR: 78 bpm Date of : 1990 Location: [facility] Height: 66 in. Age: 34 year(s) Patient Room: 3207 Weight: 201 lb. Gender: Female Patient Status: InPt BSA: 2 m2 Indication: Chest Pain, (more content not included)... [facility] 10-13-2024 Telephone encounter Note The following approved medication requests have been transmitted electronically. Requested Prescriptions Signed Prescriptions Disp Refills insulin glargine (LANTUS SOLOSTAR U-100 INSULIN) 100 unit/mL (3 mL) 15 mL 3 Sig: take 60 units each night before bed Authorizing Provider: TOMEKA PEPE insulin lispro (HUMALOG KWIKPEN) 100 unit/mL 15 mL 3 Sig: Sliding scale with meals 3 times daily. If Blood Glucose (mg/dL) is <110 Give 0 units 111-150 Give 0 units 151-200 Give 2 unit 201-250 Give 4 units 251-300 Give 6 units 301-350 Give 8 units 351-400 Give 10 units >400 Call physician. Authorizing Provider: TOMEKA PEPE Insulin [place], Disposable, (PEN NEEDLE) 32 gauge x 5/32 150 Each 3 Sig: Inject 1 Each subcutaneously every 24 hours. Give with each insulin administration 4 times daily Authorizing Provider: TOMEKA PEPE APRN.CNP [facility] 10-13-2024 Miscellaneous Notes The following approved medication requests have been transmitted electronically. Requested Prescriptions Signed Prescriptions Disp Refills insulin glargine (LANTUS SOLOSTAR U-100 INSULIN) 100 unit/mL (3 mL) 15 mL 3 Sig: take 60 units each night before bed Authorizing Provider: TOMEKA PEPE insulin lispro (HUMALOG KWIKPEN) 100 unit/mL 15 mL 3 Sig: Sliding scale with meals 3 times daily. If Blood Glucose (mg/dL) is <110 Give 0 units 111-150 Give 0 units 151-200 Give 2 unit 201-250 Give 4 units 251-300 Give 6 units 301-350 Give 8 units 351-400 Give 10 units >400 Call physician. Authorizing Provider: TOMEKA PEPE Insulin [place], Disposable, (PEN NEEDLE) 32 gauge x 5/32 150 Each 3 Sig: Inject 1 Each subcutaneously every 24 hours. Give with each insulin administration 4 times daily Authorizing Provider: TOMEKA PEPE APRN.CNP Requester: Pharmacy Patients last Endocrinology visit occurred 10/12/2024 by Patricia Ortega CNP. Follow-up evaluation has been established Upcoming Endocrinology Appointments - Next 365 Days Visit Type Date Time Department EST GIUSEPPE PATIENT 11/11/2024 10:30 AM ENDO [facility] . Requested Prescriptions Pending Prescriptions Disp Refills insulin glargine (LANTUS SOLOSTAR U-100 INSULIN) 100 unit/mL (3 mL) 15 mL 3 Sig: take 60 units each night before bed insulin lispro (HUMALOG KWIKPEN) 100 unit/mL 15 mL 3 Sig: Sliding scale with meals 3 times daily. If Blood Glucose (mg/dL) is <110 Give 0 units 111-150 Give 0 units 151-200 Give 2 unit 201-250 Give 4 units 251-300 Give 6 units 301-350 Give 8 units 351-400 Give 10 units >400 Call physician. Insulin [place], Disposable, (PEN NEEDLE) 32 gauge x 5/32 150 Each 3 Sig: Inject 1 Each subcutaneously every 24 hours. Give with each insulin administration 4 times daily If patient is due for an appointment please route to provider for refill consideration and also to the [facility] scheduling pool. PSS NOTE: Patient needs scheduled appointment No documented in this encounter [facility] 10-13-2024 Telephone encounter Note Resent scripts to [facility] with diagnosis codes. [facility] 10-13-2024 Miscellaneous Notes Resent scripts to [facility] with diagnosis codes. José Manuelviridiana is calling Patricia Ortega APRN.CNP today with a Medication Problem Patient has been identified by name and birthdate. Duration of symptoms: N/A Person calling: self Call patient at: at home [phone] (home) [phone] (cell) Was an appointment scheduled: Yes: Date/Time: 11-11-2024 Closing statement: [facility] called patient and told them that office needs to call in a diagnosis code for the Lantus, Humalog and the needles, before they can fill the RX. e- [id number] [place] [address] - [address] [facility] [phone] [address] [facility] [id number] Lakeisha Desilets documented in this encounter [facility] 10-13-2024 Telephone encounter Note Requester: Pharmacy Patients last Endocrinology visit occurred 10/12/2024 by Patricia Ortega CNP. Follow-up evaluation has been established Upcoming Endocrinology Appointments - Next 365 Days Visit Type Date Time Department EST GIUSEPPE PATIENT 11/11/2024 10:30 AM ENDO [facility] . Requested Prescriptions Pending Prescriptions Disp Refills insulin glargine (LANTUS SOLOSTAR U-100 INSULIN) 100 unit/mL (3 mL) 15 mL 3 Sig: take 60 units each night before bed insulin lispro (HUMALOG KWIKPEN) 100 unit/mL 15 mL 3 Sig: Sliding scale with meals 3 times daily. If Blood Glucose (mg/dL) is <110 Give 0 units 111-150 Give 0 units 151-200 Give 2 unit 201-250 Give 4 units 251-300 Give 6 units 301-350 Give 8 units 351-400 Give 10 units >400 Call physician. Insulin [place], Disposable, (PEN NEEDLE) 32 gauge x 5/32 150 Each 3 Sig: Inject 1 Each subcutaneously every 24 hours. Give with each insulin administration 4 times daily If patient is due for an appointment please route to provider for refill consideration and also to the endo scheduling pool. PSS NOTE: Patient needs scheduled appointment No [facility] 10-13-2024 Telephone encounter Note Guero is calling Patricia Ortega APRN.CNP today with a Medication Problem Patient has been identified by name and birthdate. Duration of symptoms: N/A Person calling: self Call patient at: at home [phone] (home) [phone] (cell) Was an appointment scheduled: Yes: Date/Time: 11-11-2024 Closing statement: [facility] called patient and told them that office needs to call in a diagnosis code for the Lantus, Humalog and the needles, before they can fill the RX. [facility]- [id number] [place] [address] - [address] [facility] - [phone] [facility] [phone] [address] [facility] [address] Lakeisha Desilets [facility] 10-12-2024 Instructions Patricia Ortega APRN.CNP - 10/12/2024 1:23 PM EST Plan Continue Metformin ER 500mg - 2 tablets twice daily Increase Trulicity to 1.5mg once weekly Start taking Lantus 60 units each night before bed Start using Humalog sliding scale before meals: If Blood Glucose (mg/dL) is <110 Give 0 units 111-150 Give 0 units 151-200 Give 2 unit 201-250 Give 4 units 251-300 Give 6 units 301-350 Give 8 units 351-400 Give 10 units >400 Call physician. Let me know if your blood sugars remain elevated Continue checking sugars as you are Continue Levothyroxine 50 mcg each morning on an empty stomach Obtain thyroid labs Follow-up in 3 months documented in this encounter [facility] 10-12-2024 Note HNO ID: [id number] Author: SINDHU BLACK OCCA Service: ? Author Type: Squirrel Man Type: Progress Notes Filed: 10/12/2024 13:55 Note Text: [facility] 10-12-2024 History of Present illness Narrative Images from the original note were not included. Endocrinology Follow-up History of Present Illness Mayela Davis is a 34 year old transgender adult presents today for follow up of DM Type 2 and obesity. New diagnosis of hypothyroidism 02/2024. LT4 50mcg daily was started at last OV with Caitlin Ramesh CNP 05/10/24. He reports proper administration, however has not obtained repeated labs. Since last visit he was hospitalized 10/01/2024 for PA. He is now on statin therapy. Pt reports that blood sugars have remained elevated since and was experiencing symptomatic hyperglycemia at that time. Pt reports BG > 600mg/dl at time of admission, was treated with RHI gtt then basal/bolus, however was not continued at discharge. Blood sugars remain elevated globally Hgb A1c up to 10.4% in the office today. Prior AOM: Ozempic- diarrhea Jardiance- recurrent yeast infections Mounjaro- tolerated well, changed to Trulicity d/t insurance Date of Diagnosis: 2020 Last HbA1c: Hemoglobin A1C (%) Date Value 01/20/2024 11.3 05/15/2023 10.7 Hemoglobin A1C (POCT) (%) Date Value 05/10/2024 9.2 10/07/2022 7.6 Complications Microvascular: albuminuria Macrovascular: s/p PA Health Maintenance Topics Topic Date Due Dilated Retinal Exam 04/03/2024 CGM: See attached Summary of Personal CGM Findings: 1. Time in range is not at target. 2. Coefficient of variation 14.9% 3. Time spent in hypoglycemia is at target. * Hypoglycemia patterns: none *Nocturnal hypoglycemia was not noted 4- Time spent in hyperglycemia is above target (100%) * Hyperglycemia patterns: globally Current DM Related Medications: Current Medications 10/12/2024 DIABETES THERAPIES Medication Dosage Pharm Subclass dulaglutide (TRULICITY) 0.75 mg/0.5 mL pen injector Inject 0.75 mg subcutaneously one time a week. Antihyperglycemic - Glucagon-Like Peptide-1 (GLP-1) Receptor Agonists empagliflozin (JARDIANCE) 10 mg tablet Take 1 tablet by mouth daily with breakfast. Antihyperglycemic - Sodium Glucose Cotransporter-2 (SGLT2) Inhibitors metFORMIN ER (GLUCOPHAGE XR) 500 mg 24 hr tablet Take 2 tablets by mouth two times a day with meals. Insulin Response Enhancers - Biguanides OTHER Medication Dosage Pharm Subclass ABILIFY MAINTENA 400 mg sers injection inject 1 400MG/1 ML PREFILLED SYRINGE intramuscularly every 30 DAYS Antipsychotic-Atypical,D2 Receptor Partial Agonist-5HT Serotonin Mixed albuterol HFA (PROVENTIL HFA, VENTOLIN HFA) 90 mcg/actuation inhaler INHALE 2 PUFFS EVERY 6 HOURS NEEDED FOR WHEEZING Asthma/COPD Therapy - Beta 2-Adrenergic Agents, Inhaled, Short Acting blood sugar diagnostic (TRUE METRIX GLUCOSE TEST STRIP) test strip Use as instructed daily Medical Supplies and DME - Blood Glucose Tests Blood-Glucose Meter (TRUE METRIX GLUCOSE METER) 1 Each two times a day. Medical Supplies and DME - Glucose Monitoring Test Supplies Blood-Glucose Sensor (FREESTYLE LUZ 3 SENSOR) rajiv 1 Each every 2 weeks. Medical Supplies and DME - Glucose Monitoring Test Supplies budesonide-formoterol (SYMBICORT) 160-4.5 mcg/actuation inhaler Inhale 2 Puffs as instructed. Asthma/COPD Therapy - Beta Adrenergic-Glucocorticoid Combinations busPIRone HCl 30 mg tablet TAKE 1 TABLET BY MOUTH TWICE A DAY DIRECTED Antianxiety Agent - Non-Benzodiazepine famotidine (PEPCID) 20 mg tablet TAKE 1 TABLET BY MOUTH TWICE A DAY Gastric Acid Secretion Asset Protection Specialist - Histamine H2-Receptor Antagonists fluconazole (DIFLUCAN) 150 mg tablet Take 1 tablet by mouth every 72 hours. Antifungal - Triazoles fluticasone (FLONASE) 50 mcg/actuation nasal spray Use 2 Sprays in each nostril once daily. Nasal Corticosteroids ipratropium-albuterol (DUONEB) 0.5 mg-3 mg(2.5 mg base)/3 mL nebu INHALE 3 ML BY NEBULIZATION EVERY 6 HOURS NEEDED FOR WHEEZING. Asthma/COPD Therapy - Beta Adrenergic-Anticholinergic Combinations lamoTRIgine (LAMICTAL) 100 mg tablet TAKE 1 TABLET BY MOUTH EVERY DAY IN THE MORNING Anticonvulsant - Phenyltriazine Derivatives levothyroxine (SYNTHROID) 50 mcg tablet TAKE 1 TABLET BY MOUTH ONCE DAILY [E03.9] Thyroid Hormones - Synthetic T4 (Thyroxine) montelukast (SINGULAIR) 10 mg tablet Take 10 mg by mouth. Asthma Therapy - Leukotriene Receptor Antagonists sertraline (ZOLOFT) 50 mg tablet TAKE 1 TABLET BY MOUTH EVERY DAY IN THE MORNING Antidepressant - Selective Serotonin Reuptake Inhibitors (SSRIs) Syringe with Needle, Disp, (BD LUER-LEODAN SYRINGE) 3 mL 21 gauge x 1 syrg 1 Each one time a week. Medical Supplies and DME - [place] and Syringes Syringe with Needle, Safety (BD ECLIPSE LUER-LEODAN) 3 mL 22 gauge x 1 1/2 1 Each one time a week. Medical Supplies and DME - [place] and Syringes testosterone enanthate (XYOSTED) 75 mg/0.5 mL auto-injector Inject 0.5 mL subcutaneously one time a week for 90 days. Taking .75 mgl weekly Androgen - Single Agents Past History, Medications, Allergies PAST MEDICAL HISTORY Diagnosis Date Anxiety disorder Asthma Bipolar 1 disorder (HCC) Diabetes mellitus (HCC) Eustachian tube dysfunction GERD (gastroesophageal reflux disease) Hyperglycemia Hyperlipidemia Leukocytosis PAST SURGICAL HISTORY Procedure Laterality Date EAR TUBES HX PAST SURGICAL HISTORY OF Bilateral 2016 Filshie clips REPAIR OF NASAL SEPTUM TONSILLECTOMY & ADENOIDECTOMY <AGE 12 ALLERGIES Allergen Reactions Paroxetine Anaphylaxis, Swelling tounge & throat swelling tounge & throat swelling Bupropion Anaphylaxis, Other: See Comments hallucinations No family history on file. Social History Tobacco Use Smoking status: Never Passive exposure: Never Smokeless tobacco: Never Tobacco comments: Vape with nicotine Substance Use Topics Alcohol use: Not Currently Drug use: Never Review of Systems GENERAL: No weight loss, malaise or fevers RESPIRATORY: Negative for cough, hemoptysis, wheezing, COPD, dyspnea or shortness of breath CARDIOVASCULAR: See HPI GI: No nausea, vomiting, or diarrhea ENDOCRINE: See HPI NEUROLOGIC:Negative for focal numbness or weakness, headaches and dizziness or syncope. Physical examination BP 112/78 Pulse 98 Wt 109.7 kg (241 lb 13.5 oz) BMI 39.05 kg/m General appearance: Well appearing, alert, in no acute distress, well-hydrated, well nourished. and Obese Skin: Skin color, texture, turgor normal, no suspicious rashes or lesions HEART: normal rate LUNGS: unlabored, normal respiratory rate EXTREMITIES No deformities, No skin discoloration and No edema NEURO: Speech normal, mental status intact, no tremor noted. Previous Laboratory Results LABS Glucose (mg/dL) Date Value 03/02/2024 431 Potassium (mmol/L) Date Value 03/02/2024 3.9 Sodium (mmol/L) Date Value 03/02/2024 137 Chloride (mmol/L) Date Value 03/02/2024 99 CO2 (mmol/L) Date Value 03/02/2024 27 Creatinine (mg/dL) Date Value 03/02/2024 0.71 BUN (mg/dL) Date Value 03/02/2024 5 Anion Gap (mmol/L) Date Value 03/02/2024 11 Calcium, Total (mg/dL) Date Value 03/02/2024 9.3 Estimated Glomerular Filtration Rate (mL/min/1.73m ) Date Value 03/02/2024 115 ALT (U/L) Date Value 03/02/2024 45 No results found for: TSH , FREET4 Impression/Recommendations IMPRESSION Mayela Davis is a 34 year old here for evaluation of 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 Blood sugars are globally elevated with little variability. He was treated with insulin during hospitalization for PA, however discharged on his PRACTICE MANAGER meds. We have elected to increase Trulicity, and add basal and SS insulin for now. RECOMMENDATIONS: 1. Glycemic control: Target HbA1C is less than 7.0% per ADA guidelines. Plan Continue Metformin ER 500mg - 2 tablets twice daily Increase Trulicity to 1.5mg once weekly Start taking Lantus 60 units each night before bed Start using Humalog sliding scale before meals: If Blood Glucose (mg/dL) is <110 Give 0 units 111-150 Give 0 units 151-200 Give 2 unit 201-250 Give 4 units 251-300 Give 6 units 301-350 Give 8 units 351-400 Give 10 units >400 Call physician. Let me know if your blood sugars remain elevated Continue checking sugars as you are Continue Levothyroxine 50 mcg each morning on an empty stomach Obtain thyroid labs Schedule dilated eye exam Follow-up in 3 months 2. Hypertension/BP control: BP goal for patients with diabetes is 130/80. -- This patient is at target on their current regimen. 3. Lipids: Target LDL cholesterol in patients with diabetes is less than 100, less than 70 if patient has overt CVD. Several studies have shown cardiovascular benefits of statin therapy in all patients with diabetes over age 40 with at least 1 CVD risk factor. No results found for: CHOL , HDL , LDL , TG - done at outside labs 10/03/24 -- This patient is currently at target on statin therapy. 4. Nephropathy screening: Annual measurement of urine albumin excretion is recommended in patients with diabetes. Albumin/Creat Ratio (mg/g) Date Value 01/20/2024 189 (H) Creatinine, Ur Random (UCRR) (mg/dL) Date Value 01/20/2024 25.8 -- This patient has microalbuminuria and is not on ULISSES-I or ARB therapy. 5. Ophthalmology: Annual dilated eye exams are recommended for patients with type 1 and type 2 diabetes. -- This patient is not up to date with their annual eye exam and was referred to an ice plant operator at this visit. Patient to continue to follow up with his PCP and with other consultants regarding his other medical problems. Any part of this document that has been added/copied & pasted from other documents has been reviewed for accuracy and updated as appropriate at the time of the patient encounter Medical Decision Making: Problems: Moderate: 1+ chronic illnesses with change Data: Unique source(s) for external note(s) reviewed: 1 Unique test result(s) reviewed: 3+ Unique test(s) ordered: 3+ Assessment requiring an independent historian(s) Risk: Moderate: Drug management Medical Decision Making Level: 4 - Moderate Patricia Ortega APRN.CNP (Signed electronically to expedite mailing) documented in this encounter [facility] 10-12-2024 Note HNO ID: [id number] Author: PATRICIA ORTEGA APRN.CNP Service: ? Author Type: Nurse Practitioner Type: Progress Notes Filed: 10/12/2024 13:55 Note Text: Endocrinology Follow-up History of Present Illness Mayela Davis is a 34 year old transgender adult presents today for follow up of DM Type 2 and obesity. New diagnosis of hypothyroidism 02/2024. LT4 50mcg daily was started at last OV with Caitlin Ramesh CNP 05/10/24. He reports proper administration, however has not obtained repeated labs. Since last visit he was hospitalized 10/01/2024 for PA. He is now on statin therapy. Pt reports that blood sugars have remained elevated since and was experiencing symptomatic hyperglycemia at that time. Pt reports BG > 600mg/dl at time of admission, was treated with RHI gtt then basal/bolus, however was not continued at discharge. Blood sugars remain elevated globally Hgb A1c up to 10.4% in the office today. Prior AOM: Ozempic- diarrhea Jardiance- recurrent yeast infections Mounjaro- tolerated well, changed to Trulicity d/t insurance Date of Diagnosis: 2020 Last HbA1c: Hemoglobin A1C (%) Date Value 01/20/2024 11.3 05/15/2023 10.7 Hemoglobin A1C (POCT) (%) Date Value 05/10/2024 9.2 10/07/2022 7.6 Complications Microvascular: albuminuria Macrovascular: s/p PA Health Maintenance Topics Topic Date Due Dilated Retinal Exam 04/03/2024 CGM: See attached Summary of Personal CGM Findings: 1. Time in range is not at target. 2. Coefficient of variation 14.9% 3. Time spent in hypoglycemia is at target. * Hypoglycemia patterns: none *Nocturnal hypoglycemia was not noted 4- Time spent in hyperglycemia is above target (100%) * Hyperglycemia patterns: globally Current DM Related Medications: Current Medications 10/12/2024 DIABETES THERAPIES Medication Dosage Pharm Subclass dulaglutide (TRULICITY) 0.75 mg/0.5 mL pen injector Inject 0.75 mg subcutaneously one time a week. Antihyperglycemic - Glucagon-Like Peptide-1 (GLP-1) Receptor Agonists empagliflozin (JARDIANCE) 10 mg tablet Take 1 tablet by mouth daily with breakfast. Antihyperglycemic - Sodium Glucose Cotransporter-2 (SGLT2) Inhibitors metFORMIN ER (GLUCOPHAGE XR) 500 mg 24 hr tablet Take 2 tablets by mouth two times a day with meals. Insulin Response Enhancers - Biguanides OTHER Medication Dosage Pharm Subclass ABILIFY MAINTENA 400 mg sers injection inject 1 400MG/1 ML PREFILLED SYRINGE intramuscularly every 30 DAYS Antipsychotic-Atypical,D2 Receptor Partial Agonist-5HT Serotonin Mixed albuterol HFA (PROVENTIL HFA, VENTOLIN HFA) 90 mcg/actuation inhaler INHALE 2 PUFFS EVERY 6 HOURS NEEDED FOR WHEEZING Asthma/COPD Therapy - Beta 2-Adrenergic Agents, Inhaled, Short Acting blood sugar diagnostic (TRUE METRIX GLUCOSE TEST STRIP) test strip Use as instructed daily Medical Supplies and DME - Blood Glucose Tests Blood-Glucose Meter (TRUE METRIX GLUCOSE METER) 1 Each two times a day. Medical Supplies and DME - Glucose Monitoring Test Supplies Blood-Glucose Sensor (FREESTYLE LUZ 3 SENSOR) rajiv 1 Each every 2 weeks. Medical Supplies and DME - Glucose Monitoring Test Supplies budesonide-formoterol (SYMBICORT) 160-4.5 mcg/actuation inhaler Inhale 2 Puffs as instructed. Asthma/COPD Therapy - Beta Adrenergic-Glucocorticoid Combinations busPIRone HCl 30 mg tablet TAKE 1 TABLET BY MOUTH TWICE A DAY DIRECTED Antianxiety Agent - Non-Benzodiazepine famotidine (PEPCID) 20 mg tablet TAKE 1 TABLET BY MOUTH TWICE A DAY Gastric Acid Secretion Asset Protection Specialist - Histamine H2-Receptor Antagonists fluconazole (DIFLUCAN) 150 mg tablet Take 1 tablet by mouth every 72 hours. Antifungal - Triazoles fluticasone (FLONASE) 50 mcg/actuation nasal spray Use 2 Sprays in each nostril once daily. Nasal Corticosteroids ipratropium-albuterol (DUONEB) 0.5 mg-3 mg(2.5 mg base)/3 mL nebu INHALE 3 ML BY NEBULIZATION EVERY 6 HOURS NEEDED FOR WHEEZING. Asthma/COPD Therapy - Beta Adrenergic-Anticholinergic Combinations lamoTRIgine (LAMICTAL) 100 mg tablet TAKE 1 TABLET BY MOUTH EVERY DAY IN THE MORNING Anticonvulsant - Phenyltriazine Derivatives levothyroxine (SYNTHROID) 50 mcg tablet TAKE 1 TABLET BY MOUTH ONCE DAILY [E03.9] Thyroid Hormones - Synthetic T4 (Thyroxine) montelukast (SINGULAIR) 10 mg tablet Take 10 mg by mouth. Asthma Therapy - Leukotriene Receptor Antagonists sertraline (ZOLOFT) 50 mg tablet TAKE 1 TABLET BY MOUTH EVERY DAY IN THE MORNING Antidepressant - Selective Serotonin Reuptake Inhibitors (SSRIs) Syringe with Needle, Disp, (BD LUER-LEODAN SYRINGE) 3 mL 21 gauge x 1 syrg 1 Each one time a week. Medical Supplies and DME - [place] and Syringes Syringe with Needle, Safety (BD ECLIPSE LUER-LEODAN) 3 mL 22 gauge x 1 1/2 1 Each one time a week. Medical Supplies and DME - [place] and Syringes testosterone enanthate (XYOSTED) 75 mg/0.5 mL auto-injector Inject 0.5 mL subcutaneously one time a (more content not included)... [facility] 10-11-2024 Telephone encounter Note This nurse tried to call patient x 2- unable to hear patient- Endorphint message sent. [facility] 10-11-2024 Miscellaneous Notes This nurse tried to call patient x 2- unable to hear patient- enosiXhart message sent. Patient had heart attack last week and sugars were around 643. Since then, patient cannot get under 200-300 and is requesting a call back at [phone]. Thank you documented in this encounter [facility] 10-11-2024 Telephone encounter Note Patient had heart attack last week and sugars were around 643. Since then, patient cannot get under 200-300 and is requesting a call back at [phone]. Thank you [facility] 10-04-2024 Note Per request from Jaime atkinson/Behavioral Health, phoned [facility] therapist Naye Treviño, , to schedule an appointment soon than 10/14 (pt's scheduled appointment). Phoned pt with alternate times they have available, pt declined and will keep her appointment on 10/14. [facility] 10-04-2024 Note Hospital Medicine Discharge Summary Final Discharge Diagnosis: NSTEMI Cocaine use disorder Accidental overdose on cocaine Acute hypoxic respiratory failure - resolved Aspiration pneumonitis Lactic acidosis - resolved High anion gap metabolic acidosis - resolved Non-insulin dependent diabetes mellitus type II Hyperglycemia Anxiety Hypomagnesemia Hypokalemia Admission Diagnosis: Chest pain in adult [R07.9] Hospital course: Mayela Davis is a 34 y.o. adult transgender male, formerly female who goes by Crew who initially presented to [facility] on 10/01/2024 after accidental overdose. As per report patient was with a friend who offered him some crack cocaine which she accepted. He says that he does not use crack cocaine on a regular basis. After that patient started to feel dizzy and became unresponsive. When he woke up he found himself around EMS and they gave him intranasal Narcan and [id number] and because of which he awakened easily. There was suspicion of witnessed aspiration by EMS. Patient reports that he has been noncompliant with his medications at home. He has a history of asthma, bipolar. Workup at [facility] was significant for an EKG which showed sinus tachycardia and CTA with concern for pulmonary edema and negative for PE. His troponins were elevated to 66. His blood glucose was elevated to 643. He had a white count of 23. His lactate was elevated to 4.3. His hemoglobin was concentrated at 19. He was treated empirically for an asthma exacerbation and aspiration pneumonia with Zosyn and IV Solu-Medrol. Patient was started on heparin drip for NSTEMI and as well as IV insulin for hyperglycemia. Patient was transferred to [facility] for higher level of care and cardiology evaluation. Patient was monitored in the ICU overnight due to cocaine overdose. He was transferred out of ICU on 10/03. On 10/04, patient underwent cardiac catheterization. The cardiac catheterization showed normal coronary arteries. Cardiology was okay with the patient being discharged. Patient was discharged in stable condition on 10/04/2024. Surgical, Invasive or Diagnostic Procedures Done During Admission: Cardiac Cath Consultations During Admission: Cardiology Dear Dr. Alvarado MD, Mayela Jack is advised to follow up with you within 1-2 weeks. Items to follow up in ambulatory setting: None Follow-up with: Cardiology Scheduled appointments: No future appointments. Your medication list START taking these medications Instructions Last Dose Given Next Dose Due aspirin 81 mg EC tablet Start taking on: October 05, 2024 Take 1 tablet (81 mg) by mouth in the morning for 95 doses. atorvastatin 80 mg tablet Commonly known as: Lipitor Take 1 tablet (80 mg) by mouth at bedtime for 96 doses. magnesium oxide 400 mg (241.3 mg magnesium) tablet Commonly known as: Mag-Ox Start taking on: October 05, 2024 Take 1 tablet (400 mg) by mouth in the morning for 97 doses. CONTINUE taking these medications Instructions Last Dose Given Next Dose Due Abilifgrace Maintena 300 mg injection Generic drug: ARIPiprazole budesonide-formoteroL 80-4.5 mcg/actuation inhaler Commonly known as: Symbicort busPIRone 10 mg tablet Commonly known as: Buspar ipratropium-albuteroL 0.5-2.5 mg/3 mL nebulizer solution Commonly known as: Duo-Neb metFORMIN (OSM) 500 mg 24 hr tablet Commonly known as: Fortamet testosterone enanthate 50 mg/0.5 mL auto-injector Commonly known as: Xyosted Where to Get Your Medications These medications were sent to [facility]/pharmacy #[id number] - [place], [place] - [address] [facility] [address] [facility] [address] aspirin 81 mg EC tablet atorvastatin 80 mg tablet magnesium oxide 400 mg (241.3 mg magnesium) tablet Mayela Jack is allergic to paxil [paroxetine hcl] and wellbutrin [bupropion hcl]. Disposition: Home or Self Care () Discharge Condition: Stable Code Status: Prior Diagnostic Results Hematology: No lab exists for component: PCAL1 , LACTICACID , ESR Chemistry: No lab exists for component: AFIO2 , APHT , APCOT , APOT , ATCO2 , CK , ALB , IBILI Test Results Pending At Discharge: Diet at the time of discharge: regular diet Nutrition Screen Activity: Patient currently has no discharge activity orders Objective Blood pressure 128/77, pulse 94, temperature 36.2 ???C (97.2 ???F), resp. rate 17, height 1.676 m (5' 6 ), weight 106 kg (233 lb 6.4 oz), SpO2 99%. Physical Exam Vitals reviewed. Constitutional: General: He is not in acute distress. Appearance: He is not ill-appearing or toxic-appearing. HENT: Head: Normocephalic and atraumatic. Mouth/Throat: Mouth: Mucous membranes are moist. Eyes: General: No scleral icterus. Extraocular Movements: Extraocular movements intact. Pupils: Pupils are equal, round, and reactive to light. Cardiovascular: Rate and Rhythm: Normal ra (more content not included)... [facility] 10-04-2024 Note Clinician spoke with pt regarding substance use services. Pt states he is already engaged in tx through [facility] in [place] and sees an AOD counselor, Naye Treviño. Pt has been in therapy for 2 years and is working toward sobriety. Pt has an appt scheduled for 10/14/24 with the therapist and requested for assistance from [facility] to attempt to get an earlier appt due to his recent relapse. Informed OTM LESLEY Rockwell [facility] 10-04-2024 Note Patient: Guero dallas Procedure Information Date/Time: 10/04/24 1240 Procedure: Coronary angiography Location: [facility] 2 [facility] / [facility] (Cath) Providers: Christina Barrow MD Clinical information reviewed: Tobacco Allergies Meds Med Hx Surg Hx OB Status Fam Hx Soc Hx Physical Exam Airway Mallampati: III TM distance: >3 FB Neck ROM: full Cardiovascular Rhythm: regular (-) murmur, friction rub, peripheral edema, systolic click, JVD, weak pulses Dental Pulmonary Breath sounds clear to auscultation Abdominal (+) obese Other findings: Frankie's test normal L Anesthesia Plan ASA 2 (Moderate sedation) Additional Equipment Requests [facility] 10-03-2024 Note Attestation signed by Silvestre Duke MD at 10/03/2024 12:54 PM By using the attestations below, I agree that I have read and verify that the documentation has been personally reviewed by me and ensure that the documentation accurately reflects the encounter. GC: I personally saw this patient on the day of the encounter, performed the lim portions of the service and participated in the management and treatment plan of the patient. I reviewed and confirm the documentation by the Cardiovascular Fellow Dr August Alcocer. Please note there may be an additional personal documentation from me. I will proceed with cardiac catheterization with coronary angiography given NSTEMI/elevated troponin. I have explained to him the procedure with risks and benefits, including risks of heart attack, stroke and , as well as contrast nephropathy and radiation injury. he understands and agrees. Silvestre Duke MD Cardiology Progress Note Subjective Subjective: Patient was seen and examined. Reported feeling well. No chest pain, or shortness of breath. No abdominal pain, nausea, or vomiting. No orthopnea or paroxysmal nocturnal dyspnea. No lower leg swelling. No acute events overnight. Objective Current Facility-Administered Medications: albuterol 90 mcg/actuation inhaler 2 puff, 2 puff, inhalation, q4h PRN, Donte Sutherland MD aspirin EC tablet 81 mg, 81 mg, oral, Daily, Donte Sutherland MD, 81 mg at 10/03/24917 atorvastatin (Lipitor) tablet 80 mg, 80 mg, oral, Nightly, Donte Sutherland MD, 80 mg at 10/02/242106 busPIRone (Buspar) tablet 10 mg, 10 mg, oral, BID, Donte Sutherland MD, 10 mg at 10/03/24917 glucose chewable tablet 24 g, 24 g, oral, q15 min PRN OR dextrose 50 % in water (D50W) syringe 25 g, 25 g, intravenous, q15 min PRN, Donte Sutherland MD dextrose 50 % in water (D50W) syringe 25 g, 25 g, intravenous, q5 min PRN, Lamin Vicente MD fluticasone propion-salmeteroL (Advair) 115-21 mcg/actuation inhaler 2 puff, 2 puff, inhalation, BID, Donte Sutherland MD, 2 puff at 10/03/24 0920 heparin infusion 100 units/mL in D5W, 0-28 Units/kg/hr, intravenous, Continuous, Donte Sutherland MD, Last Rate: 13.7 mL/hr at 10/03/24 0600, 15 Units/kg/hr at 10/03/24 0600 insulin glargine (Lantus) injection vial 12 Units, 12 Units, subcutaneous, BID, Ricardo Nieto MD insulin lispro (HumaLOG) injection 0-15 Units, 0-15 Units, subcutaneous, TID with meals, 9 Units at 10/03/2418 AND insulin lispro (HumaLOG) injection 0-12 Units, 0-12 Units, subcutaneous, Nightly, Donte Sutherland MD, 6 Units at 10/02/242106 ipratropium-albuteroL (Duo-Neb) 0.5-2.5 mg/3 mL nebulizer solution 3 mL, 3 mL, nebulization, q6h PRN, Donte Sutherland MD, 3 mL at 10/02/24 0140 magnesium oxide (Mag-Ox) tablet 400 mg, 400 mg, oral, Daily, Ricardo Nieto MD, 400 mg at 10/03/24 0918 Oxygen Therapy, , inhalation, Continuous, Donte Sutherland MD, Oxygen On at 10/01/24 1645 potassium chloride 20 mEq/15 mL oral solution 30 mL, 30 mL, oral, Once, Ricardo Nieto MD Insert peripheral IV, , , Once AND Saline lock IV, , , Once AND sodium chloride flush 10 mL, 10 mL, intravenous, q8h PRN, Donte Sutherland MD Objective: Patient Vitals for the past 24 hrs: BP Temp Temp src Pulse Resp SpO2 Weight 10/03/24 0527 -- -- -- -- -- -- 109 kg (239 lb 6.4 oz) 10/03/24 0400 112/75 36.3 ???C (97.3 ???F) Temporal 69 11 98 % -- 10/03/24 0010 112/69 36.3 ???C (97.3 ???F) Temporal 73 11 95 % -- 10/02/24 2007 123/70 36.3 ???C (97.3 ???F) Temporal 91 18 98 % -- 10/02/24 1701 -- 36.4 ???C (97.5 ???F) Temporal -- -- -- -- 10/02/24 1611 122/79 -- -- 90 17 95 % -- 10/02/24 1600 -- 36.6 ???C (97.9 ???F) Temporal -- -- -- -- 10/02/24 1400 -- -- -- 78 12 99 % -- 10/02/24 1300 -- -- -- 89 13 97 % -- 10/02/24 1217 110/65 36.3 ???C (97.3 ???F) Temporal 96 22 97 % -- 10/02/24 1200 -- -- -- 80 14 96 % -- 10/02/24 1100 95/57 -- -- 83 11 99 % -- 10/02/24 1016 105/76 -- -- 91 14 100 % -- 10/02/24 1000 89/52 -- -- 79 14 100 % -- Physical Examination: Physical Exam Constitutional: General: He is not in acute distress. Appearance: Normal appearance. He is not ill-appearing. HENT: Head: Normocephalic and atraumatic. Cardiovascular: Rate and Rhythm: Normal rate and regular rhythm. Heart sounds: Normal heart sounds. No murmur heard. Pulmonary: Breath sounds: Normal breath sounds. No wheezing or rales. Abdominal: Palpations: Abdomen is soft. Tenderness: There is no abdominal tenderness. Musculoskeletal: Right lower leg: No edema. Left lower leg: No edema. Skin: General: Skin is warm and dry. Findings: No erythema or rash. Neurological: Mental Status: He is alert and oriented to person, place, and time. Mental status is at baseline. Relevant Lab Results Encounter Date: 10/01/24 EC (more content not included)... [facility] 10-03-2024 Note Hospital Medicine Daily Progress Note - 10/03/2024 7:58 AM; Room: [address] [place] [address] Admission: 10/01/2024 4:35 PM; Length of stay: 2 days THE HOSPITALIST TEAM PREFERS TO USE [employer] CH[employer] FOR NON-URGENT COMMUNICATION 7AM-7PM. IF I DO NOT RESPOND WITHIN 20 MINUTES OR URGENT MATTERS, PLEASE CALL THROUGH THE ASSISTANT SUPERINTENDENT. FROM 7PM-7AM, PLEASE PAGE [phone](COVR). Code Status: Full Code Barriers to Discharge: Cardiac cath on Thursday 10/04 Expected Discharge Date: TBD Discharge Destination: home Overview Patient is seen for evaluation and management of NSTEMI. Subjective Patient seen and examined in the morning. Patient transferred from MICU. Patient's chart reviewed. Currently on heparin drip, aspirin + lipitor. Not on any beta natalia, but looks like there were a few blood pressure readings in 80s SBP as well as cocaine use. Heart rate is less than 100. Cardiology has seen patient. Troponin trending down. Peak around 0.33. Cardiology planning cardiac catheterization on Friday. Physical Exam Visit Vitals BP 112/75 (BP Location: Left arm, Patient Position: Lying) Pulse 69 Temp 36.3 ???C (97.3 ???F) (Temporal) Resp 11 Intake/Output Summary (Last 24 hours) at 10/03/2024 0758 Last data filed at 10/03/2024 0600 Gross per 24 hour Intake 572.03 ml Output -- Net 572.03 ml Physical Exam Vitals reviewed. Constitutional: General: He is not in acute distress. Appearance: He is not ill-appearing or toxic-appearing. HENT: Head: Normocephalic and atraumatic. Mouth/Throat: Mouth: Mucous membranes are moist. Eyes: General: No scleral icterus. Extraocular Movements: Extraocular movements intact. Pupils: Pupils are equal, round, and reactive to light. Cardiovascular: Rate and Rhythm: Normal rate and regular rhythm. Pulmonary: Effort: Pulmonary effort is normal. No respiratory distress. Breath sounds: No stridor. Abdominal: General: There is no distension. Palpations: Abdomen is soft. There is no mass. Tenderness: There is no abdominal tenderness. There is no guarding. Musculoskeletal: Right lower leg: No edema. Left lower leg: No edema. Skin: Findings: No rash. Neurological: Mental Status: He is alert. Cranial Nerves: No cranial nerve deficit. Psychiatric: Mood and Affect: Mood normal. Behavior: Behavior normal. Estimated body mass index is 38.64 kg/m??? as calculated from the following: Height as of this encounter: 1.676 m (5' 6 ). Weight as of this encounter: 109 kg (239 lb 6.4 oz). Active Inpatient Problems Principal Problem: Chest pain in adult Assessment and Plan NSTEMI - Troponin peaked at 0.33, trending down. It was evidently 66 (unsure if it's high sensitivity troponin) - Currently on aspirin, lipitor, heparin drip - Beta natalia on hold due to SBP readings in 80s as well as cocaine use disorder - Cardiology following - TTE reviewed. EF 65% with no valvular abnormalities - Cardiology planning cardiac catheterization on Friday Cocaine use disorder Accidental overdose on cocaine - Evidently patient dizzy and lost consciousness - Was watched in MICU - Counseled on cocaine use Acute hypoxic respiratory failure - resolved Aspiration pneumonitis - Was initially requiring 3L NC - Although chest xray did not show any acute process on 10/01, pneumonia may take a few days to manifest on imaging study - Currently on room air - Provide supplemental O2 to keep SpO2 above 92% Lactic acidosis High anion gap metabolic acidosis - Lactate was 4.3 at outside facility - Lactate was 2.2 upon admission - Will recheck lactate Non-insulin dependent diabetes mellitus type II Hyperglycemia - Hgb A1c is 9.2% - Hold home metformin - Will likely need to adjust home medications or consider starting GLP1 agonist (given likely CAD. Will follow cath result on Friday) - Blood glucose elevated this morning - Will switch lantus to 12U BID to give some additional long-acting this AM as well as patient becoming NPO after midnight - Continue MCS lispro Anxiety - continue home buspar Hypomagnesemia - PO replacement ordered Hypokalemia - PO replacement ordered VTE Prophylaxis: IV heparin Scheduled Meds aspirin, 81 mg, oral, Daily atorvastatin, 80 mg, oral, Nightly busPIRone, 10 mg, oral, BID fluticasone propion-salmeteroL, 2 puff, inhalation, BID insulin glargine, 12 Units, subcutaneous, BID insulin lispro, 0-15 Units, subcutaneous, TID with meals And insulin lispro, 0-12 Units, subcutaneous, Nightly magnesium oxide, 400 mg, oral, Daily Oxygen Therapy, , inhalation, Continuous potassium chloride, 30 mL, oral, Once heparin, 0-28 Units/kg/hr, Last Rate: 15 Units/kg/hr (10/03/24 0600) Pertinent Investigations Hematology: Results from last 7 days Lab Units 10/03/24 0613 10/02/24 0333 10/01/24 1720 WBC AUTO 10*3/uL 9.32 20.83* 24.54* HEMOGLOBIN g/dL 14.6 15.1 16.2 HEMATOCRIT % 44.4 45.7 46.9 MCV fL 87.6 88 (more content not included)... [facility] 10-02-2024 Note Attestation signed by Farnaz Maqruez MD at 10/02/2024 12:40 PM I personally saw and examined the patient on the same date of service as resident/fellow Donte Sutherland MD. I discussed the findings and therapeutic plan with the Donte Sutherland MD. I agree with the documentation, except for any edits/updates below. Farnaz Marquez MD Medical ICU Progress Note Patient - Mayela Davis Age - 34 y.o. - 1990 Date of Admission - 10/01/2024 4:35 PM HPI/Hospital Course Subjective Mayela Davis is a 34 y.o. adult transgender male, formerly female who goes by Crew who initially presented to [facility] on 10/01/2024 after accidental overdose. As per report patient was with a friend who offered him some crack cocaine which she accepted. He says that he does not use crack cocaine on a regular basis. After that patient started to feel dizzy and became unresponsive. When he woke up he found himself around EMS and they gave him intranasal Narcan and [id number] and because of which he awakened easily. There was suspicion of witnessed aspiration by EMS. Patient reports that he has been noncompliant with his medications at home. He has a history of asthma, bipolar. Workup at [facility] was significant for an EKG which showed sinus tachycardia and CTA with concern for pulmonary edema and negative for PE. His troponins were elevated to 66. His blood glucose was elevated to 643. He had a white count of 23. His lactate was elevated to 4.3. His hemoglobin was concentrated at 19. He was treated empirically for an asthma exacerbation and aspiration pneumonia with Zosyn and IV Solu-Medrol. Patient was started on heparin drip for NSTEMI and as well as IV insulin for hyperglycemia. Patient was transferred to [facility] for higher level of care and cardiology evaluation. Upon presentation here, patient is in no acute distress. He reports persistent substernal and left-sided chest pain although it is improved from his prior presentation at outside hospital. He says sublingual nitroglycerin does not alleviate his pain and instead gives him a headache however he was given IV morphine prior to transport and that helped him. SUBJECTIVE No acute overnight events. Patient started on Insulin gtt for uncontrolled hyperglycemia. Complaining of intermittent chest pain. Troponins peaked and downtrending. OBJECTIVE Vitals height is 1.676 m (5' 6 ) and weight is 91.6 kg (201 lb 15.1 oz). His temporal temperature is 36.7 ???C (98.1 ???F). His blood pressure is 90/45 (abnormal) and his pulse is 84. His respiration is 10 and oxygen saturation is 100%. Temp: [36.7 ???C (98.1 ???F)-36.8 ???C (98.3 ???F)] 36.7 ???C (98.1 ???F) Heart Rate: [84-112] 84 Resp: [0-23] 10 BP: (87-116)/(45-73) 90/45 Physical Exam: General: No acute distress HEENT: Normocephalic, atraumatic, no scleral icterus or erythema Neck: Supple, trachea midline, no masses noted Cardiovascular: Regular rate and rhythm, normal S1-S2, no murmurs, no rubs, no peripheral edema Respiratory: No acute respiratory distress, clear to auscultation bilaterally, no wheezing, no rales Abdomen: Soft, nontender, nondistended, positive bowel sounds Extremities: No cyanosis, no edema Neuro: No focal deficits Skin: Warm, dry, no rashes Weight: Admission weight: 91.6 kg (201 lb 15.1 oz) Wt Readings from Last 1 Encounters: 10/01/24 91.6 kg (201 lb 15.1 oz) Input/Output: Intake/Output Summary (Last 24 hours) at 10/02/2024 0756 Last data filed at 10/02/2024 0300 Gross per 24 hour Intake 184.71 ml Output 2 ml Net 182.71 ml Ventilator: Lab Results ABG: No results found for: PHART , [id number] , PO2ART , VIK0EZC , IONCALART No results found for: PHVEN , MFK7IDU , PO2VEN , JFM1FTT , IONCALVEN CBC: Results from last 7 days Lab Units 10/02/24 0333 10/01/24 1720 WBC AUTO 10*3/uL 20.83* 24.54* HEMOGLOBIN g/dL 15.1 16.2 HEMATOCRIT % 45.7 46.9 PLATELETS AUTO 10*3/uL 215 232 Coagulation: Results from last 7 days Lab Units 10/01/24 1720 APTT Seconds 37.3* INR 1.07 Metabolic Panel: Results from last 7 days Lab Units 10/02/24 0333 10/01/24 1720 SODIUM mmol/L 135* 131* POTASSIUM mmol/L 3.8 4.0 CHLORIDE mmol/L 98 99 CO2 mmol/L 27 24 BUN mg/dL 12 12 CREATININE mg/dL 0.73 0.67 GLUCOSE mg/dL 417* 365* CALCIUM mg/dL 9.0 9.0 PHOSPHORUS mg/dL 2.9 2.6 MAGNESIUM mg/dL 1.9 1.7* Liver Panel: Results from last 7 days Lab Units 10/02/24 0333 10/01/24 1720 ALBUMIN g/dL 3.9 3.9 BILIRUBIN TOTAL mg/dL 0.8 0.8 ALT U/L 22 23 AST U/L 23 22 ALK PHOS U/L 67 72 Glucose: Hgb A1c: Cardiac: Results from last 7 days Lab Units 10/02/24 0333 10/01/24 2300 10/01/24 1720 TRO (more content not included)... [facility] 09-23-2024 Telephone encounter Note Requester: Pharmacy Patients last Endocrinology visit occurred 05/10/24. Follow-up evaluation has been established yes Upcoming Endocrinology Appointments - Next 365 Days Visit Type Date Time Department EST GIUSEPPE PATIENT 11/11/2024 10:30 AM [facility] . Requested Prescriptions Pending Prescriptions Disp Refills levothyroxine (SYNTHROID) 50 mcg tablet [Pharmacy Med Name: LEVOTHYROXINE 50 MCG TABLET] 90 tablet 1 Sig: TAKE 1 TABLET BY MOUTH ONCE DAILY [E03.9] If patient is due for an appointment please route to provider for refill consideration and also to the endo scheduling pool. PSS NOTE: Patient needs scheduled appointment No [facility] 09-23-2024 Miscellaneous Notes Requester: Pharmacy Patients last Endocrinology visit occurred 05/10/24. Follow-up evaluation has been established yes Upcoming Endocrinology Appointments - Next 365 Days Visit Type Date Time Department EST GIUSEPPE PATIENT 11/11/2024 10:30 AM [facility] . Requested Prescriptions Pending Prescriptions Disp Refills levothyroxine (SYNTHROID) 50 mcg tablet [Pharmacy Med Name: LEVOTHYROXINE 50 MCG TABLET] 90 tablet 1 Sig: TAKE 1 TABLET BY MOUTH ONCE DAILY [E03.9] If patient is due for an appointment please route to provider for refill consideration and also to the endo scheduling pool. PSS NOTE: Patient needs scheduled appointment No documented in this encounter [facility] 08-30-2024 Telephone encounter Note Requester: Pharmacy Patients last Endocrinology visit occurred 05/10/2024 by Caitlin Ramesh CNP. Follow-up evaluation has been established Upcoming Endocrinology Appointments - Next 365 Days Visit Type Date Time Department EST GIUSEPPE PATIENT 11/11/2024 10:30 AM [facility] . Requested Prescriptions Pending Prescriptions Disp Refills empagliflozin (JARDIANCE) 10 mg tablet 90 tablet 0 Sig: Take 1 tablet by mouth daily with breakfast. If patient is due for an appointment please route to provider for refill consideration and also to the endo scheduling pool. PSS NOTE: Patient needs scheduled appointment No [facility] 08-30-2024 Miscellaneous Notes Requester: Pharmacy Patients last Endocrinology visit occurred 05/10/2024 by Caitlin Ramesh CNP. Follow-up evaluation has been established Upcoming Endocrinology Appointments - Next 365 Days Visit Type Date Time Department EST GIUSEPPE PATIENT 11/11/2024 10:30 AM [facility] . Requested Prescriptions Pending Prescriptions Disp Refills empagliflozin (JARDIANCE) 10 mg tablet 90 tablet 0 Sig: Take 1 tablet by mouth daily with breakfast. If patient is due for an appointment please route to provider for refill consideration and also to the endo scheduling pool. PSS NOTE: Patient needs scheduled appointment No documented in this encounter [facility] 05-25-2024 Note HNO ID: [id number] Author: YANDEL ELDRIDGE PA-C Service: ? Author Type: Physician Field Cane Scale Clerk Type: Progress Notes Filed: 05/25/2024 13:53 Note Text: ESTABLISHED PATIENT Chief Complaint: Guero Davis is a 33 year old adult who presents today for a follow up visit. Subjective HPI PCP: Lc Wynn MD Last OV: 02/24/[address] Bui. PMH: gender dysphoria, T2DM, HLD, asthma, allergic rhinitis, MDD, anxiety Guero (he/him) #Gender Dysphoria Current Regiment: testosterone enanthate (0.5 mL) 75 mg weekly SQ injections Injection day: Friday - auto-injector Has been on GAHT since 11/2022 Body changes: Has obtained labs prior to today's visit Denies obvious negative side effects Denies CP, SOB, heart palpitations, headaches, and leg swelling Gender Affirmation Care Goals Desires top surgery Weight loss - desires weight loss prior to top surgery and improved diabetic management- currently following with Dr. Mccann Name change More facial hair PAST MEDICAL HISTORY Diagnosis Date Anxiety disorder Asthma Bipolar 1 disorder (HCC) Diabetes mellitus (HCC) Eustachian tube dysfunction GERD (gastroesophageal reflux disease) Hyperglycemia Hyperlipidemia Leukocytosis PAST SURGICAL HISTORY Procedure Laterality Date EAR TUBES HX PAST SURGICAL HISTORY OF Bilateral 2016 Filshie clips REPAIR OF NASAL SEPTUM TONSILLECTOMY AND ADENOIDECTOMY No family history on file. Current Outpatient Medications Medication Sig Dispense Refill JARDIANCE 10 mg tablet take 1 tablet by mouth every day with breakfast 90 tablet 0 dulaglutide (TRULICITY) 0.75 mg/0.5 mL pen injector Inject 0.75 mg subcutaneously one time a week. 2 mL 1 Blood-Glucose Sensor (FREESTYLE LUZ 3 SENSOR) rajiv 1 Each every 2 weeks. 6 Each 4 levothyroxine (SYNTHROID) 50 mcg tablet Take 1 tablet by mouth once daily [E03.9] 90 tablet 1 famotidine (PEPCID) 20 mg tablet TAKE 1 TABLET BY MOUTH TWICE A DAY 180 tablet 1 metFORMIN ER (GLUCOPHAGE XR) 500 mg 24 hr tablet Take 2 tablets by mouth two times a day with meals. 120 tablet 11 Blood-Glucose Meter (TRUE METRIX GLUCOSE METER) 1 Each two times a day. 1 Each 0 blood sugar diagnostic (TRUE METRIX GLUCOSE TEST STRIP) test strip Use as instructed daily 100 Each 3 albuterol HFA (PROVENTIL HFA, VENTOLIN HFA) 90 mcg/actuation inhaler INHALE 2 PUFFS EVERY 6 HOURS NEEDED FOR WHEEZING ipratropium-albuterol (DUONEB) 0.5 mg-3 mg(2.5 mg base)/3 mL nebu INHALE 3 ML BY NEBULIZATION EVERY 6 HOURS NEEDED FOR WHEEZING. sertraline (ZOLOFT) 50 mg tablet TAKE 1 TABLET BY MOUTH EVERY DAY IN THE MORNING ABILIFY MAINTENA 400 mg sers injection inject 1 400MG/1 ML PREFILLED SYRINGE intramuscularly every 30 DAYS lamoTRIgine (LAMICTAL) 100 mg tablet TAKE 1 TABLET BY MOUTH EVERY DAY IN THE MORNING busPIRone HCl 30 mg tablet TAKE 1 TABLET BY MOUTH TWICE A DAY DIRECTED montelukast (SINGULAIR) 10 mg tablet Take 10 mg by mouth. budesonide-formoterol (SYMBICORT) 160-4.5 mcg/actuation inhaler Inhale 2 Puffs as instructed. testosterone enanthate (XYOSTED) 75 mg/0.5 mL auto-injector Inject 0.5 mL subcutaneously one time a week for 90 days. Taking .75 mgl weekly 4 Each 2 fluconazole (DIFLUCAN) 150 mg tablet Take 1 tablet by mouth every 72 hours. (Patient not taking: Reported on 05/25/2024) 2 tablet 0 Syringe with Needle, Disp, (BD LUER-LEODAN SYRINGE) 3 mL 21 gauge x 1 syrg 1 Each one time a week. (Patient not taking: Reported on 03/02/2024) 12 Each 0 Syringe with Needle, Safety (BD ECLIPSE LUER-LEODAN) 3 mL 22 gauge x 1 1/2 1 Each one time a week. (Patient not taking: Reported on 03/02/2024) 12 Each 0 fluticasone (FLONASE) 50 mcg/actuation nasal spray Use 2 Sprays in each nostril once daily. (Patient not taking: Reported on 05/10/2024) 1 Each 11 No current facility-administered medications for this visit. ALLERGIES Allergen Reactions Paroxetine Anaphylaxis, Swelling tounge AND throat swelling tounge AND throat swelling Bupropion Anaphylaxis, Other: See Comments hallucinations Social History Tobacco Use Smoking status: Never Passive exposure: Never Smokeless tobacco: Never Tobacco comments: Vape with nicotine Substance Use Topics Alcohol use: Not Currently Drug use: Never Review of Systems Constitutional: Negative for chills and fever. HENT: Negative for congestion and sore throat. Eyes: Negative for pain and visual disturbance. Respiratory: Negative for cough and shortness of breath. Cardiovascular: Negative for chest pain and palpitations. Gastrointestinal: Negative for abdominal pain, blood in stool, constipation, diarrhea, nausea and vomiting. Endocrine: Negative for polydipsia and polyuria. Genitourinary: Negative for dysuria and hematuria. Musculoskeletal: Negative for arthralgias and myalgias. Skin: Negative for rash. Neurological: Negative for dizziness, light-headedness and numbness. Objective BP 114/82 Pulse 91 Te (more content not included)... [facility] 05-25-2024 History of Present illness Narrative ESTABLISHED PATIENT Chief Complaint: Guero Davis is a 33 year old adult who presents today for a follow up visit. Subjective HPI PCP: Lc Wynn MD Last OV: 02/24/[address] Bui. PMH: gender dysphoria, T2DM, HLD, asthma, allergic rhinitis, MDD, anxiety Guero (he/him) #Gender Dysphoria Current Regiment: testosterone enanthate (0.5 mL) 75 mg weekly SQ injections Injection day: Friday - auto-injector Has been on GAHT since 11/2022 Body changes: Has obtained labs prior to today's visit Denies obvious negative side effects Denies CP, SOB, heart palpitations, headaches, and leg swelling Gender Affirmation Care Goals Desires top surgery Weight loss - desires weight loss prior to top surgery and improved diabetic management- currently following with Dr. Mccann Name change More facial hair PAST MEDICAL HISTORY Diagnosis Date Anxiety disorder Asthma Bipolar 1 disorder (HCC) Diabetes mellitus (HCC) Eustachian tube dysfunction GERD (gastroesophageal reflux disease) Hyperglycemia Hyperlipidemia Leukocytosis PAST SURGICAL HISTORY Procedure Laterality Date EAR TUBES HX PAST SURGICAL HISTORY OF Bilateral 2016 Filshie clips REPAIR OF NASAL SEPTUM TONSILLECTOMY & ADENOIDECTOMY <AGE 12 No family history on file. Current Outpatient Medications Medication Sig Dispense Refill JARDIANCE 10 mg tablet take 1 tablet by mouth every day with breakfast 90 tablet 0 dulaglutide (TRULICITY) 0.75 mg/0.5 mL pen injector Inject 0.75 mg subcutaneously one time a week. 2 mL 1 Blood-Glucose Sensor (FREESTYLE LUZ 3 SENSOR) rajiv 1 Each every 2 weeks. 6 Each 4 levothyroxine (SYNTHROID) 50 mcg tablet Take 1 tablet by mouth once daily [E03.9] 90 tablet 1 famotidine (PEPCID) 20 mg tablet TAKE 1 TABLET BY MOUTH TWICE A DAY 180 tablet 1 metFORMIN ER (GLUCOPHAGE XR) 500 mg 24 hr tablet Take 2 tablets by mouth two times a day with meals. 120 tablet 11 Blood-Glucose Meter (TRUE METRIX GLUCOSE METER) 1 Each two times a day. 1 Each 0 blood sugar diagnostic (TRUE METRIX GLUCOSE TEST STRIP) test strip Use as instructed daily 100 Each 3 albuterol HFA (PROVENTIL HFA, VENTOLIN HFA) 90 mcg/actuation inhaler INHALE 2 PUFFS EVERY 6 HOURS NEEDED FOR WHEEZING ipratropium-albuterol (DUONEB) 0.5 mg-3 mg(2.5 mg base)/3 mL nebu INHALE 3 ML BY NEBULIZATION EVERY 6 HOURS NEEDED FOR WHEEZING. sertraline (ZOLOFT) 50 mg tablet TAKE 1 TABLET BY MOUTH EVERY DAY IN THE MORNING ABILIFY MAINTENA 400 mg sers injection inject 1 400MG/1 ML PREFILLED SYRINGE intramuscularly every 30 DAYS lamoTRIgine (LAMICTAL) 100 mg tablet TAKE 1 TABLET BY MOUTH EVERY DAY IN THE MORNING busPIRone HCl 30 mg tablet TAKE 1 TABLET BY MOUTH TWICE A DAY DIRECTED montelukast (SINGULAIR) 10 mg tablet Take 10 mg by mouth. budesonide-formoterol (SYMBICORT) 160-4.5 mcg/actuation inhaler Inhale 2 Puffs as instructed. testosterone enanthate (XYOSTED) 75 mg/0.5 mL auto-injector Inject 0.5 mL subcutaneously one time a week for 90 days. Taking .75 mgl weekly 4 Each 2 fluconazole (DIFLUCAN) 150 mg tablet Take 1 tablet by mouth every 72 hours. (Patient not taking: Reported on 05/25/2024) 2 tablet 0 Syringe with Needle, Disp, (BD LUER-LEODAN SYRINGE) 3 mL 21 gauge x 1 syrg 1 Each one time a week. (Patient not taking: Reported on 03/02/2024) 12 Each 0 Syringe with Needle, Safety (BD ECLIPSE LUER-LEODAN) 3 mL 22 gauge x 1 1/2 1 Each one time a week. (Patient not taking: Reported on 03/02/2024) 12 Each 0 fluticasone (FLONASE) 50 mcg/actuation nasal spray Use 2 Sprays in each nostril once daily. (Patient not taking: Reported on 05/10/2024) 1 Each 11 No current facility-administered medications for this visit. ALLERGIES Allergen Reactions Paroxetine Anaphylaxis, Swelling tounge & throat swelling tounge & throat swelling Bupropion Anaphylaxis, Other: See Comments hallucinations Social History Tobacco Use Smoking status: Never Passive exposure: Never Smokeless tobacco: Never Tobacco comments: Vape with nicotine Substance Use Topics Alcohol use: Not Currently Drug use: Never Review of Systems Constitutional: Negative for chills and fever. HENT: Negative for congestion and sore throat. Eyes: Negative for pain and visual disturbance. Respiratory: Negative for cough and shortness of breath. Cardiovascular: Negative for chest pain and palpitations. Gastrointestinal: Negative for abdominal pain, blood in stool, constipation, diarrhea, nausea and vomiting. Endocrine: Negative for polydipsia and polyuria. Genitourinary: Negative for dysuria and hematuria. Musculoskeletal: Negative for arthralgias and myalgias. Skin: Negative for rash. Neurological: Negative for dizziness, light-headedness and numbness. Objective BP 114/82 Pulse 91 Temp 36.3 C (97.3 F) (Temporal) Resp 18 Wt 110.2 kg (243 lb) BMI 39.24 kg/m Physical Exam Vitals reviewed. Constitutional: General: He is not in acute distress. Appearance: Normal appearance. HENT: Head: Normocephalic. Nose: Nose normal. No congestion or rhinorrhea. Mouth/Throat: Mouth: Mucous membranes are moist. Pharynx: Oropharynx is clear. No oropharyngeal exudate or posterior oropharyngeal erythema. Eyes: Extraocular Movements: Extraocular movements intact. Conjunctiva/sclera: Conjunctivae normal. Pupils: Pupils are equal, round, and reactive to light. Cardiovascular: Rate and Rhythm: Normal rate and regular rhythm. Pulses: Normal pulses. Heart sounds: Normal heart sounds. No murmur heard. No friction rub. No gallop. Pulmonary: Effort: Pulmonary effort is normal. Breath sounds: Normal breath sounds. No wheezing, rhonchi or rales. Musculoskeletal: General: Normal range of motion. Cervical back: Normal range of motion and neck supple. Right lower leg: No edema. Left lower leg: No edema. Lymphadenopathy: Cervical: No cervical adenopathy. Skin: General: Skin is warm and dry. Capillary Refill: Capillary refill takes less than 2 seconds. Neurological: General: No focal deficit present. Mental Status: He is alert. Psychiatric: Mood and Affect: Mood normal. Behavior: Behavior normal. Latest Ref [facility] 05/21/2024 WBC 3.70 - 11.00 k/uL 11.14 (H) RBC 4.20 - 6.00 m/uL 6.13 (H) Hemoglobin 13.0 - 17.0 g/dL 17.3 (H) Hematocrit 39.0 - 51.0 % 53.6 (H) MCV 80.0 - 100.0 fL 87.4 MCH 26.0 - 34.0 pg 28.2 MCHC 30.5 - 36.0 g/dL 32.3 RDW-CV 11.5 - 15.0 % 16.1 (H) Platelet Count 150 - 400 k/uL 249 MPV 9.0 - 12.7 fL 11.9 Neut% % 64.2 Abs Neut (ANC) 1.45 - 7.50 k/uL 7.16 Lymph% % 27.4 Abs Lymph 1.00 - 4.00 k/uL 3.05 Hernando% % 5.3 Abs Hernando <0.87 k/uL 0.59 Eosin% % 2.1 Abs Eosin <0.46 k/uL 0.23 Baso% % 0.7 Abs Baso <0.11 k/uL 0.08 Immature Gran % % 0.3 IMMATURE GRANS (ABS) <0.10 k/uL 0.03 NRBC /100 WBC 0.0 Absolute nRBC <0.01 k/uL <0.01 DTYPE Auto Estradiol 17B pg/mL 76 Testosterone ng/dL 685 Legend: (H) High Assessment and Plan Encounter Diagnosis ICD-10-CM 1. Gender dysphoria in adult F64.0 testosterone enanthate (XYOSTED) 75 mg/0.5 mL auto-injector ESTRADIOL-17B BLD TESTOSTERONE, TOTAL COMPLETE BLOOD COUNT AND DIFFERENTIAL #Gender Dysphoria The patient is doing well on gender hormonal therapy with testosterone. The patient reported no obvious negative side effects. Physical changes are as expected on medical therapy. Testosterone and estradiol levels are in recommended target ranges. H&H was mildly elevated - advised to consider donating blood to lower H&H. Continue current medications and doses Labs ordered today - CBC (to follow changes in hemogloblin/hematocrit), estradiol 17OH, total testosterone FU in 3-6 months for gender affirmation surveillance care, sooner PRN PDMP website checked and validated. All prescriptions have been APPROPRIATELY filled. No suspicious activity was identified. 05/25/2024 by Yandel Eldridge PA-C All pertinent side effects, risks, benefits and precautions of suggested treatments were discussed in detail. Patient understands and agrees with above treatment plan. Differential diagnosis, pathophysiology and treatment options discussed with patient and questions answered - agrees with plan. Communication and follow up are stressed. I have reviewed and updated all preliminary medical information for accuracy with the patient and corrected and completed as necessary. This note was partially generated using [employer] voice recognition system. Medical Decision Making: Data: Unique test result(s) reviewed: 3+ Unique test(s) ordered: 3+ Risk: Moderate: Drug management High: High risk from testing/treatment Medical Decision Making Level: 4 - Moderate Electronically Signed by: Yandel Eldridge PA-C He/Him May 25, 2024 1:52 PM documented in this encounter [facility] 05-24-2024 Telephone encounter Note Requester: Pharmacy Patients last Endocrinology visit occurred 05/10/2024 by Caitlin Ramesh CNP. Follow-up evaluation has been established Upcoming Endocrinology Appointments - Next 365 Days Visit Type Date Time Department EST GIUSEPPE PATIENT 07/26/2024 10:40 AM ENDO [facility] EST GIUSEPPE PATIENT 11/11/2024 10:30 AM ENDO [facility] . Requested Prescriptions Pending Prescriptions Disp Refills JARDIANCE 10 mg tablet [Pharmacy Med Name: JARDIANCE 10 MG TABLET] 90 tablet 0 Sig: take 1 tablet by mouth every day with breakfast If patient is due for an appointment please route to provider for refill consideration and also to the endo scheduling pool. PSS NOTE: Patient needs scheduled appointment No [facility] 05-24-2024 Miscellaneous Notes Requester: Pharmacy Patients last Endocrinology visit occurred 05/10/2024 by Caitlin Ramesh CNP. Follow-up evaluation has been established Upcoming Endocrinology Appointments - Next 365 Days Visit Type Date Time Department EST GIUSEPPE PATIENT 07/26/2024 10:40 AM ENDO [facility] EST GIUSEPPE PATIENT 11/11/2024 10:30 AM [facility] . Requested Prescriptions Pending Prescriptions Disp Refills JARDIANCE 10 mg tablet [Pharmacy Med Name: JARDIANCE 10 MG TABLET] 90 tablet 0 Sig: take 1 tablet by mouth every day with breakfast If patient is due for an appointment please route to provider for refill consideration and also to the endo scheduling pool. PSS NOTE: Patient needs scheduled appointment No documented in this encounter [facility] 05-17-2024 Telephone encounter Note Requester: Pharmacy Patients last Endocrinology visit occurred 05/10/2024 by Caitlin Ramesh CNP. Follow-up evaluation has been established Upcoming Endocrinology Appointments - Next 365 Days Visit Type Date Time Department EST GIUSEPPE PATIENT 07/26/2024 10:40 AM ENDO [facility] EST GIUSEPPE PATIENT 11/11/2024 10:30 AM [facility] . Requested Prescriptions Pending Prescriptions Disp Refills TRULICITY 0.75 mg/0.5 mL pen injector [Pharmacy Med Name: TRULICITY 0.75 MG/0.5 ML PEN] 1 Sig: INJECT 0.75 MG SUBCUTANEOUSLY ONE TIME A WEEK. If patient is due for an appointment please route to provider for refill consideration and also to the endo scheduling pool. PSS NOTE: Patient needs scheduled appointment No [facility] 05-17-2024 Miscellaneous Notes Requester: Pharmacy Patients last Endocrinology visit occurred 05/10/2024 by Caitlin Ramesh CNP. Follow-up evaluation has been established Upcoming Endocrinology Appointments - Next 365 Days Visit Type Date Time Department EST GIUSEPPE PATIENT 07/26/2024 10:40 AM ENDO [facility] EST GIUSEPPE PATIENT 11/11/2024 10:30 AM ENDO [facility] . Requested Prescriptions Pending Prescriptions Disp Refills TRULICITY 0.75 mg/0.5 mL pen injector [Pharmacy Med Name: TRULICITY 0.75 MG/0.5 ML PEN] 1 Sig: INJECT 0.75 MG SUBCUTANEOUSLY ONE TIME A WEEK. If patient is due for an appointment please route to provider for refill consideration and also to the endo scheduling pool. PSS NOTE: Patient needs scheduled appointment No documented in this encounter [facility] 05-10-2024 Instructions Caitlin Ramesh [email or web address] - 05/10/2024 11:36 AM EDT - cont trulicity 0.75 mg once weekly - cont Jardiance 10 mg po every day - cont Metformin XR 1 gm po BID - consider adding an ULSISES/ ARB for renal protection given the albuminuria - pt aware, will discuss with his PCP - add Synthroid 50 mcg po q day, check TFT's in 6 weeks - planned for a PSG soon - avoid skipping meals, small frequent low glycemic index foods advised , encouraged to cut back and avoid processed and ultra processed foods, - Target lean protein intake at 90-100 gm / day- divided into 30 gm with each meal/ snack - always paired with a fibre ( fruit or vegetable or whole grains) - the proteins should be lean- so egg white, white meat chicken or turkey , or vegan proteins like beans/ lentils/ legumes/ tofu / chick peas - see Dietary for a Low Carb Mediterranean nutritional program - see Ex Physiology to get into a structured exercise classes, pt agreeable - add a Probiotic: helps with healthy gut microbiome, helps with healthy weight and optimal cardiac health . - start using the luz 3 in order to prevent daytime lows. -take diflucan 150 mg every 72 hours for two doses. -- Exercise -- discussed basic exercise recommendations, the role of exercise on weight loss and maintenance. Discussed the combination of aerobic and resistance exercise. -- most patients benefit from a personalized exercise program. -- Sleep: -- discussed the importance of sleep hygiene -- Stress: -- discussed the effect of stress and its relationship with weight gain. Stress management is very important -- Follow up: -- See Dr. Mccann in July as scheduled, and schedule appt with her for November 2024. documented in this encounter [facility] 05-10-2024 History of Present illness Narrative Images from the original note were not included. 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 Weight History - High school graduation weight: 200 pounds - started to struggle with his weight during puberty, also gained weight during her 4 pregnancies , she did have gestational diabetes with her 1 - f/h of Obesity :Mother and brother struggles - Height: 5'6 Goals for weight loss : I would like to be <200 pounds Weight Loss Medications: -- taking Metformin XR 1 gm po BID - tried Ozempic - gave him- diarrhea - Tolerating Trulicity 0.75 mg/weekly - FSBS : fasting :98-198 mg/dl Diet: -- 24 hr food recall: water 40-80 ounces B: 10:30 am : frozen waffles/whatever is convenient S at 3 pm: baby bel cheese- 2 , grapes L: snacks on nuts D: 5 pm: chicken, pasta , vegetable S: raisins or Craisins/cheese stick Not big into sweets Appetite Control: -- decreased, I have to force myself to eat - binge eating: no - late night eating: no - emotional eating : yes- with boredom, likes sweets - portion control: not large Exercise: -- 2-3/ week, walking 30 mins to 1 hour each session -- swimming a lot with kids this summer - no physical limitations Sleep: -- Sleep initiation: better (couldn't stay awake with BG elevated before. 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 Blood-Glucose Meter (TRUE METRIX GLUCOSE METER) 1 Each two times a day. glipiZIDE (GLUCOTROL) 5 mg tablet Take 1 tablet by mouth two times a day before meals. blood sugar diagnostic (TRUE METRIX GLUCOSE TEST STRIP) test strip Use as instructed daily Syringe with Needle, Disp, (BD LUER-LEODAN SYRINGE) 3 mL 21 gauge x 1 syrg 1 Each one time a week. albuterol HFA (PROVENTIL HFA, VENTOLIN HFA) 90 mcg/actuation inhaler INHALE 2 PUFFS EVERY 6 HOURS NEEDED FOR WHEEZING ipratropium-albuterol (DUONEB) 0.5 mg-3 mg(2.5 mg base)/3 mL nebu INHALE 3 ML BY NEBULIZATION EVERY 6 HOURS NEEDED FOR WHEEZING. Syringe with Needle, Safety (BD ECLIPSE LUER-LEODAN) 3 mL 22 gauge x 1 1/2 1 Each one time a week. sertraline (ZOLOFT) 50 mg tablet TAKE 1 TABLET BY MOUTH EVERY DAY IN THE MORNING ABILIFY MAINTENA 400 mg sers injection inject 1 400MG/1 ML PREFILLED SYRINGE intramuscularly every 30 DAYS lamoTRIgine (LAMICTAL) 100 mg tablet TAKE 1 TABLET BY MOUTH EVERY DAY IN THE MORNING busPIRone HCl 30 mg tablet TAKE 1 TABLET BY MOUTH TWICE A DAY DIRECTED montelukast (SINGULAIR) 10 mg tablet Take 10 mg by mouth. budesonide-formoterol (SYMBICORT) 160-4.5 mcg/actuation inhaler Inhale 2 Puffs as instructed. fluticasone (FLONASE) 50 mcg/actuation nasal spray Use 2 Sprays in each nostril once daily. testosterone enanthate (XYOSTED) 75 mg/0.5 mL auto-injector Inject 0.5 mL subcutaneously one time a week for 90 days. No current facility-administered medications on file prior to visit. SIGNIFICANT PAST MEDICAL HISTORY, SOCIAL HISTORY AND FAMILY HISTORY: PAST MEDICAL HISTORY Diagnosis Date Anxiety disorder Asthma Bipolar 1 disorder (HCC) Diabetes mellitus (HCC) Eustachian tube dysfunction GERD (gastroesophageal reflux disease) Hyperglycemia Hyperlipidemia Leukocytosis History reviewed. No pertinent family history. Social History Tobacco Use Smoking status: Never Passive exposure: Never Smokeless tobacco: Never Tobacco comments: Vape with nicotine Substance Use Topics Alcohol use: Not Currently Drug use: Never PHYSICAL EXAM: Mayela Davis is a 33 year old year old adult who looks his stated age. REVIEW OF SYSTEMS GENERAL: Weight loss RESPIRATORY: Negative for cough, hemoptysis, wheezing, COPD, dyspnea or shortness of breath CARDIOVASCULAR: Negative for chest pain, leg swelling, hypertension, CHF or palpitations GI: No nausea, vomiting, or diarrhea ENDOCRINE: Negative for cold or heat intolerance, polyuria, polydipsia and goiter NEUROLOGIC:Negative for focal numbness or weakness, headaches and dizziness or syncope. PHYSICAL EXAM BP 112/82 Pulse 90 Resp 14 Wt 112.6 kg (248 lb 4.8 oz) SpO2 97% BMI 40.10 kg/m General appearance: Well appearing, alert, in no acute distress, well-hydrated, well nourished. Skin: Skin color, texture, turgor normal, no suspicious rashes or lesions Eyes: Anicteric sclera. Extraocular movements are intact. Lungs: Unlabored on room air Neuro: Oriented X 3 PERTINENT LABORATORY AND IMAGING:All pertinent laboratory results were reviewed. Please see HPI for further details. IMPRESSION/PLAN: Encounter Diagnosis ICD-10-CM 1. Hypoglycemia associated with type 2 diabetes mellitus (HCC) E11.649 Blood-Glucose Sensor (FREESTYLE LUZ 3 SENSOR) rajiv 2. Candidiasis B37.9 fluconazole (DIFLUCAN) 150 mg tablet 3. Uncontrolled type 2 diabetes mellitus with hyperglycemia (HCC) E11.65 Patient comes today for evaluation and weight management and its comorbidities. Patient has a BMI of 42.42-->42.10 that is OBESITY CLASS III . Patient tried different weight loss modalities in the past including diet and exercise . 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 Patient quality of life is compromised due to current weight and patient is motivated for weight loss. The main risk factors for current weight include increased consumption of high calorie/process foods, irregular eating patterns, suboptimal physical activity. Our goal is to treat obesity to decrease long-term medical complications, comorbidities and improve lifestyle. I discussed with the patient the possibility of starting an interdisciplinary lifestyle intervention-weight loss program involving improvement of his diet, a personalized exercise program and also consider the possibility of using medications to control patient appetite in order to help patient to lose weight. Patient is in agreement. Plan -- Reviewed principles of energy metabolism, caloric intake and expenditure -- Goals: -- 5-10% weight loss over 6 months is reasonable -- At least 6-month commitment to losing weight -- Lifestyle changes -- Changing eating, sleeping and behavior habits -- Diet -- to see dietitian to discuss nutrition and behavior changes -- Patient will discuss in detail with our dietitian team the best approach and the best nutritional plan -- portion control -- behavior changes -- Appetite control: -- I have also reviewed with the patient the possibility of using weight loss medications in an effort to reduce his appetite. -- I have reviewed the different therapeutic options available including phentermine, phentermine/topiramate, buproprion/naltrexone, and the GLP1 , GLP 1/GIP agonists - cont trulicity 0.75 mg once weekly - cont Jardiance 10 mg po every day - cont Metformin XR 1 gm po BID - consider adding an ULISSES/ ARB for renal protection given the albuminuria - pt aware, will discuss with his PCP - add Synthroid 50 mcg po q day, check TFT's in 6 weeks - planned for a PSG soon - avoid skipping meals, small frequent low glycemic index foods advised , encouraged to cut back and avoid processed and ultra processed foods, - Target lean protein intake at 90-100 gm / day- divided into 30 gm with each meal/ snack - always paired with a fibre ( fruit or vegetable or whole grains) - the proteins should be lean- so egg white, white meat chicken or turkey , or vegan proteins like beans/ lentils/ legumes/ tofu / chick peas - see Dietary for a Low Carb Mediterranean nutritional program - see Ex Physiology to get into a structured exercise classes, pt agreeable - add a Probiotic: helps with healthy gut microbiome, helps with healthy weight and optimal cardiac health . -take diflucan 150 mg every 72 hours for two doses. -- Exercise -- discussed basic exercise recommendations, the role of exercise on weight loss and maintenance. Discussed the combination of aerobic and resistance exercise. -- most patients benefit from a personalized exercise program. -- Sleep: -- discussed the importance of sleep hygiene -- Stress: -- discussed the effect of stress and its relationship with weight gain. Stress management is very important -- Follow up: -- See Dr. Mccann in July as scheduled, and schedule appt with her for November 2024. I have reviewed the ROS/Questionnaire with patient and recommend the following: Follow-up with PCP for chronic health issues and preventive health screenings. All questions answered today. Caitlin Ramesh APRN.KWAME Endocrinology [facility] Met[facility] documented in this encounter [facility] 05-10-2024 Note HNO ID: [id number] Author: CAITLIN RAMESH APRN.CNP Service: ? 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 Weight History - High school graduation weight: 200 pounds - started to struggle with his weight during puberty, also gained weight during her 4 pregnancies , she did have gestational diabetes with her 1 - f/h of Obesity :Mother and brother struggles - Height: 5'6 Goals for weight loss : I would like to be <200 pounds Weight Loss Medications: -- taking Metformin XR 1 gm po BID - tried Ozempic - gave him- diarrhea - Tolerating Trulicity 0.75 mg/weekly - FSBS : fasting :98-198 mg/dl Diet: -- 24 hr food recall: water 40-80 ounces B: 10:30 am : frozen waffles/whatever is convenient S at 3 pm: baby bel cheese- 2 , grapes L: snacks on nuts D: 5 pm: chicken, pasta , vegetable S: raisins or Craisins/cheese stick Not big into sweets Appetite Control: -- decreased, I have to force myself to eat - binge eating: no - late night eating: no - emotional eating : yes- with boredom, likes sweets - portion control: not large Exercise: -- 2-3/ week, walking 30 mins to 1 hour each session -- swimming a lot with kids this summer - no physical limitations Sleep: -- Sleep initiation: better (couldn't stay awake with BG elevated before. 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 Blood-Glucose Meter (TRUE METRIX GLUCOSE METER) 1 Each two times a day. glipiZIDE (GLUCOTROL) 5 mg tablet Take 1 tablet by mouth two times a day before meals. blood sugar diagnostic (TRUE METRIX GLUCOSE TEST STRIP) test strip Use as instructed daily Syringe with Needle, Disp, (BD LUER-LEODAN SYRINGE) 3 mL 21 gauge x 1 syrg 1 Each one time a week. albuterol HFA (PROVENTIL HFA, VENTOLIN HFA) 90 mcg/actuation inhaler INHALE 2 PUFFS EVERY 6 HOURS NEEDED FOR WHEEZING ipratropium-albuterol (DUONEB) 0.5 mg-3 mg(2.5 mg base)/3 mL nebu INHALE 3 ML BY NEBULIZATION EVERY 6 HOURS NEEDED FOR WHEEZING. Syringe with Needle, Safety (BD ECLIPSE LUER-LEODAN) 3 mL 22 gauge x 1 1/2 1 Each one time a week. sertraline (ZOLOFT) 50 mg tablet TAKE 1 TABLET BY MOUTH EVERY DAY IN THE MORNING ABILIFY MAINTENA 400 mg sers injection inject 1 400MG/1 ML PREFILLED SYRINGE intramuscularly every 30 DAYS lamoTRIgine (LAMICTAL) 100 mg tablet TAKE 1 TABLET BY MOUTH EVERY DAY IN THE MORNING busPIRone HCl 30 mg tablet TAKE 1 TABLET BY MOUTH TWICE A DAY DIRECTED montelukast (SINGULAIR) 10 mg tablet Take 10 mg by mouth. budesonide-formoterol (SYMBICORT) 160-4.5 mcg/actuation inhaler Inhale 2 Puffs as instructed. fluticasone (FLONASE) 50 mcg/actuation nasal spray Use 2 Sprays in each nostril once daily. testosterone enanthate (XYOSTED) 75 mg/0.5 mL auto-injector Inject 0.5 mL subcutaneously one time a week for 90 days. No current facility-administered medications on file prior to visit. SIGNIFICANT PAST MEDICAL HISTORY, SOCIAL HISTORY AND FAMILY HISTORY: PAST MEDICAL HISTORY Diagnosis Date Anxiety disorder Asthma Bipolar 1 disorder (HCC) Diabetes mellitus (HCC) Eustachian tube dysfunction GERD (gastroesophageal reflux disease) Hyperglycemia Hyperlipidemia Leukocytosis History reviewed. No pertinent family history. Social History Tobacco Use Smoking status: Never Passive exposure: Never Smokeless tobacco: Never Tobacco comments: Vape with nicotine Substance Use Topics Alcohol use: Not Currently Drug use: Never PHYSICAL EXAM: Mayela Davis is a 33 year old year old adult who looks his stated age. REVIEW OF SYSTEMS GENERAL: Weight loss RESPIRATORY: Negative for cough, hemoptysis, wheezing, COPD, dyspnea or shortness of breath CARDIOVASCULAR: Negative for chest pain, leg swelling, hypertension, CHF or palpitations GI: No nausea, vomiting, (more content not included)... [facility] 03-18-2024 Telephone encounter Note Pharmacy comment: Request for 90 days prescription Requester: Pharmacy Patients last Endocrinology visit occurred 02/23/2024 by Shreya Mccann. Follow-up evaluation has been established Upcoming Endocrinology Appointments - Next 365 Days Visit Type Date Time Department EST GIUSEPPE PATIENT 05/10/2024 11:00 AM ENDO [facility] EST GIUSEPPE PATIENT 07/26/2024 10:40 AM [facility] . Requested Prescriptions Pending Prescriptions Disp Refills famotidine (PEPCID) 20 mg tablet [Pharmacy Med Name: FAMOTIDINE 20 MG TABLET] 180 tablet 1 Sig: TAKE 1 TABLET BY MOUTH TWICE A DAY If patient is due for an appointment please route to provider for refill consideration and also to the endo scheduling pool. PSS NOTE: Patient needs scheduled appointment No [facility] 03-18-2024 Miscellaneous Notes Pharmacy comment: Request for 90 days prescription Requester: Pharmacy Patients last Endocrinology visit occurred 02/23/2024 by Shreya Mccann. Follow-up evaluation has been established Upcoming Endocrinology Appointments - Next 365 Days Visit Type Date Time Department EST GIUSEPPE PATIENT 05/10/2024 11:00 AM ENDO [facility] EST GIUSEPPE PATIENT 07/26/2024 10:40 AM [facility] . Requested Prescriptions Pending Prescriptions Disp Refills famotidine (PEPCID) 20 mg tablet [Pharmacy Med Name: FAMOTIDINE 20 MG TABLET] 180 tablet 1 Sig: TAKE 1 TABLET BY MOUTH TWICE A DAY If patient is due for an appointment please route to provider for refill consideration and also to the endo scheduling pool. PSS NOTE: Patient needs scheduled appointment No documented in this encounter [facility] 03-18-2024 Telephone encounter Note Pharmacy comment: Request for 90 days prescription Requester: Pharmacy Patients last Endocrinology visit occurred 02/23/2024 by Shreya Mccann. Follow-up evaluation has been established Upcoming Endocrinology Appointments - Next 365 Days Visit Type Date Time Department EST GIUSEPPE PATIENT 05/10/2024 11:00 AM [facility] EST GIUSEPPE PATIENT 07/26/2024 10:40 AM ENDO [facility] . Requested Prescriptions Pending Prescriptions Disp Refills levothyroxine (SYNTHROID) 50 mcg tablet [Pharmacy Med Name: LEVOTHYROXINE 50 MCG TABLET] 90 tablet 1 Sig: TAKE 1 TABLET BY MOUTH EVERY DAY If patient is due for an appointment please route to provider for refill consideration and also to the endo scheduling pool. PSS NOTE: Patient needs scheduled appointment No [facility] 03-18-2024 Miscellaneous Notes Pharmacy comment: Request for 90 days prescription Requester: Pharmacy Patients last Endocrinology visit occurred 02/23/2024 by Shreya Mccann. Follow-up evaluation has been established Upcoming Endocrinology Appointments - Next 365 Days Visit Type Date Time Department EST GIUSEPPE PATIENT 05/10/2024 11:00 AM [facility]O [facility] EST GIUSEPPE PATIENT 07/26/2024 10:40 AM ENDO [facility] . Requested Prescriptions Pending Prescriptions Disp Refills levothyroxine (SYNTHROID) 50 mcg tablet [Pharmacy Med Name: LEVOTHYROXINE 50 MCG TABLET] 90 tablet 1 Sig: TAKE 1 TABLET BY MOUTH EVERY DAY If patient is due for an appointment please route to provider for refill consideration and also to the endo scheduling pool. PSS NOTE: Patient needs scheduled appointment No documented in this encounter [facility] 03-16-2024 Telephone encounter Note Spoke to insurance. MONET has been approved 11/22/2024. MONET#[id number] Patient is aware. [facility] 03-16-2024 Miscellaneous Notes Spoke to insurance. PA has been approved 11/22/2024. [id number] Patient is aware. Patient called in wanting a status on PA. Patient has been out of medication for 2 months and would like to know status. Please advise Thank you Guero is calling Ganesh Bui MD today to request PA needed for RX testosterone enanthate Patient has been identified by name and birthdate. Duration of symptoms: N/A Person calling: self Call patient at: at home [phone] (home) [phone] (cell) Was an appointment scheduled: Yes: Date/Time: 05-25-2023 Closing statement: Please call patient with update. Lakeisha Morse documented in this encounter [facility] 03-16-2024 Telephone encounter Note Patient called in wanting a status on PA. Patient has been out of medication for 2 months and would like to know status. Please advise Thank you [facility] 03-11-2024 Telephone encounter Note Guero is calling Ganesh Bui MD today to request PA needed for RX testosterone enanthate Patient has been identified by name and birthdate. Duration of symptoms: N/A Person calling: self Call patient at: at home [phone] (home) [phone] (cell) Was an appointment scheduled: Yes: Date/Time: 05-25-2023 Closing statement: Please call patient with update. Lakeisha Morse [facility] 03-03-2024 Telephone encounter Note Pt informed of BRM message and denies any questions, needs or concerns at this time Yolis Ryan RN [facility] 03-03-2024 Miscellaneous Notes Pt informed of BRM message and denies any questions, needs or concerns at this time Yolis Ryan RN ----- Message from Rolly Bee MD sent at 03/03/2024 3:49 PM EDT ----- Please inform the patient that his sed rate is normal, and CRP borderline at 0.9. I do not believe these labs are indicative of chronic inflammation. I would recommend he discontinue vaping, that might improve his WBC. Otherwise no further recommendation at this time. documented in this encounter [facility] 03-03-2024 Telephone encounter Note ----- Message from Rolly Bee MD sent at 03/03/2024 3:49 PM EDT ----- Please inform the patient that his sed rate is normal, and CRP borderline at 0.9. I do not believe these labs are indicative of chronic inflammation. I would recommend he discontinue vaping, that might improve his WBC. Otherwise no further recommendation at this time. [facility] 03-01-2024 Note HNO ID: [id number] Author: ROLLY BEE MD Service: ? Author Type: Physician Type: Progress Notes Filed: 03/03/2024 19:15 Note Text: PATIENT NAME: Mayela Davis DATE: 03/01/2024 PRIMARY CARE PHYSICIAN: Lc Wynn MD OTHER PHYSICIANS: Dr. Ganesh Bui HPI: This is a 33 year old adult referred for evaluation of leukocytosis. The patient has multiple medical problems including diabetes, asthma, GERD, and bipolar disorder. He also has gender incongruence, and since October 2022 has been transitioning. He is on multiple medications including weekly testosterone. Since at least October 2022 he has had intermittent mild elevation of his WBC, predominantly neutrophils. His CBC otherwise has remained normal. He currently is referred for further evaluation. On follow-up today he feels well. No recent fevers or signs of infection. No atypical skin rash, joint pain, or other systemic symptoms. He does not drink. He does use e-cigarettes (vaping) on a regular basis. MEDICATIONS: Current Outpatient Medications Medication Sig testosterone enanthate (XYOSTED) 75 mg/0.5 mL auto-injector Inject 0.5 mL subcutaneously one time a week for 90 days. levothyroxine (SYNTHROID) 50 mcg tablet Take 1 tablet by mouth once daily. dulaglutide (TRULICITY) 0.75 mg/0.5 mL pen injector Inject 0.75 mg subcutaneously one time a week. famotidine (PEPCID) 20 mg tablet Take 1 tablet by mouth two times a day. empagliflozin (JARDIANCE) 10 mg tablet Take 1 tablet by mouth daily with breakfast. metFORMIN ER (GLUCOPHAGE XR) 500 mg 24 hr tablet Take 2 tablets by mouth two times a day with meals. Blood-Glucose Meter (TRUE METRIX GLUCOSE METER) 1 Each two times a day. blood sugar diagnostic (TRUE METRIX GLUCOSE TEST STRIP) test strip Use as instructed daily Syringe with Needle, Disp, (BD LUER-LEODAN SYRINGE) 3 mL 21 gauge x 1 syrg 1 Each one time a week. albuterol HFA (PROVENTIL HFA, VENTOLIN HFA) 90 mcg/actuation inhaler INHALE 2 PUFFS EVERY 6 HOURS NEEDED FOR WHEEZING ipratropium-albuterol (DUONEB) 0.5 mg-3 mg(2.5 mg base)/3 mL nebu INHALE 3 ML BY NEBULIZATION EVERY 6 HOURS NEEDED FOR WHEEZING. Syringe with Needle, Safety (BD ECLIPSE LUER-LEODAN) 3 mL 22 gauge x 1 1/2 1 Each one time a week. sertraline (ZOLOFT) 50 mg tablet TAKE 1 TABLET BY MOUTH EVERY DAY IN THE MORNING ABILIFY MAINTENA 400 mg sers injection inject 1 400MG/1 ML PREFILLED SYRINGE intramuscularly every 30 DAYS lamoTRIgine (LAMICTAL) 100 mg tablet TAKE 1 TABLET BY MOUTH EVERY DAY IN THE MORNING busPIRone HCl 30 mg tablet TAKE 1 TABLET BY MOUTH TWICE A DAY DIRECTED montelukast (SINGULAIR) 10 mg tablet Take 10 mg by mouth. budesonide-formoterol (SYMBICORT) 160-4.5 mcg/actuation inhaler Inhale 2 Puffs as instructed. fluticasone (FLONASE) 50 mcg/actuation nasal spray Use 2 Sprays in each nostril once daily. No current facility-administered medications for this visit. ALLERGIES: ALLERGIES Allergen Reactions Paroxetine Anaphylaxis, Swelling tounge AND throat swelling tounge AND throat swelling Bupropion Anaphylaxis, Other: See Comments hallucinations PAST MEDICAL HISTORY: PAST MEDICAL HISTORY Diagnosis Date Anxiety disorder Asthma Bipolar 1 disorder (HCC) Diabetes mellitus (HCC) Eustachian tube dysfunction GERD (gastroesophageal reflux disease) Hyperglycemia Hyperlipidemia Leukocytosis PAST SURGICAL HISTORY: PAST SURGICAL HISTORY Procedure Laterality Date EAR TUBES HX PAST SURGICAL HISTORY OF Bilateral 2016 Filshie clips REPAIR OF NASAL SEPTUM TONSILLECTOMY AND ADENOIDECTOMY FAMILY HISTORY: No family history on file. SOCIAL HISTORY: Social History Tobacco Use Smoking status: Never Passive exposure: Never Smokeless tobacco: Never Tobacco comments: Vape with nicotine Substance Use Topics Alcohol use: Not Currently Drug use: Never COMPLETE REVIEW OF SYSTEMS: CONSTITUTION: Negative for pain, fatigue, weight loss, or appetite loss. EENT: Negative for mouth soreness, antibiotics use, epistaxis, visual problems, neck or facial swelling, fever/chills, bleeding gums, or hearing loss. CV: Negative for edema, calf swelling, palpitations, or chest pain. RESPIRATORY: Negative for cough, SOB, hemoptysis, or wheezing. GI: Negative for nausea/vomiting, heartburn, vomiting blood, dysphasia, diarrhea, blood in stool, constipation, early satiety, PICA, vegetarian, poor nutrition, abdominal fullness, or abdominal pain. NEUROLOGICAL: Negative for numbness/tingling, dizziness, gait disturbance, headache, speech disturbance, tremor, hemiparesis/sensory loss, or change in mental status. MUSCULOSKELETAL: Negative for joint pain, joint swelling, or proximal muscle weakness. SKIN: Negative for hair loss, bruising, nail changes, rash, itching, pallor, or jaundice. ENDO/URO: Negative for hot flashes, cold or heat intolerance, urinary frequency, urinary he (more content not included)... [facility] 03-01-2024 History of Present illness Narrative PATIENT NAME: Mayela Davis DATE: 03/01/2024 PRIMARY CARE PHYSICIAN: Lc Wynn MD OTHER PHYSICIANS: Dr. Ganesh Bui HPI: This is a 33 year old adult referred for evaluation of leukocytosis. The patient has multiple medical problems including diabetes, asthma, GERD, and bipolar disorder. He also has gender incongruence, and since October 2022 has been transitioning. He is on multiple medications including weekly testosterone. Since at least October 2022 he has had intermittent mild elevation of his WBC, predominantly neutrophils. His CBC otherwise has remained normal. He currently is referred for further evaluation. On follow-up today he feels well. No recent fevers or signs of infection. No atypical skin rash, joint pain, or other systemic symptoms. He does not drink. He does use e-cigarettes (vaping) on a regular basis. MEDICATIONS: Current Outpatient Medications Medication Sig testosterone enanthate (XYOSTED) 75 mg/0.5 mL auto-injector Inject 0.5 mL subcutaneously one time a week for 90 days. levothyroxine (SYNTHROID) 50 mcg tablet Take 1 tablet by mouth once daily. dulaglutide (TRULICITY) 0.75 mg/0.5 mL pen injector Inject 0.75 mg subcutaneously one time a week. famotidine (PEPCID) 20 mg tablet Take 1 tablet by mouth two times a day. empagliflozin (JARDIANCE) 10 mg tablet Take 1 tablet by mouth daily with breakfast. metFORMIN ER (GLUCOPHAGE XR) 500 mg 24 hr tablet Take 2 tablets by mouth two times a day with meals. Blood-Glucose Meter (TRUE METRIX GLUCOSE METER) 1 Each two times a day. blood sugar diagnostic (TRUE METRIX GLUCOSE TEST STRIP) test strip Use as instructed daily Syringe with Needle, Disp, (BD LUER-LEODAN SYRINGE) 3 mL 21 gauge x 1 syrg 1 Each one time a week. albuterol HFA (PROVENTIL HFA, VENTOLIN HFA) 90 mcg/actuation inhaler INHALE 2 PUFFS EVERY 6 HOURS NEEDED FOR WHEEZING ipratropium-albuterol (DUONEB) 0.5 mg-3 mg(2.5 mg base)/3 mL nebu INHALE 3 ML BY NEBULIZATION EVERY 6 HOURS NEEDED FOR WHEEZING. Syringe with Needle, Safety (BD ECLIPSE LUER-LEODAN) 3 mL 22 gauge x 1 1/2 1 Each one time a week. sertraline (ZOLOFT) 50 mg tablet TAKE 1 TABLET BY MOUTH EVERY DAY IN THE MORNING ABILIFY MAINTENA 400 mg sers injection inject 1 400MG/1 ML PREFILLED SYRINGE intramuscularly every 30 DAYS lamoTRIgine (LAMICTAL) 100 mg tablet TAKE 1 TABLET BY MOUTH EVERY DAY IN THE MORNING busPIRone HCl 30 mg tablet TAKE 1 TABLET BY MOUTH TWICE A DAY DIRECTED montelukast (SINGULAIR) 10 mg tablet Take 10 mg by mouth. budesonide-formoterol (SYMBICORT) 160-4.5 mcg/actuation inhaler Inhale 2 Puffs as instructed. fluticasone (FLONASE) 50 mcg/actuation nasal spray Use 2 Sprays in each nostril once daily. No current facility-administered medications for this visit. ALLERGIES: ALLERGIES Allergen Reactions Paroxetine Anaphylaxis, Swelling tounge & throat swelling tounge & throat swelling Bupropion Anaphylaxis, Other: See Comments hallucinations PAST MEDICAL HISTORY: PAST MEDICAL HISTORY Diagnosis Date Anxiety disorder Asthma Bipolar 1 disorder (HCC) Diabetes mellitus (HCC) Eustachian tube dysfunction GERD (gastroesophageal reflux disease) Hyperglycemia Hyperlipidemia Leukocytosis PAST SURGICAL HISTORY: PAST SURGICAL HISTORY Procedure Laterality Date EAR TUBES HX PAST SURGICAL HISTORY OF Bilateral 2016 Filshie clips REPAIR OF NASAL SEPTUM TONSILLECTOMY & ADENOIDECTOMY <AGE 12 FAMILY HISTORY: No family history on file. SOCIAL HISTORY: Social History Tobacco Use Smoking status: Never Passive exposure: Never Smokeless tobacco: Never Tobacco comments: Vape with nicotine Substance Use Topics Alcohol use: Not Currently Drug use: Never COMPLETE REVIEW OF SYSTEMS: CONSTITUTION: Negative for pain, fatigue, weight loss, or appetite loss. EENT: Negative for mouth soreness, antibiotics use, epistaxis, visual problems, neck or facial swelling, fever/chills, bleeding gums, or hearing loss. CV: Negative for edema, calf swelling, palpitations, or chest pain. RESPIRATORY: Negative for cough, SOB, hemoptysis, or wheezing. GI: Negative for nausea/vomiting, heartburn, vomiting blood, dysphasia, diarrhea, blood in stool, constipation, early satiety, PICA, vegetarian, poor nutrition, abdominal fullness, or abdominal pain. NEUROLOGICAL: Negative for numbness/tingling, dizziness, gait disturbance, headache, speech disturbance, tremor, hemiparesis/sensory loss, or change in mental status. MUSCULOSKELETAL: Negative for joint pain, joint swelling, or proximal muscle weakness. SKIN: Negative for hair loss, bruising, nail changes, rash, itching, pallor, or jaundice. ENDO/URO: Negative for hot flashes, cold or heat intolerance, urinary frequency, urinary hesitancy, menorrhagia, or hematuria. PSYCH: Negative for anxiety, depression, or other. PHYSICAL EXAM: BP 137/92 Pulse 92 Temp 36.1 C (97 F) (Temporal) Resp 18 Ht 167.6 cm (5' 5.98 ) Wt 118.4 kg (261 lb 0.4 oz) SpO2 98% BMI 42.15 kg/m GENERAL EXAM: Well developed/well nourished; in no acute distress. SKIN: Negative for lesions, rashes, or ulcers on the upper and lower extremities and face. Negative for palpations/nodules, purpura, and ecchymosis. EENT: Negative for conjunctiva, mucosal pallor, JVD, LAP, thyromegaly, and glossitis. Supple & PERRL. EXTREMITIES: Negative for cyanosis, clubbing, and crepitus. LUNGS: Negative to auscultation, respiratory effort, and percussion. CARDIOVASCULAR: Regular rate. Negative for murmurs/S3S4/abnormal sounds, edema, and carotid bruits. ABDOMEN: Negative for masses, hernia, and spleen/liver abnormalities. RECTAL: Not done PSYCHIATRIC: Negative for mood/affect changes, recent & remote memory changes, and judgement and insight. NEUROLOGICAL: Alert, oriented x person, place, time. Cranial nerves 2-12 intact. Sensory for pain, light touch, vibration intact on all 4 extremities. Reflexes symmetric for biceps/brachioradial/patella/achi lles. MUSCULOSKELETAL: Negative examination of joints, bones, muscles/tendons of all four extremities for inspection, percussion, and palpation. Negative for misallignment, asymmetry, crepitation, tenderness, mass, effusions. Range of motion normal. Negative for joint instability, laxity, dislocation. Gait steady. Negative for swelling, erythema, tenderness, soft tissue swelling, and atrophy. LABS: Hemoglobin (g/dL) Date Value 03/02/2024 16.4 Hematocrit (%) Date Value 03/02/2024 50.8 WBC (k/uL) Date Value 03/02/2024 11.16 Platelet Count (k/uL) Date Value 03/02/2024 227 Sed rate 5 (normal 0-15) CRP 0.9 (Normal <0.9) ASSESSMENT/PLAN: 1. Leukocytosis - ICD9: 288.60, ICD10: D72.829 Since at least October 2022 the patient has had intermittent mild leukocytosis, predominantly neutrophilia. CBC otherwise within normal limits. Given the patient's minimal CBC abnormalities it is unlikely that he has a significant bone marrow disorder. Normal sed rate and CRP not consistent with chronic inflammation. Differential diagnosis includes atypical infection, but the patient has no ongoing symptoms. Leukocytosis can be caused by several medications and underlying medical conditions including poorly controlled diabetes. In addition, the use of e-cigarettes (vaping) can cause an elevated WBC similar to that seen with cigarette smoking. At this time I informed the patient that I see no need for further hematologic evaluation. However, I did suggest that he stop vaping and work hard to better control his diabetes. His CBC should be monitored at least twice yearly. Further hematologic evaluation should be considered if his counts worsen significantly. I did not schedule a return visit here, but would be happy to see him in the future if I can be of assistance. 2. Diabetes mellitus Continue management per PCP. Today's random blood sugar markedly elevated. The patient informed me that he forgot to take his medications today . 3. Asthma Continue management per PCP. 4. History of GERD Continue management per PCP. 5. History of bipolar disorder with anxiety and depression Continue management per PCP. 6. Acquired hypothyroidism Diagnosed February 2024. Continue management per PCP. 7. Gender dysphoria History of gender incongruence. Transitioning since October 2022. The patient currently is receiving hormonal therapy, including weekly testosterone injections. Continue management per [facility] Rolly Bee MD CC: Dr. Lc Childers documented in this encounter [facility] 02-27-2024 Telephone encounter Note Requester: Patient Patients last Endocrinology visit occurred 02/23/2024. Follow-up evaluation has been established Upcoming Endocrinology Appointments - Next 365 Days Visit Type Date Time Department EST GIUSEPPE PATIENT 05/10/2024 11:00 AM [facility] EST GIUSEPPE PATIENT 07/26/2024 10:40 AM [facility] . Requested Prescriptions Pending Prescriptions Disp Refills metFORMIN ER (GLUCOPHAGE XR) 500 mg 24 hr tablet 120 tablet 11 Sig: Take 2 tablets by mouth two times a day with meals. If patient is due for an appointment please route to provider for refill consideration and also to the endo scheduling pool. PSS NOTE: Patient needs scheduled appointment No [facility] 02-27-2024 Miscellaneous Notes Requester: Patient Patients last Endocrinology visit occurred 02/23/2024. Follow-up evaluation has been established Upcoming Endocrinology Appointments - Next 365 Days Visit Type Date Time Department EST GIUSEPPE PATIENT 05/10/2024 11:00 AM [facility] EST GIUSEPPE PATIENT 07/26/2024 10:40 AM [facility] . Requested Prescriptions Pending Prescriptions Disp Refills metFORMIN ER (GLUCOPHAGE XR) 500 mg 24 hr tablet 120 tablet 11 Sig: Take 2 tablets by mouth two times a day with meals. If patient is due for an appointment please route to provider for refill consideration and also to the endo scheduling pool. PSS NOTE: Patient needs scheduled appointment No documented in this encounter [facility] 02-24-2024 Instructions Ganesh Bui MD - 02/24/2024 1:24 PM EDT [facility] Provider Specialty Location Contact Numbers Joslyn Santiago MD Adults [facility] p: [phone] f: [phone] Cleo Pierce PsyD Pediatrics [facility] p: [phone] Siddhartha Luevano MD Pediatrics [facility] p: [phone] f: [phone] Amirah Turpin Pediatrics Priya Mantilla MD Pediatrics [facility] p: [phone] SH[facility] Provider Specialty Location Contact Numbers Oliverio Roque, ESTUARDO Male [facility]ults [facility] [address] [place] [address] p: [phone] Suzy Reilly MD [facility] [address] [facility] [place] [address] p: [phone] f: [phone] [facility] Adults Pediatrics [address] [place] [address] P: [phone] Janeth Ardon CAR WORKER, OPHTHALMIC ASST Female Adults Pediatrics [place] [facility] [place] [address] [facility] [address] [place] [address] p: [phone] [email or web address] Christina Kinney PsyD Adults [address] [place] [address] p: [phone] [email or web address] Aurora Gallegos MA, LPCC, ATR Adults Pediatrics [address] [facility] [address] [place] [address] p: [phone] f: [phone] [facility] [address] [place], [place] 1530 [facility] [address] [place], [place] p: [phone] [facility] Adults Peds 6+ [address] [place] [address] p: [phone] [facility]ults Pediatrics [address] [place] [address] p: [phone] Marixa Barrow Psychologist, PhD Adults Adolescents [facility] [address] [facility] [address] [place], [place] [address] p: [phone] [employer] Adults Pediatrics [address] [place] [address] p: [phone] Erick Wood, LEONAA, OUTBOARD MOTORS EXPERIMENTAL MECHANIC Adults Pediatrics [facility] [address] [place] [address] p: [phone] Igor Samaniego, PhD Adults Pediatrics [address] [place], [place] [address] p: [phone] [email or web address] Liana Joseph, [facility] Adults Adolescence Pediatrics [address] [place], [place] [address] [place], [place] [address] p. [phone] f. [phone] Brooke Clifford, PhD, CAR WORKER, MEd, OPHTHALMIC ASST-S, CANDY ROLLING MACHINE OPERATOR [facility] Adults Adolescence [address] [place], [place] [address] p: [phone] [facility]ults Pediatric[facility] [address] [place] [address] [place] [address] p: [phone] f: [phone] [facility] Adults Pediatrics [address] [place] [address] p: [phone] [facility] Adults [email or web address] p: [phone] [facility] Adults Pediatrics [address] [place] [address] p: [phone] Elvira Rollins MA, [facility] Adults Pediatrics [address] [place] [address] p: [phone] Jenn Clinton OPHTHALMIC ASST-S Adults [facility] [employer] [address] [place] [address] p: [phone] f: [phone] Iam Colon PC, M.Ed., M.S. Adolescents Adults [facility], [facility] [address] [facility] [place], [place] [address] p: [phone] Carley CollazoW, OPHTHALMIC ASST-S, L[facility]DC Adults [address] [place] [address] p: [phone] Albert Easley [facility] [address] [place] [address] p: [phone] [facility] Adults Pediatric [facility] [place], [facility] p: [phone] [facility] Adults Peds 3+ [address] [place] [facility] [address] [place] [address] [place], [place] [address] p: [phone] Lorelei Thakur MSSA, OPHTHALMIC ASST-S Adults Pediatric [facility] [address] [place] [address] p: [phone] f: [phone] Maile Oden Adolescents Pediatric [facility] [address] [place] [address] [place] [address] p: [phone] Yesenia Marquez PsyD Adolescents (11+) Adults [facility] [address] [facility] [address] [place] [address] p: [phone] Kavon Carrera Adults Pediatric [facility] [address] [place] [address] p: [phone] Christie Hubbard, PCC. ATR Adults Pediatric [facility] [address] [place] [address] p: [phone] f: [phone] Jodi AlarconW-S Adults [facility] [address] [place] [address] p: [phone] Bertha Lang DO, FAPA Adults Pediatric [address] [place] [address] p: [phone] f: [phone] Irving Jammie Mercado CAR WORKER, OUTBOARD MOTORS EXPERIMENTAL MECHANIC Adults [facility] [address] [place] [address] p: [phone] f: [phone] Christie Holden PhD Adolescents Adults [facility] [address] [place], [place] [address] p: [phone] [facility] [place] [facility] Adults Pediatrics [address] [place] [address] p: [phone] f: [phone] Reena Patel RN, OPHTHALMIC ASST-S Adolescent (14+) Adults Online via [employer] in [place] [email or web address] [facility] Adults Pediatrics [address] [facility], [address] [place] [address] p: [phone] f: [phone] [facility] Adults Pediatrics [address] [facility] [place] [address] p: [phone] f: [phone] Casi Rivers, MSSA, OPHTHALMIC ASST, CDCA Adults Pediatrics [facility] [address] [facility] [address] [place] [address] p: [phone] f: [phone] Jessie Fitch Adolescents Adults [facility] [address] [place] [address] p: [phone] Montserrat Dodd [facility] Adults [facility] [address] [place] [address] p: [phone] Krysta Sorenson OPHTHALMIC ASST-S Adults Pediatrics [facility], [facility] [address] [facility] [address] p: [phone] Citlaly Palomo MA, [facility] Adults Pediatrics [facility] [address] [facility] [address] [place] [address] p: [phone] f: [phone] Martha Bobby LISW-S Adolescents Pediatrics [facility] [address] [facility] [address] [place] [address] p: [phone] f: [phone] Mandi Carrasquillo Adolescents (14+) Adults [facility] Counseling [address] [place] [address] p: [phone] Yolanda Merida, OPHTHALMIC ASST [facility] [address] [place] [address] p: [phone] [facility] Product[employer], [facility] [address] [place] [address] p: [phone] f: [phone] Yessica Tobias PsyD, GUDELIA Pediatrics (6+) Adults [facility] [address] [place] [address] p: [phone] Aleja Arndt(clinical counselor) Adolescents Adults [facility] [address] [facility] [address] [place] [address] p: [phone] [facility] Marsha Paul Psy.D., [facility] Adults Pediatrics [address] [place] [address] p: [phone] MarcellIlana ware Adolescents (11+) Adults [address] [place] [address] p: [phone] f: [phone] Laurence Siddiqui MS, OUTBOARD MOTORS EXPERIMENTAL MECHANIC, PCC-S Adolescents (14+) Adults [facility] [address] [facility] 108 [place] [address] p: [phone] Kriss Slaughter, CAR WORKER, OUTBOARD MOTORS EXPERIMENTAL MECHANIC Adolescents (14+) Adults [address] [place] [address] p: [phone] [facility] Melissa Martinez [address] [place] [address] p: [phone] Marixa Lerma MA, [facility] Adolescents Adults [facility] [address] [facility] [address] [place], [place] [address] p: [phone] f: [phone] Out of State Rico BeattyPh.D. [facility] [address] [facility] [address] [place] [address] p: [phone] Nancy Mcgrath PhD Adults Pediatrics [address] [facility] 2 [place] [address] p: [phone] Cyndee Cleaning, CATERING MANAGER, CANDY ROLLING MACHINE OPERATOR Adults [facility] [address] [facility], [address] [place] [address] p: [phone] [facility] [address] [place] [address] p: [phone] Mark Weiner MS, LM Adults Pediatrics (6+) [facility] [address] [place] [address] p: [phone] f: [phone] Ellis Mora MA, PORTFOLIO ADMINISTRATOR [address] [place] [address] p: [phone] Brooke Ortega MA, PORTFOLIO ADMINISTRATOR Adolescents (14+) Adults [address] [place] [address] p: [phone] Updated 03/05/2022 documented in this encounter [facility] 02-24-2024 History of Present illness Narrative ESTABLISHED PATIENT Mayela Davis is a 33 year old adult presenting for New Patient (Patient is transferring care from [place] ). HISTORY OF PRESENT ILLNESS Pt goes by Guero, diego/terrence Last OV: 11/17/2023 with MONET Eldridge Previous care with LORRIE Durham PCP: Lc Wynn MD MHP: LORRIE Meier (general psychiatry) No therapist/counselor currently PMH of gender incongruence, T2DM, HPL, asthma, allergic rhinitis, MDD, anxiety, hypothyroidism. #Gender dysphoria GAHT initiation: 11/2022 Current regimen: testosterone enanthate 75 mg weekly SQ injections (injection day is Friday) - auto-injector SE: None Body changes: More facial hair, voice is a little bit deeper. No more front bleeding since 2023. Pt is interested in top surgery. HISTORIES No family history on file. PAST MEDICAL HISTORY Diagnosis Date Diabetes mellitus (HCC) PAST SURGICAL HISTORY Procedure Laterality Date EAR TUBES HX PAST SURGICAL HISTORY OF Bilateral 2016 Filshie clips REPAIR OF NASAL SEPTUM TONSILLECTOMY & ADENOIDECTOMY <AGE 12 Social History Tobacco Use Smoking status: Never Passive exposure: Never Smokeless tobacco: Never Tobacco comments: Vape with nicotine Vaping Use Vaping Use: current everyday user Substance Use Topics Alcohol use: Never Drug use: Never Allergies: ALLERGIES Allergen Reactions Paroxetine Anaphylaxis, Swelling tounge & throat swelling tounge & throat swelling Bupropion Anaphylaxis, Other: See Comments hallucinations Medications: levothyroxine (SYNTHROID) 50 mcg tablet Take 1 tablet by mouth once daily. dulaglutide (TRULICITY) 0.75 mg/0.5 mL pen injector Inject 0.75 mg subcutaneously one time a week. famotidine (PEPCID) 20 mg tablet Take 1 tablet by mouth two times a day. empagliflozin (JARDIANCE) 10 mg tablet Take 1 tablet by mouth daily with breakfast. testosterone enanthate (XYOSTED) 75 mg/0.5 mL auto-injector Inject 0.5 mL subcutaneously one time a week for 90 days. metFORMIN ER (GLUCOPHAGE XR) 500 mg 24 hr tablet Take 2 tablets by mouth two times a day with meals. Blood-Glucose Meter (TRUE METRIX GLUCOSE METER) 1 Each two times a day. blood sugar diagnostic (TRUE METRIX GLUCOSE TEST STRIP) test strip Use as instructed daily Syringe with Needle, Disp, (BD LUER-LEODAN SYRINGE) 3 mL 21 gauge x 1 syrg 1 Each one time a week. albuterol HFA (PROVENTIL HFA, VENTOLIN HFA) 90 mcg/actuation inhaler INHALE 2 PUFFS EVERY 6 HOURS NEEDED FOR WHEEZING ipratropium-albuterol (DUONEB) 0.5 mg-3 mg(2.5 mg base)/3 mL nebu INHALE 3 ML BY NEBULIZATION EVERY 6 HOURS NEEDED FOR WHEEZING. Syringe with Needle, Safety (BD ECLIPSE LUER-LEODAN) 3 mL 22 gauge x 1 1/2 1 Each one time a week. sertraline (ZOLOFT) 50 mg tablet TAKE 1 TABLET BY MOUTH EVERY DAY IN THE MORNING ABILIFY MAINTENA 400 mg sers injection inject 1 400MG/1 ML PREFILLED SYRINGE intramuscularly every 30 DAYS lamoTRIgine (LAMICTAL) 100 mg tablet TAKE 1 TABLET BY MOUTH EVERY DAY IN THE MORNING busPIRone HCl 30 mg tablet TAKE 1 TABLET BY MOUTH TWICE A DAY DIRECTED montelukast (SINGULAIR) 10 mg tablet Take 10 mg by mouth. budesonide-formoterol (SYMBICORT) 160-4.5 mcg/actuation inhaler Inhale 2 Puffs as instructed. fluticasone (FLONASE) 50 mcg/actuation nasal spray Use 2 Sprays in each nostril once daily. REVIEW OF SYSTEMS All systems were reviewed and were negative except what was noted in the HPI PHYSICAL EXAM BP 122/87 Pulse 120 Resp 16 Wt 119.3 kg (263 lb) BMI 42.45 kg/m General: Alert in NAD Head: NCAT. Hair with androgenic pattern of alopecia. Eyes: EOMI, no conjunctivitis. Oropharynx: MMM, OP clear Neck: Supple w/o goiter or LAD. Heart: RRR S1 S2 No murmurs. Lungs: Normal chest rise, air exchange. CTAB. No adventitious sounds. Extremities: Warm and well perfused. No peripheral edema. EDUCATION PROFESSIONAL: Non-focal. Normal gait, station. Skin: No visible rashes. Latest Ref Rng 01/20/2024 WBC 3.70 - 11.00 k/uL 11.75 (H) RBC 4.20 - 6.00 m/uL 5.95 Hemoglobin 13.0 - 17.0 g/dL 16.4 Hematocrit 39.0 - 51.0 % 49.9 MCV 80.0 - 100.0 fL 83.9 MCH 26.0 - 34.0 pg 27.6 MCHC 30.5 - 36.0 g/dL 32.9 RDW-CV 11.5 - 15.0 % 14.6 Platelet Count 150 - 400 k/uL 254 MPV 9.0 - 12.7 fL 11.6 Neut% % 69.0 Abs Neut (ANC) 1.45 - 7.50 k/uL 8.11 (H) Lymph% % 22.4 Abs Lymph 1.00 - 4.00 k/uL 2.63 Hernando% % 6.4 Abs Hernando <0.87 k/uL 0.75 Eosin% % 1.3 Abs Eosin <0.46 k/uL 0.15 Baso% % 0.5 Abs Baso <0.11 k/uL 0.06 Immature Gran % % 0.4 IMMATURE GRANS (ABS) <0.10 k/uL 0.05 NRBC /100 WBC 0.0 Absolute nRBC <0.01 k/uL <0.01 DTYPE Auto HIV 12 Combo (Ag/Ab) Nonreactive Nonreactive HIV 1/2 Ab -- HIV Interpretation -- Creatinine, Ur Random (UCRR) 20.0 - 300.0 mg/dL 25.8 Albumin, Urine Random mg/L 48.8 Albumin/Creat Ratio <30 mg/g 189 (H) Hemoglobin A1C 4.3 - 5.6 % 11.3 (H) Estimated Average Glucose mg/dL 278 Hep C Antibody IA Negative Negative Estradiol 17B pg/mL 53 Testosterone ng/dL 520 Legend: (H) High IMP/PLAN: Encounter Diagnosis ICD-10-CM 1. Gender dysphoria in adult F64.0 testosterone enanthate (XYOSTED) 75 mg/0.5 mL auto-injector ESTRADIOL-17B BLD TESTOSTERONE, TOTAL COMPLETE BLOOD COUNT AND DIFFERENTIAL 2. Type 2 diabetes mellitus without complication, without long-term current use of insulin (HCC) E11.9 3. 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 We reviewed [employer] for Transgender Health (WPATH) surgical criteria for gender affirmation care including: Being on Gender Affirmation Hormonal Treatment (GAHT) for 6 months (as clinically appropriate) AND -1 Letter of Recommendation (JIM) from a mental health professional (MHP) familiar with the care of gender dysphoria for top surgery (PhD or Psy D level preferred) -2 JIM from MHPs for bottom surgery. I encouraged pt to check with their insurance company on any specific WPATH requirements other than these. We discussed potential surgical referrals at the [facility]. #T2DM Sees Dr. Mccann and LORRIE Ramesh for T2DM management. Continue current medication. #androgenic alopecia At least one article in the literature has described treatment options for androgenic alopecia in transgender people. Options include low dose finasteride, topical monoxidil and spironolactone for those on feminizing treatment regimens. Pt provided health information on Tx options to review. Reference: Sidney JL, Anu SALAS Jr, Jeff J, Anuja ED, Axel McdonaldK. Androgenetic alopecia in transgender and gender diverse populations: A review of therapeutics. J Am Acad Dermatol. 2020 28:K1615-6533-9269(02)55574-3. doi: 10.1016/j.jaad.202.08.067. Epub ahead of print. PMID: 76304147. I spent a total of 40 minutes on the date of the service which included preparing to see the patient, haov-tr-hopc patient care, completing clinical documentation, obtaining and/or reviewing separately obtained history, performing a medically appropriate examination, counseling and educating the patient/family/caregiver, ordering medications, tests, or procedures, and care coordination (not separately reported). Ganesh Bui MD, MPH Director - [facility] Follow Up Manager - Transgender Surgery and Medicine Program [facility] Internal Medicine and Geriatrics He/Him/They/Them documented in this encounter [facility] 02-24-2024 Note HNO ID: [id number] Author: GANESH BUI MD Service: ? Author Type: Physician Type: Progress Notes Filed: 02/24/2024 13:32 Note Text: ESTABLISHED PATIENT Mayela Davis is a 33 year old adult presenting for New Patient (Patient is transferring care from [place] ). HISTORY OF PRESENT ILLNESS Pt goes by Guero he/him Last OV: 11/17/2023 with MONET Eldridge Previous care with LORRIE Durham PCP: Lc Wynn MD MHP: LORRIE Meier (general psychiatry) No therapist/counselor currently PMH of gender incongruence, T2DM, HPL, asthma, allergic rhinitis, MDD, anxiety, hypothyroidism. #Gender dysphoria GAHT initiation: 11/2022 Current regimen: testosterone enanthate 75 mg weekly SQ injections (injection day is Friday) - auto-injector SE: None Body changes: More facial hair, voice is a little bit deeper. No more front bleeding since 2023. Pt is interested in top surgery. HISTORIES No family history on file. PAST MEDICAL HISTORY Diagnosis Date Diabetes mellitus (HCC) PAST SURGICAL HISTORY Procedure Laterality Date EAR TUBES HX PAST SURGICAL HISTORY OF Bilateral 2016 Filshie clips REPAIR OF NASAL SEPTUM TONSILLECTOMY AND ADENOIDECTOMY Social History Tobacco Use Smoking status: Never Passive exposure: Never Smokeless tobacco: Never Tobacco comments: Vape with nicotine Vaping Use Vaping Use: current everyday user Substance Use Topics Alcohol use: Never Drug use: Never Allergies: ALLERGIES Allergen Reactions Paroxetine Anaphylaxis, Swelling tounge AND throat swelling tounge AND throat swelling Bupropion Anaphylaxis, Other: See Comments hallucinations Medications: levothyroxine (SYNTHROID) 50 mcg tablet Take 1 tablet by mouth once daily. dulaglutide (TRULICITY) 0.75 mg/0.5 mL pen injector Inject 0.75 mg subcutaneously one time a week. famotidine (PEPCID) 20 mg tablet Take 1 tablet by mouth two times a day. empagliflozin (JARDIANCE) 10 mg tablet Take 1 tablet by mouth daily with breakfast. testosterone enanthate (XYOSTED) 75 mg/0.5 mL auto-injector Inject 0.5 mL subcutaneously one time a week for 90 days. metFORMIN ER (GLUCOPHAGE XR) 500 mg 24 hr tablet Take 2 tablets by mouth two times a day with meals. Blood-Glucose Meter (TRUE METRIX GLUCOSE METER) 1 Each two times a day. blood sugar diagnostic (TRUE METRIX GLUCOSE TEST STRIP) test strip Use as instructed daily Syringe with Needle, Disp, (BD LUER-LEODAN SYRINGE) 3 mL 21 gauge x 1 syrg 1 Each one time a week. albuterol HFA (PROVENTIL HFA, VENTOLIN HFA) 90 mcg/actuation inhaler INHALE 2 PUFFS EVERY 6 HOURS NEEDED FOR WHEEZING ipratropium-albuterol (DUONEB) 0.5 mg-3 mg(2.5 mg base)/3 mL nebu INHALE 3 ML BY NEBULIZATION EVERY 6 HOURS NEEDED FOR WHEEZING. Syringe with Needle, Safety (BD ECLIPSE LUER-LEODAN) 3 mL 22 gauge x 1 1/2 1 Each one time a week. sertraline (ZOLOFT) 50 mg tablet TAKE 1 TABLET BY MOUTH EVERY DAY IN THE MORNING ABILIFY MAINTENA 400 mg sers injection inject 1 400MG/1 ML PREFILLED SYRINGE intramuscularly every 30 DAYS lamoTRIgine (LAMICTAL) 100 mg tablet TAKE 1 TABLET BY MOUTH EVERY DAY IN THE MORNING busPIRone HCl 30 mg tablet TAKE 1 TABLET BY MOUTH TWICE A DAY DIRECTED montelukast (SINGULAIR) 10 mg tablet Take 10 mg by mouth. budesonide-formoterol (SYMBICORT) 160-4.5 mcg/actuation inhaler Inhale 2 Puffs as instructed. fluticasone (FLONASE) 50 mcg/actuation nasal spray Use 2 Sprays in each nostril once daily. REVIEW OF SYSTEMS All systems were reviewed and were negative except what was noted in the HPI PHYSICAL EXAM BP 122/87 Pulse 120 Resp 16 Wt 119.3 kg (263 lb) BMI 42.45 kg/m? General: Alert in NAD Head: NCAT. Hair with androgenic pattern of alopecia. Eyes: EOMI, no conjunctivitis. Oropharynx: MMM, OP clear Neck: Supple w/o goiter or LAD. Heart: RRR S1 S2 No murmurs. Lungs: Normal chest rise, air exchange. CTAB. No adventitious sounds. Extremities: Warm and well perfused. No peripheral edema. EDUCATION PROFESSIONAL: Non-focal. Normal gait, station. Skin: No visible rashes. Latest Ref Rng 01/20/2024 WBC 3.70 - 11.00 k/uL 11.75 (H) RBC 4.20 - 6.00 m/uL 5.95 Hemoglobin 13.0 - 17.0 g/dL 16.4 Hematocrit 39.0 - 51.0 % 49.9 MCV 80.0 - 100.0 fL 83.9 MCH 26.0 - 34.0 pg 27.6 MCHC 30.5 - 36.0 g/dL 32.9 RDW-CV 11.5 - 15.0 % 14.6 Platelet Count 150 - 400 k/uL 254 MPV 9.0 - 12.7 fL 11.6 Neut% % 69.0 Abs Neut (ANC) 1.45 - 7.50 k/uL 8.11 (H) Lymph% % 22.4 Abs Lymph 1.00 - 4.00 k/uL 2.63 Hernando% % 6.4 Abs Hernando <0.87 k/uL 0.75 Eosin% % 1.3 Abs Eosin <0.46 k/uL 0.15 Baso% % 0.5 Abs Baso <0.11 k/uL 0.06 Immature Gran % % 0.4 IMMATURE GRANS (ABS) <0.10 k/uL 0.05 NRBC /100 WBC 0.0 Absolute nRBC <0.01 k/uL <0.01 DTYPE Auto HIV 12 Combo (Ag/Ab) Nonreactive Nonreactive HIV 1/2 Ab -- HIV Interpretation -- Creatinine, Ur Random (UCRR) 20.0 - 300.0 mg/dL 25.8 Albumin, Urine Random mg/L 48.8 Albumin/Creat Ratio (more content not included)... [facility] 02-23-2024 Instructions Shreya Mccann MD - 02/23/2024 1:36 PM EDT Target lean protein intake at 90-100 gm / day- divided into 30 gm with each meal/ snack - always paired with a fibre ( fruit or vegetable or whole grains) - the proteins should be lean- so egg white, white meat chicken or turkey , or vegan proteins like beans/ lentils/ legumes/ tofu / chick peas add a Probiotic: helps with healthy gut microbiome, helps with healthy weight and optimal cardiac health . documented in this encounter [facility] 02-23-2024 History of Present illness Narrative Images from the original note were not included. [facility] NEW PATIENT CONSULT REASON OF VISIT: weight management/obesity and management of its comorbidities REFERRING PHYSICIAN: MONET Kaplan Consultation requested for an opinion regarding Weight Management , and my final recommendations will be communicated back to the requesting physician by way of shared medical record or letter via US mail. fitness HISTORY OF PRESENT ILLNESS: Age: [age] year old with Class III Obesity , DM-2 since the last 3 years- currently Uncontrolled with microscopic albuminuria , Bipolar 2 depression- seeing Psych , Gender Dysphoria - female to male transition, started to transition in the last 1 year - on testosterone injections , New Onset Hypothyroid- per Labs from 02/2024, Asthma , Hyperlipidemia , Sleep Disturbance- PSG ord'd : Patient comes today for follow up of weight management. Weight History - High school graduation weight: 200 pounds - started to struggle with his weight during puberty, also gained weight during her 4 pregnancies , she did have gestational diabetes with her 1 - f/h of Obesity :Mother and brother struggles - Height: 5'6 Goals for weight loss : I would like to be <200 pounds Weight Loss Medications: -- taking Metformin XR 1 gm po BID - tried Ozempic - gave him- diarrhea - never tried Trulicity - FSBS : fasting : 280's , 552 at 5 pm a few days ago Diet: -- 24 hr food recall: water B: 10:30 am : 2 slices of [place] citizen toast , berries, OJ S at 3 pm: baby bel cheese- 2 , grapes L: no food D: 5 pm: cheese burger , sweet potato fries - 1 handful S:no food Appetite Control: -- decreased, I skip meals, I have to force myself to eat - binge eating: no - late night eating: no - emotional eating : yes- with boredom, likes sweets - portion control: not large Exercise: -- 1/ week, walking 30 mins to 1 hour each session - no physical limitations Sleep: -- Sleep initiation: easy - Sleep maintenance : interrupted by multiple episodes of nocturia , snoring + + - wakes up - tired - planned for a Sleep Study - [employer]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 Blood-Glucose Meter (TRUE METRIX GLUCOSE METER) 1 Each two times a day. glipiZIDE (GLUCOTROL) 5 mg tablet Take 1 tablet by mouth two times a day before meals. blood sugar diagnostic (TRUE METRIX GLUCOSE TEST STRIP) test strip Use as instructed daily Syringe with Needle, Disp, (BD LUER-LEODAN SYRINGE) 3 mL 21 gauge x 1 syrg 1 Each one time a week. albuterol HFA (PROVENTIL HFA, VENTOLIN HFA) 90 mcg/actuation inhaler INHALE 2 PUFFS EVERY 6 HOURS NEEDED FOR WHEEZING ipratropium-albuterol (DUONEB) 0.5 mg-3 mg(2.5 mg base)/3 mL nebu INHALE 3 ML BY NEBULIZATION EVERY 6 HOURS NEEDED FOR WHEEZING. Syringe with Needle, Safety (BD ECLIPSE LUER-LEODAN) 3 mL 22 gauge x 1 1/2 1 Each one time a week. sertraline (ZOLOFT) 50 mg tablet TAKE 1 TABLET BY MOUTH EVERY DAY IN THE MORNING ABILIFY MAINTENA 400 mg sers injection inject 1 400MG/1 ML PREFILLED SYRINGE intramuscularly every 30 DAYS lamoTRIgine (LAMICTAL) 100 mg tablet TAKE 1 TABLET BY MOUTH EVERY DAY IN THE MORNING busPIRone HCl 30 mg tablet TAKE 1 TABLET BY MOUTH TWICE A DAY DIRECTED montelukast (SINGULAIR) 10 mg tablet Take 10 mg by mouth. budesonide-formoterol (SYMBICORT) 160-4.5 mcg/actuation inhaler Inhale 2 Puffs as instructed. fluticasone (FLONASE) 50 mcg/actuation nasal spray Use 2 Sprays in each nostril once daily. testosterone enanthate (XYOSTED) 75 mg/0.5 mL auto-injector Inject 0.5 mL subcutaneously one time a week for 90 days. No current facility-administered medications on file prior to visit. SIGNIFICANT PAST MEDICAL HISTORY, SOCIAL HISTORY AND FAMILY HISTORY: PAST MEDICAL HISTORY Diagnosis Date Diabetes mellitus (HCC) No family history on file. Social History Tobacco Use Smoking status: Never Passive exposure: Never Smokeless tobacco: Never Tobacco comments: Vape with nicotine Vaping Use Vaping Use: current everyday user Substance Use Topics Alcohol use: Never Drug use: Never PHYSICAL EXAM: Mayela Davis is a 33 year old year old adult who looks his stated age. Vital Signs BP 113/78 Pulse 108 Ht 167.6 cm (5' 6 ) Wt 119.2 kg (262 lb 12.8 oz) BMI 42.42 kg/m General: no acute distress Eyes: extra ocular movements intact, no redness ENT/Neck: thyroid is palpable, normal size, no lymphadenopathy Heart: regular rate and rhythm, no murmurs, rubs or gallops Chest: clear to auscultation bilaterally, no wheezing, Abd: benign, no pain on palpation Skin: no obvious skin lesions, no rashes Psychiatric: normal affect, humor is preserved Neuro: grossly non focal, AOx3 PERTINENT LABORATORY AND IMAGING:All pertinent laboratory results were reviewed. Please see HPI for further details. IMPRESSION/PLAN: Encounter Diagnosis ICD-10-CM 1. Type 2 diabetes mellitus without complication, without long-term current use of insulin ([facility]) E11.9 2. BMI 40.0-44.9, adult ([facility]) Z68.41 3. Class 3 severe obesity with body mass index (BMI) of 40.0 to 44.9 in adult, unspecified obesity type, unspecified whether serious comorbidity present ([facility]) E66.01 Z68.41 4. Other hyperlipidemia E78.49 5. Anxiety and depression F41.9 F32.A 6. Gender dysphoria F64.9 7. Mild persistent asthma without complication J45.30 8. Hypothyroid 9. Sleep Disturbance Patient comes today for evaluation and weight management and its comorbidities. Patient has a BMI of 42.42 that is OBESITY CLASS III . Patient tried different weight loss modalities in the past including diet and exercise . Pertinent comorbidities include Class III Obesity , DM-2 since the last 3 years- currently Uncontrolled with microscopic albuminuria , Bipolar 2 depression- seeing Psych , Gender Dysphoria - female to male transition, started to transition in the last 1 year - on testosterone injections , New Onset Hypothyroid- per Labs from 02/2024, Asthma , Hyperlipidemia , Sleep Disturbance- PSG ord'd : . Patient quality of life is compromised due to current weight and patient is motivated for weight loss. The main risk factors for current weight include increased consumption of high calorie/process foods, irregular eating patterns, suboptimal physical activity. Our goal is to treat obesity to decrease long-term medical complications, comorbidities and improve lifestyle. I discussed with the patient the possibility of starting an interdisciplinary lifestyle intervention-weight loss program involving improvement of his diet, a personalized exercise program and also consider the possibility of using medications to control patient appetite in order to help patient to lose weight. Patient is in agreement. Plan -- Reviewed principles of energy metabolism, caloric intake and expenditure -- Goals: -- 5-10% weight loss over 6 months is reasonable -- At least 6-month commitment to losing weight -- Lifestyle changes -- Changing eating, sleeping and behavior habits -- Diet -- to see dietitian to discuss nutrition and behavior changes -- Patient will discuss in detail with our dietitian team the best approach and the best nutritional plan -- portion control -- behavior changes -- Appetite control: -- I have also reviewed with the patient the possibility of using weight loss medications in an effort to reduce his appetite. -- I have reviewed the different therapeutic options available including phentermine, phentermine/topiramate, buproprion/naltrexone, and the GLP1 , GLP 1/GIP agonists -- stop Glipizide - start trulicity 0.75 mg once weekly - start Jardiance 10 mg po every day - cont Metformin XR 1 gm po BID - consider adding an ULISSES/ ARB for renal protection given the albuminuria - pt aware, will discuss with his PCP - add Synthroid 50 mcg po q day, check TFT's in 6 weeks - planned for a PSG soon - avoid skipping meals, small frequent low glycemic index foods advised , encouraged to cut back and avoid processed and ultra processed foods, - Target lean protein intake at 90-100 gm / day- divided into 30 gm with each meal/ snack - always paired with a fibre ( fruit or vegetable or whole grains) - the proteins should be lean- so egg white, white meat chicken or turkey , or vegan proteins like beans/ lentils/ legumes/ tofu / chick peas - see Dietary for a Low Carb Mediterranean nutritional program - see Ex Physiology to get into a structured exercise classes, pt agreeable - add a Probiotic: helps with healthy gut microbiome, helps with healthy weight and optimal cardiac health . -- Exercise -- discussed basic exercise recommendations, the role of exercise on weight loss and maintenance. Discussed the combination of aerobic and resistance exercise. -- most patients benefit from a personalized exercise program. -- Sleep: -- discussed the importance of sleep hygiene -- Stress: -- discussed the effect of stress and its relationship with weight gain. 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 All questions answered today. Shreya Mccann MD Obesity Medicine Endocrinology and Metabolism [place] [facility] documented in this encounter [facility] 02-23-2024 Note HNO ID: [id number] Author: SHREYA MCCANN MD Service: ? Author Type: Physician Type: Progress Notes Filed: 02/23/2024 13:45 Note Text: [facility] NEW PATIENT CONSULT REASON OF VISIT: weight management/obesity and management of its comorbidities REFERRING PHYSICIAN: MONET Kaplan Consultation requested for an opinion regarding Weight Management , and my final recommendations will be communicated back to the requesting physician by way of shared medical record or letter via US mail. fitness HISTORY OF PRESENT ILLNESS: Age: [age] year old with Class III Obesity , DM-2 since the last 3 years- currently Uncontrolled with microscopic albuminuria , Bipolar 2 depression- seeing Psych , Gender Dysphoria - female to male transition, started to transition in the last 1 year - on testosterone injections , New Onset Hypothyroid- per Labs from 02/2024, Asthma , Hyperlipidemia , Sleep Disturbance- PSG ord'd : Patient comes today for follow up of weight management. Weight History - High school graduation weight: 200 pounds - started to struggle with his weight during puberty, also gained weight during her 4 pregnancies , she did have gestational diabetes with her 1 - f/h of Obesity :Mother and brother struggles - Height: 5'6 Goals for weight loss : I would like to be <200 pounds Weight Loss Medications: -- taking Metformin XR 1 gm po BID - tried Ozempic - gave him- diarrhea - never tried Trulicity - FSBS : fasting : 280's , 552 at 5 pm a few days ago Diet: -- 24 hr food recall: water B: 10:30 am : 2 slices of [place] citizen toast , berries, OJ S at 3 pm: baby bel cheese- 2 , grapes L: no food D: 5 pm: cheese burger , sweet potato fries - 1 handful S:no food Appetite Control: -- decreased, I skip meals, I have to force myself to eat - binge eating: no - late night eating: no - emotional eating : yes- with boredom, likes sweets - portion control: not large Exercise: -- 1/ week, walking 30 mins to 1 hour each session - no physical limitations Sleep: -- Sleep initiation: easy - Sleep maintenance : interrupted by multiple episodes of nocturia , snoring + + - wakes up - tired - planned for a Sleep Study - [employer]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 Blood-Glucose Meter (TRUE METRIX GLUCOSE METER) 1 Each two times a day. glipiZIDE (GLUCOTROL) 5 mg tablet Take 1 tablet by mouth two times a day before meals. blood sugar diagnostic (TRUE METRIX GLUCOSE TEST STRIP) test strip Use as instructed daily Syringe with Needle, Disp, (BD LUER-LEODAN SYRINGE) 3 mL 21 gauge x 1 syrg 1 Each one time a week. albuterol HFA (PROVENTIL HFA, VENTOLIN HFA) 90 mcg/actuation inhaler INHALE 2 PUFFS EVERY 6 HOURS NEEDED FOR WHEEZING ipratropium-albuterol (DUONEB) 0.5 mg-3 mg(2.5 mg base)/3 mL nebu INHALE 3 ML BY NEBULIZATION EVERY 6 HOURS NEEDED FOR WHEEZING. Syringe with Needle, Safety (BD ECLIPSE LUER-LEODAN) 3 mL 22 gauge x 1 1/2 1 Each one time a week. sertraline (ZOLOFT) 50 mg tablet TAKE 1 TABLET BY MOUTH EVERY DAY IN THE MORNING ABILIFY MAINTENA 400 mg sers injection inject 1 400MG/1 ML PREFILLED SYRINGE intramuscularly every 30 DAYS lamoTRIgine (LAMICTAL) 100 mg tablet TAKE 1 TABLET BY MOUTH EVERY DAY IN THE MORNING busPIRone HCl 30 mg tablet TAKE 1 TABLET BY MOUTH TWICE A DAY DIRECTED montelukast (SINGULAIR) 10 mg tablet Take 10 mg by mouth. budesonide-formoterol (SYMBICORT) 160-4.5 mcg/actuation inhaler Inhale 2 Puffs as instructed. fluticasone (FLONASE) 50 mcg/actuation nasal spray Use 2 Sprays in each nostril once daily. testosterone enanthate (XYOSTED) 75 mg/0.5 mL auto-injector Inject 0.5 mL subcutaneously one time a week for 90 days. No current facility-administered medications on file prior to visit. SIGNIFICANT PAST MEDICAL HISTORY, SOCIAL HISTORY AND FAMILY HISTORY: PAST MEDICAL HISTORY Diagnosis Date Diabetes mellitus (HCC) No family history on file. Social History Tobacco Use Smoking status: Never Passive exposure: Never Smokeless tobacco: Never Tobacco comments: Vape with nicotine Vaping Use Vaping Use: current everyday user Substance Use Topics Alcohol use: Never Drug use: Never PHYSICAL EXAM: Mayela Davis is a 33 year old year old adult who looks his stated age. Vital Signs BP 113/78 Pulse 108 Ht 167.6 cm (5' 6 ) Wt 119.2 kg (262 lb 12.8 oz) BMI 42.42 kg/m? General: no acute distress Eyes: extra ocular movements intact, n (more content not included)... [facility] 01-20-2024 Note HNO ID: [id number] Author: CHRISTINA CEBALLOS MD Service: ? 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 He has no new gynecologic concerns since that time. Menstrual History: - had light spotting about 1.5 months ago - No recent front bleeding since increased T dose in November 2023 - currently taking 75 mg T IM injection weekly Contraception: - permanent female surgical contraception via tubal ligation or salpingectomy Cervical Cancer Screening / Prevention: - HPV vaccine: No - Last cervical cancer screening cytology: 8 years ago, reports abnormal, was recommended for follow up but never did - Last high risk HPV co-testing: - History of abnormal screening: Yes Other Preventative Health Care: - Last breast cancer screening: NA - Last colon cancer screening: N/A - History of STIs: No - Concern for new exposure to STI: No - Interested in routine screening / testing: Yes Sex / Sexuality / Gender Identity: - Sexual Orientation: Bisexual - Gender Identity: Male - Pronouns used: He/him - Sexually active: No, last sexually active 12 months - Partner(s): Male and female - Pain with intercourse: No - Postcoital bleeding: No Intimate Partner Violence Screen (HITS): - How often does your partner physically hurt you? Never (+1) - How often does your partner insult you or talk down to you? Never (+1) - How often does your partner threaten you with harm? Never (+1) - How often does your partner scream or curse at you? 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: Communication Instructor History Comments: Sexual Activity: No sexual activity data on record; No partner data on record Contraception: No contraception data on record History of uterine fibroids: No History of ovarian cysts: No History of endometriosis: No History of infertility: No History of PCOS: No OB History T4 L4 SAB0 IAB0 Ectopic0 Multiple0 Live Births4 PAST MEDICAL HISTORY Diagnosis Date Diabetes mellitus (HCC) PAST SURGICAL HISTORY Procedure Laterality Date EAR TUBES HX PAST SURGICAL HISTORY OF Bilateral 2016 Filshie clips REPAIR OF NASAL SEPTUM TONSILLECTOMY AND ADENOIDECTOMY Social History Tobacco Use Smoking status: Never Passive exposure: Never Smokeless tobacco: Never Tobacco comments: Vape with nicotine Vaping Use Vaping Use: current everyday user Substance Use Topics Alcohol use: Never Drug use: Never No family history on file. ALLERGIES Allergen Reactions Paroxetine Anaphylaxis, Swelling tounge AND throat swelling tounge AND throat swelling Bupropion Anaphylaxis, Other: See Comments hallucinations Current Outpatient Medications Medication Sig testosterone enanthate (XYOSTED) 75 mg/0.5 mL auto-injector Inject 0.5 mL subcutaneously one time a week for 90 days. metFORMIN ER (GLUCOPHAGE XR) 500 mg 24 hr tablet Take 2 tablets by mouth two times a day with meals. Blood-Glucose Meter (TRUE METRIX GLUCOSE METER) 1 Each two times a day. glipiZIDE (GLUCOTROL) 5 mg tablet Take 1 tablet by mouth two times a day before meals. blood sugar diagnostic (TRUE METRIX GLUCOSE TEST STRIP) test strip Use as instructed daily Syringe with Needle, Disp, (BD LUER-LEODAN SYRINGE) 3 mL 21 gauge x 1 syrg 1 Each one time a week. albuterol HFA (PROVENTIL HFA, VENTOLIN HFA) 90 mcg/actuation inhaler INHALE 2 PUFFS EVERY 6 HOURS NEEDED FOR WHEEZING ipratropium-albuterol (DUONEB) 0.5 mg-3 mg(2.5 mg base)/3 mL nebu INHALE 3 ML BY NEBULIZATION EVERY 6 HOURS NEEDED FOR WHEEZING. Syringe with Needle, Safety (BD ECLIPSE LUER-LEODAN) 3 mL 22 gauge x 1 1/2 1 Each one time a week. sertraline (ZOLOFT) 50 mg tablet TAKE 1 TABLET BY MOUTH EVERY DAY IN THE MORNING traZODone (DESYREL) 100 mg tablet TAKE 1 TABLET BY MOUTH EVERY DAY AT BEDTIME NEEDED FOR SLEEP ABILIFY MAINTENA 400 mg sers injection inject 1 400MG/1 ML PREFILLED SYRINGE intramuscularly every 30 DAYS lamoTRIgine (LAMICTAL) 100 mg tablet TAKE 1 TABLET BY MOUTH EVERY DAY IN THE MORNING busPIRone HCl 30 mg tablet TAKE 1 TABLET BY MOUTH TWICE A DAY DIRECTED montelukast (SINGULAIR) 10 mg tablet Take 10 mg by mouth. budesonide-formoterol (SYMBICORT) 160-4.5 mcg/actuation inhaler Inhale 2 Puffs as instructed. fluticasone (FLONASE) 50 mcg/actuation nasal spray Use 2 Sprays in each nostril once daily. No current facility-administered medications for this visit. Review of Systems Constitutional: Negative for chills and fever. HENT: Negative for rhinorrhea, sneezing and sore throat. Respiratory: Negative for cough and shortn (more content not included)... 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 He has no new gynecologic concerns since that time. Menstrual History: - had light spotting about 1.5 months ago - No recent front bleeding since increased T dose in November 2023 - currently taking 75 mg T IM injection weekly Contraception: - permanent female surgical contraception via tubal ligation or salpingectomy Cervical Cancer Screening / Prevention: - HPV vaccine: No - Last cervical cancer screening cytology: 8 years ago, reports abnormal, was recommended for follow up but never did - Last high risk HPV co-testing: - History of abnormal screening: Yes Other Preventative Health Care: - Last breast cancer screening: NA - Last colon cancer screening: N/A - History of STIs: No - Concern for new exposure to STI: No - Interested in routine screening / testing: Yes Sex / Sexuality / Gender Identity: - Sexual Orientation: Bisexual - Gender Identity: Male - Pronouns used: He/him - Sexually active: No, last sexually active 12 months - Partner(s): Male and female - Pain with intercourse: No - Postcoital bleeding: No Intimate Partner Violence Screen (HITS): - How often does your partner physically hurt you? Never (+1) - How often does your partner insult you or talk down to you? Never (+1) - How often does your partner threaten you with harm? Never (+1) - How often does your partner scream or curse at you? 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: Communication Instructor History Comments: Sexual Activity: No sexual activity data on record; No partner data on record Contraception: No contraception data on record History of uterine fibroids: No History of ovarian cysts: No History of endometriosis: No History of infertility: No History of PCOS: No OB History T4 L4 SAB0 IAB0 Ectopic0 Multiple0 Live Births4 PAST MEDICAL HISTORY Diagnosis Date Diabetes mellitus (HCC) PAST SURGICAL HISTORY Procedure Laterality Date EAR TUBES HX PAST SURGICAL HISTORY OF Bilateral 2016 Filshie clips REPAIR OF NASAL SEPTUM TONSILLECTOMY & ADENOIDECTOMY <AGE 12 Social History Tobacco Use Smoking status: Never Passive exposure: Never Smokeless tobacco: Never Tobacco comments: Vape with nicotine Vaping Use Vaping Use: current everyday user Substance Use Topics Alcohol use: Never Drug use: Never No family history on file. ALLERGIES Allergen Reactions Paroxetine Anaphylaxis, Swelling tounge & throat swelling tounge & throat swelling Bupropion Anaphylaxis, Other: See Comments hallucinations Current Outpatient Medications Medication Sig testosterone enanthate (XYOSTED) 75 mg/0.5 mL auto-injector Inject 0.5 mL subcutaneously one time a week for 90 days. metFORMIN ER (GLUCOPHAGE XR) 500 mg 24 hr tablet Take 2 tablets by mouth two times a day with meals. Blood-Glucose Meter (TRUE METRIX GLUCOSE METER) 1 Each two times a day. glipiZIDE (GLUCOTROL) 5 mg tablet Take 1 tablet by mouth two times a day before meals. blood sugar diagnostic (TRUE METRIX GLUCOSE TEST STRIP) test strip Use as instructed daily Syringe with Needle, Disp, (BD LUER-LEODAN SYRINGE) 3 mL 21 gauge x 1 syrg 1 Each one time a week. albuterol HFA (PROVENTIL HFA, VENTOLIN HFA) 90 mcg/actuation inhaler INHALE 2 PUFFS EVERY 6 HOURS NEEDED FOR WHEEZING ipratropium-albuterol (DUONEB) 0.5 mg-3 mg(2.5 mg base)/3 mL nebu INHALE 3 ML BY NEBULIZATION EVERY 6 HOURS NEEDED FOR WHEEZING. Syringe with Needle, Safety (BD ECLIPSE LUER-LEODAN) 3 mL 22 gauge x 1 1/2 1 Each one time a week. sertraline (ZOLOFT) 50 mg tablet TAKE 1 TABLET BY MOUTH EVERY DAY IN THE MORNING traZODone (DESYREL) 100 mg tablet TAKE 1 TABLET BY MOUTH EVERY DAY AT BEDTIME NEEDED FOR SLEEP ABILIFY MAINTENA 400 mg sers injection inject 1 400MG/1 ML PREFILLED SYRINGE intramuscularly every 30 DAYS lamoTRIgine (LAMICTAL) 100 mg tablet TAKE 1 TABLET BY MOUTH EVERY DAY IN THE MORNING busPIRone HCl 30 mg tablet TAKE 1 TABLET BY MOUTH TWICE A DAY DIRECTED montelukast (SINGULAIR) 10 mg tablet Take 10 mg by mouth. budesonide-formoterol (SYMBICORT) 160-4.5 mcg/actuation inhaler Inhale 2 Puffs as instructed. fluticasone (FLONASE) 50 mcg/actuation nasal spray Use 2 Sprays in each nostril once daily. No current facility-administered medications for this visit. Review of Systems Constitutional: Negative for chills and fever. HENT: Negative for rhinorrhea, sneezing and sore throat. Respiratory: Negative for cough and shortness of breath. Cardiovascular: Negative for chest pain and palpitations. Gastrointestinal: Negative for abdominal pain, constipation, diarrhea, nausea and vomiting. Genitourinary: Negative for dyspareunia, dysuria, frequency, menstrual problem, urgency, vaginal bleeding and vaginal discharge. Musculoskeletal: Negative for back pain and neck pain. Skin: Negative for rash and wound. Neurological: Negative for dizziness, syncope, light-headedness and headaches. Psychiatric/Behavioral: Negative for suicidal ideas. The patient is not nervous/anxious. Objective Vitals: Blood pressure 122/88, pulse 90, resp. rate 18, weight 260 lb (117.9 kg), SpO2 98%. Physical Exam Constitutional: General: He is not in acute distress. Appearance: Normal appearance. He is not ill-appearing, toxic-appearing or diaphoretic. Genitourinary: No lesions in the vagina. Right Labia: No rash, tenderness, lesions or skin changes. Left Labia: No tenderness, lesions, skin changes or rash. No labial fusion noted. No vaginal discharge, erythema, tenderness, bleeding or ulceration. Right Adnexa: not tender, not full and no mass present. Left Adnexa: not tender, not full and no mass present. Cervical nabothian cyst present. No cervical motion tenderness, discharge, friability, lesion, polyp or eversion. Uterus is not enlarged, fixed, tender, irregular or prolapsed. No uterine mass detected. Breasts: Breasts are symmetrical. Right: No swelling, bleeding, inverted nipple, mass, nipple discharge, skin change, tenderness or breast implant. Left: No swelling, bleeding, inverted nipple, mass, nipple discharge, skin change, tenderness or breast implant. HENT: Head: Normocephalic and atraumatic. Eyes: General: No scleral icterus. Right eye: No discharge. Cardiovascular: Rate and Rhythm: Normal rate and regular rhythm. Heart sounds: Normal heart sounds. No murmur heard. No friction rub. No gallop. Pulmonary: Effort: Pulmonary effort is normal. No respiratory distress. Breath sounds: Normal breath sounds. No wheezing, rhonchi or rales. Abdominal: General: Abdomen is protuberant. Bowel sounds are normal. There is no distension. Palpations: Abdomen is soft. There is no mass. Tenderness: There is no abdominal tenderness. There is no guarding or rebound. Lymphadenopathy: Upper Body: Right upper body: No supraclavicular adenopathy. Left upper body: No supraclavicular adenopathy. Neurological: General: No focal deficit present. Mental Status: He is alert and oriented to person, place, and time. Skin: General: Skin is warm and dry. Coloration: Skin is not jaundiced. Psychiatric: Mood and Affect: Mood normal. Behavior: Behavior normal. Thought Content: Thought content normal. Vitals reviewed. Exam conducted with a black top raker present (Guillermina Rogel MS-4). Assessment & Plan Problem List Items Addressed This Visit Allergy/Immunology Need for HPV vaccination Overview 1st Dose: ordered 01/20/2024 2nd Dose: due ~ 03/2024 3rd Dose: due ~ 07/2024 Current Assessment & Plan Assessment: Guero never received the HPV vaccination. He is interested in moving forward with routine vaccination. Series ordered. Patient access team notified to assist with scheduling. Plan: - follow up for routine HPV vaccine series Relevant Orders HPV VACCINE, 9-VALENT (GARDASIL 9) HPV VACCINE, 9-VALENT (GARDASIL 9) HPV VACCINE, 9-VALENT (GARDASIL 9) Other Encounter for gynecological examination without abnormal finding - Primary Current Assessment & Plan Assessment: Guero is a 33 year old transgender man here to establish routine gynecologic care and for routine gynecologic wellness visit. 1) Health maintenance: - Cervical Cancer Screening: Past due! Screening completed today. - HPV vaccine: Series ordered. - Breast Cancer Screening: Starting at age 40. Chest wall / breast exam unremarkable today. - Colon Cancer Screening: Starting at age 45. - Nutrition, exercise, and routine health maintenance exams reviewed - Safe sex practices reviewed - Smoking cessation: Guero is a never smoker. - TSH/Lipids/Glucose: followed by PCP - Vitamin D: N/A - BMD: Starting at age 65. 2) Contraception: - Currently using permanent surgical contraception via tubal ligation with Filshie clips. - Guero is satisfied with his current contraceptive choice. 3) STI screening: - Guero elected for STI screening with vaginal swabs only (gonorrhea, chlamydia, and trichomonas) - Serum based STI screening previously ordered by PCP. Guero will present for a blood draw after today's visit. Plan: - follow up in 1 year for routine gynecologic wellness visit Routine screening for STI (sexually transmitted infection) Current Assessment & Plan Assessment: Gueor desires routine STI screening. Genital swabs collected for chlamydia, gonorrhea and trichomonas. Serum screening previously ordered by PCP. Plan: - will follow up results with Guero via GetThishart when available - treatment, if indicated, per CDC guidelines - referrals PRN Relevant Orders TRICHOMONAS VAGINALIS NAAT GONORRHEA/CHLAMYDIA NAAT Cervical cancer screening Current Assessment & Plan Assessment: Guero is past due for routine cervical cancer screening via cervical cytology and high risk HPV co-testing. Specimen collected today. Plan: - will follow up the results with Guero via MyChart when available - follow up plan pending final pathology and per ASCCP guidelines Relevant Orders PAP TEST Follow Up Return in about 1 year (around 01/19/2025) for routine gynecologic wellness visit. Christina Ceballos MD he/him/his Associate Staff Physician [facility] [place] 01/20/2024 1:01 PM documented in this encounter [facility] 12-05-2023 Miscellaneous Notes PA approved PA submitted through covermymeds Lim: [id number] Patient has been identified by name and date of : Yes Requested Prescriptions Pending Prescriptions Disp Refills testosterone enanthate (XYOSTED) 75 mg/0.5 mL auto-injector 4 Each 2 Sig: Inject 0.5 mL subcutaneously one time a week for 90 days. [facility] [place] [address] RX INSTRUCTIONS: Patient has questions about this refill. Please call to clarify before ordering. Patient can be reached at [phone]. Iam Kelly documented in this encounter [facility] 11-17-2023 Note HNO ID: [id number] Author: YANDEL ELDRIDGE PA-C Service: ? Author Type: Physician Field Cane Scale Clerk Type: Progress Notes Filed: 11/24/2023 10:17 Note Text: ESTABLISHED PATIENT Chief Complaint: Guero Davis is a 33 year old adult who presents today for a follow up visit. Subjective HPI PCP: No PCP currently - Last OV: 08/14/23 with Fabiana Durham APRN-KWAME PMH: gender dysphoria, T2DM, HLD, asthma, allergic rhinitis, MDD, anxiety #Gender dysphoria Current regiment: 0.25 mL (50 mg) testosterone enanthate weekly IM injections (injection day is Friday) - auto-injector Has been on testosterone since 11/2022 Has been doing auto-injection - much happier with auto-injector, can do injections himself No obvious side effects Spotting has continued - every day, no need for any menstrual products No new physical changes Denies any missed doses Gender affirming care goals Desires Top surgery Weight loss - would like to lose weight prior to having top surgery done for optimized results and better diabetic management Name change Desires facial hair - coming in but a bit patchy PAST MEDICAL HISTORY Diagnosis Date Diabetes mellitus (HCC) PAST SURGICAL HISTORY Procedure Laterality Date EAR TUBES HX REPAIR OF NASAL SEPTUM TONSILLECTOMY AND ADENOIDECTOMY No family history on file. Current Outpatient Medications Medication Sig Dispense Refill metFORMIN ER (GLUCOPHAGE XR) 500 mg 24 hr tablet Take 2 tablets by mouth two times a day with meals. 120 tablet 11 Blood-Glucose Meter (TRUE METRIX GLUCOSE METER) 1 Each two times a day. 1 Each 0 glipiZIDE (GLUCOTROL) 5 mg tablet Take 1 tablet by mouth two times a day before meals. 60 tablet 5 blood sugar diagnostic (TRUE METRIX GLUCOSE TEST STRIP) test strip Use as instructed daily 100 Each 3 Syringe with Needle, Disp, (BD LUER-LEODAN SYRINGE) 3 mL 21 gauge x 1 syrg 1 Each one time a week. 12 Each 0 Syringe with Needle, Safety (BD ECLIPSE LUER-LEODAN) 3 mL 22 gauge x 1 1/2 1 Each one time a week. 12 Each 0 sertraline (ZOLOFT) 50 mg tablet TAKE 1 TABLET BY MOUTH EVERY DAY IN THE MORNING traZODone (DESYREL) 100 mg tablet TAKE 1 TABLET BY MOUTH EVERY DAY AT BEDTIME NEEDED FOR SLEEP ABILIFY MAINTENA 400 mg sers injection inject 1 400MG/1 ML PREFILLED SYRINGE intramuscularly every 30 DAYS lamoTRIgine (LAMICTAL) 100 mg tablet TAKE 1 TABLET BY MOUTH EVERY DAY IN THE MORNING busPIRone HCl 30 mg tablet TAKE 1 TABLET BY MOUTH TWICE A DAY DIRECTED montelukast (SINGULAIR) 10 mg tablet Take 10 mg by mouth. budesonide-formoterol (SYMBICORT) 160-4.5 mcg/actuation inhaler Inhale 2 Puffs as instructed. testosterone enanthate (XYOSTED) 75 mg/0.5 mL auto-injector Inject 0.5 mL subcutaneously one time a week for 90 days. 4 Each 2 albuterol HFA (PROVENTIL HFA, VENTOLIN HFA) 90 mcg/actuation inhaler INHALE 2 PUFFS EVERY 6 HOURS NEEDED FOR WHEEZING ipratropium-albuterol (DUONEB) 0.5 mg-3 mg(2.5 mg base)/3 mL nebu INHALE 3 ML BY NEBULIZATION EVERY 6 HOURS NEEDED FOR WHEEZING. fluticasone (FLONASE) 50 mcg/actuation nasal spray Use 2 Sprays in each nostril once daily. 1 Each 11 No current facility-administered medications for this visit. ALLERGIES Allergen Reactions Paroxetine Anaphylaxis, Swelling tounge AND throat swelling tounge AND throat swelling Bupropion Anaphylaxis, Other: See Comments hallucinations Social History Tobacco Use Smoking status: Never Passive exposure: Never Smokeless tobacco: Never Tobacco comments: Vape with nicotine Vaping Use Vaping Use: current everyday user Substance Use Topics Alcohol use: Never Drug use: Never Review of Systems Constitutional: Negative for chills, fatigue and fever. HENT: Negative for congestion and sore throat. Eyes: Negative for pain and discharge. Respiratory: Negative for cough and shortness of breath. Cardiovascular: Negative for chest pain, palpitations and leg swelling. Gastrointestinal: Negative for abdominal pain, blood in stool, diarrhea, nausea and vomiting. Endocrine: Negative for cold intolerance and heat intolerance. Genitourinary: Negative for dysuria and hematuria. Musculoskeletal: Negative for arthralgias and myalgias. Skin: Negative for rash. Neurological: Negative for dizziness, light-headedness and numbness. Objective BP 113/85 Pulse 100 Resp 18 Wt 121.8 kg (268 lb 9.6 oz) BMI 42.70 kg/m? Physical Exam Vitals reviewed. Constitutional: Appearance: Normal appearance. HENT: Head: Normocephalic. Nose: Nose normal. No congestion or rhinorrhea. Mouth/Throat: Mouth: Mucous membranes are moist. Pharynx: Oropharynx is clear. No oropharyngeal exudate or posterior oropharyngeal erythema. Eyes: Extraocular Movements: Extraocular movements intact. Conjunctiva/sclera: Conjunctivae normal. Pupils: Pupils are equal, round, and reactive to light. Cardiovascular: Rate and Rhythm: Normal rate and regular rhythm (more content not included)... [facility] 10-22-2023 Miscellaneous Notes Pt is scheduled Mirna Estrada Patient needs follow up appt for Rx refill. Ok to put on my schedule for of November. If patient is low on testosterone - would be willing to refill until he can get a visit (virtual OK) with me. Please advise the patient to get labs done prior to next visit with me or any other provider. Labs available after 11/14/23. Yandel Soto PA-C Pharmacy electronically requests the following refill(s) Last ov 08/14/23 Future 01/27/24 Requested Prescriptions Pending Prescriptions Disp Refills testosterone enanthate 50 mg/0.5 mL AutoInjector 12 Each 0 Sig: Inject 50 mg subcutaneously one time a week for 90 days. Suzan Lopez LPN Patient has appointment to establish care on 01-27-24. Patient is requesting a refill to bridge the gap until their establish care appointment. Patient has been identified by name and date of : Yes Requested Prescriptions Pending Prescriptions Disp Refills testosterone enanthate 50 mg/0.5 mL AutoInjector 12 Each 0 Sig: Inject 50 mg subcutaneously one time a week for 90 days. [id number] RX INSTRUCTIONS: Patient aware RX will be sent to pharmacy. No need to notify patient. Lakeisha Morse documented in this encounter [facility] 10-10-2023 Miscellaneous Notes Images from the original note were not included. PA submitted via [facility], awaiting questions/determination [id number] Suzan Lowe MA October 10, 2023 12:07 PM documented in this encounter [facility] 10-06-2023 Instructions Caitlin Ramesh APRN.KWAME - 10/06/2023 10:05 AM EST Plan Increase metformin xr 500 mg one tablet twice daily. Continue glipizide 5 mg twice daily with meals Ask insurance company if they will cover Trulicity weekly (instead of Mounjaro) Check your blood glucose 3 times per day and record data in logbook and bring to each visit We reviewed glucose targets as: Fasting 80-130, before meals 100-130, and bedtime 100-150 mg/dL. Call the office with blood sugars less than 70 Follow up with me in 3 months documented in this encounter [facility] 09-29-2023 History of Present illness Narrative DISTANCE HEALTH VISIT This Team Access Model visit is a virtual encounter. It required patient-provider interaction for the medical decision making as documented below. I have communicated my name and active licensure. The patient's identity and physical location were verified at the time of this visit. Either the patient or their legal passenger service representative has been informed of the risks and benefits of -- and alternatives to -- treatment through a remote evaluation and consents to proceed with the evaluation remotely. History of Present Illness Guero Juarez is a 33 year old adult presents today for follow up of DM Type 2 Date of Diagnosis: February 2021; after getting recurrent ear infections~ENT sent to PCP-put on metformin, did not take it due to risk of side effects Hx GDM in 2014-was on insulin for latter half of . Last HbA1c: Hemoglobin A1C (%) Date Value 05/15/2023 10.7 Hemoglobin A1C (POCT) (%) Date Value 10/07/2022 7.6 Family history of diabetes includes everyone on mom's side, mother. Complications Microvascular: no Macrovascular: no Currently on testo injections. Goal is to control BG and and reduce weight for surgery. Health Maintenance Topics Topic Date Due Dilated Retinal Exam Never done Diabetic Foot Exam Never done Current DM Related Medications: Current Medications 09/29/2023 DIABETES THERAPIES Medication Dosage Pharm Subclass glipiZIDE (GLUCOTROL) 5 mg tablet Take 1 tablet by mouth twice daily before meals. Antihyperglycemic - Sulfonylurea Derivatives metFORMIN ER (GLUCOPHAGE XR) 500 mg 24 hr tablet Take 1 tablet by mouth twice daily with meals. Insulin Response Enhancers - Biguanides tirzepatide (MOUNJARO) 5 mg/0.5 mL pen injector Inject 5 mg subcutaneously one time a week. Antihyperglycemic - Dual GIP and GLP-1 Receptor Agonists OTHER Medication Dosage Pharm Subclass ABILIFY MAINTENA 400 mg sers injection inject 1 400MG/1 ML PREFILLED SYRINGE intramuscularly every 30 DAYS Antipsychotic-Atypical,D2 Receptor Partial Agonist-5HT Serotonin Mixed albuterol HFA (PROVENTIL HFA, VENTOLIN HFA) 90 mcg/actuation inhaler INHALE 2 PUFFS EVERY 6 HOURS NEEDED FOR WHEEZING Asthma/COPD Therapy - Beta 2-Adrenergic Agents, Inhaled, Short Acting blood sugar diagnostic (TRUE METRIX GLUCOSE TEST STRIP) test strip Use as instructed daily Medical Supplies and DME - Blood Glucose Tests budesonide-formoterol (SYMBICORT) 160-4.5 mcg/actuation inhaler Inhale 2 Puffs as instructed. Asthma/COPD Therapy - Beta Adrenergic-Glucocorticoid Combinations busPIRone HCl 30 mg tablet TAKE 1 TABLET BY MOUTH TWICE A DAY DIRECTED Antianxiety Agent - Non-Benzodiazepine fluticasone (FLONASE) 50 mcg/actuation nasal spray Use 2 Sprays in each nostril once daily. Nasal Corticosteroids ipratropium-albuterol (DUONEB) 0.5 mg-3 mg(2.5 mg base)/3 mL nebu INHALE 3 ML BY NEBULIZATION EVERY 6 HOURS NEEDED FOR WHEEZING. Asthma/COPD Therapy - Beta Adrenergic-Anticholinergic Combinations lamoTRIgine (LAMICTAL) 100 mg tablet TAKE 1 TABLET BY MOUTH EVERY DAY IN THE MORNING Anticonvulsant - Phenyltriazine Derivatives montelukast (SINGULAIR) 10 mg tablet Take 10 mg by mouth. Asthma Therapy - Leukotriene Receptor Antagonists sertraline (ZOLOFT) 50 mg tablet TAKE 1 TABLET BY MOUTH EVERY DAY IN THE MORNING Antidepressant - Selective Serotonin Reuptake Inhibitors (SSRIs) Syringe with Needle, Disp, (BD LUER-LEODAN SYRINGE) 3 mL 21 gauge x 1 syrg 1 Each one time a week. Medical Supplies and DME - [place] and Syringes Syringe with Needle, Safety (BD ECLIPSE LUER-LEODAN) 3 mL 22 gauge x 1 1/2 1 Each one time a week. Medical Supplies and DME - [place] and Syringes testosterone enanthate 50 mg/0.5 mL AutoInjector Inject 50 mg subcutaneously one time a week for 90 days. 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 Stocky as a kid, thinks it was mostly after pregnancies at age 19. 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 Social History Tobacco Use Smoking status: Never Passive exposure: Never Smokeless tobacco: Never Tobacco comments: Vape with nicotine Vaping Use Vaping Use: current everyday user Substance Use Topics Alcohol use: Never Drug use: Never Review of Systems Answers submitted by the patient for this visit: Core Review of Systems (Submitted on 09/29/2023) Fever : No Night sweats: No Recent unintentional weight change: No Nasal Congestion: Yes Hearing Loss: No Vision Disturbance: No A cough: No Difficulty Breathing?: No Chest pain: No Irregular heartbeat: No Leg Swelling: No Nausea: No Diarrhea: No Black tarry stools: No Difficulty Urinating?: No Awaken at Night More Than Once to Urinate?: No Joint pain or stiffness: No Muscle aches: No Leg or Foot Discomfort at Night?: No A rash: No Dizziness: No Headaches: No Memory Loss: No Seizures: No Physical examination General Appearance: Well appearing, alert, in no acute distress, well-hydrated, well nourished. and Obese Affect: Pleasant and cooperative Previous Laboratory Results LABS No results found for: GLUC , K , NA , CHLOR , CO2 , CREAT , BUN , ANION , CA , GFR , EGFRAA , EGFROTH No results found for: ALT No results found for: TSH , FREET4 Impression/Recommendations IMPRESSION Guero Juarez is a 33 year old here for evaluation of DM Type 2 RECOMMENDATIONS: 1. Glycemic control: Target HbA1C is less than 7.0% per ADA guidelines. Plan Increase metformin xr 500 mg one tablet twice daily. Continue glipizide 5 mg twice daily with meals Ask insurance company if they will [facility] (instead of Mounro) Check your blood glucose 3 times per day and record data in logbook and bring to each visit We reviewed glucose targets as: Fasting 80-130, before meals 100-130, and bedtime 100-150 mg/dL. Call the office with blood sugars less than 70 Follow up with me in 3 months Patient to continue to follow up with his PCP and with other consultants regarding his other medical problems. The patient was reminded to check their blood glucose as directed and to record the data in a logbook. This patient was advised to bring their logbook to each office visit. I recommended at least 150 minutes per week of moderate physical activity, such as walking and to reduce carbohydrates and overall caloric intake. 2. Hypertension/BP control: BP goal for patients with diabetes is 130/80. -- This patient is at target on their current regimen. 3. Lipids: Target LDL cholesterol in patients with diabetes is less than 100, less than 70 if patient has overt CVD. Several studies have shown cardiovascular benefits of statin therapy in all patients with diabetes over age 40 with at least 1 CVD risk factor. No results found for: CHOL , HDL , LDL , TG -- This patient is currently at target NOT on statin therapy. Care everywhere 4. Nephropathy screening: Annual measurement of urine albumin excretion is recommended in patients with diabetes. No results found for: UALBCR , UPROT , UCR , UCRR , UALB -- This patient is not up to date on microalbumin screening and this was ordered today. 5. Ophthalmology: Annual dilated eye exams are recommended for patients with type 1 and type 2 diabetes. -- This patient is up to date with their annual eye exam and has no history of retinopathy. Any part of this document that has been added/copied & pasted from other documents has been reviewed for accuracy and updated as appropriate at the time of the patient encounter I spent a total of 30 minutes on the date of the service which included preparing to see the patient, [id number] patient care, completing clinical documentation, obtaining and/or reviewing separately obtained history, performing a medically appropriate examination, counseling and educating the patient/family/caregiver, and ordering medications, tests, or procedures. Caitlin Ramesh APRN.CNP (Signed electronically to expedite mailing) documented in this encounter [facility] 09-26-2023 Miscellaneous Notes Appt scheduled Clerical: Please contact pt for appt. Thank you Requester: Pharmacy Patients last Endocrinology visit occurred 04/24/23. Follow-up evaluation has been established Upcoming Endocrinology Appointments - Next 365 Days No appointments to display . Requested Prescriptions Pending Prescriptions Disp Refills blood sugar diagnostic (TRUE METRIX GLUCOSE TEST STRIP) test strip 100 Each 3 Sig: Use as instructed daily If patient is due for an appointment please route to provider for refill consideration and also to the endo scheduling pool. PSS NOTE: Patient needs scheduled appointment Yes documented in this encounter [facility] 08-28-2023 Miscellaneous Notes PA approved 08/22/23-08/20/24 Lim: [id number] Monet submitted for testosterone injector. documented in this encounter [facility] 08-14-2023 History of Present illness Narrative DISTANCE HEALTH VISIT This Team Access Model visit is a virtual encounter. It required patient-provider interaction for the medical decision making as documented below. I have communicated my name and active licensure. The patient's identity and physical location were verified at the time of this visit. Either the patient or their legal passenger service representative has been informed of the risks and benefits of -- and alternatives to -- treatment through a remote evaluation and consents to proceed with the evaluation remotely. Mayela Davis is a 32 year old adult seen for follow-up. Guero HISTORY REVIEWED (electronic chart updated): - medical history - medications - allergies Presents for visit today in a parked car Presents today for hormone therapy follow-up Going good so far: body changes stable compared to last visit Current regimen: 0.25 ml (50 mg) weekly testosterone injections does injections for him, wondering about an rx for an auto-injector as he is unable to do them himself, which results in missed doses if his isn't available Issues with SE: None Has been having some mild spotting, no full menstrual cycles, which is an improvement compared to last visit Labs: testosterone within goal range of 300-700, estradiol not yet suppressed + elevated WBCs on CBC, patient reports he does not feel ill Counselor that he had been seeing didn't feel comfortable writing JIM for top surgery, requesting referral for a provider who has experience with transgender patients Feeling well today. Denies CP, SOB, headache, dizziness, or leg pain/swelling. REVIEW OF SYSTEMS: All other ROS: negative As noted in HPI PHYSICAL EXAMINATION: VIDEO EXAM: (if done, performed via video enabled technology) GENERAL: alert and appropriate, in no distress, well-hydrated, well nourished, and happy, smiling, interactive HEAD: normocephalic, no abnormality or lesion noted RESPIRATORY: breathing non-labored NEUROLOGIC: no obvious deficit IMP/PLAN: Encounter Diagnosis ICD-10-CM 1. Gender dysphoria in adult F64.0 testosterone enanthate 50 mg/0.5 mL AutoInjector 2. High risk medication use Z79.899 TESTOSTERONE TOTAL ESTRADIOL-17B BLD CBC + DIFF Doing well on gender hormonal therapy with testosterone No obvious negative side effects Physical changes are as expected on medical therapy Shared decision to trial autoinjector- will continue current dose of testosterone. Patient verbalized understanding that since the concentration is different the injector dose will be a higher ml than what he has been doing but that the dose has not changed List of affirming mental health providers sent in Epic Labs ordered today - CBC (to follow changes in hemogloblin/hematocrit), estradiol 17OH, total testosterone FU in 3 months for gender affirmation surveillance care, sooner PRN Medical Decision Making: Data: Unique test result(s) reviewed: 3+ Unique test(s) ordered: 3+ Risk: Moderate: Drug management High: Drug therapy requiring intensive monitoring Medical Decision Making Level: 4 - Moderate Fabiana Durham APRN.KWAME documented in this encounter [facility] 06-11-2023 Miscellaneous Notes Rec'd fax [place] Approval Tirzepatide was been approved through 06/08/2024 Document sent for scanning documented in this encounter [facility] 06-10-2023 Miscellaneous Notes Images from the original note were not included. documented in this encounter [facility] 06-02-2023 Miscellaneous Notes Requester: Patient Patients last Endocrinology visit occurred 04/24/23 with Caitlin Ramesh. Follow-up evaluation has NOT been established . 3 prescriptions for different doses of Mounjaro were sent to the pharmacy on 04/24 but they all on 05/07. Requested Prescriptions Pending Prescriptions Disp Refills tirzepatide (MOUNJARO) 5 mg/0.5 mL pen injector 4 Each 0 Sig: Inject 5 mg subcutaneously one time a week. If patient is due for an appointment please route to provider for refill consideration and also to the endo scheduling pool. PSS NOTE: Patient needs scheduled appointment Yes documented in this encounter [facility] 05-16-2023 History of Present illness Narrative DISTANCE HEALTH VISIT This Team Access Model visit is a virtual encounter. It required patient-provider interaction for the medical decision making as documented below. I have communicated my name and active licensure. The patient's identity and physical location were verified at the time of this visit. Either the patient or their legal passenger service representative has been informed of the risks and benefits of -- and alternatives to -- treatment through a remote evaluation and consents to proceed with the evaluation remotely. Mayela Davis is a 32 year old adult seen for [facility]. HISTORY REVIEWED (electronic chart updated): - medical history - medications - allergies Patient presents for hormone therapy follow-up Has been going so far [facility] is doing injections for him, no issues Has noticed more facial hair since last visit, face is not as oily any more Current regimen: 0.25 ml (50mg) injectable testosterone weekly No menses/front bleeding! Labs completed Testosterone within goal range of 300-700 CBC shows improvement in hbg levels Labs otherwise unremarkable A1c elevated- following with endo, sts recently switched to mounjaro Feeling well today. Denies CP, SOB, headache, dizziness, or leg pain/swelling. Interested in top surgery Currently follows with [facility] REVIEW OF SYSTEMS: All other ROS: negative As noted in HPI PHYSICAL EXAMINATION: VIDEO EXAM: (if done, performed via video enabled technology) GENERAL: alert and appropriate, in no distress, well-hydrated, well nourished, and happy, smiling, interactive HEAD: normocephalic, no abnormality or lesion noted RESPIRATORY: breathing non-labored NEUROLOGIC: no obvious deficit Component Latest Ref Rng & Units 05/15/2023 WBC 3.70 - 11.00 k/uL 10.50 RBC 4.20 - 6.00 m/uL 5.94 Hemoglobin 13.0 - 17.0 g/dL 13.4 Hematocrit 39.0 - 51.0 % 45.1 MCV 80.0 - 100.0 fL 75.9 (L) MCH 26.0 - 34.0 pg 22.6 (L) MCHC 30.5 - 36.0 g/dL 29.7 (L) RDW-CV 11.5 - 15.0 % 19.0 (H) Platelet Count 150 - 400 k/uL 263 MPV 9.0 - 12.7 fL 11.5 Neut% % 58.1 Abs Neut (ANC) 1.45 - 7.50 k/uL 6.10 Lymph% % 31.2 Abs Lymph 1.00 - 4.00 k/uL 3.28 Hernando% % 6.9 Abs Hernando <0.87 k/uL 0.72 Eosin% % 3.0 Abs Eosin <0.46 k/uL 0.32 Baso% % 0.5 Abs Baso <0.11 k/uL 0.05 Immature Gran % % 0.3 IMMATURE GRANS (ABS) <0.10 k/uL 0.03 NRBC /100 WBC 0.0 Absolute nRBC <0.01 k/uL <0.01 DTYPE Auto Testosterone ng/dL 529 Estradiol 17B pg/mL 59 IMP/PLAN: Encounter Diagnosis ICD-10-CM 1. High risk medication use Z79.899 CBC + DIFF ESTRADIOL-17B BLD TESTOSTERONE TOTAL 2. Gender dysphoria in adult F64.0 testosterone cypionate (DEPO-TESTOSTERONE) 200 mg/mL injection We reviewed surgical criteria for gender affirmation care including: Being on Gender Affirmation Hormonal Treatment (GAHT) for 1 year AND -1 Letter of Recommendation (JIM) from a mental health professional (MHP) familiar with the care of gender dysphoria for top surgery -2 JIM from MHPs for bottom surgery. I encouraged pt to check with their insurance company on any specific WPATH requirements other than these. We discussed potential surgical referrals at the [facility]. Doing well on gender hormonal therapy with testosterone No obvious negative side effects Physical changes are as expected on medical therapy Continue current medications and doses Labs ordered today - CBC (to follow changes in hemogloblin/hematocrit), estradiol 17OH, total testosterone FU in 3 months for gender affirmation surveillance care, sooner PRN Medical Decision Making: Data: Unique test result(s) reviewed: 3+ Unique test(s) ordered: 3+ Risk: Moderate: Drug management High: Drug therapy requiring intensive monitoring Medical Decision Making Level: 4 - Moderate Fabiana Durham APRN.WHEEL BLOCKER documented in this encounter [facility] 05-07-2023 Miscellaneous Notes This encounter was opened in error. documented in this encounter [facility] 04-25-2023 Miscellaneous Notes Images from the original note were not included. documented in this encounter [facility] 04-24-2023 Instructions Caitlin Ramesh APRN.KWAME - 04/24/2023 3:44 PM EDT Plan Continue metformin xr 500 mg one tablet twice daily. Start glipizide 5 mg twice daily with meals; if your bG are not under 180, increase to 2 tabs twice daily. Stop ozempic due to adverse GI side effects; start taking mounjaro: Start taking Mounjaro 2.5mg once weekly for 4 weeks, followed 5mg for 4 weeks, then 7.5mg once weekly. Let office know if you are having any adverse GI side effects. Stop glipizide when you start the mounjar0 Check your blood glucose 3 times per day and record data in logbook and bring to each visit We reviewed glucose targets as: Fasting 80-130, before meals 100-130, and bedtime 100-150 mg/dL. Call the office with blood sugars less than 70 Follow up with me in 3 months documented in this encounter [facility] 04-24-2023 History of Present illness Narrative DISTANCE HEALTH VISIT This Team Access Model visit is a virtual encounter. It required patient-provider interaction for the medical decision making as documented below. I have communicated my name and active licensure. The patient's identity and physical location were verified at the time of this visit. Either the patient or their legal passenger service representative has been informed of the risks and benefits of -- and alternatives to -- treatment through a remote evaluation and consents to proceed with the evaluation remotely. History of Present Illness Guero Juarez is a 32 year old adult presents today for follow up of DM Type 2 Date of Diagnosis: February 2021; after getting recurrent ear infections~ENT sent to PCP-put on metformin, did not take it due to risk of side effects Hx GDM in 2014-was on insulin for latter half of . Last HbA1c: Hemoglobin A1C (POCT) (%) Date Value 10/07/2022 7.6 Family history of diabetes includes everyone on mom's side, mother. Complications Microvascular: no Macrovascular: no Recently started testo injections. Goal is to control BG and and reduce weight for surgery. Health Maintenance Topics Topic Date Due DILATED RETINAL EXAM Never done DIABETIC FOOT EXAM Never done Prior DM Medications: NA Current DM Related Medications: Current Medications 04/24/2023 DIABETES THERAPIES Medication Dosage Pharm Subclass dulaglutide (TRULICITY) 0.75 mg/0.5 mL pen injector Inject 0.75 mg subcutaneously one time a week. Antihyperglycemic - Glucagon-Like Peptide-1 (GLP-1) Receptor Agonists metFORMIN ER (GLUCOPHAGE XR) 500 mg 24 hr tablet Take 1 tablet by mouth twice daily with meals. Insulin Response Enhancers - Biguanides OTHER Medication Dosage Pharm Subclass DARIO POSTA 400 mg sers injection inject 1 400MG/1 ML PREFILLED SYRINGE intramuscularly every 30 DAYS Antipsychotic-Atypical,D2 Receptor Partial Agonist-5HT Serotonin Mixed blood sugar diagnostic (TRUE METRIX GLUCOSE TEST STRIP) test strip Use as instructed daily Medical Supplies and DME - Blood Glucose Tests budesonide-formoterol (SYMBICORT) 160-4.5 mcg/actuation inhaler Inhale 2 Puffs as instructed. Asthma/COPD Therapy - Beta Adrenergic-Glucocorticoid Combinations busPIRone HCl 30 mg tablet TAKE 1 TABLET BY MOUTH TWICE A DAY DIRECTED Antianxiety Agent - Non-Benzodiazepine fluticasone (FLONASE) 50 mcg/actuation nasal spray Use 2 Sprays in each nostril once daily. Nasal Corticosteroids lamoTRIgine (LAMICTAL) 100 mg tablet TAKE 1 TABLET BY MOUTH EVERY DAY IN THE MORNING Anticonvulsant - Phenyltriazine Derivatives montelukast (SINGULAIR) 10 mg tablet Take 10 mg by mouth. Asthma Therapy - Leukotriene Receptor Antagonists mupirocin (BACTROBAN) 2 % ointment Please dispense seven 22g tubes . Patient will mix one tube of ointment into 1liter of normal saline and rinse nose and sinuses twice daily. Dermatological - Antibacterial Other sertraline (ZOLOFT) 50 mg tablet TAKE 1 TABLET BY MOUTH EVERY DAY IN THE MORNING Antidepressant - Selective Serotonin Reuptake Inhibitors (SSRIs) sodium chloride 0.9 % IRRIGATION Rinse wound twice daily. Dispense seven 1liter bottles. [employer] Syringe with Needle, Disp, (SYRINGE 3CC/21GX1 ) 3 mL 21 gauge x 1 syrg 1 Each one time a week. Medical Supplies and DME - [place] and Syringes Syringe with Needle, Safety (BD ECLIPSE LUER-LEODAN) 3 mL 22 gauge x 1 1/2 1 Each one time a week. Medical Supplies and DME - [place] and Syringes testosterone cypionate (DEPO-TESTOSTERONE) 200 mg/mL injection Inject 0.25 mL intramuscularly one time a week for 90 days. Androgen - Single Agents traZODone (DESYREL) 100 mg tablet TAKE 1 TABLET BY MOUTH EVERY DAY AT BEDTIME NEEDED FOR SLEEP Antidepressant - Serotonin-2 Antagonist-Reuptake Inhibitors (SARIs) venlafaxine ER (EFFEXOR XR) 75 mg 24 hr capsule Take 75 mg by mouth. 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 [place] as a kid, thinks it was mostly after pregnancies at age 19. 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 Social History Tobacco Use Smoking status: Never Passive exposure: Never Smokeless tobacco: Never Tobacco comments: Vape with nicotine Vaping Use Vaping Use: current everyday user Substance Use Topics Alcohol use: Never Drug use: Never Review of Systems Answers submitted by the patient for this visit: Core Review of Systems (Submitted on 04/24/2023) Fever : No Night Sweats: No Recent Unintentional Weight Change: No Nasal Congestion: Yes Hearing Loss: No Vision Disturbance: No A Cough: No Difficulty Breathing?: No Chest Pain: No Irregular Heart Beat: No Leg Swelling: No Nausea: No Diarrhea: No Black Tarry Stools: No Difficulty Urinating?: No Awaken at Night More Than Once to Urinate?: Yes Joint Pain or Stiffness: No Muscle Aches: No Leg or Foot Discomfort at Night?: No A Rash: No Dizziness: No Headaches: No Memory Loss: No Seizures: No Physical examination General Appearance: Well appearing, alert, in no acute distress, well-hydrated, well nourished. and Obese Affect: Pleasant and cooperative Previous Laboratory Results LABS No results found for: GLUC, K, NA, CHLOR, CO2, CREAT, BUN, ANION, CA, GFR, EGFRAA, EGFROTH No results found for: ALT No results found for: TSH, FREET4 Impression/Recommendations IMPRESSION Guero Juarez is a 32 year old here for evaluation of DM Type 2 RECOMMENDATIONS: 1. Glycemic control: Target HbA1C is less than 7.0% per ADA guidelines. Plan Continue metformin xr 500 mg one tablet twice daily. Start glipizide 5 mg twice daily with meals; if your bG are not under 180, increase to 2 tabs twice daily. Stop ozempic due to adverse GI side effects; start taking mounjaro: Start taking Mounjaro 2.5mg once weekly for 4 weeks, followed 5mg for 4 weeks, then 7.5mg once weekly. Let office know if you are having any adverse GI side effects. Stop glipizide when you start the mounjar. Check your blood glucose 3 times per day and record data in logbook and bring to each visit We reviewed glucose targets as: Fasting 80-130, before meals 100-130, and bedtime 100-150 mg/dL. Call the office with blood sugars less than 70 Follow up with me in 3 months Patient to continue to follow up with his PCP and with other consultants regarding his other medical problems. The patient was reminded to check their blood glucose as directed and to record the data in a logbook. This patient was advised to bring their logbook to each office visit. I recommended at least 150 minutes per week of moderate physical activity, such as walking and to reduce carbohydrates and overall caloric intake. 2. Hypertension/BP control: BP goal for patients with diabetes is 130/80. -- This patient is at target on their current regimen. 3. Lipids: Target LDL cholesterol in patients with diabetes is less than 100, less than 70 if patient has overt CVD. Several studies have shown cardiovascular benefits of statin therapy in all patients with diabetes over age 40 with at least 1 CVD risk factor. No results found for: CHOL, HDL, LDL, TG -- This patient is currently at target NOT on statin therapy. Care everywhere 4. Nephropathy screening: Annual measurement of urine albumin excretion is recommended in patients with diabetes. No results found for: UALBCR, UPROT, UCR, UCRR, UALB -- This patient is not up to date on microalbumin screening and this was ordered today. 5. Ophthalmology: Annual dilated eye exams are recommended for patients with type 1 and type 2 diabetes. -- This patient is up to date with their annual eye exam and has no history of retinopathy. Any part of this document that has been added/copied & pasted from other documents has been reviewed for accuracy and updated as appropriate at the time of the patient encounter I spent a total of 45 minutes on the date of the service which included preparing to see the patient, [id number] patient care, completing clinical documentation, obtaining and/or reviewing separately obtained history, performing a medically appropriate examination, counseling and educating the patient/family/caregiver, and ordering medications, tests, or procedures. Caitlin Ramesh APRN.KWAME (Signed electronically to expedite mailing) documented in this encounter [facility] 02-26-2023 Miscellaneous Notes Spoke with patient. His blood sugar this morning was 316; he rechecked while on the phone with me and it was 431. Yesterday his blood sugar was 420 in the morning and 536 in the afternoon- that was when he went to the ED. Patient was not checking his blood sugar prior to the past few days. He has been excessively thirsty and urinating more frequently which is why he started checking again. No recent iillness. Current medications are metformin bid and Ozempic 0.5 mg once weekly. ED advised him to switch to Trulicity- patient would prefer to stay on Ozempic. I advised patient to not hesitate to return to the ED if blood sugar stays elevated and if they experience nausea, headache, stomach pain. Marge Lemons, RN documented in this encounter [facility] 02-24-2023 Miscellaneous Notes Pharmacy electronically requests the following refill(s) Last ov 02/14/23 Future 05/16/23 Requested Prescriptions Pending Prescriptions Disp Refills Syringe with Needle, Safety (BD ECLIPSE LUER-LEODAN) 3 mL 22 gauge x 1 1/2 12 Each 0 Si Each one time a week. Suzan Lopez LPN documented in this encounter [facility] 11-15-2022 Miscellaneous Notes Order reviewed and signed Spoke to pharmacist Brittney regarding 1 ml syringe dispensed as insulin syringe and patient will need 1 1/2 for IM injection. Fabiana: Please sign pended order for 3 ml, 22 gauge, 1 1/2 needle syringes for patient. 1 ml not available. Patient was trained with 3 ml and 1 ml syringes. documented in this encounter [facility] 11-12-2022 Miscellaneous Notes Called Patient to ensure they've picked up their prescriptions from the pharmacy and will be able to bring them to their [place] on Friday. No answer, LVM. documented in this encounter [facility] 11-11-2022 History of Present illness Narrative ESTABLISHED PATIENT Mayela Davis is a 32 year old adult presenting for Physical. José Manuelw HISTORY OF PRESENT ILLNESS Here with partner today for hormone therapy initiation Has reviewed informed consent documentation. No questions/concerns Labs completed and previously reviewed Desires to start full dose injectable testosterone as discussed at our last visit Feeling well today. Denies CP, SOB, headache, dizziness, or leg pain/swelling. Plans to get his name changed soon Had gender marker changed! HISTORIES No family history on file. PAST MEDICAL HISTORY Diagnosis Date Diabetes mellitus (HCC) PAST SURGICAL HISTORY Procedure Laterality Date EAR TUBES HX REPAIR OF NASAL SEPTUM TONSILLECTOMY & ADENOIDECTOMY <AGE 12 Social History Tobacco Use Smoking status: Never Passive exposure: Never Smokeless tobacco: Never Vaping Use Vaping Use: current everyday user Substance Use Topics Alcohol use: Never Drug use: Never Allergies: ALLERGIES Allergen Reactions Paroxetine Anaphylaxis, Swelling tounge & throat swelling tounge & throat swelling Bupropion Anaphylaxis, Other: See Comments hallucinations Medications: metFORMIN ER (GLUCOPHAGE XR) 500 mg 24 hr tablet Take 1 tablet by mouth twice daily with meals. blood sugar diagnostic (TRUE METRIX GLUCOSE TEST STRIP) test strip Use as instructed daily budesonide-formoterol (SYMBICORT) 160-4.5 mcg/actuation inhaler Inhale 2 Puffs as instructed. sertraline (ZOLOFT) 50 mg tablet TAKE 1 TABLET BY MOUTH EVERY DAY IN THE MORNING traZODone (DESYREL) 100 mg tablet TAKE 1 TABLET BY MOUTH EVERY DAY AT BEDTIME NEEDED FOR SLEEP ABILIFY MAINTENA 400 mg sers injection inject 1 400MG/1 ML PREFILLED SYRINGE intramuscularly every 30 DAYS lamoTRIgine (LAMICTAL) 100 mg tablet TAKE 1 TABLET BY MOUTH EVERY DAY IN THE MORNING dulaglutide (TRULICITY) 0.75 mg/0.5 mL pen injector Inject 0.75 mg subcutaneously one time a week. (Patient not taking: Reported on 11/11/2022) sodium chloride 0.9 % IRRIGATION Rinse wound twice daily. Dispense seven 1liter bottles. (Patient not taking: No sig reported) mupirocin (BACTROBAN) 2 % ointment Please dispense seven 22g tubes . Patient will mix one tube of ointment into 1liter of normal saline and rinse nose and sinuses twice daily. (Patient not taking: No sig reported) montelukast (SINGULAIR) 10 mg tablet Take 10 mg by mouth. (Patient not taking: Reported on 11/11/2022) venlafaxine ER (EFFEXOR XR) 75 mg 24 hr capsule Take 75 mg by mouth. (Patient not taking: No sig reported) fluticasone (FLONASE) 50 mcg/actuation nasal spray Use 2 Sprays in each nostril once daily. (Patient not taking: Reported on 11/11/2022) REVIEW OF SYSTEMS All systems were reviewed and were negative except what was noted in the HPI PHYSICAL EXAM BP 120/68 Pulse 79 Temp 36.2 C (97.2 F) Resp 18 Ht 168.9 cm (5' 6.5 ) Wt 124.8 kg (275 lb 1.6 oz) BMI 43.74 kg/m General Appearance: Well appearing, alert, in no acute distress, well-hydrated, well nourished.. Skin: Skin color, texture, turgor normal, no suspicious rashes or lesions. Head: Normocephalic, no masses, lesions, tenderness or abnormalities. Eyes: Anicteric sclera. Pupils are equally round and reactive to light. Extraocular movements are intact. . Nose/Sinuses: Nares normal, septum midline, mucosa normal, no drainage or sinus tenderness. Oropharynx: Lips, mucosa, and tongue normal, teeth and gums normal, oropharynx normal. Neck: Supple, no adenopathy; thyroid symmetric, normal size, no bruits. Lungs: Lungs clear to auscultation. No wheezing, rhonchi, rales. Heart: RRR without murmur, gallop, or rubs. No ectopy. Abdomen: Normal abdominal exam, Abdomen soft, non-tender. Bowel sounds normal. No masses, organomegaly. Extremities: No deformities, edema, skin discoloration, clubbing or cyanosis. Neurologic: Gait normal. Sensation grossly intact.. IMP/PLAN: Encounter Diagnosis ICD-10-CM 1. Gender dysphoria in adult F64.0 2. High risk medication use Z79.899 Informed consent documentation reviewed and signed by patient and this provider. All questions/concerns addressed. Shared decision to start 0.25ml (200mg/50ml) injectable testosterone weekly Briefly reviewed injection teaching instructions- pt to schedule RN visit for injections teaching. Instructions also sent via [employer] for future reference. Labs ordered to be completed prior to next visit: CBC, estradiol, testosterone. Patient verbalized understanding. F/u 3 months for medication surveillance, sooner PRN Medical Decision Making: Data: Unique test(s) ordered: 3+ Risk: Moderate: Drug management High: Drug therapy requiring intensive monitoring Medical Decision Making Level: 4 - Moderate documented in this encounter [facility] 10-15-2022 History of Present illness Narrative DISTANCE HEALTH VISIT This Team Access Model visit is a virtual encounter. It required patient-provider interaction for the medical decision making as documented below. Mayela Davis is a 32 year old adult seen for follow-up. Krew Changed to telephone visit as pt was unable to connect to audio for VV. Patient verbally consented to telephone visit HISTORY REVIEWED (electronic chart updated): - medical history - medications - allergies Presents today to continue discussion of gender-affirming hormone therapy Has reviewed informed consent documentation No questions/concerns Very excited to start GAHT Labs completed, reviewed with patient today WBC count elevated- pt sts he was getting over URI when he had blood drawn Mild anemia BMP and lipid panel previously completed by PCP- no concerning findings Feeling well today. Denies CP, SOB, headache, dizziness, or leg pain/swelling. REVIEW OF SYSTEMS: All other ROS: negative As noted in HPI PHYSICAL EXAMINATION: VIDEO EXAM: (if done, performed via video enabled technology) No exam performed. Speech clear and coherent, no labored breathing noticed IMP/PLAN: Encounter Diagnosis ICD-10-CM 1. Gender dysphoria in adult F64.0 2. High risk medication use Z79.899 Pt has reviewed the informed consent for testosterone-based GAHT. Pt's questions about GAHT care and informed consent process were answered. Discussed options of testosterone administration - topical vs injection. Discussed pro's and cons of each: Injection pros: ease of administration, ease of measurement and dose adjustment, administration schedule (1-2 weeks interval per dose) Injection cons: injection pain, bleeding, infection risk, oil/vehicle sensitivity Patch pros: avoids pain of injections Patch cons: adhesive dermatitis, patch displacement with perspiration/bathing, daily application necessary, not optimal for those with sensitive skin or existing dermatitis, less ability to individualize dose (can space the dose, but cutting patches may be difficult). Gel pros: avoids pain of injections Gel cons: Can transfer to others if application site is not dry, harder to adjust dose as medication is offered in 1-2 pump units per application (can space out applications for microdosing) They have indicated they are interested in testosterone: Y injectable Discussed typical vs low/microdosing and benefits of each: Pt elects a typical starting dose RTC in ~1-2 weeks for an exam and/or lab review, sign informed consent for GAHT initiation.has appt scheduled I spent a total of 10 minutes on the date of the service documented in this encounter [facility] 10-14-2022 History of Present illness Narrative NEW PATIENT HISTORY AND PHYSICAL EXAM Mayela Davis is a 32 year old adult presenting for hormone therapy Guero HISTORY OF PRESENT ILLNESS Here today with Kori Got this Halloween! Guero and his have 7 kids between them From [place], [place] Patient was 15 minutes late as was accommodated [facility] intake was not sent, will complete today Feeling well today. Denies CP, SOB, headache, dizziness, or leg pain/swelling. By what name should you be addressed? Krew What pronoun(s) do you want used to address you (He, She, Ze, They, etc)? He/him What do you consider your gender identity/expression (check all that apply): male What term(s) do you use to describe your sexual orientation? straight What is the highest level of education you completed? High school, some college Are you currently employed? If yes, what do you do? 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 If yes, what do you smoke? How much/often do you smoke #packs/cigarettes per day/week? Are you interested in smoking cessation? Vapes- nicotine Not interested in quitting at this time Do you drink alcohol? If yes, what do you drink? How much/often do you drink per day/week? monthly Please describe your relationship status. If partnered, what is/are your partner(s) name? How can we help you today? Interested in starting hormone therapy Do we have your permission to add an LGBTQ+ indicator on your demographics? Yes Past Medical History (check all that apply): DM2, asthma Mental/Emotional Health Concerns: Depression and anxiety Surgical History: Tonsillectomy, adenoidectomy, deviated septum repair x2, ear tubes, tubal tigation Allergies: Paroxetine and bupropion Other Current/Previous Health Providers: Primary Care Provider: Lc Childers ([facility]) Mental Health Provider: Mary Ellen Meier (mental health unit lead psychologist), also sees two counselors Bank Worker: Dr. Mathieu Hunt Surgeon: n/a Other health providers: n/a Have you been offered or requested a letter of recommendation for medical or surgical transition-related care? No but sts his current mental health providers would be able to provide this if needed- they are very supportive of his decision to transition Family History: Please List any other health Conditions your family members live with: Diabetes: mom and mom's side of the family (grandmother, aunts, and uncles), brother Brother is autistic Gender Affirmation History: Patient reports he's known since childhood For a long time he Refused to come out because of my family His 16 year old cousin committed suicide- which caused him to reflect, realize he didn't want to live a life of regret Also has 2 trans children, if they were able to come out I should be too is very supportive, sts she also knew patient was trans before he came out to her Patient is also out to his parents, sts his mom also told him she knew since he was little Mom is pretty good about pronouns, dad doesn't try Goals of Care: Hormone therapy- wants more masculine features, facial hair, lower voice, body shape/face changes Desires top surgery- reports he is very miserable having breasts, dysphoria around his chest interferes with his sex life Considering bottom surgery but unsure if this is something he wants yet Fertility Preservation/Contraception: Does not desire more biological children at this time Planning on ablation and hysterectomy for heavy menstrual bleeding and dysphoria HISTORIES No family history on file. PAST MEDICAL HISTORY Diagnosis Date Diabetes mellitus (HCC) PAST SURGICAL HISTORY Procedure Laterality Date EAR TUBES HX REPAIR OF NASAL SEPTUM TONSILLECTOMY & ADENOIDECTOMY <AGE 12 Social History Tobacco Use Smoking status: Never Passive exposure: Never Smokeless tobacco: Never Vaping Use Vaping Use: current everyday user Substance Use Topics Alcohol use: Never Drug use: Never Allergies: ALLERGIES Allergen Reactions Paroxetine Anaphylaxis, Swelling tounge & throat swelling tounge & throat swelling Bupropion Anaphylaxis, Other: See Comments hallucinations Medications: semaglutide (OZEMPIC) 0.25 mg or 0.5 mg(2 mg/1.5 mL) pen Inject 0.5 mg subcutaneously one time a week. First 4 weeks of first fill take 0.25 mg per week. metFORMIN ER (GLUCOPHAGE XR) 500 mg 24 hr tablet Take 1 tablet by mouth twice daily with meals. blood sugar diagnostic (TRUE METRIX GLUCOSE TEST STRIP) test strip Use as instructed daily sodium chloride 0.9 % IRRIGATION Rinse wound twice daily. Dispense seven 1liter bottles. mupirocin (BACTROBAN) 2 % ointment Please dispense seven 22g tubes . Patient will mix one tube of ointment into 1liter of normal saline and rinse nose and sinuses twice daily. montelukast (SINGULAIR) 10 mg tablet Take 10 mg by mouth. budesonide-formoterol (SYMBICORT) 160-4.5 mcg/actuation inhaler Inhale 2 Puffs as instructed. venlafaxine ER (EFFEXOR XR) 75 mg 24 hr capsule Take 75 mg by mouth. fluticasone (FLONASE) 50 mcg/actuation nasal spray Use 2 Sprays in each nostril once daily. REVIEW OF SYSTEMS All systems were reviewed and were negative except what was noted in the HPI PHYSICAL EXAM BP 133/80 Pulse 90 Temp 36.2 C (97.1 F) (Temporal) Resp 20 Wt 123.9 kg (273 lb 4 oz) BMI 44.10 kg/m Alert in NAD NCAT EOMI Neck supple Lungs breathing RA unlabored EXT warm and well perfused. No peripheral edema EDUCATION PROFESSIONAL non-focal IMP/PLAN: Encounter Diagnosis ICD-10-CM 1. Gender dysphoria in adult F64.0 2. 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 Anxiety F41.9 4. High risk medication use Z79.899 CBC We reviewed the Informed Consent process for gender affirmation care at the [facility]. The patient's goals of care were discussed and questions were answered In particular, today we discussed fertility, contraception, medication effects, and side effects of gender affirmation therapy. We discussed that a complete exam and review of labs and informed consent is needed prior to starting gender affirmation care. I encouraged mental health support during transition process. We discussed the patient's reproductive care needs and offered referral patient to Drs. Fletcher and/or Nimesh in Communication Instructor to discuss fertility preservation/contraception needs. The patient declined a referral for fertility preservation. Labs ordered today - CBC (lipids and BMP completed earlier this year- no concerning findings) RTC in ~2-4 weeks to continue review informed consent, discuss questions/concerns, discuss preferences regarding initial dosing (microdosing vs. typical dosing), formulation of GAHT that the patient desires (transdermal vs injectable testosterone), and perform exam. I spent a total of 50 minutes on the date of the service which included [id number] patient care, completing clinical documentation, counseling and educating the patient/family/caregiver, and ordering medications, tests, or procedures. documented in this encounter [facility] 10-10-2022 History of Present illness Narrative Patient has been scheduled as directed by Ciro. [facility] Medical Nutrition Therapy Visit Type: Virtual: I have discussed the nature of this visit with the patient which will occur via Distance Health (Phone, Virtual Visit) and he agrees to proceed with this interaction . Patient states reason for visit: Diabetes Management Initial DEMOGRAPHICS: Co-Morbidities: PAST MEDICAL HISTORY Diagnosis Date Diabetes mellitus (HCC) Activity: Do you do a regular exercise No Symptoms: Patient's symptoms are as follows: Weight Concerns: weight loss How many hours of sleep on average? 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 1x/week Allergies: Lactose intolerant Patient / Provider Comments: pt was dx w/ dm in 2020, He previously had GDM in 2014 Pt will start HRT on Friday Pt is interested in meeting with PE Pt works 8:30pm-7 am Pt states he stayed around 270 since covid pt reports gaining 20 lbs during covid Pt has 7 children between him and his Medications: Current Outpatient Medications Medication Sig semaglutide (OZEMPIC) 0.25 mg or 0.5 mg(2 mg/1.5 mL) pen Inject 0.5 mg subcutaneously one time a week. First 4 weeks of first fill take 0.25 mg per week. metFORMIN ER (GLUCOPHAGE XR) 500 mg 24 hr tablet Take 1 tablet by mouth twice daily with meals. Blood-Glucose Meter (TRUE METRIX AIR GLUCOSE METER) monitoring kit 1 Each as needed for up to 1 day. blood sugar diagnostic (TRUE METRIX GLUCOSE TEST STRIP) test strip Use as instructed daily sodium chloride 0.9 % IRRIGATION Rinse wound twice daily. Dispense seven 1liter bottles. mupirocin (BACTROBAN) 2 % ointment Please dispense seven 22g tubes . Patient will mix one tube of ointment into 1liter of normal saline and rinse nose and sinuses twice daily. montelukast (SINGULAIR) 10 mg tablet Take 10 mg by mouth. budesonide-formoterol (SYMBICORT) 160-4.5 mcg/actuation inhaler Inhale 2 Puffs as instructed. venlafaxine ER (EFFEXOR XR) 75 mg 24 hr capsule Take 75 mg by mouth. fluticasone (FLONASE) 50 mcg/actuation nasal spray Use 2 Sprays in each nostril once daily. No current facility-administered medications for this visit. Labs: No results found for: GLUC, K, NA, CHLOR, CO2, CREAT, BUN, ANION, CA Lab Results Component Value Date HBA1C 7.6 10/07/2022 No results found for: CHOL, HDL, LDL, TG No results found for: GLUC, K, NA, CHLOR, CO2, CREAT, BUN, ANION, CA, TPROT, ALB, TBILI, ALKPHOS, AST, ALT ANTHROPOMETRICS Height: Last 1 Encounter Ht Readings: Date: Ht: 10/07/2022 167.6 cm (5' 6 ) Current weight: Last 3 Encounter Wt Readings: Date: Wt: 10/07/2022 123.4 kg (272 lb) BMI: 43.90 5% -10% Weight loss: 13-26 lbs Last Wt 10/07/22 : 123.4 kg (272 lb) 5% weight loss = 258 lbs, 10% weight loss = 245 lbs READINESS TO LEARN Cognitive ability: Alert and oriented Motivation to learn:interested Family support: Unable to assess - Family not present Instruction provided to: Patient Patient learns best by: Multiple Methods Factors affecting learning: None Physical limitations affecting learning: None Stage of Change: Contemplation Nutrition Diagnosis: Altered nutrition related laboratory values related to endocrine dysfunction Type 2 Diabetes Mellitus as evidence by elevated HBA1C or altered blood glucose levels. 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 complications associated w/ uncontrolled BG Discussed the following nutrition topics today at the appointment: --carbohydrate sources and effect on blood sugars --food label reading for carbohydrate and fiber --portion sizes of commonly eaten carb foods --avoiding regular soda, juice, and fried foods --Plate Method: at least 1/2 plate filled with low carb vegetables, 1/4 plate with a protein food that is not fried, 1/4 plate high fiber starch/carb --Consider checking check BG 2 hours after eating to see response of blood sugar to food choices and insulin dose used Education Materials: Healthy You: Survival Skills Healthy You: Planning Healthy Meals Med meal plan booklet Nutrition Monitoring & Evaluation: Dietitian Goals: Maintained OR Improved Blood Glucose Control by next A1C test Weight Reduction of 5-10% within 6 months Criteria: Blood Glucose Values, A1C, and Weight Patient Stated Goals at today's visit: Pt will eat more frequently throughout the day we discussed 3 meals/day Pt will increase fluid intake and decrease added sugar in his fluids-we discussed 8 cups of fluids/day is our goal We will go over carb counting at our next visit Adherence Potential to Goals: Good Need for Follow up: 11/07 Referred by: Caitlin Ramesh APRN.WHEEL BLOCKER Emilia Murdock RD Consult Billing Type/Increments: Initial Assessment/15 minutes, 4 increment(s), 60 minutes Start time: 10 am End time: 10:50 am My final report will be communicated back to the requesting physician by way of shared medical record. Signed by: Emilia Murdock RD documented in this encounter [facility] 07-24-2022 Miscellaneous Notes Spoke with allie to transfer script They need a new script escripted Spoke with patient He would like this ot be sent to the allie in [facility] on [address] Tried to reach patient to see if he has an alternative pharmacy or if he would like to mix himself Lm to call office documented in this encounter [facility] 07-03-2022 History of Present illness Narrative SECTION OF RHINOLOGY, SINUS AND SKULL BASE SURGERY Head and Neck [place], [facility] NOTE This patient is a new patient. They are seen at the request of: SELF CC: post-surgical complications HPI: Mayela Juarez is a 31 year old adult with chronic asthma seen today for evaluation of sinus issues. Patient is a PSHx of bilateral adenoidectomy + bilateral rigid eustachian tube tuboplasty, myringotomy with tubes (05/16/22), submucosal resection + septal button insertion (06/18/21), septoplasty (05/13/19). After surgery May 16 started feeling headaches on the side of head and forehead and left ear pain. The surgery on the was adenoidectomy and ear tubes placed and dilation of ETD. This was done for chronic bilateral ear infections pt had every couple of weeks for years, constantly on antibiotics, the adenoids were blocking the ear tubes. Still has fluid draining from his ears. Still has severe snoring and never had a sleep study. Pt does vape. Pt always feels very stuffed up. Pt is always blowing discolored mucous out of nose. Pt feels like he has something in his throat, is able to eat, has had some episodes of choking. Hearing is unchanged. Pt has never been tested for allergies but has been told has allergies, has asthma. Pt has been having increased flare ups the past 3 weeks, and is now being referred to a physical fitness trainer. Findings from MRI Brain 05/24/22: Fluid and/or mucosal thickening in the bilateral maxillary and ethmoid sinuses. The frontal sinuses, sphenoid sinuses, and mastoid air cells are well aerated. PAST MEDICAL HISTORY: PAST MEDICAL HISTORY Diagnosis Date Diabetes mellitus (HCC) PAST SURGICAL HISTORY: PAST SURGICAL HISTORY Procedure Laterality Date EAR TUBES HX REPAIR OF NASAL SEPTUM TONSILLECTOMY & ADENOIDECTOMY <AGE 12 No family history on file. Social History Tobacco Use Smoking status: Never Passive exposure: Never Smokeless tobacco: Never Vaping Use Vaping Use: current everyday user Substance Use Topics Alcohol use: Never Drug use: Never MEDICATIONS: Current Outpatient Medications Medication Sig montelukast (SINGULAIR) 10 mg tablet Take 10 mg by mouth. budesonide-formoterol (SYMBICORT) 160-4.5 mcg/actuation inhaler Inhale 2 Puffs as instructed. metFORMIN (GLUCOPHAGE) 1,000 mg tablet TAKE 1 TABLET BY MOUTH TWICE A DAY *START AFTER FINSIHED WITH 500MG venlafaxine ER (EFFEXOR XR) 75 mg 24 hr capsule Take 75 mg by mouth. fluticasone (FLONASE) 50 mcg/actuation nasal spray Use 2 Sprays in each nostril once daily. doxycycline hyclate (VIBRAMYCIN) 100 mg capsule Take 1 capsule by mouth twice daily for 14 days. No current facility-administered medications for this visit. ALLERGIES: ALLERGIES Allergen Reactions Paroxetine Anaphylaxis, Swelling tounge & throat swelling tounge & throat swelling Bupropion Anaphylaxis, Other: See Comments hallucinations ROS: Constitutional: Denies having night sweats, constant fatigue, loss of appetite, or recent substantial weight loss. Eyes: The patient denies having blurred vision or double vision. Respiratory: Denies symptoms of shortness of breath, noisy breathing, hoarseness, or a chronic cough. GI: Denies symptoms of heartburn, acid regurgitation, or the known presence of a hiatal hernia. 10 point review of systems was otherwise normal. REVIEW OF RADIOLOGICAL FILMS AND RECORDS: Previous operative, pathology, and radiological reports were reviewed and filed in the permanent chart. PHYSICAL EXAM: Constitutional: General appearance: well developed, well nourished, without obvious deformities Communication: the patient speaks with a normal voice without hoarseness Head and Face: Overall appearance: no obvious scars, lesions or masses Parotid and submandibular glands: no masses or tenderness Facial strength: normal and equal bilaterally . No tenderness to palpation Eyes: PEERL EOMI Ears, Nose, Mouth, Throat: External ears and nose: normal in appearance, without scars, lesions, or masses Ears: both left and right external auditory canals and tympanic membranes are normal Nasal exam: the mucosa is pink, the septum is midline, and the visible turbinates are normal on anterior rhinoscopy Oral cavity and oropharynx: The lips, the oral mucosa, hard and soft palates, tongue, tonsil area, and posterior pharyngeal mucosa are without lesions Neck: the neck appears symmetric without scars, and on palpation is without masses or lymphadenopathy Thyroid: there is no asymmetry, thyromegally or thyroid nodules on palpation Respiratory: . Normal respirations on inspection Neurological . Normal mental status . Normal orientation . Cranial Nerves 3-12 intact PROCEDURE NOTE:: Procedure: Nasal endoscopy Indication: Chronic sinusitis Findings: After topical decongestion and anesthesia with 2% lidocaine and afrin were administered. Rigid endoscopy was performed. It revealed: edematous mucosa bilaterally. There is friable tissue. Significant amount of crusting bilaterally. Culture obtained. ASSESSMENT: Mayela Juarez ( Krew ) is a 31 year old adult with 1) Chronic sinusitis with an acute infection 2) Nasal crusting PLAN: 1) Rigid Nasal Endoscopy today demonstrates active infection with crusting. 2) Culture obtained 3) He will start oral abx and abx rinses, contingent on culture results 4) Start doxycycline for now 5) Start Flonase 6) Follow-up in 6 weeks 7) Consider sleep study in the future Disclosure: Dr. Salter receives payments from [employer] for conducting educational activities and/or consulting. An [employer] and or [employer] product may be used in your care. Dr. Salter does not receive any money for products he/she or any other [facility] physicians prescribe or use. Dr. Salter's choice on which product to use in your case was not influenced by his/her relationship with [employer] or [employer]. Your physician selected the product that in his or her hands is believed to be the best option for your treatment. Medical Decision Making: Problems: Moderate: New problem with uncertain prognosis Data: Unique test(s) ordered: 1 Risk: Moderate: Drug management Medical Decision Making Level: 4 - Moderate documented in this encounter [facility] 07-03-2022 Nurse Note Tobacco Use: Never Was smoking cessation packet given? N/A - Patient is a non-smoker or quit >1 year ago. Was a referral initiated?N/A Patient is a non-smoker documented in this encounter [facility] 01-29-2022 Hospital Discharge instructions Patient Education 01/29/2022 10:23:42 Smokeless Tobacco Information, Adult Smokeless Tobacco Information, Adult Tobacco is a leafy plant that contains a chemical (nicotine). Nicotine affects your brain and causes you to become addicted to it. Smokeless tobacco is tobacco that you put in your mouth instead of smoking it. It may also be called chewing tobacco or snuff. Smokeless tobacco is made from the leaves of tobacco plants and comes in many forms, such as: Loose, dry leaves. Plugs or twists. Moist pouches. Dissolving lozenges or strips. Chewing, sucking, or holding the tobacco in your mouth causes your mouth to make more saliva. The saliva mixes with the tobacco, which you swallow or spit out. Using tobacco is harmful to your health. How can smokeless tobacco affect me? All forms of tobacco contain many chemicals that can harm every organ in the body. Using smokeless tobacco increases your risk for: Cancer. Tobacco use is one of the leading causes of cancer. Smokeless tobacco is linked to cancer of the mouth, esophagus, and pancreas. Other long-term health problems, including high blood pressure, heart disease, and stroke. Addiction. complications, if this applies. women who use smokeless tobacco are more likely to have a miscarriage or deliver a baby too early. Mouth and dental problems, such as: ?Bad breath. ?Teeth that look yellow or brown. ?Mouth sores. ?Cracking and bleeding lips. ?Gum recession, gum disease, or tooth decay. ?Lesions on the soft tissues of your mouth (leukoplakia). The benefits of not using smokeless tobacco include: A healthy mind and body. Saving money. You avoid the cost of buying tobacco and the cost of treating illnesses that are caused by tobacco. What actions can I take to quit using tobacco? Ask your health care provider for help to quit using smokeless tobacco. This may involve treatment. These tips may also help you quit: Pick a date to quit. Set a date within the next two weeks. This gives you time to prepare. Write down the reasons why you are quitting. Keep this list in places where you will see it often, such as on your bathroom mirror or in your car or wallet. Identify the people, places, things, and activities that make you want to use smokeless tobacco (triggers). Avoid them. Get rid of any tobacco you have and remove any tobacco smells. To do this: ?Throw away all containers of tobacco at home, at work, and in your car. ?Throw away any other items that you use regularly when you chew tobacco. ?Clean your car and make sure to remove all tobacco-related items. ?Clean your home, including curtains and carpets. Tell your family and friends that you are quitting. Having support can make quitting easier. Chew sugarless gum or sunflower seeds when you want to use smokeless tobacco. Stay positive. Be prepared for cravings. It is common to slip up when you first quit, so take it one day at a time. Stay busy and take care of your body. Get plenty of exercise. Drink enough water to keep your urine pale yellow. Keep track of how many days have passed since you quit. Remembering how long and hard you have worked to quit can help you avoid using smokeless tobacco again. Where to find support Ask your health care provider if there is a local support group for quitting smokeless tobacco. Where to find more information You can learn more about the risks of using smokeless tobacco and the benefits of quitting from these sources: [place] [employer]: www.cancer.org National Cancer [place]: www.cancer.gov Centers for Disease Control and Prevention: www.cdc.gov Contact a health care provider if you have: Trouble quitting smokeless tobacco use on your own. White or other discolored patches in your mouth. Difficulty swallowing. A change in your voice. Unexplained weight loss. Stomach pain, nausea, or vomiting. Summary Smokeless tobacco contains many different chemicals that are known to cause cancer. Nicotine is an addictive chemical in smokeless tobacco that affects your brain. The benefits of not using smokeless tobacco include having a healthy mind and body and saving money. Tell your family and friends that you are quitting. Having support can make quitting easier. Ask your health care provider for help quitting smokeless tobacco. This may involve treatment. This information is not intended to replace advice given to you by your health care provider. Make sure you discuss any questions you have with your health care provider. Document Released: 03/23/2012 Document Revised: 12/27/2019 Document Reviewed: 12/27/2019 [employer] Patient Education 2020 [employer]. 01/29/2022 10:23:39 Exercising to Lose Weight Exercising to Lose Weight Exercise is structured, repetitive physical activity to improve fitness and health. Getting regular exercise is important for everyone. It is especially important if you are overweight. Being overweight increases your risk of heart disease, stroke, diabetes, high blood pressure, and several types of cancer. Reducing your calorie intake and exercising can help you lose weight. Exercise is usually categorized as moderate or vigorous intensity. To lose weight, most people need to do a certain amount of moderate-intensity or vigorous-intensity exercise each week. Moderate-intensity exercise Moderate-intensity exercise is any activity that gets you moving enough to burn at least three times more energy (calories) than if you were sitting. Examples of moderate exercise include: Walking a mile in 15 minutes. Doing light yard work. Biking at an easy pace. Most people should get at least 150 minutes (2 hours and 30 minutes) a week of moderate-intensity exercise to maintain their body weight. Vigorous-intensity exercise Vigorous-intensity exercise is any activity that gets you moving enough to burn at least six times more calories than if you were sitting. When you exercise at this intensity, you should be working hard enough that you are not able to carry on a conversation. Examples of vigorous exercise include: Running. Playing a team sport, such as football, basketball, and soccer. Jumping rope. Most people should get at least 75 minutes (1 hour and 15 minutes) a week of vigorous-intensity exercise to maintain their body weight. How can exercise affect me? When you exercise enough to burn more calories than you eat, you lose weight. Exercise also reduces body fat and builds muscle. The more muscle you have, the more calories you burn. Exercise also: Improves mood. Reduces stress and tension. Improves your overall fitness, flexibility, and endurance. Increases bone strength. The amount of exercise you need to lose weight depends on: Your age. The type of exercise. Any health conditions you have. Your overall physical ability. Talk to your health care provider about how much exercise you need and what types of activities are safe for you. What actions can I take to lose weight? Nutrition Make changes to your diet as told by your health care provider or diet and crop nutrition scientist (dietitian). This may include: ?Eating fewer calories. ?Eating more protein. ?Eating less unhealthy fats. ?Eating a diet that includes fresh fruits and vegetables, whole grains, low-fat dairy products, and lean protein. ?Avoiding foods with added fat, salt, and sugar. Drink plenty of water while you exercise to prevent dehydration or heat stroke. Activity Choose an activity that you enjoy and set realistic goals. Your health care provider can help you make an exercise plan that works for you. Exercise at a moderate or vigorous intensity most days of the week. ?The intensity of exercise may vary from person to person. You can tell how intense a workout is for you by paying attention to your breathing and heartbeat. Most people will notice their breathing and heartbeat get faster with more intense exercise. Do resistance training twice each week, such as: ?Push-ups. ?Sit-ups. ?Lifting weights. ?Using resistance bands. Getting short amounts of exercise can be just as helpful as long structured periods of exercise. If you have trouble finding time to exercise, try to include exercise in your daily routine. ?Get up, stretch, and walk around every 30 minutes throughout the day. ?Go for a walk during your lunch break. ?Park your car farther away from your destination. ?If you take public transportation, get off one stop early and walk the rest of the way. ?Make phone calls while standing up and walking around. ?Take the stairs instead of elevators or escalators. Wear comfortable clothes and shoes with good support. Do not exercise so much that you hurt yourself, feel dizzy, or get very short of breath. Where to find more information [place]S. Department of Health and Human Services: www.hhs.gov Centers for Disease Control and Prevention (CDC): www.cdc.gov Contact a health care provider: Before starting a new exercise program. If you have questions or concerns about your weight. If you have a medical problem that keeps you from exercising. Get help right away if you have any of the following while exercising: Injury. Dizziness. Difficulty breathing or shortness of breath that does not go away when you stop exercising. Chest pain. Rapid heartbeat. Summary Being overweight increases your risk of heart disease, stroke, diabetes, high blood pressure, and several types of cancer. Losing weight happens when you burn more calories than you eat. Reducing the amount of calories you eat in addition to getting regular moderate or vigorous exercise each week helps you lose weight. This information is not intended to replace advice given to you by your health care provider. Make sure you discuss any questions you have with your health care provider. Document Released: 11/22/2011 Document Revised: 11/02/2018 Document Reviewed: 11/02/2018 [employer] Patient Education 2020 [employer]. 01/29/2022 10:23:36 BMI for Adults BMI for Adults Body mass index (BMI) is a number that is calculated from a person's weight and height. BMI may help to estimate how much of a person's weight is composed of fat. BMI can help identify those who may be at higher risk for certain medical problems. How is BMI used with adults? BMI is used as a screening tool to identify possible weight problems. It is used to check whether a person is obese, overweight, healthy weight, or underweight. How is BMI calculated? BMI measures your weight and compares it to your height. This can be done either in [place] ([place] or metric measurements. Note that charts are available to help you find your BMI quickly and easily without having to do these calculations yourself. To calculate your BMI in [place] ([place] measurements, your health care provider will: 1.Measure your weight in pounds (lb). 2.Multiply the number of pounds by 703. For example, for a person who weighs 180 lb, multiply that number by 703, which equals 126,540. 3.Measure your height in inches (in). Then multiply that number by itself to get a measurement called inches squared. For example, for a person who is 70 in tall, the inches squared measurement is 70 in x 70 in, which equals 4900 inches squared. 4.Divide the total from Step 2 (number of lb x 703) by the total from Step 3 (inches squared): 126,540 4900 = 25.8. This is your BMI. To calculate your BMI in metric measurements, your health care provider will: 1.Measure your weight in kilograms (kg). 2.Measure your height in meters (m). Then multiply that number by itself to get a measurement called meters squared. For example, for a person who is 1.75 m tall, the meters squared measurement is 1.75 m x 1.75 m, which is equal to 3.1 meters squared. 3.Divide the number of kilograms (your weight) by the meters squared number. In this example: 70 3.1 = 22.6. This is your BMI. How is BMI interpreted? To interpret your results, your health care provider will use BMI charts to identify whether you are underweight, normal weight, overweight, or obese. The following guidelines will be used: Underweight: BMI less than 18.5. Normal weight: BMI between 18.5 and 24.9. Overweight: BMI between 25 and 29.9. Obese: BMI of 30 and above. Please note: Weight includes both fat and muscle, so someone with a muscular build, such as an athlete, may have a BMI that is higher than 24.9. In cases like these, BMI is not an accurate measure of body fat. To determine if excess body fat is the cause of a BMI of 25 or higher, further assessments may need to be done by a health care provider. BMI is usually interpreted in the same way for men and women. Why is BMI a useful tool? BMI is useful in two ways: Identifying a weight problem that may be related to a medical condition, or that may increase the risk for medical problems. Promoting lifestyle and diet changes in order to reach a healthy weight. Summary Body mass index (BMI) is a number that is calculated from a person's weight and height. BMI may help to estimate how much of a person's weight is composed of fat. BMI can help identify those who may be at higher risk for certain medical problems. BMI can be measured using [place]ian measurements or metric measurements. To interpret your results, your health care provider will use BMI charts to identify whether you are underweight, normal weight, overweight, or obese. This information is not intended to replace advice given to you by your health care provider. Make sure you discuss any questions you have with your health care provider. Document Released: 07/01/2005 Document Revised: 10/02/2018 Document Reviewed: 09/02/2018 [employer] Patient Education 2020 [employer]. 01/29/2022 10:23:34 Major Depressive Disorder, Adult Major Depressive Disorder, Adult Major depressive disorder (MDD) is a mental health condition. It may also be called clinical depression or unipolar depression. MDD usually causes feelings of sadness, hopelessness, or helplessness. MDD can also cause physical symptoms. It can interfere with work, school, relationships, and other everyday activities. MDD may be mild, moderate, or severe. It may occur once (single episode major depressive disorder) or it may occur multiple times (recurrent major depressive disorder). What are the causes? The exact cause of this condition is not known. MDD is most likely caused by a combination of things, which may include: Genetic factors. These are traits that are passed along from parent to child. Individual factors. Your personality, your behavior, and the way you handle your thoughts and feelings may contribute to MDD. This includes personality traits and behaviors learned from others. Physical factors, such as: ?Differences in the part of your brain that controls emotion. This part of your brain may be different than it is in people who do not have MDD. ?Long-term (chronic) medical or psychiatric illnesses. Social factors. Traumatic experiences or major life changes may play a role in the development of MDD. What increases the risk? This condition is more likely to develop in women. The following factors may also make you more likely to develop MDD: A family history of depression. Troubled family relationships. Abnormally low levels of certain brain chemicals. Traumatic events in childhood, especially abuse or the loss of a parent. Being under a lot of stress, or long-term stress, especially from upsetting life experiences or losses. A history of: ?Chronic physical illness. ?Other mental health disorders. ?Substance abuse. Poor living conditions. Experiencing social exclusion or discrimination on a regular basis. What are the signs or symptoms? The main symptoms of MDD typically include: Constant depressed or irritable mood. Loss of interest in things and activities. MDD symptoms may also include: Sleeping or eating too much or too little. Unexplained weight change. Fatigue or low energy. Feelings of worthlessness or guilt. Difficulty thinking clearly or making decisions. Thoughts of suicide or of harming others. Physical agitation or weakness. Isolation. Severe cases of MDD may also occur with other symptoms, such as: Delusions or hallucinations, in which you imagine things that are not real (psychotic depression). Low-level depression that lasts at least a year (chronic depression or persistent depressive disorder). Extreme sadness and hopelessness (melancholic depression). Trouble speaking and moving (catatonic depression). How is this diagnosed? This condition may be diagnosed based on: Your symptoms. Your medical history, including your mental health history. This may involve tests to evaluate your mental health. You may be asked questions about your lifestyle, including any drug and alcohol use, and how long you have had symptoms of MDD. A physical exam. Blood tests to rule out other conditions. You must have a depressed mood and at least four other MDD symptoms most of the day, nearly every day in the same 2-week timeframe before your health care provider can confirm a diagnosis of MDD. How is this treated? This condition is usually treated by mental health professionals, such as psychologists, psychiatrists, and clinical social workers. You may need more than one type of treatment. Treatment may include: Psychotherapy. This is also called talk therapy or counseling. Types of psychotherapy include: ?Cognitive behavioral therapy (CBT). This type of therapy teaches you to recognize unhealthy feelings, thoughts, and behaviors, and replace them with positive thoughts and actions. ?Interpersonal therapy (IPT). This helps you to improve the way you relate to and communicate with others. ?Family therapy. This treatment includes members of your family. Medicine to treat anxiety and depression, or to help you control certain emotions and behaviors. Lifestyle changes, such as: ?Limiting alcohol and drug use. ?Exercising regularly. ?Getting plenty of sleep. ?Making healthy eating choices. ?Spending more time outdoors. Treatments involving stimulation of the brain can be used in situations with extremely severe symptoms, or when medicine or other therapies do not work over time. These treatments include electroconvulsive therapy, transcranial magnetic stimulation, and vagal nerve stimulation. Follow these instructions at home: Activity Return to your normal activities as told by your health care provider. Exercise regularly and spend time outdoors as told by your health care provider. General instructions Take unen-qfq-aglldav and prescription medicines only as told by your health care provider. Do not drink alcohol. If you drink alcohol, limit your alcohol intake to no more than 1 drink a day for non women and 2 drinks a day for men. One drink equals 12 oz of beer, 5 oz of wine, or 1 oz of hard liquor. Alcohol can affect any antidepressant medicines you are taking. Talk to your health care provider about your alcohol use. Eat a healthy diet and get plenty of sleep. Find activities that you enjoy doing, and make time to do them. Consider joining a support group. Your health care provider may be able to recommend a support group. Keep all follow-up visits as told by your health care provider. This is important. Where to find more information National [place] on Mental Illness www.jaziel.org [place] National [place] of Mental Health www.[facility].nih.gov National Suicide Prevention Lifeline 0-180-789-TALK (0433). This is free, 24-hour help. Contact a health care provider if: Your symptoms get worse. You develop new symptoms. Get help right away if: You self-harm. You have serious thoughts about hurting yourself or others. You see, hear, taste, smell, or feel things that are not present (hallucinate). This information is not intended to replace advice given to you by your health care provider. Make sure you discuss any questions you have with your health care provider. Document Released: 02/14/2014 Document Revised: 10/02/2018 Document Reviewed: 04/30/2017 [employer] Patient Education 2020 [employer]. 01/29/2022 10:23:31 Blood Glucose Monitoring, Adult Blood Glucose Monitoring, Adult Monitoring your blood sugar (glucose) is an important part of managing your diabetes (diabetes mellitus). Blood glucose monitoring involves checking your blood glucose as often as directed and keeping a record (log) of your results over time. Checking your blood glucose regularly and keeping a blood glucose log can: Help you and your health care provider adjust your diabetes management plan as needed, including your medicines or insulin. Help you understand how food, exercise, illnesses, and medicines affect your blood glucose. Let you know what your blood glucose is at any time. You can quickly find out if you have low blood glucose (hypoglycemia) or high blood glucose (hyperglycemia). Your health care provider will set individualized treatment goals for you. Your goals will be based on your age, other medical conditions you have, and how you respond to diabetes treatment. Generally, the goal of treatment is to maintain the following blood glucose levels: Before meals (preprandial): 80 130 mg/dL (4.4 7.2 mmol/L). After meals (postprandial): below 180 mg/dL (10 mmol/L). A1c level: less than 7%. Supplies needed: Blood glucose meter. Test strips for your meter. Each meter has its own strips. You must use the strips that came with your meter. A needle to prick your finger (lancet). Do not use a lancet more than one time. A device that holds the lancet (lancing device). A journal or log book to write down your results. How to check your blood glucose 1.Wash your hands with soap and water. 2.Prick the side of your finger (not the tip) with the lancet. Use a different finger each time. 3.Gently rub the finger until a small drop of blood appears. 4.Follow instructions that come with your meter for inserting the test strip, applying blood to the strip, and using your blood glucose meter. 5.Write down your result and any notes. Some meters allow you to use areas of your body other than your finger (alternative sites) to test your blood. The most common alternative sites are: Forearm. Thigh. Palm of the hand. If you think you may have hypoglycemia, or if you have a history of not knowing when your blood glucose is getting low (hypoglycemia unawareness), do not use alternative sites. Use your finger instead. Alternative sites may not be as accurate as the fingers, because blood flow is slower in these areas. This means that the result you get may be delayed, and it may be different from the result that you would get from your finger. Follow these instructions at home: Blood glucose log Every time you check your blood glucose, write down your result. Also write down any notes about things that may be affecting your blood glucose, such as your diet and exercise for the day. This information can help you and your health care provider: ?Look for patterns in your blood glucose over time. ?Adjust your diabetes management plan as needed. Check if your meter allows you to download your records to a computer. Most glucose meters store a record of glucose readings in the meter. If you have type 1 diabetes: Check your blood glucose 2 or more times a day. Also check your blood glucose: ?Before every insulin injection. ?Before and after exercise. ?Before meals. ?2 hours after a meal. ?Occasionally between 2:00 a.m. and 3:00 a.m., as directed. ?Before potentially dangerous tasks, like driving or using heavy machinery. ?At bedtime. You may need to check your blood glucose more often, up to 6 10 times a day, if you: ?Use an insulin pump. ?Need multiple daily injections (MDI). ?Have diabetes that is not well-controlled. ?Are ill. ?Have a history of severe hypoglycemia. ?Have hypoglycemia unawareness. If you have type 2 diabetes: If you take insulin or other diabetes medicines, check your blood glucose 2 or more times a day. If you are on intensive insulin therapy, check your blood glucose 4 or more times a day. Occasionally, you may also need to check between 2:00 a.m. and 3:00 a.m., as directed. Also check your blood glucose: ?Before and after exercise. ?Before potentially dangerous tasks, like driving or using heavy machinery. You may need to check your blood glucose more often if: ?Your medicine is being adjusted. ?Your diabetes is not well-controlled. ?You are ill. General tips Always keep your supplies with you. If you have questions or need help, all blood glucose meters have a 24-hour hotline phone number that you can call. You may also contact your health care provider. After you use a few boxes of test strips, adjust (calibrate) your blood glucose meter by following instructions that came with your meter. Contact a health care provider if: Your blood glucose is at or above 240 mg/dL (13.3 mmol/L) for 2 days in a row. You have been sick or have had a fever for 2 days or longer, and you are not getting better. You have any of the following problems for more than 6 hours: ?You cannot eat or drink. ?You have nausea or vomiting. ?You have diarrhea. Get help right away if: Your blood glucose is lower than 54 mg/dL (3 mmol/L). You become confused or you have trouble thinking clearly. You have difficulty breathing. You have moderate or large ketone levels in your urine. Summary Monitoring your blood sugar (glucose) is an important part of managing your diabetes (diabetes mellitus). Blood glucose monitoring involves checking your blood glucose as often as directed and keeping a record (log) of your results over time. Your health care provider will set individualized treatment goals for you. Your goals will be based on your age, other medical conditions you have, and how you respond to diabetes treatment. Every time you check your blood glucose, write down your result. Also write down any notes about things that may be affecting your blood glucose, such as your diet and exercise for the day. This information is not intended to replace advice given to you by your health care provider. Make sure you discuss any questions you have with your health care provider. Document Released: 10/22/2004 Document Revised: 08/13/2019 Document Reviewed: 03/31/2017 [employer] Patient Education 2020 [employer] Inc[employer] 01/29/2022 10:23:30 Diabetes Mellitus and Exercise Diabetes Mellitus and Exercise Exercising regularly is important for your overall health, especially when you have diabetes (diabetes mellitus). Exercising is not only about losing weight. It has many other health benefits, such as increasing muscle strength and bone density and reducing body fat and stress. This leads to improved fitness, flexibility, and endurance, all of which result in better overall health. Exercise has additional benefits for people with diabetes, including: Reducing appetite. Helping to lower and control blood glucose. Lowering blood pressure. Helping to control amounts of fatty substances (lipids) in the blood, such as cholesterol and triglycerides. Helping the body to respond better to insulin (improving insulin sensitivity). Reducing how much insulin the body needs. Decreasing the risk for heart disease by: ?Lowering cholesterol and triglyceride levels. ?Increasing the levels of good cholesterol. ?Lowering blood glucose levels. What is my activity plan? Your health care provider or certified endoscopy technician can help you make a plan for the type and frequency of exercise (activity plan) that works for you. Make sure that you: Do at least 150 minutes of moderate-intensity or vigorous-intensity exercise each week. This could be brisk walking, biking, or water aerobics. ?Do stretching and strength exercises, such as yoga or weightlifting, at least 2 times a week. ?Spread out your activity over at least 3 days of the week. Get some form of physical activity every day. ?Do not go more than 2 days in a row without some kind of physical activity. ?Avoid being inactive for more than 30 minutes at a time. Take frequent breaks to walk or stretch. Choose a type of exercise or activity that you enjoy, and set realistic goals. Start slowly, and gradually increase the intensity of your exercise over time. What do I need to know about managing my diabetes? Check your blood glucose before and after exercising. ?If your blood glucose is 240 mg/dL (13.3 mmol/L) or higher before you exercise, check your urine for ketones. If you have ketones in your urine, do not exercise until your blood glucose returns to normal. ?If your blood glucose is 100 mg/dL (5.6 mmol/L) or lower, eat a snack containing 15 20 grams of carbohydrate. Check your blood glucose 15 minutes after the snack to make sure that your level is above 100 mg/dL (5.6 mmol/L) before you start your exercise. Know the symptoms of low blood glucose (hypoglycemia) and how to treat it. Your risk for hypoglycemia increases during and after exercise. Common symptoms of hypoglycemia can include: ?Hunger. ?Anxiety. ?Sweating and feeling clammy. ?Confusion. ?Dizziness or feeling light-headed. ?Increased heart rate or palpitations. ?Blurry vision. ?Tingling or numbness around the mouth, lips, or tongue. ?Tremors or shakes. ?Irritability. Keep a rapid-acting carbohydrate snack available before, during, and after exercise to help prevent or treat hypoglycemia. Avoid injecting insulin into areas of the body that are going to be exercised. For example, avoid injecting insulin into: ?The arms, when playing tennis. ?The legs, when jogging. Keep records of your exercise habits. Doing this can help you and your health care provider adjust your diabetes management plan as needed. Write down: ?Food that you eat before and after you exercise. ?Blood glucose levels before and after you exercise. ?The type and amount of exercise you have done. ?When your insulin is expected to peak, if you use insulin. Avoid exercising at times when your insulin is peaking. When you start a new exercise or activity, work with your health care provider to make sure the activity is safe for you, and to adjust your insulin, medicines, or food intake as needed. Drink plenty of water while you exercise to prevent dehydration or heat stroke. Drink enough fluid to keep your urine clear or pale yellow. Summary Exercising regularly is important for your overall health, especially when you have diabetes (diabetes mellitus). Exercising has many health benefits, such as increasing muscle strength and bone density and reducing body fat and stress. Your health care provider or certified endoscopy technician can help you make a plan for the type and frequency of exercise (activity plan) that works for you. When you start a new exercise or activity, work with your health care provider to make sure the activity is safe for you, and to adjust your insulin, medicines, or food intake as needed. This information is not intended to replace advice given to you by your health care provider. Make sure you discuss any questions you have with your health care provider. Document Released: 01/09/2005 Document Revised: 05/14/2018 Document Reviewed: 03/31/2017 [employer] Patient Education 2020 [employer] Follow Up Care 01/24/2022 17:23:25 With:SUSAN ROBERTS CNP Address: [facility] [address] [place] [address] When:3 months [facility] Evaluation + Plan note Future Appointments Appointment Date:05/02/2022 09:00:00 AM Scheduled Provider:SUSAN ROBERTS CNP Location:[facility] Appointment Type:FM Open Future Scheduled TestsMicroalbumin Level Urine 01/29/22TSH With T4fr Reflex 01/29/22 [facility] Evaluation note Diagnosis Chronic sinusitis, unspecified location- Primary Nasal crusting Other diseases of nasal cavity and sinuses [facility] Diagnosis Uncontrolled type 2 diabetes mellitus with hyperglycemia (HCC) [facility] Diagnosis Gender dysphoria in adult- Primary Severe episode of recurrent major depressive disorder, without psychotic features ([facility]) Anxiety Anxiety state, unspecified High risk medication use Encounter for long-term (current) use of other medications [facility] Diagnosis Gender dysphoria in adult- Primary High risk medication use Encounter for long-term (current) use of other medications [facility] Diagnosis Gender dysphoria in adult- Primary High risk medication use Encounter for long-term (current) use of other medications [facility] Diagnosis Gender dysphoria in adult- Primary [facility] Diagnosis Gender dysphoria in adult [facility]* Diagnosis Obesity, Class III, BMI 40-49.9 (morbid obesity) ([facility])- Primary Morbid obesity Type 2 diabetes mellitus without complication, without long-term current use of insulin (HCC) [facility] Diagnosis OPENED IN ERROR- Primary To allow closing an encounter opened in error (used in SmartSet) documented in this encounter [facility] note* Diagnosis High risk medication use- Primary Encounter for long-term (current) use of other medications Gender dysphoria in adult [facility] Diagnosis Type 2 diabetes mellitus without complication, without long-term current use of insulin (HCC) [facility] Diagnosis Type 2 diabetes mellitus without complication, without long-term current use of insulin (HCC) [facility] Diagnosis Gender dysphoria in adult- Primary High risk medication use Encounter for long-term (current) use of other medications [facility] Diagnosis Uncontrolled type 2 diabetes mellitus with hyperglycemia (HCC) documented in this encounter [facility] note* Diagnosis Uncontrolled type 2 diabetes mellitus with hyperglycemia (HCC) Type 2 diabetes mellitus without complication, without long-term current use of insulin (HCC) [facility] Diagnosis Gender dysphoria in adult [facility] Diagnosis Encounter for gynecological examination without abnormal finding- Primary Routine gynecological examination Routine screening for STI (sexually transmitted infection) Screening examination for venereal disease Cervical cancer screening Screening for malignant neoplasm of the cervix Need for HPV vaccination Need for prophylactic vaccination and inoculation against other viral diseases documented in this encounter [facility] note* Diagnosis Type 2 diabetes mellitus without complication, without long-term current use of insulin (HCC)- Primary BMI 40.0-44.9, adult (HCC) Body Mass Index 40.0-44.9, adult Class 3 severe obesity with body mass index (BMI) of 40.0 to 44.9 in adult, unspecified obesity type, unspecified whether serious comorbidity present ([facility]) Other hyperlipidemia Anxiety and depression Dysthymic disorder Gender dysphoria Gender identity disorder in children Mild persistent asthma without complication Unspecified asthma Hypothyroidism, unspecified type Disturbance in sleep behavior Sleep disturbance, unspecified [facility] Diagnosis Gender dysphoria in adult- Primary Type 2 diabetes mellitus without complication, without long-term current use of insulin (HCC) Androgenic alopecia Other alopecia [facility] Diagnosis Uncontrolled type 2 diabetes mellitus with hyperglycemia (HCC) [facility]* Diagnosis Leukocytosis, unspecified type- Primary [facility]* Diagnosis Hypothyroidism, unspecified type [facility]* Diagnosis Hypoglycemia associated with type 2 diabetes mellitus (HCC)- Primary Candidiasis Candidiasis of unspecified site Uncontrolled type 2 diabetes mellitus with hyperglycemia (HCC) [facility] Diagnosis Gender dysphoria in adult [facility] Diagnosis Encounter for gynecological examination without abnormal finding- Primary Routine gynecological examination Routine screening for STI (sexually transmitted infection) Screening examination for venereal disease Cervical cancer screening Screening for malignant neoplasm of the cervix Need for HPV vaccination Need for prophylactic vaccination and inoculation against other viral diseases Hypothyroidism, unspecified type [facility] Diagnosis Encounter for gynecological examination without abnormal finding- Primary Routine gynecological examination Routine screening for STI (sexually transmitted infection) Screening examination for venereal disease Cervical cancer screening Screening for malignant neoplasm of the cervix Need for HPV vaccination Need for prophylactic vaccination and inoculation against other viral diseases Uncontrolled type 2 diabetes mellitus with hyperglycemia (HCC)- Primary Hypothyroidism, unspecified type [facility] Diagnosis Encounter for gynecological examination without abnormal finding- Primary Routine gynecological examination Routine screening for STI (sexually transmitted infection) Screening examination for venereal disease Cervical cancer screening Screening for malignant neoplasm of the cervix Need for HPV vaccination Need for prophylactic vaccination and inoculation against other viral diseases Uncontrolled type 2 diabetes mellitus with hyperglycemia (HCC)- Primary [facility] Diagnosis Encounter for gynecological examination without abnormal finding- Primary Routine gynecological examination Routine screening for STI (sexually transmitted infection) Screening examination for venereal disease Cervical cancer screening Screening for malignant neoplasm of the cervix Need for HPV vaccination Need for prophylactic vaccination and inoculation against other viral diseases Gender dysphoria in adult- Primary NSTEMI (non-ST elevated myocardial infarction) (HCC) Acute myocardial infarction, subendocardial infarction, episode of care unspecified [facility] Diagnosis Encounter for gynecological examination without abnormal finding- Primary Routine gynecological examination Routine screening for STI (sexually transmitted infection) Screening examination for venereal disease Cervical cancer screening Screening for malignant neoplasm of the cervix Need for HPV vaccination Need for prophylactic vaccination and inoculation against other viral diseases Uncontrolled type 2 diabetes mellitus with hyperglycemia (HCC) documented in this encounter [facility] course Narrative No data available for this section [facility] Summary Purpose Family History No Family History Records FoundNo Family History Records FoundNo Family History Records FoundNo Family History Records FoundNo Family History Records Found Advance Directives No Advanced Directives Records FoundNo Advanced Directives Records FoundNo Advanced Directives Records FoundNo Advanced Directives Records FoundNo Advanced Directives Records Found Reason for Referral Specialty Diagnoses / Procedures Referred By Contac t Referred To Contact Diagnoses Gender dysphoria in adult Yandel Eldridge PA-C [address] [place] [address] Referral ID Status Reason Start Date Expiration Date Visits Re quested Visits Authorized [id number] Closed 1 1 Specialty Diagnoses / Procedures Referred By Contac t Referred To Contact Diagnoses [place] [address] [place] [address] Referral ID Status Reason Start Date Expiration Date Visits Re quested Visits Authorized [id number] Closed 1 1 Specialty Diagnoses / Procedures Referred By Contac t Referred To Contact Diagnoses Type 2 diabetes mellitus without complication, without long-term current use of insulin (HCC) Class 3 severe obesity with body mass index (BMI) of 40.0 to 44.9 in adult, unspecified obesity type, unspecified whether serious comorbidity present (HCC) Procedures ENDOCRINOLOGY DIETITIAN VISIT (MNT) MEDICAL NUTRITION ASSMT&IVNTJ INDIV EACH 15 PA MEDICAL NUTRITION ASSMT&IVNTJ INDIV EACH 15 PA MEDICAL NUTRITION ASSMT&IVNTJ INDIV EACH 15 PA MEDICAL NUTRITION ASSMT&IVNTJ INDIV EACH 15 [place] [address] [place] [address] Referral ID Status Reason Start Date Expiration Date Visits Requested Visits Authorized [id number] Authorized PCP Requested Referral 02/23/2024 02/22/2025 1 1 Specialty Diagnoses / Procedures Referred By Contac t Referred To Contact Diagnoses Gender dysphoria in adult Fabiana Durham, VEGETABLE HANDLER.WHEEL BLOCKER [address] [place] [address] Referral ID Status Reason Start Date Expiration Date Visits Re quested Visits Authorized [id number] Closed 1 1 Additional Source Comments INFORMATION SOURCE (unrecogn ized section and content) DATE CREATED AUTHOR [facility]20[facility] DATE CREATED AUTHOR AUTHOR'S ORGANIZ ATION 03/18/2023 [facility] DATE CREATED AUTHOR AUTHOR'S ORGANIZ ATION 06/06/[address] [facility] DATE CREATED AUTHOR AUTHOR'S ORGANIZ ATION 10/19/2024 [facility] DATE CREATED AUTHOR AUTHOR'S ORGANIZ ATION 11/16/2024 [facility] Source Comments (unrecognize d section and content) In the event this informatio n is protected by the Federal Confidentiality of Alcohol and Drug Abuse Patient Records regulations: The Federal rules restrict any use of the information to criminally investigate or prosecute any alcohol or drug abuse patient.[facility] event this information is protected by the Federal Confidentiality of Alcohol and Drug Abuse Patient Records regulations: The Federal rules restrict any use of the information to criminally investigate or prosecute any alcohol or drug abuse patient.[facility] the event this information is protected by the Federal Confidentiality of Alcohol and Drug Abuse Patient Records regulations: The Federal rules restrict any use of the information to criminally investigate or prosecute any alcohol or drug abuse patient.[facility] the event this information is protected by the Federal Confidentiality of Alcohol and Drug Abuse Patient Records regulations: The Federal rules restrict any use of the information to criminally investigate or prosecute any alcohol or drug abuse patient.[facility] the event this information is protected by the Federal Confidentiality of Alcohol and Drug Abuse Patient Records regulations: The Federal rules restrict any use of the information to criminally investigate or prosecute any alcohol or drug abuse patient.[facility] event this information is protected by the Federal Confidentiality of Alcohol and Drug Abuse Patient Records regulations: The Federal rules restrict any use of the information to criminally investigate or prosecute any alcohol or drug abuse patient.[facility] the event this information is protected by the Federal Confidentiality of Alcohol and Drug Abuse Patient Records regulations: The Federal rules restrict any use of the information to criminally investigate or prosecute any alcohol or drug abuse patient.[facility] the event this information is protected by the Federal Confidentiality of Alcohol and Drug Abuse Patient Records regulations: The Federal rules restrict any use of the information to criminally investigate or prosecute any alcohol or drug abuse patient.[facility] the event this information is protected by the Federal Confidentiality of Alcohol and Drug Abuse Patient Records regulations: The Federal rules restrict any use of the information to criminally investigate or prosecute any alcohol or drug abuse patient.[facility] the event this information is protected by the Federal Confidentiality of Alcohol and Drug Abuse Patient Records regulations: The Federal rules restrict any use of the information to criminally investigate or prosecute any alcohol or drug abuse patient.[facility] the event this information is protected by the Federal Confidentiality of Alcohol and Drug Abuse Patient Records regulations: The Federal rules restrict any use of the information to criminally investigate or prosecute any alcohol or drug abuse patient.[facility] the event this information is protected by the Federal Confidentiality of Alcohol and Drug Abuse Patient Records regulations: The Federal rules restrict any use of the information to criminally investigate or prosecute any alcohol or drug abuse patient.[facility] event this information is protected by the Federal Confidentiality of Alcohol and Drug Abuse Patient Records regulations: The Federal rules restrict any use of the information to criminally investigate or prosecute any alcohol or drug abuse patient.[facility] the event this information is protected by the Federal Confidentiality of Alcohol and Drug Abuse Patient Records regulations: The Federal rules restrict any use of the information to criminally investigate or prosecute any alcohol or drug abuse patient.[facility] the event this information is protected by the Federal Confidentiality of Alcohol and Drug Abuse Patient Records regulations: The Federal rules restrict any use of the information to criminally investigate or prosecute any alcohol or drug abuse patient.[facility] the event this information is protected by the Federal Confidentiality of Alcohol and Drug Abuse Patient Records regulations: The Federal rules restrict any use of the information to criminally investigate or prosecute any alcohol or drug abuse patient.[facility] the event this information is protected by the Federal Confidentiality of Alcohol and Drug Abuse Patient Records regulations: The Federal rules restrict any use of the information to criminally investigate or prosecute any alcohol or drug abuse patient.[facility] the event this information is protected by the Federal Confidentiality of Alcohol and Drug Abuse Patient Records regulations: The Federal rules restrict any use of the information to criminally investigate or prosecute any alcohol or drug abuse patient.[facility] the event this information is protected by the Federal Confidentiality of Alcohol and Drug Abuse Patient Records regulations: The Federal rules restrict any use of the information to criminally investigate or prosecute any alcohol or drug abuse patient.[facility] the event this information is protected by the Federal Confidentiality of Alcohol and Drug Abuse Patient Records regulations: The Federal rules restrict any use of the information to criminally investigate or prosecute any alcohol or drug abuse patient.[facility] the event this information is protected by the Federal Confidentiality of Alcohol and Drug Abuse Patient Records regulations: The Federal rules restrict any use of the information to criminally investigate or prosecute any alcohol or drug abuse patient.[facility] the event this information is protected by the Federal Confidentiality of Alcohol and Drug Abuse Patient Records regulations: The Federal rules restrict any use of the information to criminally investigate or prosecute any alcohol or drug abuse patient.[facility] the event this information is protected by the Federal Confidentiality of Alcohol and Drug Abuse Patient Records regulations: The Federal rules restrict any use of the information to criminally investigate or prosecute any alcohol or drug abuse patient.[facility] the event this information is protected by the Federal Confidentiality of Alcohol and Drug Abuse Patient Records regulations: The Federal rules restrict any use of the information to criminally investigate or prosecute any alcohol or drug abuse patient.[facility] the event this information is protected by the Federal Confidentiality of Alcohol and Drug Abuse Patient Records regulations: The Federal rules restrict any use of the information to criminally investigate or prosecute any alcohol or drug abuse patient.[facility] the event this information is protected by the Federal Confidentiality of Alcohol and Drug Abuse Patient Records regulations: The Federal rules restrict any use of the information to criminally investigate or prosecute any alcohol or drug abuse patient.[facility] the event this information is protected by the Federal Confidentiality of Alcohol and Drug Abuse Patient Records regulations: The Federal rules restrict any use of the information to criminally investigate or prosecute any alcohol or drug abuse patient.[facility] the event this information is protected by the Federal Confidentiality of Alcohol and Drug Abuse Patient Records regulations: The Federal rules restrict any use of the information to criminally investigate or prosecute any alcohol or drug abuse patient.[facility] the event this information is protected by the Federal Confidentiality of Alcohol and Drug Abuse Patient Records regulations: The Federal rules restrict any use of the information to criminally investigate or prosecute any alcohol or drug abuse patient.[facility] the event this information is protected by the Federal Confidentiality of Alcohol and Drug Abuse Patient Records regulations: The Federal rules restrict any use of the information to criminally investigate or prosecute any alcohol or drug abuse patient.[facility] DaytonIn the event this information is protected by the Federal Confidentiality of Alcohol and Drug Abuse Patient Records regulations: The Federal rules restrict any use of the information to criminally investigate or prosecute any alcohol or drug abuse patient.[facility] DaytonIn the event this information is protected by the Federal Confidentiality of Alcohol and Drug Abuse Patient Records regulations: The Federal rules restrict any use of the information to criminally investigate or prosecute any alcohol or drug abuse patient.[facility] DaytonIn the event this information is protected by the Federal Confidentiality of Alcohol and Drug Abuse Patient Records regulations: The Federal rules restrict any use of the information to criminally investigate or prosecute any alcohol or drug abuse patient.[facility] DaytonIn the event this information is protected by the Federal Confidentiality of Alcohol and Drug Abuse Patient Records regulations: The Federal rules restrict any use of the information to criminally investigate or prosecute any alcohol or drug abuse patient.[facility] DaytonIn the event this information is protected by the Federal Confidentiality of Alcohol and Drug Abuse Patient Records regulations: The Federal rules restrict any use of the information to criminally investigate or prosecute any alcohol or drug abuse patient.[facility] DaytonIn the event this information is protected by the Federal Confidentiality of Alcohol and Drug Abuse Patient Records regulations: The Federal rules restrict any use of the information to criminally investigate or prosecute any alcohol or drug abuse patient.[facility] DaytonIn the event this information is protected by the Federal Confidentiality of Alcohol and Drug Abuse Patient Records regulations: The Federal rules restrict any use of the information to criminally investigate or prosecute any alcohol or drug abuse patient.[facility] DaytonIn the event this information is protected by the Federal Confidentiality of Alcohol and Drug Abuse Patient Records regulations: The Federal rules restrict any use of the information to criminally investigate or prosecute any alcohol or drug abuse patient.[facility] DaytonIn the event this information is protected by the Federal Confidentiality of Alcohol and Drug Abuse Patient Records regulations: The Federal rules restrict any use of the information to criminally investigate or prosecute any alcohol or drug abuse patient.[facility] DaytonIn the event this information is protected by the Federal Confidentiality of Alcohol and Drug Abuse Patient Records regulations: The Federal rules restrict any use of the information to criminally investigate or prosecute any alcohol or drug abuse patient.[facility] DaytonIn the event this information is protected by the Federal Confidentiality of Alcohol and Drug Abuse Patient Records regulations: The Federal rules restrict any use of the information to criminally investigate or prosecute any alcohol or drug abuse patient.[facility] DaytonIn the event this information is protected by the Federal Confidentiality of Alcohol and Drug Abuse Patient Records regulations: The Federal rules restrict any use of the information to criminally investigate or prosecute any alcohol or drug abuse patient.[facility] DaytonIn the event this information is protected by the Federal Confidentiality of Alcohol and Drug Abuse Patient Records regulations: The Federal rules restrict any use of the information to criminally investigate or prosecute any alcohol or drug abuse patient.[facility] DaytonIn the event this information is protected by the Federal Confidentiality of Alcohol and Drug Abuse Patient Records regulations: The Federal rules restrict any use of the information to criminally investigate or prosecute any alcohol or drug abuse patient.[facility] DaytonIn the event this information is protected by the Federal Confidentiality of Alcohol and Drug Abuse Patient Records regulations: The Federal rules restrict any use of the information to criminally investigate or prosecute any alcohol or drug abuse patient.[facility] DaytonIn the event this information is protected by the Federal Confidentiality of Alcohol and Drug Abuse Patient Records regulations: The Federal rules restrict any use of the information to criminally investigate or prosecute any alcohol or drug abuse patient.[facility] DaytonIn the event this information is protected by the Federal Confidentiality of Alcohol and Drug Abuse Patient Records regulations: The Federal rules restrict any use of the information to criminally investigate or prosecute any alcohol or drug abuse patient.[facility] DaytonIn the event this information is protected by the Federal Confidentiality of Alcohol and Drug Abuse Patient Records regulations: The Federal rules restrict any use of the information to criminally investigate or prosecute any alcohol or drug abuse patient.[facility] DaytonIn the event this information is protected by the Federal Confidentiality of Alcohol and Drug Abuse Patient Records regulations: The Federal rules restrict any use of the information to criminally investigate or prosecute any alcohol or drug abuse patient.[facility] Reason for Visit (unrecogniz ed section and content) Reason Comments New Patient Post surgery complic ations ( Dr. Evan miller in [place] ) Reason Comments Med Change Request Reason Comments Medical Nutrition Therapy Diabetes Manag ement Specialty Diagnoses / [facility] To Contact Diagnoses Uncontrolled type 2 diabetes mellitus with hyperglycemia (HCC) Procedures ENDOCRINOLOGY DIETITIAN VISIT (MNT) OFFICE/OUTPATIENT NEW HIGH MDM 60-74 MINUTES Caitlin Ramesh APRN.CNP [id number] [place] [address] Referral ID Status Reason Start Date Expiration Date V isits Requested Visits Authorized [id number] Closed PCP Requested Referral 10/07/2022 10/07/2023 1 1 Reason Comments Establish Care Reason Comments Follow Up Reason Comments Physical Reason Comments Appointment Reason Comments Orders Reason Onset Date Comments Refill Request 02/23/2023 Reason Comments Non-insulin Dependent Diabetes Mellitus Reason Comments MONET camacho Reason Onset Date Comments Opened In Error 05/07/2023 Reason Comments Follow Up Reason Comments Sundeep HEALY Reason Onset Date Comments Refill Request 06/10/2023 Reason Comments Insurance Authorization [employer] Approva l Reason Comments Insurance Authorization testosterone Reason Onset Date Comments Refill Request 09/26/2023 Reason Comments Non-insulin Dependent Diabetes Mellitus Obesity Reason Comments Insurance Authorization Glucose Monitor= [employer] Reason Onset Date Comments Refill Request 10/21/2023 Reason Onset Date Comments Refill Request 11/21/2023 Reason Comments ANNUAL Annual w/ breast exa mination Reason Comments Medical Weight Management Specialty Diagnoses / Procedures [facility] To Contact Diagnoses Type 2 diabetes mellitus without complication, without long-term current use of insulin (HCC) BMI 40.0-44.9, adult ([facility]) Class 3 severe obesity with body mass index (BMI) of 40.0 to 44.9 in adult, unspecified obesity type, unspecified whether serious comorbidity present (HCC) Procedures ENDOCRINE MEDICAL WEIGHT MANAGEMENT OFFICE/OUTPATIENT NEW HIGH MDM 60 MINUTES Yandel Eldridge PA-C [address] [place] [address] Referral ID Status Reason Start Date Expiration Date V isits Requested Visits Authorized [id number] Closed PCP Requested Referral 11/17/2023 11/16/2024 1 1 Reason Comments New Patient Patient is transferr ing care from [place] Reason Onset Date Comments Refill Request 02/27/2024 Reason Comments Results Reason Comments leukocytosis New patient consulta tion Reason Comments PA needed for RX testosterone enanthate Reason Comments Medical Weight Management Reason Comments Refill Request Reason Comments Follow Up Gender Care Reason Onset Date Comments Refill Request 08/30/2024 Reason Comments High Blood Sugar Post- heart attack Reason Comments Medication Problem Reason Onset Date Comments Refill Request 10/13/2024 Reason Comments Follow Up HRT Reason Comments Patient Update Reason Comments [facility] Care Teams (unrecognized sec tion and content) Taffy Puller Relationship Specialty Start Date End Date de Lc Price [address] [place] [address] PCP - General Family Medicine 02/24/24 Taffy Puller Relationship Specialty Start Date End Date de Lc Price [address] [place] [address] PCP - General Family Medicine 02/24/24 Taffy Puller Relationship Specialty Start Date End Date de Lc Price [address] [place] [address] PCP - General Family Medicine 02/24/24 Taffy Puller Relationship Specialty Start Date End Date de Lc Price [address] [place] [address] PCP - General Family Medicine 02/24/24 Taffy Puller Relationship Specialty Start Date End Date de Lc Price [address] [place] [address] PCP - General Family Medicine 02/24/24 Taffy Puller Relationship Specialty Start Date End Date de Lc Price [address] [place] [address] PCP - General Family Medicine 02/24/24 Taffy Puller Relationship Specialty Start Date End Date de Lc Price PCP - General Family Medicine 02/24/24 Taffy Puller Relationship Specialty Start Date End Date de , Lc Dey PCP - General Family Medicine 02/24/24 Taffy Puller Relationship Specialty Start Date End Date de Dee, Lc Dey [address] [place] [address] PCP - General Family Medicine 02/24/24 Taffy Puller Relationship Specialty Start Date End Date de , Lc Dey PCP - General Family Medicine 02/24/24 Taffy Puller Relationship Specialty Start Date End Date de , Lc Dey PCP - General Family Medicine 02/24/24 Taffy Puller Relationship Specialty Start Date End Date de , Lc Dey PCP - General Family Medicine 02/24/24 Taffy Puller Relationship Specialty Start Date End Date de , Lc Dey PCP - General Family Medicine 02/24/24 Taffy Puller Relationship Specialty Start Date End Date de , Lc Dey PCP - General Family Medicine 02/24/24 Taffy Puller Relationship Specialty Start Date End Date de , Lc Dey PCP - General Family Medicine 02/24/24 Taffy Puller Relationship Specialty Start Date End Date de Dee, Lc Dey PCP - General Family Medicine 02/24/24 FOR RECORDS PERTAINING TO PATIENTS WHO ARE OR HAVE BEEN ENROLLED IN A CHEMICAL DEPENDENCY/SUBSTANCEABUSE PROGRAM, SOME INFORMATION MAY BE OMITTED. This clinical summary was aggregated from multiple sources. Caution should be exercised in using it in the provision of clinical care. This summary normalizes information from multiple sources, and as a consequence, information in this document may materially change the coding, format and clinical context of patient data. In addition, data may be omitted in some cases. CLINICAL DECISIONS SHOULD BE BASED ON THE PRIMARY CLINICAL RECORDS. [facility] [employer] [facility] provides no warranty or guarantee of the accuracy or completeness of information in this document.
== END 2024-11-22 15:38 | disposition home or self-care (01) ==
LOC: SLEEP 15:38
PROVIDERS: PCP Internal Medicine Cardiovascular Disease; Visit Provider Internal Medicine Cardiovascular Disease
DX: G47.33 Obstructive sleep apnea (adult) (pediatric) (principal)
CPT/HCPCS: 95806